=== PATIENT | male | born 1955 | race Caucasian/White ===

== ENCOUNTER 2016-10-13 10:09 | Inpatient (IN) | payer MEDICAID, OTHER ==
[~2016-10-13] VITALS: Ht 190.5 cm; Wt 77.2 kg
[2016-10-13] VITALS (7 sets, daily range): BP systolic 113–149; BP diastolic 71–98; PULSE 78–107; RESP 15–20; TEMP 96.3–97.8; O2SAT 95–98
[~2016-10-13 10:09] MED LIST: BENA25TA5 PO; PRED10 PO
[2016-10-13] MEDS ORDERED: ALBU0.63 NEB (10:35)
[2016-10-13] MEDS ORDERED: O2 INH (10:35)
[2016-10-13] MEDS ORDERED: ONDANSETRON HCL 4 MG/2 ML VIAL IVP ONE (10:45)
[2016-10-13] MEDS ORDERED: SODIUM CHLOR 0.9% 1000 ML INJ 1,000 ML IV SCH (10:45)
[2016-10-13] MEDS ORDERED: SODIUM CHLORIDE 0.9% FLUSH 5 ML FLUSH IVF PRN (10:45)
[2016-10-13] MEDS ORDERED: MORPHINE SULFATE 4 MG/ML INJ IV PUSH ONE (10:45)
[2016-10-13 10:56] LABS: AUTOMATED NEUTROPHIL # 5.2 TH/MM3 (1.8-7.7); BASOPHIL # 0.1 TH/MM3 (0-0.2); EOSINOPHIL # 0.7 TH/MM3 (0-0.4); EOSINOPHIL % 9.5 % (0.0-4.0); HEMATOCRIT 42.3 % (39.0-51.0); HEMO FLAGS DIFF FINAL; LYMPH % 13.4 % (9.0-44.0); MEAN CELL VOLUME 93.2 FL (80.0-100.0); MEAN CORPUSCULAR HEMOGLOBIN 31.7 PG (27.0-34.0); MONO % 8.9 % (0.0-8.0); NEUT % 67.2 % (16.0-70.0); PLATELET COUNT 276 TH/MM3 (150-450); RED BLOOD COUNT 4.53 MIL/MM3 (4.50-5.90); RED CELL DISTRIBUTION WIDTH 12.4 % (11.6-17.2); WHITE BLOOD COUNT 7.7 TH/MM3 (4.0-11.0)
[2016-10-13] MEDS ORDERED: HYDROmorphone HCL PF 1 MG/ML VIAL IV PUSH ONE (11:00)
[2016-10-13 11:07] LABS: CHLORIDE 93 MEQ/L (98-107); POTASSIUM 3.2 MEQ/L (3.5-5.1); SODIUM (NA) 135 MEQ/L (136-145)
[2016-10-13 11:11] LABS: ANION GAP 13 MEQ/L (5-15); BLOOD UREA NITROGEN 16 MG/DL (7-18)
[2016-10-13 11:14] LABS: ALT (GPT) 14 U/L (12-78); AST (GOT) 27 U/L (15-37); GLOMERULAR FILTRATION RATE 116 ML/MIN (>89)
[2016-10-13 11:15] LABS: TOTAL BILIRUBIN ADULT 0.6 MG/DL (0.2-1.0)
[2016-10-13 11:17] LABS: ALKALINE PHOSPHATASE 93 U/L (45-117)
[2016-10-13] MEDS ORDERED: RESP: ALBUTEROL 2.5 MG/3 ML NEB (SCH) NEB ONE (12:30)
--- NOTE | 2016-10-13 12:43 | PD ---
HPI Chief Complaint: Respiratory Symptoms Time Seen by Provider: 10:27 Travel History International Travel<30 days: No Contact w/Intl Traveler<30days: No Traveled to known affect area: No History of Present Illness HPI This is a 60-year-old male who was a history of pancreatitis and prior pseudocyst who presents to the emergency department with 3 days of left upper quadrant abdominal pain, constant, severe, radiating to the back associated with multiple episodes of vomiting. He denies any fevers or chills. He says this feels just like when he had pancreatitis in the past. He also has a history of COPD. He uses oxygen as needed at nighttime. He says he's been having increasing shortness of breath ever since onset of his pancreatitis symptoms. 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 beer) Tobacco Use: No (QUIT 1.5 MONTH AGO) Substance Use: No Allergies-Medications (Allergen,Severity, Reaction): Coded Allergies: No Known Allergies (Unverified , 10/13/16) Reported Meds & Prescriptions Reported Meds & Active Scripts Active Reported [O2] 2 Liter INH DIRECTED Albuterol Neb (Albuterol Sulfate) 0.63 Mg/3 Ml Neb 0.63 Mg NEB Q4HR NEB PRN Review of Systems Except as stated in HPI: all other systems reviewed are Neg Physical Exam Narrative GENERAL: Frail chronically ill-appearing male in no acute distress SKIN: Warm and dry. HEAD: Atraumatic. Normocephalic. EYES: Pupils equal and round. No injection or drainage. ENT: Moist mucous membranes NECK: Trachea midline. CARDIOVASCULAR: Regular rate and rhythm. No murmur appreciated. RESPIRATORY: Clear to auscultation. Breath sounds equal bilaterally. GASTROINTESTINAL: Abdomen soft, diffusely tender to palpation with guarding in the left upper quadrant MUSCULOSKELETAL: No obvious deformities. NEUROLOGICAL: Awake and alert. No obvious cranial nerve deficits. Moving all extremities. PSYCHIATRIC: Appropriate mood and affect; insight and judgment normal. Data Data Last Documented VS Vital Signs Date Time Temp Pulse Resp B/P Pulse Ox O2 Delivery O2 Flow Rate FiO2 10/13/16 12:45 86 16 126/80 97 Room Air 10/13/16 12:32 21 10/13/16 10:21 97.8 Orders Complete Blood Count With Diff (10/13/16 10:45) Comprehensive Metabolic Panel (10/13/16 10:45) Lipase (10/13/16 10:45) Lactic Acid (10/13/16 10:45) Urinalysis - C+S If Indicated (10/13/16 10:45) Iv Access Insert/Monitor (10/13/16 10:45) Ecg Monitoring (10/13/16 10:45) Oximetry (10/13/16 10:45) Morphine Inj (Morphine Inj) (10/13/16 10:45) Ondansetron Inj (Zofran Inj) (10/13/16 10:45) Sodium Chlor 0.9% 1000 Ml Inj (Ns 1000 M (10/13/16 10:45) Sodium Chloride 0.9% Flush (Ns Flush) (10/13/16 10:45) Hydromorphone Pf Inj (Dilaudid Pf Inj) (10/13/16 11:00) Albuterol Neb (Albuterol Neb) (10/13/16 12:30) Ct Abd/Pel W Iv Contrast(Rout) (10/13/16 ) Methylprednisolone So Succ Inj (Solumedr (10/13/16 12:45) Admit Order (Ed Use Only) (10/13/16 12:43) Labs Laboratory Tests Test 10/13/16 10:45 White Blood Count 7.7 TH/MM3 Red Blood Count 4.53 MIL/MM3 Hemoglobin 14.4 GM/DL Hematocrit 42.3 % Mean Corpuscular Volume 93.2 FL Mean Corpuscular Hemoglobin 31.7 PG Mean Corpuscular Hemoglobin 34.0 % Concent Red Cell Distribution Width 12.4 % Platelet Count 276 TH/MM3 Mean Platelet Volume 7.4 FL Neutrophils (%) (Auto) 67.2 % Lymphocytes (%) (Auto) 13.4 % Monocytes (%) (Auto) 8.9 % Eosinophils (%) (Auto) 9.5 % Basophils (%) (Auto) 1.0 % Neutrophils # (Auto) 5.2 TH/MM3 Lymphocytes # (Auto) 1.0 TH/MM3 Monocytes # (Auto) 0.7 TH/MM3 Eosinophils # (Auto) 0.7 TH/MM3 Basophils # (Auto) 0.1 TH/MM3 CBC Comment DIFF FINAL Differential Comment Sodium Level 135 MEQ/L Potassium Level 3.2 MEQ/L Chloride Level 93 MEQ/L Carbon Dioxide Level 29.0 MEQ/L Anion Gap 13 MEQ/L Blood Urea Nitrogen 16 MG/DL Creatinine 0.69 MG/DL Estimat Glomerular Filtration 116 ML/MIN Rate Random Glucose 106 MG/DL Lactic Acid Level 2.1 mmol/L Calcium Level 8.4 MG/DL Total Bilirubin 0.6 MG/DL Aspartate Amino Transf 27 U/L (AST/SGOT) Alanine Aminotransferase 14 U/L (ALT/SGPT) Alkaline Phosphatase 93 U/L Total Protein 8.0 GM/DL Albumin 2.8 GM/DL Lipase 8948 U/L [facility] Medical Decision Making Medical Screen Exam Complete: Yes Emergency Medical Condition: Yes Interpretation(s) Afebrile, tachycardic, hypertensive No leukocytosis Mild hypokalemia Lactic acid is 2.1 Lipase is 8948 Differential Diagnosis Acute pancreatitis, pseudocyst, necrotizing pancreatitis, gastritis, cholecystitis Narrative Course This is a 60-year-old male who has a history of pancreatitis who presents today to the emergency department with symptoms typical of his pancreatitis. Patient was placed on a monitored an IV was established. Labs are obtained which demonstrated normal white blood cell count but a lipase of 8948. He has a lactic acid of 2.1. I doubt this is necrotizing pancreatitis given his other reassuring labs however given his history of pseudocyst I think it's reasonable to perform a CT scan. Patient also has diffuse wheezing on exam. He was given a dose of methylprednisolone and albuterol in the emergency department. Patient will be admitted for pain control. Diagnosis Primary Impression: Acute pancreatitis Qualified Code: K85.90 - Acute pancreatitis without infection or necrosis, unspecified pancreatitis type Admitting Information Admitting Physician Requests: Admit Dixie Seaman MD Oct 13, 2016 12:43
[2016-10-13] MEDS ORDERED: methylPREDNISolone SOD SUCC 125 MG/2 ML VIAL IV PUSH ONE (12:45)
[2016-10-13] MEDS ORDERED: IOHEXOL 350 MG/ML 10 ML VIAL (for RAD DIAG) IV ONE (13:45)
--- NOTE | 2016-10-13 14:49 | RADHPO ---
EXAM DATE/TIME: 10/13/2016 13:38 [facility] COMPARISON: CT ABDOMEN W CONTRAST, May 01, 2014, 19:01. CT ABDOMEN & PELVIS W CONTRAST, April 21, 2014, 9:48. INDICATIONS : Left upper abdomen pain for three days. IV CONTRAST: 70 cc Omnipaque 350 (iohexol) IV ORAL CONTRAST: No oral contrast ingested. RADIATION DOSE: 5.78 CTDIvol (mGy) MEDICAL HISTORY : Pancreatitis. Congestive heart failure. Gastroesophageal reflux disease. SURGICAL HISTORY : PEG tube placement ENCOUNTER: Initial ACUITY: 3 days PAIN SCALE: 6/10 LOCATION: Left upper quadrant TECHNIQUE: Volumetric scanning of the abdomen and pelvis was performed. Using automated exposure control and ad justment of the mA and/or kV according to patient size, radiation dose was kept as low as reasonably achievable to obtain optimal diagnostic quality images. FINDINGS: LOWER LUNGS: The visualized lower lungs are clear. LIVER: Severe low-density of the liver particularly in the left lobe. Hepatic veins are within normal limits . There is narrowing of the central portal vein with periportal collateral vessels. No calcified gall stones are present. No ductal dilatation is visualized. SPLEEN: Normal size without lesion. PANCREAS: Main pancreatic duct measures between 2 and 3 mm. There are collateral vessels coursing through the h ead. There is a low density mass superior to the pancreatic head measuring 3.0 x 2.1 cm with a very l ow density center. This location previously was a more cystic appearing lesion of similar size. There is induration of the fat superior to this region and the gastrohepatic ligament region. KIDNEYS: Normal in size and shape. There is no mass, stone or hydronephrosis. ADRENAL GLANDS: Within normal limits. VASCULAR: There is no aortic aneurysm. There is moderate atherosclerotic disease. Splenic vein may be occluded. BOWEL/MESENTERY: There is a small hiatal hernia. Small bowel demonstrates no abnormality. No colon abnormality is seen . There is a small volume of free fluid in the pelvis. There is no free air. There is trace perihepat ic free fluid. ABDOMINAL WALL: Within normal limits. RETROPERITONEUM: There is no lymphadenopathy. BLADDER: No wall thickening or mass. REPRODUCTIVE: Within normal limits. INGUINAL: There is no lymphadenopathy or hernia. MUSCULOSKELETAL: No acute osseous abnormality is seen. CONCLUSION: 1. There is a low-density mass abutting indirectly superior to the pancreatic head adjacent to the me senteric vessels. It measures 3.0 x 2.1 cm and is located in a similar location to a cystic lesion se en on prior studies that was felt to represent a pseudocyst. Therefore, it may represent a similar pr ocess. However, an abnormal lymph node or mass cannot definitely be excluded. 2. There is also mild induration in the fat adjacent to this structure which could represent inflamma tion. 3. Small volume of free fluid is present within the abdomen and pelvis. 4. Severe hepatic steatosis with chronic occlusion of the central portal vein with periportal collate ralization. Jorgito Baumann MD on October 13, 2016 at 14:40 Board Certified Radiologist. This report was verified electronically.
[2016-10-13] MEDS ORDERED: NS + KCL 20 MEQ INJ 1,000 ML IV SCH (16:00)
[2016-10-13] MEDS: KETOROLAC TROMETHAMINE 30 MG/ML (IVP) VIAL IVP PRN ×2 (16:40→23:23)
--- NOTE | 2016-10-13 18:09 | HHI.HP ---
[facility] Primary Care Physician No Primary Care Physician Admission Diagnosis acute pancreatitis Diagnoses: Travel History International Travel<30 Days: No Contact w/Intl Traveler <30 Da: No Traveled to Known Affected Are: No History of Present Illness This is a very pleasant 60 year-old male with past medical history of pancreatitis of undetermined etiology in 2013 which was quite severe and recurrent with pseudocyst formation associated with 70 pound weight loss. At that time he had a PEG tube for nutrition. The patient states he has never gained his weight back. He does occasionally get epigastric pain consistent with chronic pancreatitis. He had such pain beginning 3 days ago. He has not had any vomiting. This morning he ate at [employer] and had has pounds and eggs. Again he has not had any vomiting. He came to the ER because he was still having the pain. He is hungry and wants to eat. Abdominal CT scan did show a mass versus pseudocyst in the pancreatic head as well as mild induration in the fat adjacent to this structure which could represent inflammation and a small amount of free fluid in the abdomen as well as severe hepatic stated ptosis with chronic occlusion of the central portal vein with. Portal collateralization. The patient admits to drinking alcohol 1-2 beers weekly. The patient also has a rash but she states used to be treated with prednisone. He states it is itchy and he scratches his skin until it bleeds. Review of Systems Constitutional: DENIES: Fever, Chills Respiratory: DENIES: Cough, Shortness of breath Cardiovascular: DENIES: Chest pain, Palpitations Gastrointestinal: COMPLAINS OF: Nausea, DENIES: Abdominal pain, Bloody stools , Constipation, Vomiting Genitourinary: DENIES: Urgency, Dysuria Musculoskeletal: DENIES: Back pain, Neck pain Integumentary: COMPLAINS OF: Pruritus, Rash Neurologic: COMPLAINS OF: Paresthesias (neuropathy in feet), DENIES: Abnormal gait, Headache Psychiatric: DENIES: Anxiety, Confusion Past Family Social History Past Medical History Cardiomyopathy-EF of 30-35% by echo. Pancreatitis with previous pseudocyst, likely chronic pancreatitis Right Pleural effusions COPD on O2 at night History of colitis neuropathy Allergies: Coded Allergies: No Known Allergies (Unverified , 10/13/16) Family History reviewed, [place] Social History +tobacco Physical Exam Vital Signs Vital Signs Date Time Temp Pulse Resp B/P Pulse Ox O2 Delivery O2 Flow Rate FiO2 10/13/16 13:55 85 16 113/71 96 10/13/16 12:52 93 16 126/80 95 Room Air 10/13/16 12:45 86 16 126/80 97 Room Air 10/13/16 12:32 97 21 10/13/16 10:31 20 97 Room Air 10/13/16 10:21 97.8 107 20 149/98 96 Physical Exam GENERAL: Pleasant but cachectic male patient. Somewhat unkempt. SKIN: Warm and dry. Excoriated rash on right hand. HEAD: Normocephalic. EYES: No scleral icterus. No injection or drainage. NECK: Supple, trachea midline. No JVD or lymphadenopathy. CARDIOVASCULAR: Regular rate and rhythm without murmurs, gallops, or rubs. RESPIRATORY: Breath sounds equal bilaterally. No accessory muscle use. GASTROINTESTINAL: Abdomen tender in epigastrium without guarding. Scaphoid. EXTREMITIES: No cyanosis, or edema. NEUROLOGICAL: Awake, alert, and oriented x 3. Non-focal. Laboratory Laboratory Tests Test 10/13/16 10/13/16 10:45 17:20 White Blood Count 7.7 Red Blood Count 4.53 Hemoglobin 14.4 Hematocrit 42.3 Mean Corpuscular Volume 93.2 Mean Corpuscular Hemoglobin 31.7 Mean Corpuscular Hemoglobin 34.0 Concent Red Cell Distribution Width 12.4 Platelet Count 276 Mean Platelet Volume 7.4 Neutrophils (%) (Auto) 67.2 Lymphocytes (%) (Auto) 13.4 Monocytes (%) (Auto) 8.9 Eosinophils (%) (Auto) 9.5 Basophils (%) (Auto) 1.0 Neutrophils # (Auto) 5.2 Lymphocytes # (Auto) 1.0 Monocytes # (Auto) 0.7 Eosinophils # (Auto) 0.7 Basophils # (Auto) 0.1 CBC Comment DIFF FINAL Differential Comment Sodium Level 135 Potassium Level 3.2 Chloride Level 93 Carbon Dioxide Level 29.0 Anion Gap 13 Blood Urea Nitrogen 16 Creatinine 0.69 Estimat Glomerular Filtration 116 Rate Random Glucose 106 Lactic Acid Level 2.1 1.5 Calcium Level 8.4 Total Bilirubin 0.6 Aspartate Amino Transf 27 (AST/SGOT) Alanine Aminotransferase 14 (ALT/SGPT) Alkaline Phosphatase 93 Total Protein 8.0 Albumin 2.8 Lipase 8948 Result Diagram: 10/13/16 1045 10/13/16 1045 Imaging Last Impressions Abdomen/Pelvis CT 10/13/16 0000 Signed Impressions: Service Date/Time: Thursday, October 13, 2016 13:38 - CONCLUSION: 1. There is a low-density mass abutting indirectly superior to the pancreatic head adjacent to the mesenteric vessels. It measures 3.0 x 2.1 cm and is located in a similar location to a cystic lesion seen on prior studies that was felt to represent a pseudocyst. Therefore, it may represent a similar process. However, an abnormal lymph node or mass cannot definitely be excluded. 2. There is also mild induration in the fat adjacent to this structure which could represent inflammation. 3. Small volume of free fluid is present within the abdomen and pelvis. 4. 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 Jorgito Baumann MD Assessment and Plan Assessment and Plan -Acute on chronic pancreatitis. He has no symptoms of vomiting. He does have a mass versus pseudocyst however this was worked up extensively in 2013 and is likely just the same pseudocyst. The patient is hungry and would like to eat. He was actually eating [employer] for breakfast this morning. We'll let him eat and see how he does. Repeat lipase in the morning. Pain control. Will DC IV fluids as he has a history of cardiomyopathy. Consider MRI of abd. Consider GI consult. -Rash - start prednisone -Cardiomyopathy - fluid compensated, DC IVF. [facility] Ramos MD Oct 13, 2016 18:09
[2016-10-13] MEDS: SODIUM CHLORIDE 0.9% FLUSH 5 ML FLUSH IV SCH (20:33)
[2016-10-13] MEDS: predniSONE 10 MG TAB PO SCH (20:33)
[2016-10-13] MEDS: PANTOPRAZOLE SOD 40 MG DELAYED RELEASE TAB PO SCH (20:33)
[2016-10-13] MEDS: SODIUM CHLORIDE 0.9% FLUSH 5 ML FLUSH IV PRN (23:23)
[2016-10-14] VITALS: BP 120/87; PULSE 97; RESP 20; TEMP 97.4; O2SAT 98
[2016-10-14] MEDS: KETOROLAC TROMETHAMINE 30 MG/ML (IVP) VIAL IVP PRN (05:37)
[2016-10-14] MEDS: RESP: ALBUTEROL 2.5 MG/IPRATROPIUM 0.5 MG NEB (PRN) NEB ×2 (05:45→15:48)
[2016-10-14 08:00] VITALS: BP 113/75; PULSE 89; RESP 18; TEMP 97.5; O2SAT 96
[2016-10-14] MEDS: SODIUM CHLORIDE 0.9% FLUSH 5 ML FLUSH IV SCH ×2 (10:04→20:22)
[2016-10-14] MEDS: predniSONE 10 MG TAB PO SCH ×2 (10:04→20:22)
[2016-10-14] MEDS: PANTOPRAZOLE SOD 40 MG DELAYED RELEASE TAB PO SCH ×2 (10:04→20:22)
[2016-10-14] MEDS ORDERED: oxyCODONE/ACETAMINOPHEN 5 MG/325 MG TAB PO PRN (11:45)
[2016-10-14 12:00] VITALS: BP 117/64; PULSE 90; RESP 18; TEMP 96.9; O2SAT 97
[2016-10-14] MEDS ORDERED: oxyCODONE/ACETAMINOPHEN 10 MG/325 MG TAB PO ONE (12:15)
--- NOTE | 2016-10-14 14:28 | HHI.PR ---
Subjective Remarks Patient seen and examined today with Dr. Parra. Patient states still have been significant abdominal pain whenever he eats. Toradol not really helping with the pain. Patient is tolerating food to include milk and oatmeal. Objective Vitals Vital Signs Date Time Temp Pulse Resp B/P Pulse Ox O2 Delivery O2 Flow Rate FiO2 10/14/16 12:00 96.9 90 18 117/64 97 10/14/16 08:00 97.5 89 18 113/75 96 10/14/16 04:00 10/14/16 00:00 97.4 97 20 120/87 98 10/13/16 20:00 96.3 79 18 120/81 95 10/13/16 18:53 96.6 78 15 128/86 98 I/O 10/13/16 10/13/16 10/13/16 10/14/16 10/14/16 10/14/16 07:00 15:00 23:00 07:00 15:00 23:00 Intake Total 1000 ml 489 ml 240 ml Balance 1000 ml 489 ml 240 ml Intake Oral 240 ml IV Total 1000 ml 489 ml # Voids 4 Result Diagram: 10/13/16 1045 10/13/16 1045 Objective Remarks GENERAL: Well-developed, cachectic, in no acute distress. alert and orientated HEENT: Head is normocephalic without any lesions or masses noted. Facial features are symmetric. Eyes: Extraocular muscles are intact. Conjunctivae were clear. NECK: Supple without any masses. Trachea midline no deviation. No JVD, CARDIAC: Regular rhythm, regular rate. S1/S2 are heard. No murmurs gallops or rubs. LUNGS: Clear to auscultation bilaterally. No wheeze, rhonchi or rales. No use of accessory muscles on inspiration or expiration. ABDOMEN: Soft, nontender. Nondistended. Bowel sounds heard in all 4 quadrants. No organomegaly or masses. Negative rebound, negative guarding EXTREMITIES: No edema, pulses are equal bilaterally. No cyanosis or clubbing NEUROLOGY: Mood and affect appear appropriate. Cranial nerves II through XII grossly intact. Moving all extremities, speech is clear Urinary Catheter: No Vascular Central Line Catheter: No A/P Assessment and Plan Acute on chronic pancreatitis. He has no symptoms of vomiting. he patient was hungry and actually eating [employer] for breakfast the morning of his symptoms. CT scan does indicate low-density mass likely representing a pseudocyst abutting superior to the pancreatic head adjacent to mesenteric vessels. Is also induration of fat adjacent which could represent inflammation. He was worked up extensively in 2013 and is likely just the same pseudocyst. Continue trend lipase level Continue pain control Consult GI for further recommendations DVT prevention Sequential compression devices Written by Ramin Jansen PA-C, acting as scribe for Dr. Parra on 10/14/16 at 1300. The documentation accurately reflects the work and decisions performed face-to- face by Dr. Parra on 10/14/16 at 1300. Ramin Jansen Oct 14, 2016 14:28
[2016-10-14 16:00] VITALS: BP 108/68; PULSE 86; RESP 18; TEMP 97.3; O2SAT 96
[2016-10-14] MEDS: oxyCODONE/ACETAMINOPHEN 10 MG/325 MG TAB PO PRN ×2 (16:51→21:04)
[2016-10-14 20:00] VITALS: BP 114/72; PULSE 73; RESP 18; TEMP 96.6; O2SAT 98
[2016-10-15] VITALS: BP 139/85; PULSE 71; RESP 16; TEMP 95.8; O2SAT 96
[2016-10-15] MEDS: oxyCODONE/ACETAMINOPHEN 10 MG/325 MG TAB PO PRN ×3 (01:01→09:13)
[2016-10-15 01:16] LABS: BLOOD, URINE NEG (NEG); GLUCOSE,URINE 100 mg/dL (NEG); KETONE, URINE TRACE mg/dL (NEG); NITRITE,URINE NEG (NEG)
[2016-10-15 01:32] LABS: URINE COLOR AMBER (YELLW/STRAW)
[2016-10-15 01:33] LABS: METHOD OF COLLECTION CLEAN CATCH; MUCUS URINE FEW /lpf (OCC); SQUAMOUS EPITHELIAL CELL URINE 0-5 /hpf (0-5)
[2016-10-15 01:34] LABS: BACTERIA, URINE RARE /hpf
[2016-10-15 01:35] LABS: WBC, URINE 0-2 /hpf (0-5)
[2016-10-15 01:36] LABS: COMMENT (UR) CULT NOT INDICATED; CULTURE IF INDICATED CULT NOT INDICATED
[2016-10-15] MEDS: RESP: ALBUTEROL 2.5 MG/IPRATROPIUM 0.5 MG NEB (PRN) NEB (05:22)
[2016-10-15 08:00] VITALS: BP 114/78; PULSE 98; RESP 20; TEMP 96.8; O2SAT 95
[2016-10-15] MEDS: PANTOPRAZOLE SOD 40 MG DELAYED RELEASE TAB PO SCH ×2 (09:13→22:16)
[2016-10-15] MEDS: predniSONE 10 MG TAB PO SCH ×2 (09:13→22:16)
[2016-10-15] MEDS: SODIUM CHLORIDE 0.9% FLUSH 5 ML FLUSH IV SCH ×2 (09:15→21:00)
[2016-10-15 10:55] LABS: HEMATOCRIT 35.5 % (39.0-51.0); RED BLOOD COUNT 3.71 MIL/MM3 (4.50-5.90)
[2016-10-15 10:56] LABS: AUTOMATED NEUTROPHIL # 10.6 TH/MM3 (1.8-7.7); BASOPHIL % 0.3 % (0.0-2.0); EOSINOPHIL % 0.2 % (0.0-4.0); HEMO FLAGS DIFF FINAL; LYMPH % 4.5 % (9.0-44.0); LYMPHOCYTE # 0.5 TH/MM3 (1.0-4.8); MEAN CELL VOLUME 95.7 FL (80.0-100.0); MEAN CORPUSCULAR HEMOGLOBIN 32.7 PG (27.0-34.0); MEAN CORPUSCULAR HGB CONC 34.2 % (32.0-36.0); MONO % 7.7 % (0.0-8.0); NEUT % 87.3 % (16.0-70.0); PLATELET COUNT 225 TH/MM3 (150-450); RED CELL DISTRIBUTION WIDTH 12.8 % (11.6-17.2)
[2016-10-15 11:02] LABS: CHLORIDE 99 MEQ/L (98-107); SODIUM (NA) 139 MEQ/L (136-145)
[2016-10-15 11:06] LABS: ANION GAP 11 MEQ/L (5-15); BICARBONATE 29.5 MEQ/L (21.0-32.0); BLOOD UREA NITROGEN 13 MG/DL (7-18); MAGNESIUM 1.3 MG/DL (1.5-2.5)
[2016-10-15 11:09] LABS: ALT (GPT) 13 U/L (12-78); AST (GOT) 19 U/L (15-37); GLOMERULAR FILTRATION RATE 139 ML/MIN (>89)
[2016-10-15 11:10] LABS: TOTAL BILIRUBIN ADULT 0.6 MG/DL (0.2-1.0)
[2016-10-15 11:12] LABS: ALKALINE PHOSPHATASE 77 U/L (45-117)
[2016-10-15 12:00] VITALS: BP 121/74; PULSE 79; RESP 20; TEMP 97; O2SAT 96
[2016-10-15] MEDS: ONDANSETRON HCL 4 MG/2 ML VIAL IV PRN (12:13)
[2016-10-15 13:51] LABS: CREATINE KINASE 84 U/L (39-308)
[2016-10-15] MEDS: HYDROmorphone HCL PF 1 MG/ML VIAL IV PUSH PRN ×3 (14:35→23:38)
[2016-10-15] MEDS: SODIUM CHLORIDE 0.9% FLUSH 5 ML FLUSH IV PRN (14:36)
--- NOTE | 2016-10-15 14:41 | HHI.PR ---
Subjective Remarks Patient seen and examined today with Dr. Parra. Patient with worsening pain now radiating up into his left shoulder. Patient did eat a little this morning. Objective Vitals Vital Signs Date Time Temp Pulse Resp B/P Pulse Ox O2 Delivery O2 Flow Rate FiO2 10/15/16 12:00 97.0 79 20 121/74 96 10/15/16 08:00 96.8 98 20 114/78 95 10/15/16 00:00 95.8 71 16 139/85 96 10/14/16 20:00 96.6 73 18 114/72 98 10/14/16 16:00 97.3 86 18 108/68 96 I/O 10/14/16 10/14/16 10/14/16 10/15/16 10/15/16 10/15/16 07:00 15:00 23:00 07:00 15:00 23:00 Intake Total 240 ml 675 ml 640 ml 64 ml 420 ml Output Total 850 ml 200 ml 370 ml 250 ml Balance 240 ml -175 ml 440 ml -306 ml 170 ml Intake Oral 240 ml 675 ml 640 ml 64 ml 420 ml Output Urine Total 850 ml 200 ml 370 ml 250 ml # Voids 4 1 # Bowel Movements 0 0 Result Diagram: 10/15/16 0600 10/15/16 0600 Objective Remarks GENERAL: Well-developed, cachectic, in no acute distress. alert and orientated HEENT: Head is normocephalic without any lesions or masses noted. Facial features are symmetric. Eyes: Extraocular muscles are intact. Conjunctivae were clear. NECK: Supple without any masses. Trachea midline no deviation. No JVD, CARDIAC: Regular rhythm, regular rate. S1/S2 are heard. No murmurs gallops or rubs. LUNGS: Clear to auscultation bilaterally. No wheeze, rhonchi or rales. No use of accessory muscles on inspiration or expiration. ABDOMEN: Soft, nontender. Nondistended. Bowel sounds heard in all 4 quadrants. No organomegaly or masses. Negative rebound, negative guarding EXTREMITIES: No edema, pulses are equal bilaterally. No cyanosis or clubbing NEUROLOGY: Mood and affect appear appropriate. Cranial nerves II through XII grossly intact. Moving all extremities, speech is clear Urinary Catheter: No Vascular Central Line Catheter: No A/P Assessment and Plan Acute on chronic pancreatitis. Patient with worsening pain now into the chest and left shoulder with 4 times worsening lipase level today He had no symptoms of vomiting on presentation. he patient was hungry and actually eating [employer] for breakfast the morning of his symptoms. CT scan does indicate low-density mass likely representing a pseudocyst abutting superior to the pancreatic head adjacent to mesenteric vessels. Is also induration of fat adjacent which could represent inflammation. He was worked up extensively in 2013 and is likely just the same pseudocyst. Continue trend lipase level Continue pain control Consult GI for further recommendations, Dr. Parra spoke with Dr. Weiss who recommended MRCP Statin cardiac enzymes were negative, EKG was without any ST elevations DVT prevention Sequential compression devices Written by Ramin Jansen PA-C, acting as scribe for Dr. Parra on 10/15/16 at 1330. The documentation accurately reflects the work and decisions performed face-to- face by Dr. Parra on 10/15/16 at 1330. Ramin Jansen Oct 15, 2016 14:40
[2016-10-15] MEDS ORDERED: GADODIAMIDE PF 287 MG/ML 5 ML VIAL (for RAD MRI) IV ONE (15:55)
--- NOTE | 2016-10-15 16:20 | RADHPO ---
EXAM DATE/TIME: 10/15/2016 15:10 [facility] COMPARISON: CT ABDOMEN & PELVIS W CONTRAST, October 13, 2016, 13:38. INDICATIONS : Pancreatitis. CONTRAST: 12 cc Omniscan (gadodiamide) IV MEDICAL HISTORY : None. SURGICAL HISTORY : Feeding tube ENCOUNTER: Initial ACUITY: 3 day PAIN SCORE: 8/10 LOCATION: Bilateral upper quadrant TECHNIQUE: Multiplanar, multisequence magnetic resonance imaging of the abdomen was performed. High-resolution 3D dataset was utilized to reconstruct maximum-intensity projection (MIP) images. FINDINGS: There is hepatomegaly with homogeneous steatosis. Ascitic fluid is noted around the inferior aspect o f the liver and the gallbladder is seen as a luminal structure without wall thickening or stones, def ects. Intrahepatic bile ducts are normal with the common duct measuring 7 mm and distally a blunted a nd suggesting filling defect or stone. CONCLUSION: Abnormal common duct 7 mm in width however distally this is blunted suggesting a luminal defect or st one. Further evaluation with ERCP is recommended. Yobani Bashir MD on October 15, 2016 at 16:14 Board Certified Radiologist. This report was verified electronically.
[2016-10-15 16:30] VITALS: BP 119/78; PULSE 92; RESP 20; TEMP 97.1; O2SAT 95
[2016-10-15] MEDS: D5-1/2 NS + KCL 20 MEQ INJ 1,000 ML IV SCH (19:38)
[2016-10-15 20:00] VITALS: BP 107/80; PULSE 79; RESP 20; TEMP 96; O2SAT 94
--- NOTE | 2016-10-15 21:54 | EKG ---
Date Performed: 10/13/2016 Time Performed: 10:14:52 PTAGE: 60 years EKG: Sinus tachycardia with PAC(s). Possible left atrial abnormality Left anterior fascicular bl ock Borderline ECG Compared to the PREVIOUS TRACING from 04/15/14, no significant change DOCTOR: Reji Rae Interpretating Date/Time 10/15/2016 21:52:51
[2016-10-16] VITALS (7 sets, daily range): BP systolic 107–139; BP diastolic 74–84; PULSE 89–116; RESP 16–22; TEMP 97.3–97.8; O2SAT 92–98
[2016-10-16] MEDS: HYDROmorphone HCL PF 1 MG/ML VIAL IV PUSH PRN ×5 (06:19→23:56)
[2016-10-16 06:46] LABS: AUTOMATED NEUTROPHIL # 12.2 TH/MM3 (1.8-7.7); BASOPHIL % 0.2 % (0.0-2.0); EOSINOPHIL % 0.1 % (0.0-4.0); HEMATOCRIT 39.9 % (39.0-51.0); LYMPH % 3.9 % (9.0-44.0); LYMPHOCYTE # 0.5 TH/MM3 (1.0-4.8); MEAN CELL VOLUME 96.4 FL (80.0-100.0); MEAN CORPUSCULAR HEMOGLOBIN 31.7 PG (27.0-34.0); MEAN CORPUSCULAR HGB CONC 32.9 % (32.0-36.0); MONO % 5.5 % (0.0-8.0); NEUT % 90.3 % (16.0-70.0); PLATELET COUNT 269 TH/MM3 (150-450); RED BLOOD COUNT 4.15 MIL/MM3 (4.50-5.90); RED CELL DISTRIBUTION WIDTH 13.4 % (11.6-17.2); WHITE BLOOD COUNT 13.4 TH/MM3 (4.0-11.0)
[2016-10-16 06:47] LABS: HEMO FLAGS AUTO DIFF
[2016-10-16 06:49] LABS: CHLORIDE 96 MEQ/L (98-107); POTASSIUM 4.2 MEQ/L (3.5-5.1); SODIUM (NA) 136 MEQ/L (136-145)
[2016-10-16 06:56] LABS: ANION GAP 10 MEQ/L (5-15); BICARBONATE 30.1 MEQ/L (21.0-32.0); BLOOD UREA NITROGEN 13 MG/DL (7-18)
[2016-10-16 06:58] LABS: ALT (GPT) 12 U/L (12-78); AST (GOT) 19 U/L (15-37)
[2016-10-16 06:59] LABS: GLOMERULAR FILTRATION RATE 116 ML/MIN (>89)
[2016-10-16 07:00] LABS: TOTAL BILIRUBIN ADULT 0.7 MG/DL (0.2-1.0)
[2016-10-16 07:01] LABS: ALKALINE PHOSPHATASE 63 U/L (45-117)
[2016-10-16 07:22] LABS: SCAN/DIFF AUTO DIFF CONFIRMED
[2016-10-16] MEDS: RESP: ALBUTEROL 2.5 MG/IPRATROPIUM 0.5 MG NEB (PRN) NEB ×2 (07:38→21:13)
--- NOTE | 2016-10-16 08:35 | MB ---
cc: BHARAT BOO M.D.,PAULY Anthony MD DATE OF CONSULTATION 10/15/[address] Parra REASON FOR CONSULTATION Chronic recurrent pancreatitis, weight loss, abdominal pain, MRCP revealing the possibility of a filling defect in the distal common bile duct. HISTORY Mr. Nathan is a 60-year-old gentleman who had a very extensive hospital stay two years ago for pancreatitis. Workup at that time did not reveal a definitive etiology of pancreatitis as far as I could tell. He does drink alcohol, but it is very minimal. He says he did reasonably well in the interim two years, but then presents again with severe abdominal pain and biochemical evidence of pancreatitis. REVIEW OF SYSTEMS Abdominal pain, nausea, but no other symptoms. PAST MEDICAL HISTORY 1. Cardiomyopathy 2. Pancreatitis with pseudocyst formation in the past 3. COPD 4. History of colitis 5. Neuropathy FAMILY HISTORY Noncontributory SOCIAL HISTORY The patient is a smoker. Drinks one to two beers a week. PHYSICAL EXAM Physical examination reveals a cachectic looking man in no apparent distress. VITALS: Stable. HEAD AND NECK: Anicteric sclerae. CHEST: Bilateral air entry with rales. ABDOMEN: Soft, tenderness in the epigastric area with some guarding and rigidity. EELER: Exam is nonfocal. LABORATORY DATA Labs reveal a lipase of 17,280. White cell count of 12. Liver function tests are normal. An MRCP reveals a dilated common bile duct at 7 mm with a possible stone in the distal CBD. IMPRESSION Biliary pancreatitis RECOMMENDATIONS The patient to be transferred to [facility] for possible ERCP tomorrow. He did have an ERCP April 22, 2014 which was normal at that time. N.p.o. with IV fluid, aggressive rehydration is recommended. Further recommendations to follow. This has been discussed with primary care team. Thank you for this referral. MD WARREN Bhakta/KALE /7:54 PM /8:29 AM
[2016-10-16] MEDS: SODIUM CHLORIDE 0.9% FLUSH 5 ML FLUSH IV SCH ×2 (09:00→21:00)
[2016-10-16] MEDS ORDERED: MAGNESIUM SULFATE 1 GM PREMIX 100 ML IV ONE (09:45)
[2016-10-16] MEDS: predniSONE 10 MG TAB PO SCH ×2 (09:59→21:11)
[2016-10-16] MEDS: PANTOPRAZOLE SOD 40 MG DELAYED RELEASE TAB PO SCH ×2 (09:59→21:11)
[2016-10-16] MEDS: D5-1/2 NS + KCL 20 MEQ INJ 1,000 ML IV SCH ×2 (10:10→15:23)
--- NOTE | 2016-10-16 16:02 | HHI.PR ---
Subjective Remarks Vision seen this afternoon around 3:30. He says that epigastric pain is slightly improved. He is requesting a diet. He denies any nausea or vomiting today. Objective Vital Signs Date Time Temp Pulse Resp B/P Pulse Ox O2 Delivery O2 Flow Rate FiO2 10/16/16 14:37 97.3 98 18 134/83 98 10/16/16 08:00 97.7 89 18 139/78 93 10/16/16 07:39 94 21 10/16/16 00:00 97.8 98 18 107/82 94 10/15/16 20:00 96.0 79 20 107/80 94 10/15/16 16:30 97.1 92 20 119/78 95 I/O 10/15/16 10/15/16 10/15/16 10/16/16 10/16/16 10/16/16 07:00 15:00 23:00 07:00 15:00 23:00 Intake Total 64 ml 995 ml 1024 ml Output Total 370 ml 250 ml Balance -306 ml 745 ml 1024 ml Intake Oral 64 ml 420 ml 640 ml IV Total 575 ml 384 ml Output Urine Total 370 ml 250 ml # Voids 1 3 # Bowel Movements 0 Result Diagram: 10/16/16 0550 10/16/16 0550 Imaging Last Impressions Cholangiopancreatography MRI 10/15/16 0000 Signed Impressions: Service Date/Time: Saturday, October 15, 2016 15:10 - CONCLUSION: Abnormal common duct 7 mm in width however distally this is blunted suggesting a luminal defect or stone. Further evaluation with ERCP is recommended. Yobani Bashir MD Abdomen/Pelvis CT 10/13/16 0000 Signed Impressions: Service Date/Time: Thursday, October 13, 2016 13:38 - CONCLUSION: 1. There is a low-density mass abutting indirectly superior to the pancreatic head adjacent to the mesenteric vessels. It measures 3.0 x 2.1 cm and is located in a similar location to a cystic lesion seen on prior studies that was felt to represent a pseudocyst. Therefore, it may represent a similar process. However, an abnormal lymph node or mass cannot definitely be excluded. 2. There is also mild induration in the fat adjacent to this structure which could represent inflammation. 3. Small volume of free fluid is present within the abdomen and pelvis. 4. 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 Jorgito Baumann MD Objective Remarks GENERAL: Patient sitting up in bed. Appears couple. He is alert and oriented 3 SKIN: Warm and dry. HEAD: Normocephalic. EYES: No scleral icterus. No injection or drainage. NECK: Supple, trachea midline. No JVD or lymphadenopathy. CARDIOVASCULAR: Regular rate and rhythm without murmurs, gallops, or rubs. RESPIRATORY: Breath sounds equal bilaterally. No accessory muscle use. GASTROINTESTINAL: Abdomen soft, non-tender, nondistended. No rebound or guarding. Positive bowel sounds. MUSCULOSKELETAL: No cyanosis, or edema. BACK: Nontender without obvious deformity. No CVA tenderness. A/P Assessment and Plan //Acute on chronic pancreatitis. -With worsening pain on admission. Lipase to 17,000 on 10/15. Trending down. Pain Improved slightly on 10/16 CT scan does indicate low-density mass likely representing a pseudocyst abutting superior to the pancreatic head adjacent to mesenteric vessels. Is also induration of fat adjacent which could represent inflammation. He was worked up extensively in 2013. -Negative EKGs and troponins. -Gastroenterology. -Planned ERCP for 10/17/16 -Continue IV fluids. Clears until midnight. //Bilateral hand excoriations -Patient reports this is chronic and improving, initially secondary to bleach exposure. No signs of acute infection. NO Blistering to indicate porphyria. -Continue to monitor. DVT prophy Sequential compression devices Discharge Planning planned ERCP. When tolerating diet, Patient may be able to go home within the next 1-3 days. Omar Barrett MD Oct 16, 2016 16:02
--- NOTE | 2016-10-16 16:59 | EKG ---
Date Performed: 10/15/2016 Time Performed: 17:07:22 PTAGE: 60 years EKG: Sinus arrhythmia with PVC(s). Left anterior fascicular block Compared to prior tracing no s ignificant change Borderline ECG PREVIOUS TRACING : 10/13/2016 10.14 DOCTOR: Toshia Guillen Interpretating Date/Time 10/16/2016 16:55:46
--- NOTE | 2016-10-16 20:16 | HHI.GIFU ---
GI Follow-up Note Consult Follow-up Subjective: Patient laying in bed comfortably, feeling better.Transferred from [place] for ercp .Asking for food.Feeling better, still some pain and nausea Objective: PHYSICAL EXAMINATION: Vitals signs stable No fever Vital Signs Date Time Temp Pulse Resp B/P Pulse Ox O2 Delivery O2 Flow Rate FiO2 10/16/16 16:00 97.3 116 22 118/84 94 10/16/16 14:37 97.3 98 18 134/83 98 HEENT: Pupils round and reactive to light; normocephalic; atraumatic; no jaundice. Throat is clear. NECK: Neck is supple, no JVD, no lymphadenopathy. CHEST: Chest is clear to auscultation and percussion. CARDIAC: Regular rate and rhythm with no murmur gallop or rubs. ABDOMEN: Soft,distended, epigastric tenderness; no hepatosplenomegaly; bowel sounds are present in all four quadrants. EXTREMITIES: No clubbing, cyanosis, or edema. SKIN: Normal; no rash; no jaundice. POLICY SPECIALIST: No focal deficits; alert and oriented times three. Available Data (labs, X- Rays, Procedues) : Laboratory Tests Test 10/15/16 10/15/16 10/15/16 10/16/16 01:00 06:00 12:35 05:50 Urine Collection Type CLEAN CATCH Urine Color MARIANO Urine Turbidity CLEAR Urine pH 6.0 Urine Specific [place] 1.027 Urine Protein TRACE mg/dL Urine Glucose (UA) 100 mg/dL Urine Ketones TRACE mg/dL Urine Occult Blood NEG Urine Nitrite NEG Urine Bilirubin NEG Urine Leukocyte Esterase NEG Urine WBC 0-2 /hpf Urine Squamous Epithelial 0-5 /hpf Cells Urine Amorphous Sediment SMALL Urine Bacteria RARE /hpf Urine Mucus FEW /lpf Microscopic Urinalysis Comment CULT NOT INDICATED White Blood Count 12.0 TH/MM3 13.4 TH/MM3 Red Blood Count 3.71 MIL/MM3 4.15 MIL/MM3 Hemoglobin 12.1 GM/DL 13.1 GM/DL Hematocrit 35.5 % 39.9 % Mean Corpuscular Volume 95.7 FL 96.4 FL Mean Corpuscular Hemoglobin 32.7 PG 31.7 PG Mean Corpuscular Hemoglobin 34.2 % 32.9 % Concent Red Cell Distribution Width 12.8 % 13.4 % Platelet Count 225 TH/MM3 269 TH/MM3 Mean Platelet Volume 7.8 FL 8.1 FL Neutrophils (%) (Auto) 87.3 % 90.3 % Lymphocytes (%) (Auto) 4.5 % 3.9 % Monocytes (%) (Auto) 7.7 % 5.5 % Eosinophils (%) (Auto) 0.2 % 0.1 % Basophils (%) (Auto) 0.3 % 0.2 % Neutrophils # (Auto) 10.6 TH/MM3 12.2 TH/MM3 Lymphocytes # (Auto) 0.5 TH/MM3 0.5 TH/MM3 Monocytes # (Auto) 0.9 TH/MM3 0.7 TH/MM3 Eosinophils # (Auto) 0.0 TH/MM3 0.0 TH/MM3 Basophils # (Auto) 0.0 TH/MM3 0.0 TH/MM3 CBC Comment DIFF FINAL AUTO DIFF Differential Comment AUTO DIFF CONFIRMED Sodium Level 139 MEQ/L 136 MEQ/L Potassium Level 4.0 MEQ/L 4.2 MEQ/L Chloride Level 99 MEQ/L 96 MEQ/L Carbon Dioxide Level 29.5 MEQ/L 30.1 MEQ/L Anion Gap 11 MEQ/L 10 MEQ/L Blood Urea Nitrogen 13 MG/DL 13 MG/DL Creatinine 0.59 MG/DL 0.69 MG/DL Estimat Glomerular Filtration 139 ML/MIN 116 ML/MIN Rate Random Glucose 99 MG/DL 92 MG/DL Calcium Level 8.5 MG/DL 8.6 MG/DL Magnesium Level 1.3 MG/DL Total Bilirubin 0.6 MG/DL 0.7 MG/DL Aspartate Amino Transf 19 U/L 19 U/L (AST/SGOT) Alanine Aminotransferase 13 U/L 12 U/L (ALT/SGPT) Alkaline Phosphatase 77 U/L 63 U/L Total Protein 6.9 GM/DL 6.8 GM/DL Albumin 2.7 GM/DL 2.5 GM/DL Lipase 02639 U/L 4987 U/L Total Creatine Kinase 84 U/L Troponin I LESS THAN 0.02 NG/ML ASSESSMENT/PLAN: pancreatitis questionable cbd stone chronic pancreatitis with history of pseudocyst weight loss secondary chronic pancreatitis Recommendations ercp in am clear liquid diet ivf monitor cbc, cmp, lipase avoid etoh It was a pleasure seeing José Miguel Nathan. Thank you for this consult. Entered by: Maryellen Edwards MD Oct 16, 2016 20:16
[2016-10-17] VITALS: BP 128/80; PULSE 100; RESP 16; TEMP 95.6; O2SAT 97
[2016-10-17] MEDS: HYDROmorphone HCL PF 1 MG/ML VIAL IV PUSH PRN ×5 (03:56→21:44)
[2016-10-17] MEDS: D5-1/2 NS + KCL 20 MEQ INJ 1,000 ML IV SCH (03:56)
[2016-10-17 04:01] VITALS: BP 112/66; PULSE 93; RESP 16; TEMP 96.9; O2SAT 94
[2016-10-17 07:23] LABS: AUTOMATED NEUTROPHIL # 10.7 TH/MM3 (1.8-7.7); BASOPHIL % 0.1 % (0.0-2.0); EOSINOPHIL # 0.1 TH/MM3 (0-0.4); EOSINOPHIL % 1.1 % (0.0-4.0); HEMATOCRIT 34.4 % (39.0-51.0); HEMO FLAGS DIFF FINAL; LYMPH % 3.3 % (9.0-44.0); LYMPHOCYTE # 0.4 TH/MM3 (1.0-4.8); MEAN CELL VOLUME 95.7 FL (80.0-100.0); MEAN CORPUSCULAR HEMOGLOBIN 31.7 PG (27.0-34.0); MEAN CORPUSCULAR HGB CONC 33.1 % (32.0-36.0); MONO % 8.5 % (0.0-8.0); PLATELET COUNT 223 TH/MM3 (150-450); RED BLOOD COUNT 3.59 MIL/MM3 (4.50-5.90); RED CELL DISTRIBUTION WIDTH 13.7 % (11.6-17.2); WHITE BLOOD COUNT 12.3 TH/MM3 (4.0-11.0)
[2016-10-17 07:48] LABS: ALT (GPT) 10 U/L (12-78); ANION GAP 5 MEQ/L (5-15); AST (GOT) 10 U/L (15-37); BICARBONATE 33.2 MEQ/L (21.0-32.0); BLOOD UREA NITROGEN 11 MG/DL (7-18); CHLORIDE 97 MEQ/L (98-107); MAGNESIUM 1.5 MG/DL (1.5-2.5); POTASSIUM 3.8 MEQ/L (3.5-5.1); SODIUM (NA) 135 MEQ/L (136-145)
[2016-10-17 07:52] LABS: ALKALINE PHOSPHATASE 54 U/L (45-117); TOTAL BILIRUBIN ADULT 0.5 MG/DL (0.2-1.0)
[2016-10-17 08:00] VITALS: BP 120/73; PULSE 89; RESP 18; TEMP 98.2; O2SAT 97
[2016-10-17] MEDS: PANTOPRAZOLE SOD 40 MG DELAYED RELEASE TAB PO SCH ×3 (08:38→21:47)
[2016-10-17] MEDS: predniSONE 10 MG TAB PO SCH ×3 (08:38→21:46)
[2016-10-17] MEDS: SODIUM CHLORIDE 0.9% FLUSH 5 ML FLUSH IV SCH ×2 (08:38→20:05)
[2016-10-17] MEDS: D5-NS + KCL 20 MEQ INJ 1,000 ML IV SCH ×2 (09:30→21:44)
[2016-10-17 12:00] VITALS: BP 109/61; PULSE 91; RESP 16; TEMP 98.3; O2SAT 93
[2016-10-17 16:00] VITALS: BP 117/71; PULSE 94; RESP 18; TEMP 97; O2SAT 94
[2016-10-17] MEDS: RESP: ALBUTEROL 2.5 MG/IPRATROPIUM 0.5 MG NEB (PRN) NEB (16:02)
--- NOTE | 2016-10-17 16:34 | HHI.PR ---
Subjective Remarks Patient seen this afternoon around 2:30 PM. He reports that epigastric pain is slightly better than yesterday. He is nothing by mouth for planned ERCP. He denies any chest pain or shortness of breath. Denies any nausea or vomiting today. Objective Vital Signs Date Time Temp Pulse Resp B/P Pulse Ox O2 Delivery O2 Flow Rate FiO2 10/17/16 12:00 98.3 91 16 109/61 93 10/17/16 08:00 98.2 89 18 120/73 97 10/17/16 04:01 96.9 93 16 112/66 94 10/17/16 00:00 95.6 100 16 128/80 97 10/16/16 21:13 93 21 10/16/16 20:00 97.5 100 16 116/74 92 I/O 10/16/16 10/16/16 10/16/16 10/17/16 10/17/16 10/17/16 07:00 15:00 23:00 07:00 15:00 23:00 Intake Total 1024 ml 660 ml 1080 ml Balance 1024 ml 660 ml 1080 ml Intake Oral 640 ml 660 ml IV Total 384 ml 1080 ml # Voids 3 1 1 # Bowel Movements 0 0 0 Result Diagram: 10/17/1662110/17/16621 Objective Remarks GENERAL: Patient sitting up in bed. Appears comfortable. He is alert and oriented 3 SKIN: Warm and dry. Hand excoriations. Multiple superficial excoriations over predominantly) CTs, as well as left MCP is to some extent. Minimal surrounding erythema. No signs of infection. HEAD: Normocephalic. EYES: No scleral icterus. No injection or drainage. NECK: Supple, trachea midline. No JVD or lymphadenopathy. CARDIOVASCULAR: Regular rate and rhythm without murmurs, gallops, or rubs. RESPIRATORY: Breath sounds equal bilaterally. No accessory muscle use. GASTROINTESTINAL: Abdomen soft, non-tender, nondistended. No rebound or guarding. Positive bowel sounds. No change. MUSCULOSKELETAL: No cyanosis, or edema. BACK: Nontender without obvious deformity. No CVA tenderness. A/P Assessment and Plan //Acute on chronic pancreatitis. -With worsening pain on admission. Lipase to 17,000 on 10/15. Trending down. Pain Improved slightly on 10/16 CT scan does indicate low-density mass likely representing a pseudocyst abutting superior to the pancreatic head adjacent to mesenteric vessels. Is also induration of fat adjacent which could represent inflammation. He was worked up extensively in 2014. -Negative EKGs and troponins. -Gastroenterology. -Planned ERCP today. Appreciate GI assistance. Nothing by mouth for procedure. //Bilateral hand excoriations -Patient reports this is chronic and improving, initially secondary to bleach exposure. No signs of acute infection. NO Blistering to indicate porphyria. -10/17. Appears to be improving slightly. -Continue to monitor. //Hyponatremia. Mild. 10/17 Secondary to one half normal saline. Switch to D5 saline. DVT prophy Sequential compression devices Discharge Planning planned ERCP today. When tolerating diet, Patient may be able to go home within the next 1-3 days. Omar Barrett MD Oct 17, 2016 16:34
[2016-10-17] MEDS ORDERED: PROPOFOL 200 MG/20 ML AMP IV ONE (18:19)
[2016-10-17] MEDS ORDERED: IOHEXOL 350 MG/ML 100 ML BTL (for RAD DIAG) IV ONE (18:21)
[2016-10-17] MEDS ORDERED: GLUCAGON 1 MG/ML VIAL IV ONE ×2 (18:28→19:04)
[2016-10-17] MEDS ORDERED: SINCALIDE 5 MCG/5 ML VIAL IV ONE (18:57)
--- NOTE | 2016-10-17 19:44 | HHI.GIFU ---
Subjective Remarks patient with some abdominal pain. Objective Vitals I&O Vital Signs Date Time Temp Pulse Resp B/P Pulse Ox O2 Delivery O2 Flow Rate FiO2 10/17/16 16:00 97.0 94 18 117/71 94 10/17/16 12:00 98.3 91 16 109/61 93 10/17/16 08:00 98.2 89 18 120/73 97 10/17/16 04:01 96.9 93 16 112/66 94 10/17/16 00:00 95.6 100 16 128/80 97 10/16/16 21:13 93 21 10/16/16 20:00 97.5 100 16 116/74 92 I/O 10/16/16 10/16/16 10/16/16 10/17/16 10/17/16 10/17/16 07:00 15:00 23:00 07:00 15:00 23:00 Intake Total 1024 ml 660 ml 1080 ml 0 ml Output Total 450 ml Balance 1024 ml 660 ml 1080 ml -450 ml Intake Oral 640 ml 660 ml 0 ml IV Total 384 ml 1080 ml Output Urine Total 450 ml # Voids 3 1 1 # Bowel Movements 0 0 0 Laboratory Laboratory Tests Test 10/17/16 06:22 White Blood Count 12.3 Red Blood Count 3.59 Hemoglobin 11.4 Hematocrit 34.4 Mean Corpuscular Volume 95.7 Mean Corpuscular Hemoglobin 31.7 Mean Corpuscular Hemoglobin 33.1 Concent Red Cell Distribution Width 13.7 Platelet Count 223 Mean Platelet Volume 7.9 Neutrophils (%) (Auto) 87.0 Lymphocytes (%) (Auto) 3.3 Monocytes (%) (Auto) 8.5 Eosinophils (%) (Auto) 1.1 Basophils (%) (Auto) 0.1 Neutrophils # (Auto) 10.7 Lymphocytes # (Auto) 0.4 Monocytes # (Auto) 1.0 Eosinophils # (Auto) 0.1 Basophils # (Auto) 0.0 CBC Comment DIFF FINAL Differential Comment Sodium Level 135 Potassium Level 3.8 Chloride Level 97 Carbon Dioxide Level 33.2 Anion Gap 5 Blood Urea Nitrogen 11 Creatinine 0.60 Random Glucose 105 Calcium Level 8.1 Magnesium Level 1.5 Total Bilirubin 0.5 Aspartate Amino Transf 10 (AST/SGOT) Alanine Aminotransferase 10 (ALT/SGPT) Alkaline Phosphatase 54 Total Protein 5.6 Albumin 2.1 Lipase 2871 Physical Exam HEENT: Pupils round and reactive to light; normocephalic; atraumatic; no jaundice. Throat is clear. NECK: Neck is supple, no JVD, no lymphadenopathy. CHEST: Chest is clear to auscultation and percussion. CARDIAC: Regular rate and rhythm with no murmur gallop or rubs. ABDOMEN: Soft, nondistended, mile epigastric tender; no hepatosplenomegaly; bowel sounds are present in all four quadrants. EXTREMITIES: No clubbing, cyanosis, or edema. SKIN: Normal; no rash; no jaundice. GANG INVESTIGATOR: No focal deficits; alert and oriented times three. Assessment and Plan Plan abdominal pain, pancreatitis, ? pseudocyst vs mass in the head of the pancreas. ? filling defect in the CBD and possible stricture on MRCP, ERCP done today, enlarged pancreatic duct with branching c/w chronic pancreatitis, no communication to pancreatic duct, the wire would not pass the distal part of the common bile duct and nor bile with Kinevac, small sphincterotomy was done. we will F/U LFTs if gets elevated patient will need PTC if not EUS shortly to R/ O mass and stone. Adriano Griffin MD Oct 17, 2016 19:44
--- NOTE | 2016-10-17 20:01 | EC ---
Study Study Date:10/17/2016 STUDY CONCLUSIONS SUMMARY - Procedure narrative: Image quality was poor. The study was technically limited due to poor acoustic window availability. - Left ventricle: The cavity size was normal. Unable to determine the ejection fraction or wall motion abnormalities. Limited views, the ejection fraction appears mild to moderately reduced. If LV function is below 40, please consider prescribing an ACEI or ARB or document rationale for non-use. PROCEDURE DATA STUDY STATUS: Elective. Procedure: Transthoracic echocardiography. Image quality was poor. The study was technically limited due to poor acoustic window availability. Scanning was performed from the parasternal, apical, and subcostal acoustic windows. Study completion: The patient tolerated the procedure well. Transthoracic echocardiography. M-mode, complete 2D, complete spectral Doppler, and color Doppler. Patient status: Inpatient. CARDIAC ANATOMY LEFT VENTRICLE: Not well visualized. The cavity size was normal. Unable to determine the ejection fraction or wall motion abnormalities. Limited views, the ejection fraction appears mild to moderately reduced. Images were inadequate for LV wall motion assessment. AORTIC VALVE: Poorly visualized. Doppler: No significant regurgitation. Mean gradient: 3mm Hg (S). MITRAL VALVE: The valve appears to be grossly normal. Doppler: There was no evidence for stenosis. Trace regurgitation. Mean gradient: 1mm Hg (D). PULMONIC VALVE: Not well visualized. TRICUSPID VALVE: Not well visualized. BASIC MEASUREMENTS ADULT NORMAL Left ventricle LV internal dimension, ED, chordal level, 43.3 mm 43-52 PLAX LV internal dimension, ES, chordal level, 32.7 mm 23-38 PLAX Fractional shortening, chordal level, PLAX *24 % >29 LV posterior wall thickness, ED 11.3 mm IVS/LVPW ratio, ED 0.68 <1.3 Ventricular septum Septal thickness, ED 7.71 mm Left atrium Anterior-posterior dimension 31 mm Right ventricle RV internal dimension, ED, PLAX 35.5 mm 19-38 DOPPLER MEASUREMENTS ADULT NORMAL Aortic valve Peak velocity, S 117 cm/s Mean velocity, S 77.3 cm/s VTI, S 17.9 cm Mean gradient, S 3 mm Hg Mitral valve Peak E-wave velocity 47.3 cm/s Peak A-wave velocity 57.6 cm/s Mean velocity, D 36 cm/s Mean gradient, D 1 mm Hg Peak E/A ratio 0.8 LEGEND: Mean values are shown as u=mean value. Asterisk (*) shrestha values outside specified normal range. Prepared and signed by Reji Rae [id number]
[2016-10-17 21:23] VITALS: BP 114/69; PULSE 71; RESP 16; TEMP 95.1; O2SAT 100
[2016-10-18] VITALS (17 sets, daily range): BP systolic 92–124; BP diastolic 63–81; PULSE 81–160; RESP 12–22; TEMP 96.2–101; O2SAT 84–99
[2016-10-18] MEDS: RESP: ALBUTEROL 2.5 MG/IPRATROPIUM 0.5 MG NEB (PRN) NEB (02:25)
[2016-10-18] MEDS: HYDROmorphone HCL PF 1 MG/ML VIAL IV PUSH PRN ×5 (02:31→22:50)
[2016-10-18] MEDS: KETOROLAC TROMETHAMINE 30 MG/ML (IVP) VIAL IVP PRN ×3 (05:51→09:56)
[2016-10-18] MEDS: ONDANSETRON HCL 4 MG/2 ML VIAL IV PRN ×2 (05:55→09:56)
[2016-10-18] MEDS: RESP: IPRATROPIUM 0.5 MG/2.5 ML NEB NEB PRN ×3 (06:47→20:25)
--- NOTE | 2016-10-18 06:49 | RADRPT ---
EXAM DATE/TIME: 10/18/2016 06:17 [facility] COMPARISON: CHEST SINGLE AP, March 23, 2014, 12:22. INDICATIONS : Shortness of breath. MEDICAL HISTORY : Pancreatitis. Congestive heart failure. Gastroesophageal reflux disease. SURGICAL HISTORY : Peg ENCOUNTER: Subsequent ACUITY: 4 - 6 days PAIN SCORE: 0/10 LOCATION: Bilateral chest FINDINGS: A single view of the chest demonstrates some mild interstitial infiltrates in the mid and lower lung dumont, right greater than left. The previously noted pleural effusions have resolved. No other new i nfiltrates are seen. The upper lung dumont are clear. The heart size is within normal limits. The bon y structures are stable.. CONCLUSION: Compared to the prior study the previously noted pulmonary edema has improved. There continues be jami e mild interstitial infiltrates in the mid and lower lungs right greater than left. Otherwise the víctor gs are well-aerated. Wei Cesar MD on October 18, 2016 at 6:46 Board Certified Radiologist. This report was verified electronically.
--- NOTE | 2016-10-18 06:51 | RADRPT ---
EXAM DATE/TIME: 10/18/2016 06:21 [facility] COMPARISON: CT ABDOMEN & PELVIS W CONTRAST, October 13, 2016, 13:38. ABDOMEN KUB ONLY, April 19, 2014, 17:04. INDICATIONS : Pain. MEDICAL HISTORY : Pancreatitis. SURGICAL HISTORY : None. ENCOUNTER: Subsequent ACUITY: 3 days PAIN SCORE: 8/10 LOCATION: Bilateral Abdomen FINDINGS: Supine view of the abdomen was performed. The abdominal bowel gas pattern is normal. No definite ca lcifications are seen overlying the kidneys.. The osseous structures are unremarkable. CONCLUSION: Benign abdomen. Wei Cesar MD on October 18, 2016 at 6:48 Board Certified Radiologist. This report was verified electronically.
[2016-10-18 06:58] LABS: AUTOMATED NEUTROPHIL # 11.2 TH/MM3 (1.8-7.7); BASOPHIL % 0.2 % (0.0-2.0); EOSINOPHIL # 0.1 TH/MM3 (0-0.4); EOSINOPHIL % 0.5 % (0.0-4.0); HEMATOCRIT 43.7 % (39.0-51.0); HEMO FLAGS DIFF FINAL; LYMPH % 3.2 % (9.0-44.0); LYMPHOCYTE # 0.4 TH/MM3 (1.0-4.8); MEAN CELL VOLUME 95.8 FL (80.0-100.0); MEAN CORPUSCULAR HEMOGLOBIN 31.5 PG (27.0-34.0); MEAN CORPUSCULAR HGB CONC 32.9 % (32.0-36.0); MONO % 6.7 % (0.0-8.0); NEUT % 89.4 % (16.0-70.0); PLATELET COUNT 346 TH/MM3 (150-450); RED BLOOD COUNT 4.56 MIL/MM3 (4.50-5.90); WHITE BLOOD COUNT 12.6 TH/MM3 (4.0-11.0)
[2016-10-18 07:01] LABS: BLOOD UREA NITROGEN 8 MG/DL (7-18)
[2016-10-18 07:02] LABS: ALT (GPT) 10 U/L (12-78); ANION GAP 11 MEQ/L (5-15); AST (GOT) 13 U/L (15-37); BICARBONATE 27.4 MEQ/L (21.0-32.0); CHLORIDE 98 MEQ/L (98-107); POTASSIUM 3.7 MEQ/L (3.5-5.1); SODIUM (NA) 136 MEQ/L (136-145)
[2016-10-18 07:04] LABS: ALKALINE PHOSPHATASE 65 U/L (45-117); INDIRECT BILIRUBIN 0.4 MG/DL (0.0-0.8); TOTAL BILIRUBIN ADULT 0.7 MG/DL (0.2-1.0)
[2016-10-18] MEDS: SODIUM CHLORIDE 0.9% FLUSH 5 ML FLUSH IV SCH ×2 (07:39→19:35)
[2016-10-18] MEDS: PANTOPRAZOLE SOD 40 MG DELAYED RELEASE TAB PO SCH (07:39)
[2016-10-18] MEDS: predniSONE 10 MG TAB PO SCH (07:39)
[2016-10-18] MEDS: D5-NS + KCL 20 MEQ INJ 1,000 ML IV SCH ×3 (07:40→19:36)
[2016-10-18] MEDS ORDERED: SODIUM CHLOR 0.9% 1000 ML INJ 1,000 ML IV ONE ×2 (08:15→08:45)
--- NOTE | 2016-10-18 08:59 | HHI.GIFU ---
Subjective Remarks Resting in bed. Pt with moderate-severe abdominal pain/guarding. States this became much worse last night around 3am. Fever overnight. (Lola Valiente) Objective Vitals I&O Vital Signs Date Time Temp Pulse Resp B/P Pulse Ox O2 Delivery O2 Flow Rate FiO2 10/18/16 08:00 97.8 144 16 92/66 97 10/18/16 06:47 97 Nasal Cannula 2.00 10/18/16 05:58 101.0 160 20 89 10/18/16 05:55 99.7 154 22 88 10/18/16 05:35 84 10/18/16 04:30 96.5 96 16 123/74 96 10/18/16 03:01 16 10/18/16 02:28 90 Nasal Cannula 3.00 10/18/16 00:21 96.2 93 16 120/81 98 10/17/16 21:23 95.1 71 16 114/69 100 10/17/16 19:46 78 18 114/71 99 10/17/16 19:33 98.3 82 20 125/82 99 10/17/16 16:00 97.0 94 18 117/71 94 10/17/16 12:00 98.3 91 16 109/61 93 I/O 10/17/16 10/17/16 10/17/16 10/18/16 10/18/16 10/18/16 07:00 15:00 23:00 07:00 15:00 23:00 Intake Total 1080 ml 0 ml 1048 ml 555 ml Output Total 450 ml 300 ml Balance 1080 ml -450 ml 1048 ml 255 ml Intake Oral 0 ml 0 ml 0 ml IV Total 1080 ml 1048 ml 555 ml Output Urine Total 450 ml 300 ml # Voids 1 0 # Bowel Movements 0 0 0 Laboratory Laboratory Tests Test 10/17/16 10/18/16 23:45 05:35 Tumor Marker Alpha Fetoprotein 2.4 Carcinoembryonic Antigen 2.1 CA 19-9 Antigen 19.7 White Blood Count 12.6 Red Blood Count 4.56 Hemoglobin 14.4 Hematocrit 43.7 Mean Corpuscular Volume 95.8 Mean Corpuscular Hemoglobin 31.5 Mean Corpuscular Hemoglobin 32.9 Concent Red Cell Distribution Width 14.0 Platelet Count 346 Mean Platelet Volume 8.2 Neutrophils (%) (Auto) 89.4 Lymphocytes (%) (Auto) 3.2 Monocytes (%) (Auto) 6.7 Eosinophils (%) (Auto) 0.5 Basophils (%) (Auto) 0.2 Neutrophils # (Auto) 11.2 Lymphocytes # (Auto) 0.4 Monocytes # (Auto) 0.8 Eosinophils # (Auto) 0.1 Basophils # (Auto) 0.0 CBC Comment DIFF FINAL Differential Comment Sodium Level 136 Potassium Level 3.7 Chloride Level 98 Carbon Dioxide Level 27.4 Anion Gap 11 Blood Urea Nitrogen 8 Creatinine 0.76 Random Glucose 118 Calcium Level 8.2 Total Bilirubin 0.7 Direct Bilirubin 0.3 Indirect Bilirubin 0.4 Aspartate Amino Transf 13 (AST/SGOT) Alanine Aminotransferase 10 (ALT/SGPT) Alkaline Phosphatase 65 Total Protein 6.5 Albumin 2.2 Lipase 3277 Date/Time Procedure Status Source Growth 10/18/16 06:40 Aerobic Blood Culture Received Blood Peripheral Pending 10/18/16 06:40 Anaerobic Blood Culture Received Blood Peripheral Pending Imaging Last Impressions Chest X-Ray 10/18/16 0000 Signed Impressions: Service Date/Time: September 06:17 - CONCLUSION: Compared to the prior study the previously noted pulmonary edema has improved. There continues be some mild interstitial infiltrates in the mid and lower lungs right greater than left. Otherwise the lungs are well-aerated. Wei Cesar MD Abdomen X-Ray 10/18/16 0000 Signed Impressions: Service Date/Time: September 06:21 - CONCLUSION: Benign abdomen. Wei Cesar MD Cholangiopancreatography MRI 10/15/16 0000 Signed Impressions: Service Date/Time: Saturday, October 15, 2016 15:10 - CONCLUSION: Abnormal common duct 7 mm in width however distally this is blunted suggesting a luminal defect or stone. Further evaluation with ERCP is recommended. Yobani Bashir MD Abdomen/Pelvis CT 10/13/16 0000 Signed Impressions: Service Date/Time: Thursday, October 13, 2016 13:38 - CONCLUSION: 1. There is a low-density mass abutting indirectly superior to the pancreatic head adjacent to the mesenteric vessels. It measures 3.0 x 2.1 cm and is located in a similar location to a cystic lesion seen on prior studies that was felt to represent a pseudocyst. Therefore, it may represent a similar process. However, an abnormal lymph node or mass cannot definitely be excluded. 2. There is also mild induration in the fat adjacent to this structure which could represent inflammation. 3. Small volume of free fluid is present within the abdomen and pelvis. 4. 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 Jorgito Baumann MD Physical Exam HEENT: Normocephalic; atraumatic; no jaundice. CHEST: Resp. shallow/tachypneic. Diminished CARDIAC: Regular rate, tachycardic ABDOMEN: semifirm, moderate to severe tenderness with guarding, bowel sounds are present in all four quadrants. EXTREMITIES: No clubbing, cyanosis, or edema. SKIN: Normal; no rash; no jaundice. EDGE GRINDER MACHINE: No focal deficits; lethargic and oriented times three. (Lola Valiente) Assessment and Plan Plan ASSESSMENT: - Acute pancreatitis with abnormal imaging of the pancreatic head- Pseudocyst vs. Mass Abdomen/Pelvis CT (10/13/16)-----> 1. There is a low-density mass abutting indirectly superior to the pancreatic head adjacent to the mesenteric vessels. It measures 3.0 x 2.1 cm and is located in a similar location to a cystic lesion seen on prior studies that was felt to represent a pseudocyst. Therefore, it may represent a similar process. However, an abnormal lymph node or mass cannot definitely be excluded. 2. There is also mild induration in the fat adjacent to this structure which could represent inflammation. 3. Small volume of free fluid is present within the abdomen and pelvis. 4. 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 MRCP (10/15/16) ----> Abnormal common duct 7 mm in width however distally this is blunted suggesting a luminal defect or stone. Further evaluation with ERCP is recommended. S/P Unsuccessful ERCP (10/17/16)-----> enlarged pancreatic duct with branching c/w chronic pancreatitis, no communication to pancreatic duct, the wire would not pass the distal part of the common bile duct and nor bile with Kinevac, small sphincterotomy was done. Will need PTHC by IR. Pt had worsening pain overnight with fever of 101 and tachycardia up to 160 and tachypnea/sob. CXR, KUB as above. WBC 12.6. Lipase 3277. T. Bili 0.7, AST 13, ALT 10, Alk Phosph 65. Pt has 500cc fluid bolus going, will need fluids at 150cc/hr once this is in. Will need stat CT Scan abdomen and pelvis with iv contrast- If unable to tolerate po contrast, send without. Will need PTHC by IR once stabilized. Tx to unit for closer monitoring. EUS as outpatient. Zosyn. PPI. NPO. - Pancreatic mass vs. Pseudocyst. Will need EUS as outpt. AFP 2.4, CEA 2.1, Ca 19-9 19.7. - Fever, Leukocytosis. Fever of 101 overnight. BCx pending. Zosyn - Resp. Insufficiency. Chest X-Ray (10/18/16)----> Compared to the prior study the previously noted pulmonary edema has improved. There continues be some mild interstitial infiltrates in the mid and lower lungs right greater than left. Otherwise the lungs are well-aerated. PLAN: - Transfer to [facility] [place] - NPO - Stat CT scan abdomen and pelvis with IV/PO contrast- if unable to tolerate contrast, send without - Agree with fluid bolus - Increase IVF to 150cc/hr once bolus complete - Cont. Zosyn - Cont. PPI - CBC, CMP, Lipase in am - IR consulted for PTHC when stable - Supportive care - Further recommendations to follow based on results of above - Pt seen and examined by Dr. Mendez and myself and this note is written on her behalf (Lola Valiente) Physician Comments seen, examined agree with above ct noted -worsening pancreatitis we will consult IR for ptc he feels better this pm, pain better, vitals improved (Maryellen Mendez MD) Lola Valiente Oct 18, 2016 08:59 Maryellen Mendez MD Oct 18, 2016 18:09
[2016-10-18] MEDS ORDERED: PIPERACIL-TAZO 3.375 GM PREMIX 50 ML IV SCH (09:00)
[2016-10-18] MEDS ORDERED: DIATRIZOATE MEGLUM/DIATRIZOATE SOD 9 ML CUP PO ONE (09:30)
--- NOTE | 2016-10-18 10:23 | HHI.PR ---
Subjective Remarks pt with fever overnight 101. HR 140s pt says abd pain worse. chills overnight. he contineus awake and alert. Objective Vital Signs Date Time Temp Pulse Resp B/P Pulse Ox O2 Delivery O2 Flow Rate FiO2 10/18/16 08:00 97.8 144 16 92/66 97 10/18/16 06:47 97 Nasal Cannula 2.00 10/18/16 05:58 101.0 160 20 89 10/18/16 05:55 99.7 154 22 88 10/18/16 05:35 84 10/18/16 04:30 96.5 96 16 123/74 96 10/18/16 03:01 16 10/18/16 02:28 90 Nasal Cannula 3.00 10/18/16 00:21 96.2 93 16 120/81 98 10/17/16 21:23 95.1 71 16 114/69 100 10/17/16 19:46 78 18 114/71 99 10/17/16 19:33 98.3 82 20 125/82 99 10/17/16 16:00 97.0 94 18 117/71 94 10/17/16 12:00 98.3 91 16 109/61 93 I/O 10/17/16 10/17/16 10/17/16 10/18/16 10/18/16 10/18/16 07:00 15:00 23:00 07:00 15:00 23:00 Intake Total 1080 ml 0 ml 1048 ml 555 ml Output Total 450 ml 300 ml Balance 1080 ml -450 ml 1048 ml 255 ml Intake Oral 0 ml 0 ml 0 ml IV Total 1080 ml 1048 ml 555 ml Output Urine Total 450 ml 300 ml # Voids 1 0 # Bowel Movements 0 0 0 Result Diagram: 10/18/16 0535 10/18/16 0535 Imaging Last Impressions Chest X-Ray 10/18/16 0000 Signed Impressions: Service Date/Time: September 06:17 - CONCLUSION: Compared to the prior study the previously noted pulmonary edema has improved. There continues be some mild interstitial infiltrates in the mid and lower lungs right greater than left. Otherwise the lungs are well-aerated. Wei Cesar MD Abdomen X-Ray 10/18/16 0000 Signed Impressions: Service Date/Time: September 06:21 - CONCLUSION: Benign abdomen. Wei Cesar MD Cholangiopancreatography MRI 10/15/16 0000 Signed Impressions: Service Date/Time: Saturday, October 15, 2016 15:10 - CONCLUSION: Abnormal common duct 7 mm in width however distally this is blunted suggesting a luminal defect or stone. Further evaluation with ERCP is recommended. Yobani Bashir MD Abdomen/Pelvis CT 10/13/16 0000 Signed Impressions: Service Date/Time: Thursday, October 13, 2016 13:38 - CONCLUSION: 1. There is a low-density mass abutting indirectly superior to the pancreatic head adjacent to the mesenteric vessels. It measures 3.0 x 2.1 cm and is located in a similar location to a cystic lesion seen on prior studies that was felt to represent a pseudocyst. Therefore, it may represent a similar process. However, an abnormal lymph node or mass cannot definitely be excluded. 2. There is also mild induration in the fat adjacent to this structure which could represent inflammation. 3. Small volume of free fluid is present within the abdomen and pelvis. 4. 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 Jorgito Baumann MD Objective Remarks GENERAL: Patient sitting up in bed in ICU. Appears comfortable. He continues alert and oriented 3 SKIN: Warm and dry. Hand excoriations. Multiple superficial excoriations over predominantly) CTs, as well as left MCP is to some extent. Minimal surrounding erythema. No signs of infection. HEAD: Normocephalic. EYES: No scleral icterus. No injection or drainage. NECK: Supple, trachea midline. No JVD or lymphadenopathy. CARDIOVASCULAR: Regular rate and rhythm without murmurs, gallops, or rubs. RESPIRATORY: Breath sounds equal bilaterally. No accessory muscle use. GASTROINTESTINAL: Abdomen TTP over epigastrum.. no rebound or guarding. MUSCULOSKELETAL: No cyanosis, or edema. BACK: Nontender without obvious deformity. No CVA tenderness. A/P Assessment and Plan //Suspected sepsis 10/18. fever 101, HR 140s, worsenign abd pain. incr o2 req 2L. -possible aspiration PNA - CXR improved from admit but does show RLL inf. -start zosyn. lactate ordered, fluid bolus, ICU transfer, consult manager stylist. //Acute on chronic pancreatitis. -With worsening pain on admission. Lipase to 17,000 on 10/15. Trending down. Pain Improved slightly on 10/16 CT scan does indicate low-density mass likely representing a pseudocyst abutting superior to the pancreatic head adjacent to mesenteric vessels. Is also induration of fat adjacent which could represent inflammation. He was worked up extensively in 2013. -Negative EKGs and troponins. -Gastroenterology. - ERCP 10/17 Appreciate GI assistance. -gi FF, appreciate assist. cont IVF, pain control. -new abd ttp. Ct abd //Bilateral hand excoriations -Patient reports this is chronic and improving, initially secondary to bleach exposure. No signs of acute infection. NO Blistering to indicate porphyria. -10/17. Appears to be improving slightly. -stable Continue to monitor. //Hyponatremia. Mild. 10/17 Secondary to one half normal saline. cont D5 Normal saline. DVT prophy Sequential compression devices Discharge Planning tx to ICU for suspected severe sepsis. Omar Barrett MD Oct 18, 2016 10:23
--- NOTE | 2016-10-18 10:27 | PD.CONS ---
HPI Service Critical Care Medicine Consult Requested By Dr. Barrett Reason for Consult Severe sepsis Acute abdomen Worsening pancreatitis Status post ERCP Primary Care Physician No Primary Care Physician History of Present Illness Patient is a 60 year-old male with past medical history significant for COPD on oxygen, pancreatitis with recurrent pseudocyst formation requiring prolonged hospitalization in 2013, weight loss who was admitted to the [facility] under hospitalist service on 10/13/16 with abdominal pain lasting 3 days. He was diagnosed with acute on chronic pancreatitis. Patient' s initial lipase was 4433 [place] [address]. Abdomen/Pelvis CT 10/13/16 showed a low-density mass abutting the pancreatic head, 3.0 x 2.1 cm in size which could be a pseudocyst however a mass cannot be excluded. There was also mild induration in the fat adjacent representing inflammation. 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 Patient underwent MRCP on which showed abnormal common duct 7 mm in width, but distally blunted suggesting a luminal defect or stone. From [place] patient was transferred to [facility] and underwent unsuccessful ERCP on by Dr. Carpenter. It showed enlarged pancreatic duct with branching consistent with chronic pancreatitis, no communication to pancreatic duct. Per GI notes the wire would not pass the distal part of the common bile duct and nor bile with Kinevac, and small sphincterotomy was done. Plan per GI was for PTHC by IR. Overnight patient developed worsening abdominal pain, fever of 101 and tachypnea tachycardia. His oxygen requirement increased to 2 L from room air and also he was tachycardic up to 160s. CXR, KUB essentially unchanged,. WBC 12.6. Lipase 3277-slightly increased from yesterday. The patient was given 500cc fluid bolus and was placed on maintenance fluid at 150 ML per hour. A stat CT Scan abdomen and pelvis with iv and oral contrast had been ordered and I have asked for a CT of the chest as well. Hospitalist that started the patient on IV Zosyn. Critical-care medicine was consulted for severe sepsis and worsening pancreatitis status post ERCP yesterday. I evaluated the patient in the ICU his systolic blood pressure is in 100s, heart rate is 140s he appears critically ill. Abdomen is very tender with guarding. I have ordered a total of 3 L of fluid boluses and maintenance at 150 ML per hour. Zosyn dose will be increased to 4.5 g every 6 hours and single dose of vancomycin had been ordered. Follow-up on cultures, and CT imaging Review of Systems ROS Limitations: Other (as per HPI) Past Family Social History Allergies: Coded Allergies: No Known Allergies (Unverified , 10/13/16) Past Medical History Cardiomyopathy-EF of 30-35% by echo. Pancreatitis with previous pseudocyst, likely chronic pancreatitis Prolonged hospitalization for pancreatitis in 2013 COPD on O2 at night History of colitis Neuropathy Past Surgical History ERCP PEG tube placement Reported Medications O2 2 Liter INH DIRECTED Albuterol Neb (Albuterol Sulfate) 0.63 Mg/3 Ml Neb 0.63 Mg NEB Q4HR NEB PRN Active Ordered Medications Reviewed Family History Non-contributory to this admission Social History Smokes about 1-2 packs of cigarettes a day Drinks 2 beers daily Physical Exam Vital Signs Vital Signs Date Time Temp Pulse Resp B/P Pulse Ox O2 Delivery O2 Flow Rate FiO2 10/18/16 08:00 97.8 144 16 92/66 97 10/18/16 06:47 97 Nasal Cannula 2.00 10/18/16 05:58 101.0 160 20 89 10/18/16 05:55 99.7 154 22 88 10/18/16 05:35 84 10/18/16 04:30 96.5 96 16 123/74 96 10/18/16 03:01 16 10/18/16 02:28 90 Nasal Cannula 3.00 10/18/16 00:21 96.2 93 16 120/81 98 10/17/16 21:23 95.1 71 16 114/69 100 10/17/16 19:46 78 18 114/71 99 10/17/16 19:33 98.3 82 20 125/82 99 10/17/16 16:00 97.0 94 18 117/71 94 10/17/16 12:00 98.3 91 16 109/61 93 Physical Exam Physical Exam Narrative GENERAL: Cachectic, critically ill-appearing male in moderate distress. SKIN: Warm and dry. HEAD: Atraumatic. Normocephalic. EYES: Pupils equal and round. No injection or drainage. ENT: Mucous membranes are dry NECK: Trachea midline. No JVD CARDIOVASCULAR: Tachycardic rhythm heart rate is 140 no murmurs RESPIRATORY: Clear to auscultation. Breath sounds equal bilaterally. GASTROINTESTINAL: Abdomen tense, diffusely tender to palpation with guarding MUSCULOSKELETAL: No obvious deformities. NEUROLOGICAL: Awake and alert. No obvious cranial nerve deficits. Moving all extremities. Laboratory Laboratory Tests Test 10/17/16 10/18/16 23:45 05:35 Tumor Marker Alpha Fetoprotein 2.4 Carcinoembryonic Antigen 2.1 CA 19-9 Antigen 19.7 White Blood Count 12.6 Red Blood Count 4.56 Hemoglobin 14.4 Hematocrit 43.7 Mean Corpuscular Volume 95.8 Mean Corpuscular Hemoglobin 31.5 Mean Corpuscular Hemoglobin 32.9 Concent Red Cell Distribution Width 14.0 Platelet Count 346 Mean Platelet Volume 8.2 Neutrophils (%) (Auto) 89.4 Lymphocytes (%) (Auto) 3.2 Monocytes (%) (Auto) 6.7 Eosinophils (%) (Auto) 0.5 Basophils (%) (Auto) 0.2 Neutrophils # (Auto) 11.2 Lymphocytes # (Auto) 0.4 Monocytes # (Auto) 0.8 Eosinophils # (Auto) 0.1 Basophils # (Auto) 0.0 CBC Comment DIFF FINAL Differential Comment Sodium Level 136 Potassium Level 3.7 Chloride Level 98 Carbon Dioxide Level 27.4 Anion Gap 11 Blood Urea Nitrogen 8 Creatinine 0.76 Random Glucose 118 Calcium Level 8.2 Total Bilirubin 0.7 Direct Bilirubin 0.3 Indirect Bilirubin 0.4 Aspartate Amino Transf 13 (AST/SGOT) Alanine Aminotransferase 10 (ALT/SGPT) Alkaline Phosphatase 65 Total Protein 6.5 Albumin 2.2 Lipase 3277 Date/Time Procedure Status Source Growth 10/18/16 06:40 Aerobic Blood Culture Received Blood Peripheral Pending 10/18/16 06:40 Anaerobic Blood Culture Received Blood Peripheral Pending Result Diagram: 10/18/16 0535 10/18/16 0535 Imaging Reviewed Septic Shock Reassessment Heart: Other (tachyardic) Lungs: Clear Skin: Warm Peripheral Pulses: Bounding Right Radial Bounding Left Radial Capillary Refill: >2 seconds Assessment and Plan Assessment and Plan PROBLEM LIST: Severe sepsis Acute on chronic pancreatitis Status post ERCP on 10/17/16 Respiratory insufficiency Acute abdominal pain Cardiomyopathy COPD on home oxygen History of chronic pancreatitis History of prolonged hospitalization in 2013 for pancreatitis Alcohol abuse PLAN by system: NEURO: Pain control Daily alcohol use/abuse -As needed Dilaudid for pain. -Supplement thiamine, completely stop alcohol use RESP: COPD on home oxygen Respiratory insufficiency -Nasal cannula oxygen. DuoNeb every 6 hours and when necessary -Currently on prednisone change to stress dose steroids hydrocortisone 100 mg IV every 8 hours -CT of the chest to better evaluate for infiltrate/aspiration CV: Hypotension Tachycardia/SIRS -Normal saline IV fluids 3L bolus and 150 ml pr hour -Watch for fluid overload given history of cardiomyopathy -Previous echo in 2013 showed a EF 30- 35%, echo done this admission had poor window -Repeat echo once clinically more stable GI: Acute on chronic pancreatitis Pancreatic pseudocyst versus mass Status post ERCP 10/17/16 with worsening abdominal pain -Pain control with Dilaudid, aggressive fluid resuscitation -Broad spectrum antibiotics with Zosyn and also give single dose of vancomycin -CT abdomen pelvis stat-rule out complications of acute pancreatitis versus ERCP complications -Keep nothing by mouth except meds -Protonix 40 mg IV every 12 : -Monitor renal function closely. Continue IV hydration as above ID: Severe sepsis Acute pancreatitis, rule out necrosis Probable pneumonia -Continue IV Zosyn and single dose of vancomycin -Follow up on blood cultures, send sputum culture -Follow up on CT abdomen pelvis and CT chest HEME: -Monitor CBC, CMP ENDO: -IV hydrocortisone 100 mg every 8 hours as stress dose steroids -Electrolyte replacement per protocol PROPH: -Bilateral lower extremity SCDs. Lovenox 40 mg subcutaneous daily. IV Protonix 40 mg every 12 LINES: -Utilize peripheral IVs, central line if needed CC time 80 min Code Status Full Discussed Condition With GI, bedside Patience Montez MD Oct 18, 2016 10:27
[2016-10-18] MEDS ORDERED: POTASSIUM CHLOR 20 MEQ PREMIX 100 ML IV PRN ×2 (11:00)
[2016-10-18] MEDS ORDERED: POTASSIUM PHOSPHATE MONOBASIC 500 MG TAB PO/TUBE PRN (11:00)
[2016-10-18] MEDS ORDERED: MAGNESIUM OXIDE 400 MG TAB PO PRN (11:00)
[2016-10-18] MEDS ORDERED: POTASSIUM PHOSPHATE INJ 30 MMOL in SODIUM CHLOR 0.9% 250 ML INJ 250 ML IV PRN (11:00)
[2016-10-18] MEDS ORDERED: SODIUM PHOSPHATE INJ 30 MMOL in SODIUM CHLOR 0.9% 250 ML INJ 240 ML IV PRN (11:00)
[2016-10-18] MEDS ORDERED: MAGNESIUM SULFATE INJ 4 GM in SODIUM CHLORIDE 0.9% INJ 92 ML IV PRN (11:00)
[2016-10-18] MEDS ORDERED: POTASSIUM PHOSPHATE MONOBASIC 500 MG TAB PO PRN (11:00)
[2016-10-18] MEDS ORDERED: POTASSIUM CL 40 MEQ/30 ML LIQ UDC PO/TUBE PRN ×2 (11:00)
[2016-10-18] MEDS ORDERED: POTASSIUM CHLOR 40 MEQ PREMIX 100 ML IV PRN ×2 (11:00)
[2016-10-18] MEDS ORDERED: MAGNESIUM SULFATE INJ 2 GM in SODIUM CHLORIDE 0.9% INJ 96 ML IV PRN (11:00)
[2016-10-18] MEDS: THIAMINE INJ 100 MG in SODIUM CHLORIDE 0.9% INJ 100 ML IV SCH (11:48)
[2016-10-18] MEDS ORDERED: VANCOMYCIN INJ 1,150 MG in SODIUM CHLOR 0.9% 250 ML INJ 250 ML IV ONE (12:00)
[2016-10-18] MEDS ORDERED: IOHEXOL 350 MG/ML 10 ML VIAL (for RAD DIAG) IV ONE (12:38)
[2016-10-18 12:53] LABS: BLOOD GAS BASE EXCESS -1.8 mmol/L (-2-2); BLOOD GAS CARBOXYHEMOGLOBIN 1.4 % (0-4); BLOOD GAS HCO3 22 mmol/L (22-26); BLOOD GAS O2 HGB SATURATION 95 % (90-100); BLOOD GAS OXYGEN CONTENT 15.8 Vol % (12.0-20.0); BLOOD GAS PCO2 36 mmHg (38-42); BLOOD GAS PO2 93 mmHg (61-120); BLOOD GAS TOTAL HGB 11.8 G/DL (12.0-16.0); TEMP CORR TO 98.6
[2016-10-18 12:54] LABS: CRITICAL VALUE NO; DRAW SITE LT RADIAL; LITER FLOW 4 L/M; NUMBER OF ARTERIAL PUNCTURES 1; OXYGEN DEVICE NASAL CANNULA; STAT NO; ULNAR PULSE PRESENT
[2016-10-18] MEDS: HYDROCORTISONE SOD SUCCINATE 100 MG VIAL IV PUSH SCH ×2 (13:06→21:32)
--- NOTE | 2016-10-18 13:06 | RADRPT ---
EXAM DATE/TIME: 10/18/2016 12:14 [place] COMPARISON: CT ABDOMEN & PELVIS W CONTRAST, October 13, 2016, 13:38. INDICATIONS : Increasing epigastric pain with history of pancreatitis. IV CONTRAST: 90 cc Omnipaque 350 (iohexol) IV ; Cumulative dose for multiple exams. ORAL CONTRAST: Partial prescribed oral contrast ingested. RADIATION DOSE: 5.12 CTDIvol (mGy) ; Combined studies - Thorax/Abdomen/Pelvis MEDICAL HISTORY : Congestive heart failure. Chronic obstructive pulmonary disease. Pancreatitis. SURGICAL HISTORY : PEG tube ENCOUNTER: Initial ACUITY: 1 day PAIN SCALE: 7/10 LOCATION: Bilateral upper quadrant TECHNIQUE: Volumetric scanning of the abdomen and pelvis was performed. Using automated exposure control and ad justment of the mA and/or kV according to patient size, radiation dose was kept as low as reasonably achievable to obtain optimal diagnostic quality images. FINDINGS: LOWER LUNGS: There are new bilateral small pleural effusions with associated compressive atelectasis and likely mi ld consolidation. There are emphysematous changes of the lung bases. LIVER: There is diffuse low-density of the liver indicating steatosis with more focal low-density in the lef t lobe. There is chronic occlusion versus high-grade stenosis of the portal vein adjacent to the panc reatic head. Periportal collateral vessels are present. There are no calcified gallstones. No bile du ct dilatation is visualized. There is a subcapsular hepatic fluid collection along the left anterior liver measuring 4.6 x 1.7 cm. This is a new finding. SPLEEN: Normal size without lesion. PANCREAS: There is low attenuation possibly representing edema at the pancreaticoduodenal groove. Pain duct bhumi sures up to 3 mm and contains a small amount of air. No mass within the pancreas is appreciated. Ther e is a low-density lesion abutting the pancreatic head superiorly measuring 3.0 x 2.1 cm. KIDNEYS: Normal in size and shape. There is no mass, stone or hydronephrosis. ADRENAL GLANDS: Within normal limits. VASCULAR: There is no aortic aneurysm. There is moderate to severe atherosclerotic disease. BOWEL/MESENTERY: The stomach, small bowel, and colon demonstrate no acute abnormality. A small hiatal hernia is prese nt. There is no free intraperitoneal air. There is a moderate volume of free fluid in the abdomen and pelvis and there is mesenteric edema. Proximal small bowel is mildly distended. ABDOMINAL WALL: Within normal limits. RETROPERITONEUM: There is no lymphadenopathy. BLADDER: No wall thickening or mass. REPRODUCTIVE: Within normal limits. INGUINAL: There is no lymphadenopathy or hernia. MUSCULOSKELETAL: There are degenerative changes of the lumbar spine. CONCLUSION: 1. There is increased free fluid in the abdomen and pelvis since the prior study that is from an unce rtain etiology. Some of the fluid is located in the subcapsular region of the left lobe of the liver. 2. There is low density at the pancreaticoduodenal groove which could represent edema and this can be seen with acute pancreatitis. Suggest correlation with appropriate laboratory values. 3. New small bilateral pleural effusions with associated compressive atelectasis and possible consoli dation at the left lung bases. 4. The partially cystic lesion abutting the head of the pancreas is stable and of uncertain etiology. There is adjacent narrowing or occlusion of the portal vein. Jorgito Baumann MD on October 18, 2016 at 12:53 Board Certified Radiologist. This report was verified electronically.
--- NOTE | 2016-10-18 13:10 | RADRPT ---
EXAM DATE/TIME: 10/18/2016 12:17 [place] COMPARISON: CT THORAX W CONTRAST, April 15, 2014, 23:33. INDICATIONS : Increasing epigastric pain with history of pancreatitis. IV CONTRAST: 90 cc Omnipaque 350 (iohexol) IV ; Cumulative dose for multiple exams. RADIATION DOSE: 5.12 CTDIvol (mGy) ; Combined studies - Thorax/Abdomen/Pelvis MEDICAL HISTORY : Pancreatitis. Chronic obstructive pulmonary disease. Congestive heart failure. SURGICAL HISTORY : PEG tube ENCOUNTER: Initial ACUITY: 1 day PAIN SCALE: 7/10 LOCATION: Bilateral upper quadrant TECHNIQUE: Volumetric scanning of the chest was performed. Using automated exposure control and adjustment of t he mA and/or kV according to patient size, radiation dose was kept as low as reasonably achievable to obtain optimal diagnostic quality images. FINDINGS: LUNGS: There is mild centrilobular emphysema. In the lower lobes there is mild consolidation and compressive atelectasis. No pneumothorax is present. PLEURA: There are small bilateral simple appearing pleural effusions. MEDIASTINUM: The heart and great vessels demonstrate no acute abnormality. There is no mediastinal or hilar lymph adenopathy. AXILLAE: Within normal limits. No lymphadenopathy. SKELETAL: There are degenerative changes of the lumbar spine. MISCELLANEOUS: Small hiatal hernia is present. Please refer to abdomen and pelvis CT report for description of the s ubdiaphragmatic findings. CONCLUSION: 1. Mild emphysema with new small bilateral pleural effusions with associated compressive atelectasis and consolidation at the lung bases. 2. Please refer to abdomen and pelvis CT report for description of the subdiaphragmatic findings. Jorgito Baumann MD on October 18, 2016 at 13:05 Board Certified Radiologist. This report was verified electronically.
[2016-10-18] MEDS: PIPERACIL-TAZO 4.5 GM PREMIX 100 ML IV SCH ×2 (16:44→21:32)
[2016-10-18] MEDS: ENOXAPARIN SODIUM 40 MG/0.4 ML SYRINGE SQ SCH (16:44)
[2016-10-18] MEDS: PANTOPRAZOLE SODIUM 40 MG VIAL IV PUSH SCH (19:35)
[2016-10-18] MEDS ORDERED: CHLORHEXIDINE GLUCONATE 2 % 1 PACK (2 CLOTHS)(extra cloths) TOP PRN (21:45)
[2016-10-19] VITALS (12 sets, daily range): BP systolic 103–130; BP diastolic 65–80; PULSE 65–91; RESP 14–20; TEMP 97.4–98.6; O2SAT 94–100
[2016-10-19] MEDS: HYDROmorphone HCL PF 1 MG/ML VIAL IV PUSH PRN ×6 (01:53→21:37)
[2016-10-19] MEDS: CHLORHEXIDINE GLUCONATE 2 % 1 PACK (2 CLOTHS)(taper/protocol) TOP SCH (04:00)
[2016-10-19] MEDS: PIPERACIL-TAZO 4.5 GM PREMIX 100 ML IV SCH ×4 (04:38→21:43)
[2016-10-19] MEDS: HYDROCORTISONE SOD SUCCINATE 100 MG VIAL IV PUSH SCH ×3 (04:39→21:39)
[2016-10-19] MEDS: D5-NS + KCL 20 MEQ INJ 1,000 ML IV SCH (04:39)
[2016-10-19] MEDS: RESP: IPRATROPIUM 0.5 MG/2.5 ML NEB NEB PRN ×2 (05:20→12:06)
[2016-10-19 07:07] LABS: AUTOMATED NEUTROPHIL # 6.7 TH/MM3 (1.8-7.7); BASOPHIL % 0.1 % (0.0-2.0); HEMATOCRIT 33.5 % (39.0-51.0); HEMO FLAGS DIFF FINAL; LYMPH % 1.6 % (9.0-44.0); LYMPHOCYTE # 0.1 TH/MM3 (1.0-4.8); MEAN CELL VOLUME 94.7 FL (80.0-100.0); MEAN CORPUSCULAR HEMOGLOBIN 32.1 PG (27.0-34.0); MEAN CORPUSCULAR HGB CONC 33.9 % (32.0-36.0); MONO % 13.1 % (0.0-8.0); NEUT % 85.2 % (16.0-70.0); PLATELET COUNT 240 TH/MM3 (150-450); RED BLOOD COUNT 3.54 MIL/MM3 (4.50-5.90); RED CELL DISTRIBUTION WIDTH 13.9 % (11.6-17.2); WHITE BLOOD COUNT 7.9 TH/MM3 (4.0-11.0)
[2016-10-19 07:36] LABS: BICARBONATE 26.5 MEQ/L (21.0-32.0); CALCIUM-PROTEIN CORRECTED 8.5 MG/DL (8.5-10.1); POTASSIUM 3.9 MEQ/L (3.5-5.1); TOTAL BILIRUBIN ADULT 0.6 MG/DL (0.2-1.0)
[2016-10-19] MEDS: THIAMINE INJ 100 MG in SODIUM CHLORIDE 0.9% INJ 100 ML IV SCH (07:58)
--- NOTE | 2016-10-19 07:58 | PD.CONS ---
cc: Dilma Kimball MD [facility] Service General Surgery Consult Requested By Dr. Mendez Reason for Consult Worsening pancreatitis Primary Care Physician No Primary Care Physician History of Present Illness This is a 58-year-old male past medical history of COPD on 2 L oxygen and pancreatitis. The patient presented to [facility] with abdominal pain and was found to have acute on chronic pancreatitis [place]ase [place] 8900 [place] [address].. The patient had a CAT scan of the abdomen and pelvis on October 13 which showed a low-density mass indirectly superior to the pancreatic head and likely represents a chronic pseudocyst. The patient had an MRCP done which showed an abnormal common bile duct that measures 7 mm and possible stone. The patient was transferred to [facility] for an ERCP. The patient had an ERCP done by [facility] but that the wire was unable to pass to the distal part of the common bile duct and a small sphincterotomy was done. Per the chart, the plan is for PTHD to be done by IR. The patient developed tachycardia up to the 160s sustained and his oxygen requirement increased so the patient was transferred to the intensive medical unit. The patient was given multiple boluses and his heart rate is now normal. Gen. surgery consult was requested due to a repeat CAT scan that showed worsening pancreatitis with abdominal pain. Review of Systems Constitutional: COMPLAINS OF: Weight loss Endocrine: DENIES: Polydipsia, Polyuria, Polyphagia Eyes: DENIES: Eye inflammation, Eye pain Ears, nose, mouth, throat: DENIES: Hearing loss, Vertigo Respiratory: DENIES: Apneas, Cough, Snoring Cardiovascular: DENIES: Chest pain, Palpitations Gastrointestinal: COMPLAINS OF: Abdominal pain (RUQ and LUQ ) Genitourinary: DENIES: Urinary frequency, Urinary incontinence Musculoskeletal: DENIES: Muscle aches, Stiffness Integumentary: DENIES: Abnormal pigmentation Hematologic/lymphatic: DENIES: Bruising Immunologic/allergic: DENIES: Eczema Neurologic: DENIES: Abnormal gait, Headache Psychiatric: DENIES: Confusion, Mood changes, Depression Past Family Social History Past Medical History Pancreatitis COPD History of colitis Neuropathy Cardiomyopathy Past Surgical History PEG tube placement approximately 2 years ago Reported Medications See chart Allergies: Coded Allergies: *MDRO Multi-Drug Resistant Organism (Verified Adverse Reaction, Unknown, ) MRSA PCR Screen POSITIVE - 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/2013 Active Ordered Medications Current Medications Medications (Trade) Dose Ordered Sig/Elliot Route Start Time Stop Time Status Last Admin (NS Flush) 2 ml UNSCH PRN IV 10/13/16 15:45 10/15/16 14:36 (NS Flush) 2 ml BID IV 10/13/16 21:00 10/18/16 19:35 (Zofran Inj) 4 mg Q6H PRN IV 10/13/16 15:45 10/18/16 09:56 (Dilaudid Pf Inj) 0.5 mg Q4H PRN IV PUSH 10/15/16 13:45 10/19/16 04:45 Hydromorphone HCl 1 mg 1 mg Q4H PRN IV PUSH 10/15/16 13:45 10/19/16 01:53 Potassium Chloride/Dextrose/ Sod Cl 1,000 ml @ 150 mls/hr Q6H40M IV 10/17/16 09:30 10/19/16 04:39 (Zosyn 4.5 Gm Premix) 100 ml @ 200 mls/hr Q6H IV 10/18/16 16:00 10/19/16 04:38 Pantoprazole Sodium 40 mg 40 mg Q12HR IV PUSH 10/18/16 21:00 10/18/16 19:35 Thiamine HCl 100 mg/Sodium Chloride 101 ml @ 101 mls/hr DAILY IV 10/18/16 12:00 10/18/16 11:48 Potassium Chloride 100 ml @ 50 mls/hr Q2H PRN IV 10/18/16 11:00 (KCl 20 Meq Premix Inj) 100 ml @ 50 mls/hr Q2H PRN IV 10/18/16 11:00 Potassium Chloride 40 meq 40 meq UNSCH PRN PO/TUBE 10/18/16 11:00 Potassium Chloride 100 ml @ 25 mls/hr UNSCH PRN IV 10/18/16 11:00 Potassium Chloride 100 ml @ 50 mls/hr Q2H PRN IV 10/18/16 11:00 (Magnesium Sulfate Inj/NS Inj) 100 ml @ 50 mls/hr UNSCH PRN IV 10/18/16 11:00 Magnesium Oxide 800 mg 800 mg UNSCH PRN PO 10/18/16 11:00 (Magnesium Sulfate Inj/NS Inj) 100 ml @ 50 mls/hr UNSCH PRN IV 10/18/16 11:00 Potassium Phosphate 2000 mg 2,000 mg Q4H PRN PO 10/18/16 11:00 (Sodium Phosphate Inj/NS 250 ml Inj) 250 ml @ 42 mls/hr UNSCH PRN IV 10/18/16 11:00 (KCl 40 Meq/30 ml Liq) 40 meq UNSCH PRN PO/TUBE 10/18/16 11:00 Potassium Phosphate 2000 mg 2,000 mg UNSCH PRN PO/TUBE 10/18/16 11:00 (Potassium Phosphate Inj/NS 250 ml Inj) 260 ml @ 42 mls/hr UNSCH PRN IV 10/18/16 11:00 (SoluCORTEF INJ) 100 mg Q8HR IV PUSH 10/18/16 14:00 10/19/16 04:39 (Lovenox Inj) 40 mg Q24H SQ 10/18/16 16:00 10/18/16 16:44 Miscellaneous Information Patient in critical care unit? Ass... Q361D XX 10/18/16 21:45 10/18/16 21:45 (Chlorhexidine 2% Cloth) 3 pack DAILY@04 TOP 10/19/16 04:00 10/23/16 04:01 10/19/16 04:00 (Chlorhexidine 2% Cloth) 3 pack UNSCH PRN TOP 10/18/16 21:45 10/23/16 21:40 Family History Noncontributory to this admission Social History + Smoking Denies ETOH use but chart and RN confirm use Denies illicit drug use Physical Exam Vital Signs Vital Signs Date Time Temp Pulse Resp B/P Pulse Ox O2 Delivery O2 Flow Rate FiO2 10/19/16 06:00 86 10/19/16 04:00 98.6 82 14 107/65 94 10/19/16 04:00 82 10/19/16 02:00 88 10/19/16 00:00 98.2 83 14 107/66 94 10/19/16 00:00 83 10/18/16 22:00 84 10/18/16 20:24 96 Nasal Cannula 3.00 10/18/16 20:00 81 10/18/16 20:00 97.7 93 14 102/63 94 10/18/16 16:00 98.3 112 18 118/75 94 10/18/16 12:00 98.3 102 12 124/80 99 10/18/16 10:27 93 Nasal Cannula 4.00 10/18/16 10:00 98.6 127 20 112/78 95 10/18/16 08:00 97.8 144 16 92/66 97 Physical Exam GENERAL: Cachetic male lying in bed in no acute distress SKIN: Warm and dry. HEAD: Atraumatic. Normocephalic. EYES: Pupils equal and round. No scleral icterus. No injection or drainage. ENT: No nasal bleeding or discharge. Mucous membranes pink and moist. NECK: Trachea midline. CARDIOVASCULAR: Regular rate and rhythm. RESPIRATORY: No accessory muscle use. Clear to auscultation. Breath sounds equal bilaterally. GASTROINTESTINAL: Abdomen soft, tender to palpation to RUQ and LUQ; old healed G tube site in LUQ. MUSCULOSKELETAL: Extremities without clubbing, cyanosis, or edema. No obvious deformities. NEUROLOGICAL: Awake and alert. No obvious cranial nerve deficits. Motor grossly within normal limits. Five out of 5 muscle strength in the arms and legs. Normal speech. PSYCHIATRIC: Appropriate mood and affect; insight and judgment normal. Laboratory Laboratory Tests Test 10/18/16 10/18/16 10/18/16 10/18/16 12:43 13:45 17:13 19:00 Blood Gas Puncture Site LT RADIAL Blood Gas Patient Temperature 98.6 Blood Gas HCO3 22 Blood Gas Base Excess -1.8 Blood Gas Oxygen Saturation 95 Arterial Blood pH 7.40 Arterial Blood Partial 36 Pressure CO2 Arterial Blood Partial 93 Pressure O2 Arterial Blood Oxygen Content 15.8 Arterial Blood 1.4 Carboxyhemoglobin Arterial Blood Methemoglobin 1.0 Blood Gas Hemoglobin 11.8 Oxygen Delivery Device NASAL CANNULA Blood Gas Liter Flow 4 Phosphorus Level 3.3 Lactic Acid Level 2.0 Nasal Screen MRSA (PCR) POSITIVE Test 10/19/16 06:14 White Blood Count 7.9 Red Blood Count 3.54 Hemoglobin 11.4 Hematocrit 33.5 Mean Corpuscular Volume 94.7 Mean Corpuscular Hemoglobin 32.1 Mean Corpuscular Hemoglobin 33.9 Concent Red Cell Distribution Width 13.9 Platelet Count 240 Mean Platelet Volume 7.5 Neutrophils (%) (Auto) 85.2 Lymphocytes (%) (Auto) 1.6 Monocytes (%) (Auto) 13.1 Eosinophils (%) (Auto) 0.0 Basophils (%) (Auto) 0.1 Neutrophils # (Auto) 6.7 Lymphocytes # (Auto) 0.1 Monocytes # (Auto) 1.0 Eosinophils # (Auto) 0.0 Basophils # (Auto) 0.0 CBC Comment DIFF FINAL Differential Comment Sodium Level 141 Potassium Level 3.9 Chloride Level 107 Carbon Dioxide Level 26.5 Anion Gap 8 Blood Urea Nitrogen 9 Creatinine 0.57 Estimat Glomerular Filtration 145 Rate Random Glucose 122 Calcium Level 7.4 Protein Corrected Calcium 8.5 Total Bilirubin 0.6 Aspartate Amino Transf 8 (AST/SGOT) Alanine Aminotransferase 8 (ALT/SGPT) Alkaline Phosphatase 47 Total Protein 5.2 Albumin 1.6 Lipase 2390 Date/Time Procedure Status Source Growth 10/18/16 06:40 Aerobic Blood Culture Received Blood Peripheral Pending 10/18/16 06:40 Anaerobic Blood Culture Received Blood Peripheral Pending Result Diagram: 10/19/1614 10/19/1614 Imaging Last 48 hours Impressions Chest X-Ray 10/18/16 0000 Signed Impressions: Service Date/Time: September 06:17 - CONCLUSION: Compared to the prior study the previously noted pulmonary edema has improved. There continues be some mild interstitial infiltrates in the mid and lower lungs right greater than left. Otherwise the lungs are well-aerated. Wei Cesar MD Chest CT 10/18/16 0000 Signed Impressions: Service Date/Time: September 12:17 - CONCLUSION: 1. Mild emphysema with new small bilateral pleural effusions with associated compressive atelectasis and consolidation at the lung bases. 2. Please refer to abdomen and pelvis CT report for description of the subdiaphragmatic findings. Jorgito Baumann MD Abdomen/Pelvis CT 10/18/16 0000 Signed Impressions: Service Date/Time: September 12:14 - CONCLUSION: 1. There is increased free fluid in the abdomen and pelvis since the prior study that is from an uncertain etiology. Some of the fluid is located in the subcapsular region of the left lobe of the liver. 2. There is low density at the pancreaticoduodenal groove which could represent edema and this can be seen with acute pancreatitis. Suggest correlation with appropriate laboratory values. 3. New small bilateral pleural effusions with associated compressive atelectasis and possible consolidation at the left lung bases. 4. The partially cystic lesion abutting the head of the pancreas is stable and of uncertain etiology. There is adjacent narrowing or occlusion of the portal vein. Jorgito Baumann MD Abdomen X-Ray 10/18/16 0000 Signed Impressions: Service Date/Time: September 06:21 - CONCLUSION: Benign abdomen. Wei Cesar MD Assessment and Plan Assessment and Plan This is a 60-year-old male with acute on chronic pancreatitis due to alcohol use. -Continue IVF -WBC improved today -Lipase improved today; continue to monitor -NPO -Dilaudid PRN for pain control -Recommend abstinence for ETOH use -Discussed with Dr. Kimball I ATTEST AND CERTIFY THAT I PERSONALLY EXAMINED THIS PATIENT AND REVIEWED THE EMR WITH MS HUTCHINS WHO DOCUMENTED OUR VISIT. BASICALLY PATIENT HAS ACUTE ON CHRONIC PANCREATITIS. THERE IS NO SURGICAL PROCEDURE INDICATED AT THIS TIME. SURGICAL PANCREATIC DEBRIDEMENT IS ONLY INDICATED FOR SEVERE SEPSIS SECONDARY TO PANCREATIC NECROSIS AND/OR ABSCESS. IF THIS IS NECESSARY I WOULD RECOMMEND TRANSFER TO [facility] WHO HAS A SERVICE DEDICATED TO THESE PATIENTS. FOR NOW I WOULD RECOMMEND SUPPORTIVE CARE. HE SEEMS TO BE IMPROVING BY VITAL SIGNS, LABS , AND SYMPTOMS. WILL SIGN OFF, PLEASE CALL IF THERE ARE ANY QUESTIONS OR CONCERNS. DILMA KIMBALL MD FACS Discussed Condition With Mr. Nathan Rina Banda Oct 19, 2016 07:58 Dilma Kimball MD Oct 19, 2016 11:57
[2016-10-19] MEDS: SODIUM CHLORIDE 0.9% FLUSH 5 ML FLUSH IV SCH ×2 (07:59→21:38)
[2016-10-19] MEDS: PANTOPRAZOLE SODIUM 40 MG VIAL IV PUSH SCH ×2 (07:59→21:33)
--- NOTE | 2016-10-19 09:08 | PD.RAD ---
Radiology Note 60 y/o male with oxygen dependant COPD, CHF with EF 30-35%, chronic and acute pancreatitis and sepsis currently in the ICU Patient underwent Ct abd and pelvis that demonstrated ascites and cirrhosis. NO dilated ducts evident in the liver. Patient had a failed attempt at ERCP. We are asked to preform a PTHD. Assessment: patient labs and imaging studied reviewed. He is not a candidate for PTHD at this time due to the multiple medical problems and lack of biliary obstruction. Case discussed with Dr. Valiente and Dr. Bull. Manpreet Felix MD Oct 19, 2016 09:08
--- NOTE | 2016-10-19 10:48 | HHI.PR ---
Subjective Remarks pt seen this am round 10am. says he is feeling al little better. says abd pain little better. no n/v. d/w urse. no acute issues. appropriate for transfer to the floor. Objective Vital Signs Date Time Temp Pulse Resp B/P Pulse Ox O2 Delivery O2 Flow Rate FiO2 10/19/16 09:02 95 Nasal Cannula 3.00 10/19/16 08:00 98.1 88 14 125/69 95 10/19/16 08:00 85 10/19/16 06:00 86 10/19/16 04:00 98.6 82 14 107/65 94 10/19/16 04:00 82 10/19/16 02:00 88 10/19/16 00:00 98.2 83 14 107/66 94 10/19/16 00:00 83 10/18/16 22:00 84 10/18/16 20:24 96 Nasal Cannula 3.00 10/18/16 20:00 81 10/18/16 20:00 97.7 93 14 102/63 94 10/18/16 16:00 98.3 112 18 118/75 94 10/18/16 12:00 98.3 102 12 124/80 99 I/O 10/18/16 10/18/16 10/18/16 10/19/16 10/19/16 10/19/16 07:00 15:00 23:00 07:00 15:00 23:00 Intake Total 555 ml 3767 ml 1112 ml 1161 ml Output Total 300 ml 300 ml 200 ml 225 ml Balance 255 ml 3467 ml 912 ml 936 ml Intake Oral 0 ml 0 ml 0 ml IV Total 555 ml 3767 ml 1112 ml 1161 ml Output Urine Total 300 ml 300 ml 200 ml 225 ml # Bowel Movements 0 0 0 Result Diagram: 10/19/16 0614 10/19/16 0614 Imaging Last Impressions Chest X-Ray 10/18/16 0000 Signed Impressions: Service Date/Time: September 06:17 - CONCLUSION: Compared to the prior study the previously noted pulmonary edema has improved. There continues be some mild interstitial infiltrates in the mid and lower lungs right greater than left. Otherwise the lungs are well-aerated. Wei Cesar MD Chest CT 10/18/16 0000 Signed Impressions: Service Date/Time: September 12:17 - CONCLUSION: 1. Mild emphysema with new small bilateral pleural effusions with associated compressive atelectasis and consolidation at the lung bases. 2. Please refer to abdomen and pelvis CT report for description of the subdiaphragmatic findings. Jorgito Baumann MD Abdomen/Pelvis CT 10/18/16 0000 Signed Impressions: Service Date/Time: September 12:14 - CONCLUSION: 1. There is increased free fluid in the abdomen and pelvis since the prior study that is from an uncertain etiology. Some of the fluid is located in the subcapsular region of the left lobe of the liver. 2. There is low density at the pancreaticoduodenal groove which could represent edema and this can be seen with acute pancreatitis. Suggest correlation with appropriate laboratory values. 3. New small bilateral pleural effusions with associated compressive atelectasis and possible consolidation at the left lung bases. 4. The partially cystic lesion abutting the head of the pancreas is stable and of uncertain etiology. There is adjacent narrowing or occlusion of the portal vein. Jorgito Baumann MD Abdomen X-Ray 10/18/16 0000 Signed Impressions: Service Date/Time: September 06:21 - CONCLUSION: Benign abdomen. Wei Cesar MD Cholangiopancreatography MRI 10/15/16 0000 Signed Impressions: Service Date/Time: Saturday, October 15, 2016 15:10 - CONCLUSION: Abnormal common duct 7 mm in width however distally this is blunted suggesting a luminal defect or stone. Further evaluation with ERCP is recommended. Yobani Bashir MD Objective Remarks GENERAL: Patient lying in bed in ICU. Appears comfortable. He continues alert and oriented 3 SKIN: Warm and dry. Hand excoriations. Multiple superficial excoriations over MCPs, as well as over left MCP is to some extent. Minimal surrounding erythema. No signs of infection. these are improving. HEAD: Normocephalic. EYES: No scleral icterus. No injection or drainage. NECK: Supple, trachea midline. No JVD or lymphadenopathy. CARDIOVASCULAR: Regular rate and rhythm without murmurs, gallops, or rubs. RESPIRATORY: Breath sounds equal bilaterally. No accessory muscle use. GASTROINTESTINAL: Abdomen TTP over epigastrum., although improved from yesterday. pt does have distended abd. mod. ascites. MUSCULOSKELETAL: No cyanosis, or edema. BACK: Nontender without obvious deformity. No CVA tenderness. A/P Assessment and Plan //Suspected sepsis 10/18. fever 101, HR 140s, worsenign abd pain. incr o2 req 2L. -possible aspiration PNA - CXR improved from admit but does show RLL inf. -tart zosyn. lactate ordered, fluid bolus, ICU transfer, consult supervisor chemical. 10/19 much improved. vitals now stable. transf to floor. GI ff. no evidence of biliary obstruction per IR. cont zosyn. //Acute on chronic pancreatitis. -With worsening pain on admission. Lipase to 17,000 on 10/15. Trending down. Pain Improved slightly on 10/16 CT scan does indicate low-density mass likely representing a pseudocyst abutting superior to the pancreatic head adjacent to mesenteric vessels. Is also induration of fat adjacent which could represent inflammation. He was worked up extensively in 2013. -Negative EKGs and troponins. -Gastroenterology. - ERCP 10/17 Appreciate GI assistance. -gi FF, appreciate assist. cont IVF, pain control. -10/19abd ttp improving. cont abx. //Bilateral hand excoriations -Patient reports this is chronic and improving, initially secondary to bleach exposure. No signs of acute infection. NO Blistering to indicate porphyria. -10/17. Appears to be improving slightly. -stable Continue to monitor. //Hyponatremia. Mild. 10/19. resolved.. cont D5 Normal saline. //BL pleural effusions, compresive atelectasis. -likley related to ascites. -cont abx. //Ascites. possible SBP -para ordered. cont zosyn. f/u peritoneal fluid DVT prophy Sequential compression devices. lovenox. Discharge Planning tx to ICU for suspected severe sepsis. Omar Barrett MD Oct 19, 2016 10:48
--- NOTE | 2016-10-19 11:08 | HHI.CCPN ---
Subjective Remarks/Hospital Course Patient is a 60 year-old male with past medical history significant for COPD on oxygen, pancreatitis with recurrent pseudocyst formation requiring prolonged hospitalization in 2013, weight loss who was admitted to the [facility] under hospitalist service on 10/13/16 with abdominal pain lasting 3 days. He was diagnosed with acute on chronic pancreatitis. Patient' s initial lipase was 4433 [place] [address] Abdomen/Pelvis CT 10/13/16 showed a low-density mass abutting the pancreatic head, 3.0 x 2.1 cm in size which could be a pseudocyst however a mass cannot be excluded. There was also mild induration in the fat adjacent representing inflammation. 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 Patient underwent MRCP on which showed abnormal common duct 7 mm in width, but distally blunted suggesting a luminal defect or stone. From [place] patient was transferred to [facility] and underwent unsuccessful ERCP on by Dr. Carpenter. It showed enlarged pancreatic duct with branching consistent with chronic pancreatitis, no communication to pancreatic duct. Per GI notes the wire would not pass the distal part of the common bile duct and nor bile with Kinevac, and small sphincterotomy was done. Plan per GI was for PTHC by IR. Overnight patient developed worsening abdominal pain, fever of 101 and tachypnea tachycardia. His oxygen requirement increased to 2 L from room air and also he was tachycardic up to 160s. CXR, KUB essentially unchanged,. WBC 12.6. Lipase 3277-slightly increased from yesterday. The patient was given 500cc fluid bolus and was placed on maintenance fluid at 150 ML per hour. A stat CT Scan abdomen and pelvis with iv and oral contrast had been ordered and I have asked for a CT of the chest as well. Hospitalist that started the patient on IV Zosyn. Critical-care medicine was consulted for severe sepsis and worsening pancreatitis status post ERCP yesterday. I evaluated the patient in the ICU his systolic blood pressure is in 100s, heart rate is 140s he appears critically ill. Abdomen is very tender with guarding. I have ordered a total of 3 L of fluid boluses and maintenance at 150 ML per hour. Zosyn dose will be increased to 4.5 g every 6 hours and single dose of vancomycin had been ordered. Follow-up on cultures, and CT imaging 10/19 No acute events overnight. Patient is awake and and alert. Afebrile. Objective Vital Signs Date Time Temp Pulse Resp B/P Pulse Ox O2 Delivery O2 Flow Rate FiO2 10/19/16 09:02 95 Nasal Cannula 3.00 10/19/16 08:00 98.1 88 14 125/69 10/16/16 21:13 21 Intake and Output 10/18/16 10/18/16 10/19/16 08:00 16:00 00:00 Intake Total 555 ml 3767 ml 1112 ml Output Total 300 ml 300 ml 200 ml Balance 255 ml 3467 ml 912 ml Result Diagram: 10/19/16 0614 10/19/16 0614 Other Results Laboratory Tests Test 10/18/16 10/18/16 10/18/16 10/18/16 12:43 13:45 17:13 19:00 Blood Gas Puncture Site LT RADIAL Blood Gas Patient Temperature 98.6 Blood Gas HCO3 22 mmol/L Blood Gas Base Excess -1.8 mmol/L Blood Gas Oxygen Saturation 95 % Arterial Blood pH 7.40 Arterial Blood Partial 36 mmHg Pressure CO2 Arterial Blood Partial 93 mmHg Pressure O2 Arterial Blood Oxygen Content 15.8 Vol % Arterial Blood 1.4 % Carboxyhemoglobin Arterial Blood Methemoglobin 1.0 % Blood Gas Hemoglobin 11.8 G/DL Oxygen Delivery Device NASAL CANNULA Blood Gas Liter Flow 4 L/M Phosphorus Level 3.3 MG/DL Lactic Acid Level 2.0 mmol/L Nasal Screen MRSA (PCR) POSITIVE Test 10/19/16 06:14 White Blood Count 7.9 TH/MM3 Red Blood Count 3.54 MIL/MM3 Hemoglobin 11.4 GM/DL Hematocrit 33.5 % Mean Corpuscular Volume 94.7 FL Mean Corpuscular Hemoglobin 32.1 PG Mean Corpuscular Hemoglobin 33.9 % Concent Red Cell Distribution Width 13.9 % Platelet Count 240 TH/MM3 Mean Platelet Volume 7.5 FL Neutrophils (%) (Auto) 85.2 % Lymphocytes (%) (Auto) 1.6 % Monocytes (%) (Auto) 13.1 % Eosinophils (%) (Auto) 0.0 % Basophils (%) (Auto) 0.1 % Neutrophils # (Auto) 6.7 TH/MM3 Lymphocytes # (Auto) 0.1 TH/MM3 Monocytes # (Auto) 1.0 TH/MM3 Eosinophils # (Auto) 0.0 TH/MM3 Basophils # (Auto) 0.0 TH/MM3 CBC Comment DIFF FINAL Differential Comment Sodium Level 141 MEQ/L Potassium Level 3.9 MEQ/L Chloride Level 107 MEQ/L Carbon Dioxide Level 26.5 MEQ/L Anion Gap 8 MEQ/L Blood Urea Nitrogen 9 MG/DL Creatinine 0.57 MG/DL Estimat Glomerular Filtration 145 ML/MIN Rate Random Glucose 122 MG/DL Calcium Level 7.4 MG/DL Protein Corrected Calcium 8.5 MG/DL Total Bilirubin 0.6 MG/DL Aspartate Amino Transf 8 U/L (AST/SGOT) Alanine Aminotransferase 8 U/L (ALT/SGPT) Alkaline Phosphatase 47 U/L Total Protein 5.2 GM/DL Albumin 1.6 GM/DL Lipase 2390 U/L Imaging Last Impressions Chest X-Ray 10/18/16 0000 Signed Impressions: Service Date/Time: September 06:17 - CONCLUSION: Compared to the prior study the previously noted pulmonary edema has improved. There continues be some mild interstitial infiltrates in the mid and lower lungs right greater than left. Otherwise the lungs are well-aerated. Wei Cesar MD Chest CT 10/18/16 0000 Signed Impressions: Service Date/Time: September 12:17 - CONCLUSION: 1. Mild emphysema with new small bilateral pleural effusions with associated compressive atelectasis and consolidation at the lung bases. 2. Please refer to abdomen and pelvis CT report for description of the subdiaphragmatic findings. Jorgito Baumann MD Abdomen/Pelvis CT 10/18/16 0000 Signed Impressions: Service Date/Time: September 12:14 - CONCLUSION: 1. There is increased free fluid in the abdomen and pelvis since the prior study that is from an uncertain etiology. Some of the fluid is located in the subcapsular region of the left lobe of the liver. 2. There is low density at the pancreaticoduodenal groove which could represent edema and this can be seen with acute pancreatitis. Suggest correlation with appropriate laboratory values. 3. New small bilateral pleural effusions with associated compressive atelectasis and possible consolidation at the left lung bases. 4. The partially cystic lesion abutting the head of the pancreas is stable and of uncertain etiology. There is adjacent narrowing or occlusion of the portal vein. Jorgito Baumann MD Abdomen X-Ray 10/18/16 0000 Signed Impressions: Service Date/Time: September 06:21 - CONCLUSION: Benign abdomen. Wei Cesar MD Cholangiopancreatography MRI 10/15/16 0000 Signed Impressions: Service Date/Time: Saturday, October 15, 2016 15:10 - CONCLUSION: Abnormal common duct 7 mm in width however distally this is blunted suggesting a luminal defect or stone. Further evaluation with ERCP is recommended. Yobani Bashir MD Objective Remarks GENERAL: Patient is lying in bed in NAD SKIN: Warm and dry. HEAD: Normocephalic. EYES: No scleral icterus. No injection or drainage. NECK: Supple, trachea midline. No JVD or lymphadenopathy. CARDIOVASCULAR: Regular rate and rhythm without murmurs, gallops, or rubs. RESPIRATORY: Breath sounds equal bilaterally. No accessory muscle use. GASTROINTESTINAL: Abdomen soft, non-tender, nondistended. MUSCULOSKELETAL: No cyanosis, or edema. BACK: Nontender without obvious deformity. No CVA tenderness. neuro: awake and alert A/P Assessment and Plan PROBLEM LIST: s/p sepsis Acute on chronic pancreatitis Status post ERCP on 10/17/16 Respiratory insufficiency Acute abdominal pain Cardiomyopathy COPD on home oxygen History of chronic pancreatitis History of prolonged hospitalization in 2013 for pancreatitis Alcohol abuse PLAN by system: NEURO: Pain control Daily alcohol use/abuse -As needed Dilaudid for pain. -Supplement thiamine, RESP: COPD on home oxygen Respiratory insufficiency -Continue with oxygen keep sat >92% DuoNeb every 6 hours and when necessary -On hydrocortisone 100 mg IV every 8 hours CV: -Monitor HR and BP keep MAP>65mmHg -Previous echo in 2013 showed a EF 30- 35%, echo done this admission had poor window GI: Acute on chronic pancreatitis Pancreatic pseudocyst versus mass Status post ERCP 10/17/16 with worsening abdominal pain -Pain control with Dilaudid, -Broad spectrum antibiotics with Zosyn and also give single dose of vancomycin -CT abdomen pelvis c/w pancreatics -Monitor Lipase level...trending down -Start clear liquid if ok with GI -Protonix 40 mg IV every 12 : -Monitor renal function closely. Continue IV hydration as above ID: Severe sepsis Acute pancreatitis, rule out necrosis Probable pneumonia -Continue IV Zosyn and monitor for signs of infections( Fever, WBC) -Follow up on blood cultures from 10/18: NGTD HEME: -Monitor CBC, CMP ENDO: -IV hydrocortisone 100 mg every 8 hours as stress dose steroids -Electrolyte replacement per protocol PROPH: -Bilateral lower extremity SCDs. Lovenox 40 mg subcutaneous daily. IV Protonix 40 mg every 12 LINES: -Utilize peripheral IVs, Will sign off and transfer acre to [facility] Level 3 Leroy Lara MD Oct 19, 2016 11:08
[2016-10-19] MEDS ORDERED: GLUCAGON 1 MG/ML VIAL OTHER PRN (11:15)
[2016-10-19] MEDS ORDERED: DEXTROSE 50% IN WATER 50 ML VIAL(D50) IV PUSH PRN (11:15)
[2016-10-19] MEDS: INSULIN NovoLIN REGULAR SUPPLEMENTAL SCALE SQ SCH ×2 (12:00→17:41)
[2016-10-19 12:28] LABS: INTERNATIONAL NORMALIZED RATIO 1.1 RATIO; PROTHROMBIN TIME - PATIENT 11.7 SEC (9.8-11.6)
--- NOTE | 2016-10-19 14:36 | HHI.GIFU ---
Subjective Remarks Resting in bed, no distress. States pain better, although still requiring pain meds. Spoke to Dr. Porter Felix- would like to hold on PTHC until ascites improved /patient improves unless there is obvious obstruction- demonstrated by dilated bile ducts and/or elevated LFTs. (Lola Valiente) Objective Vitals I&O Vital Signs Date Time Temp Pulse Resp B/P Pulse Ox O2 Delivery O2 Flow Rate FiO2 10/19/16 12:00 75 10/19/16 12:00 97.9 75 16 103/69 99 10/19/16 10:00 78 10/19/16 09:02 95 Nasal Cannula 3.00 10/19/16 08:00 98.1 88 14 125/69 95 10/19/16 08:00 85 10/19/16 06:00 86 10/19/16 04:00 98.6 82 14 107/65 94 10/19/16 04:00 82 10/19/16 02:00 88 10/19/16 00:00 98.2 83 14 107/66 94 10/19/16 00:00 83 10/18/16 22:00 84 10/18/16 20:24 96 Nasal Cannula 3.00 10/18/16 20:00 81 10/18/16 20:00 97.7 93 14 102/63 94 10/18/16 16:00 98.3 112 18 118/75 94 I/O 10/18/16 10/18/16 10/18/16 10/19/16 10/19/16 10/19/16 07:00 15:00 23:00 07:00 15:00 23:00 Intake Total 555 ml 3767 ml 1112 ml 1161 ml Output Total 300 ml 300 ml 200 ml 225 ml Balance 255 ml 3467 ml 912 ml 936 ml Intake Oral 0 ml 0 ml 0 ml IV Total 555 ml 3767 ml 1112 ml 1161 ml Output Urine Total 300 ml 300 ml 200 ml 225 ml # Bowel Movements 0 0 0 Laboratory Laboratory Tests Test 10/18/16 10/18/16 10/19/16 10/19/16 17:13 19:00 06:14 12:05 Lactic Acid Level 2.0 Nasal Screen MRSA (PCR) POSITIVE White Blood Count 7.9 Red Blood Count 3.54 Hemoglobin 11.4 Hematocrit 33.5 Mean Corpuscular Volume 94.7 Mean Corpuscular Hemoglobin 32.1 Mean Corpuscular Hemoglobin 33.9 Concent Red Cell Distribution Width 13.9 Platelet Count 240 Mean Platelet Volume 7.5 Neutrophils (%) (Auto) 85.2 Lymphocytes (%) (Auto) 1.6 Monocytes (%) (Auto) 13.1 Eosinophils (%) (Auto) 0.0 Basophils (%) (Auto) 0.1 Neutrophils # (Auto) 6.7 Lymphocytes # (Auto) 0.1 Monocytes # (Auto) 1.0 Eosinophils # (Auto) 0.0 Basophils # (Auto) 0.0 CBC Comment DIFF FINAL Differential Comment Sodium Level 141 Potassium Level 3.9 Chloride Level 107 Carbon Dioxide Level 26.5 Anion Gap 8 Blood Urea Nitrogen 9 Creatinine 0.57 Estimat Glomerular Filtration 145 Rate Random Glucose 122 Calcium Level 7.4 Protein Corrected Calcium 8.5 Total Bilirubin 0.6 Aspartate Amino Transf 8 (AST/SGOT) Alanine Aminotransferase 8 (ALT/SGPT) Alkaline Phosphatase 47 Total Protein 5.2 Albumin 1.6 Lipase 2390 Prothrombin Time 11.7 Prothromb Time International 1.1 Ratio Date/Time Procedure Status Source Growth 10/18/16 06:40 Aerobic Blood Culture - Preliminary Resulted Blood Peripheral NO GROWTH IN 1 DAY 10/18/16 06:40 Anaerobic Blood Culture - Preliminary Resulted Blood Peripheral NO GROWTH IN 1 DAY Imaging Last Impressions Chest X-Ray 10/18/16 0000 Signed Impressions: Service Date/Time: September 06:17 - CONCLUSION: Compared to the prior study the previously noted pulmonary edema has improved. There continues be some mild interstitial infiltrates in the mid and lower lungs right greater than left. Otherwise the lungs are well-aerated. Wei Cesar MD Chest CT 10/18/16 0000 Signed Impressions: Service Date/Time: September 12:17 - CONCLUSION: 1. Mild emphysema with new small bilateral pleural effusions with associated compressive atelectasis and consolidation at the lung bases. 2. Please refer to abdomen and pelvis CT report for description of the subdiaphragmatic findings. Jorgito Baumann MD Abdomen/Pelvis CT 10/18/16 0000 Signed Impressions: Service Date/Time: September 12:14 - CONCLUSION: 1. There is increased free fluid in the abdomen and pelvis since the prior study that is from an uncertain etiology. Some of the fluid is located in the subcapsular region of the left lobe of the liver. 2. There is low density at the pancreaticoduodenal groove which could represent edema and this can be seen with acute pancreatitis. Suggest correlation with appropriate laboratory values. 3. New small bilateral pleural effusions with associated compressive atelectasis and possible consolidation at the left lung bases. 4. The partially cystic lesion abutting the head of the pancreas is stable and of uncertain etiology. There is adjacent narrowing or occlusion of the portal vein. Jorgito Baumann MD Abdomen X-Ray 10/18/16 0000 Signed Impressions: Service Date/Time: September 06:21 - CONCLUSION: Benign abdomen. eWi Cesar MD Cholangiopancreatography MRI 10/15/16 0000 Signed Impressions: Service Date/Time: Saturday, October 15, 2016 15:10 - CONCLUSION: Abnormal common duct 7 mm in width however distally this is blunted suggesting a luminal defect or stone. Further evaluation with ERCP is recommended. Yobani Bashir MD Physical Exam HEENT: Normocephalic; atraumatic; no jaundice. CHEST: Resp. shallow/even. Diminished CARDIAC: RRR ABDOMEN: soft, mild to moderate tenderness, bowel sounds are present in all four quadrants. EXTREMITIES: No clubbing, cyanosis, or edema. SKIN: Normal; no rash; no jaundice. BIOMETRICS EXPERIMENTALIST: No focal deficits; lethargic and oriented times three. (Lola Valiente [facility]) Assessment and Plan Plan ASSESSMENT: - Acute pancreatitis with abnormal imaging of the pancreatic head- Pseudocyst vs. Mass Abdomen/Pelvis CT (10/13/16)-----> 1. There is a low-density mass abutting indirectly superior to the pancreatic head adjacent to the mesenteric vessels. It measures 3.0 x 2.1 cm and is located in a similar location to a cystic lesion seen on prior studies that was felt to represent a pseudocyst. Therefore, it may represent a similar process. However, an abnormal lymph node or mass cannot definitely be excluded. 2. There is also mild induration in the fat adjacent to this structure which could represent inflammation. 3. Small volume of free fluid is present within the abdomen and pelvis. 4. 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 MRCP (10/15/16) ----> Abnormal common duct 7 mm in width however distally this is blunted suggesting a luminal defect or stone. Further evaluation with ERCP is recommended. S/P Unsuccessful ERCP (10/17/16)-----> enlarged pancreatic duct with branching c/w chronic pancreatitis, no communication to pancreatic duct, the wire would not pass the distal part of the common bile duct and nor bile with Kinevac, small sphincterotomy was done. Pt had worsening pain overnight with fever of 101 and tachycardia up to 160 and tachypnea/sob morning of 10/18 and was transferred to the unit. Abdomen/Pelvis CT (10/18/16) ----> 1. There is increased free fluid in the abdomen and pelvis since the prior study that is from an uncertain etiology. Some of the fluid is located in the subcapsular region of the left lobe of the liver. 2. There is low density at the pancreaticoduodenal groove which could represent edema and this can be seen with acute pancreatitis. Suggest correlation with appropriate laboratory values. 3. New small bilateral pleural effusions with associated compressive atelectasis and possible consolidation at the left lung bases. 4. The partially cystic lesion abutting the head of the pancreas is stable and of uncertain etiology. There is adjacent narrowing or occlusion of the portal vein. Clinically, much improved today. Lipase 2390. T. Bili 0.6, AST 8, ALT 8, Alk Phosph 47. Spoke to Dr. Felix, would like to hold on PTHC until more stable and ascites improved unless there is obvious signs of biliary obstruction such as biliary dilatation or elevated LFTs. EUS as outpatient. Zosyn. PPI. - Pancreatic mass vs. Pseudocyst. Will need EUS as outpt. AFP 2.4, CEA 2.1, Ca 19-9 19.7. - Fever, Leukocytosis. Fever of 101 overnight yesterday, now afebrile. BCx no growth one day. Zosyn - Resp. Insufficiency. Chest X-Ray (10/18/16)----> Compared to the prior study the previously noted pulmonary edema has improved. There continues be some mild interstitial infiltrates in the mid and lower lungs right greater than left. Otherwise the lungs are well-aerated. CT as above. Much improved. PLAN: - Ice chips - IVF - Cont. Zosyn - Cont. PPI - CBC, CMP, Lipase in am - PTHC once stable and ascites improved, sooner obvious signs of biliary obstruction and/or elevated LFTs - EUS as outpatient - Further recommendations to follow based on results of above - Pt seen and examined by Dr. Mendez and myself and this note is written on her behalf (Lola Valiente) Physician Comments seen, examined agree with above s/p paracentesis-awaiting results clear liquid diet (Maryellen Mendez MD) Lola Valiente Oct 19, 2016 14:36 Maryellen Mendez MD Oct 19, 2016 18:43
[2016-10-19] MEDS: ENOXAPARIN SODIUM 40 MG/0.4 ML SYRINGE SQ SCH (17:41)
--- NOTE | 2016-10-19 17:44 | RADRPT ---
EXAM DATE/TIME: 10/19/2016 15:20 [place] COMPARISON: No previous studies available for comparison. INDICATIONS : Ascites. MEDICAL HISTORY : Congestive heart failure. Gastroesophageal reflux disease. Deep venous thrombosis. COPD. Bone cancer. Anemia. SURGICAL HISTORY : Left shoulder surgery. PEG tube placement. ENCOUNTER: Initial ACUITY: 1 day PAIN SCORE: 0/10 LOCATION: Right lower quadrant FLUID: Total volume of 1,500 cc of cloudy, yellow fluid was removed. Fluid was sent to lab for ordered studies. Post procedure scanning reveals no hematoma or other complication. TECHNIQUE: 1. Ultrasound guidance for abdominal paracentesis. 2. Paracentesis. The risks, benefits, and alternatives to ultrasound guided paracentesis were explained to the patient in detail including the risk of bleeding and infection. Written and verbal informed consent was obt ained. With the patient on the ultrasound table, ultrasound imaging was used to select the most appropriate approach for paracentesis. Overlying skin was prepped and draped in the usual sterile fashion and wi th a local anesthetic, a dermatotomy was made with an 11 blade scalpel. A 6 [place] [id number] ca theter was introduced into the peritoneal cavity and fluid was collected. The patient tolerated the procedure well and left the ultrasound suite in stable condition. CONCLUSION: Uncomplicated ultrasound guided paracentesis. Kevin Felix MD FACR on October 19, 2016 at 17:42 Board Certified Radiologist. This report was verified electronically.
[2016-10-19 19:56] LABS: PERITONEAL HISTIOCYTES 7 %; PERITONEAL LYMPHS 0 %; PERITONEAL MONOS 16 %; PERITONEAL POLYS(SEGS) 77 %; PERITONEAL WBC 22252 /MM3 (0-10)
[2016-10-20] VITALS (8 sets, daily range): BP systolic 130–145; BP diastolic 53–84; PULSE 80–105; RESP 18–20; TEMP 97.3–97.6; O2SAT 97–99
[2016-10-20] MEDS: HYDROmorphone HCL PF 1 MG/ML VIAL IV PUSH PRN ×5 (01:50→20:37)
[2016-10-20] MEDS: CHLORHEXIDINE GLUCONATE 2 % 1 PACK (2 CLOTHS)(taper/protocol) TOP SCH (03:51)
[2016-10-20] MEDS: PIPERACIL-TAZO 4.5 GM PREMIX 100 ML IV SCH ×4 (03:55→20:41)
[2016-10-20] MEDS: INSULIN NovoLIN REGULAR SUPPLEMENTAL SCALE SQ SCH ×4 (05:45→17:38)
[2016-10-20] MEDS: HYDROCORTISONE SOD SUCCINATE 100 MG VIAL IV PUSH SCH ×3 (06:16→20:42)
[2016-10-20] MEDS: RESP: IPRATROPIUM 0.5 MG/2.5 ML NEB NEB PRN (07:13)
[2016-10-20 08:43] LABS: AUTOMATED NEUTROPHIL # 10.2 TH/MM3 (1.8-7.7); BASOPHIL % 0.2 % (0.0-2.0); HEMATOCRIT 33.6 % (39.0-51.0); HEMO FLAGS DIFF FINAL; LYMPH % 1.5 % (9.0-44.0); LYMPHOCYTE # 0.2 TH/MM3 (1.0-4.8); MEAN CELL VOLUME 93.7 FL (80.0-100.0); MEAN CORPUSCULAR HEMOGLOBIN 31.2 PG (27.0-34.0); MEAN CORPUSCULAR HGB CONC 33.3 % (32.0-36.0); MONO % 10.2 % (0.0-8.0); NEUT % 88.1 % (16.0-70.0); PLATELET COUNT 301 TH/MM3 (150-450); RED BLOOD COUNT 3.58 MIL/MM3 (4.50-5.90); WHITE BLOOD COUNT 11.6 TH/MM3 (4.0-11.0)
[2016-10-20 08:50] LABS: BICARBONATE 28.6 MEQ/L (21.0-32.0); MAGNESIUM 1.5 MG/DL (1.5-2.5); POTASSIUM 3.2 MEQ/L (3.5-5.1)
[2016-10-20] MEDS: PANTOPRAZOLE SODIUM 40 MG VIAL IV PUSH SCH ×2 (08:52→20:42)
[2016-10-20] MEDS: SODIUM CHLORIDE 0.9% FLUSH 5 ML FLUSH IV SCH ×2 (08:52→20:40)
[2016-10-20] MEDS: THIAMINE INJ 100 MG in SODIUM CHLORIDE 0.9% INJ 100 ML IV SCH (08:52)
[2016-10-20] MEDS: MAGNESIUM SULFATE 1 GM PREMIX 100 ML IV SCH ×2 (11:00→11:06)
[2016-10-20] MEDS: POTASSIUM CHLOR 10 MEQ PREMIX 100 ML IV SCH ×3 (11:23→14:21)
[2016-10-20 12:36] LABS: BLOOD, URINE NEG (NEG); COMMENT (UR) CULT NOT INDICATED; CULTURE IF INDICATED CULT NOT INDICATED; GLUCOSE,URINE NEG (NEG); KETONE, URINE 10 mg/dL (NEG); NITRITE,URINE NEG (NEG); SQUAMOUS EPITHELIAL CELL URINE <1 /hpf (0-5); TRANSITIONAL EPI CELLS, URINE <1 /hpf; URINE COLOR YELLOW (YELLW/STRAW)
--- NOTE | 2016-10-20 14:23 | HHI.GIFU ---
GI Follow-up Note Consult Follow-up Subjective: Patient laying in bed, abdominal pain better . Denies nuase, vomiting, also complaining of pain in left shoulder-new.Paracentesis results noted-sbp on antibiotics Objective: PHYSICAL EXAMINATION: Vitals signs stable No fever Vital Signs Date Time Temp Pulse Resp B/P Pulse Ox O2 Delivery O2 Flow Rate FiO2 10/20/16 13:34 97.4 105 19 140/84 97 10/20/16 08:35 97.4 86 18 136/53 99 10/20/16 07:13 98 Nasal Cannula 4.00 HEENT: Pupils round and reactive to light; normocephalic; atraumatic; no jaundice. Throat is clear. NECK: Neck is supple, no JVD, no lymphadenopathy. CHEST: Chest is clear to auscultation and percussion. CARDIAC: Regular rate and rhythm with no murmur gallop or rubs. ABDOMEN: Soft, nondistended, epigastric tenderness ; no hepatosplenomegaly; bowel sounds are present in all four quadrants. EXTREMITIES: No clubbing, cyanosis, or edema. SKIN: Normal; no rash; no jaundice. VENDING ENTERPRISES SUPERVISOR: No focal deficits; alert and oriented times three. Available Data (labs, X- Rays, Procedues) : Laboratory Tests Test 10/18/16 10/18/16 10/19/16 10/19/16 17:13 19:00 06:14 12:05 Lactic Acid Level 2.0 mmol/L Nasal Screen MRSA (PCR) POSITIVE White Blood Count 7.9 TH/MM3 Red Blood Count 3.54 MIL/MM3 Hemoglobin 11.4 GM/DL Hematocrit 33.5 % Mean Corpuscular Volume 94.7 FL Mean Corpuscular Hemoglobin 32.1 PG Mean Corpuscular Hemoglobin 33.9 % Concent Red Cell Distribution Width 13.9 % Platelet Count 240 TH/MM3 Mean Platelet Volume 7.5 FL Neutrophils (%) (Auto) 85.2 % Lymphocytes (%) (Auto) 1.6 % Monocytes (%) (Auto) 13.1 % Eosinophils (%) (Auto) 0.0 % Basophils (%) (Auto) 0.1 % Neutrophils # (Auto) 6.7 TH/MM3 Lymphocytes # (Auto) 0.1 TH/MM3 Monocytes # (Auto) 1.0 TH/MM3 Eosinophils # (Auto) 0.0 TH/MM3 Basophils # (Auto) 0.0 TH/MM3 CBC Comment DIFF FINAL Differential Comment Sodium Level 141 MEQ/L Potassium Level 3.9 MEQ/L Chloride Level 107 MEQ/L Carbon Dioxide Level 26.5 MEQ/L Anion Gap 8 MEQ/L Blood Urea Nitrogen 9 MG/DL Creatinine 0.57 MG/DL Estimat Glomerular Filtration 145 ML/MIN Rate Random Glucose 122 MG/DL Calcium Level 7.4 MG/DL Protein Corrected Calcium 8.5 MG/DL Total Bilirubin 0.6 MG/DL Aspartate Amino Transf 8 U/L (AST/SGOT) Alanine Aminotransferase 8 U/L (ALT/SGPT) Alkaline Phosphatase 47 U/L Total Protein 5.2 GM/DL Albumin 1.6 GM/DL Lipase 2390 U/L Prothrombin Time 11.7 SEC Prothromb Time International 1.1 RATIO Ratio Test 10/19/16 10/20/16 10/20/16 16:00 07:51 12:00 Peritoneal Fluid WBC 04160 /MM3 Peritoneal Fluid RBC 4695 /MM3 Peritoneal Fluid Neutrophils 77 % Peritoneal Fluid Lymphocytes 0 % Peritoneal Fluid Monocytes 16 % Peritoneal Fluid Histiocytes 7 % Peritoneal Fluid Albumin 1.1 G/DL White Blood Count 11.6 TH/MM3 Red Blood Count 3.58 MIL/MM3 Hemoglobin 11.2 GM/DL Hematocrit 33.6 % Mean Corpuscular Volume 93.7 FL Mean Corpuscular Hemoglobin 31.2 PG Mean Corpuscular Hemoglobin 33.3 % Concent Red Cell Distribution Width 14.0 % Platelet Count 301 TH/MM3 Mean Platelet Volume 8.1 FL Neutrophils (%) (Auto) 88.1 % Lymphocytes (%) (Auto) 1.5 % Monocytes (%) (Auto) 10.2 % Eosinophils (%) (Auto) 0.0 % Basophils (%) (Auto) 0.2 % Neutrophils # (Auto) 10.2 TH/MM3 Lymphocytes # (Auto) 0.2 TH/MM3 Monocytes # (Auto) 1.2 TH/MM3 Eosinophils # (Auto) 0.0 TH/MM3 Basophils # (Auto) 0.0 TH/MM3 CBC Comment DIFF FINAL Differential Comment Hematology Comments Sodium Level 140 MEQ/L Potassium Level 3.2 MEQ/L Chloride Level 104 MEQ/L Carbon Dioxide Level 28.6 MEQ/L Anion Gap 7 MEQ/L Blood Urea Nitrogen 11 MG/DL Creatinine 0.48 MG/DL Estimat Glomerular Filtration 177 ML/MIN Rate Random Glucose 87 MG/DL Calcium Level 7.5 MG/DL Phosphorus Level 3.0 MG/DL Magnesium Level 1.5 MG/DL Urine Color YELLOW Urine Turbidity CLEAR Urine pH 6.0 Urine Specific [place] 1.050 Urine Protein TRACE mg/dL Urine Glucose (UA) NEG mg/dL Urine Ketones 10 mg/dL Urine Occult Blood NEG Urine Nitrite NEG Urine Bilirubin NEG Urine Urobilinogen LESS THAN 2.0 MG/DL Urine Leukocyte Esterase NEG Urine WBC 2 /hpf Urine Squamous Epithelial <1 /hpf Cells Urine Transitional Epithelial <1 /hpf Cells Microscopic Urinalysis Comment CULT NOT INDICATED ASSESSMENT/PLAN: pancreatitis secondary etoh, questionable cbd stone s/p failed ercp-not a candidate for ptc as per IR unless obvious signs of obstruction ascites fluid-current results indicate infection-SAAG less than 1.1-exudate, protein level not available, possible localized peritonitis -on antibiotics Recommendations continue iv antibiotics clear liquid diet hida scan to evaluate for biliary obstruction nutritional consult , consider tpn monitor cbc, cmp, lipase replace electrolytes eus op It was a pleasure seeing José Miguel Nathan. Thank you for this consult. Entered by: Maryellen Edwards MD Oct 20, 2016 14:23
[2016-10-20] MEDS: ENOXAPARIN SODIUM 40 MG/0.4 ML SYRINGE SQ SCH (17:38)
[2016-10-21] VITALS (9 sets, daily range): BP systolic 110–148; BP diastolic 66–79; PULSE 61–79; RESP 18–20; TEMP 97.8–98.9; O2SAT 95–98
[2016-10-21] MEDS: HYDROmorphone HCL PF 1 MG/ML VIAL IV PUSH PRN ×5 (00:06→22:25)
--- NOTE | 2016-10-21 00:06 | HHI.PR ---
Subjective Remarks date of service 10/20/16..late entry.abdominal pain is controlled. Denies any nausea or vomiting. Denies any chest pain or shortness of breath. replace potassium and magnesium.Discussed with Dr. Mendez Appreciate assistance. Objective Vital Signs Date Time Temp Pulse Resp B/P Pulse Ox O2 Delivery O2 Flow Rate FiO2 10/20/16 20:57 20 10/20/16 20:00 97.6 102 20 145/75 97 10/20/16 13:34 97.4 105 19 140/84 97 10/20/16 08:35 97.4 86 18 136/53 99 10/20/16 08:05 95 10/20/16 07:13 98 Nasal Cannula 4.00 10/20/16 04:00 97.4 80 20 130/63 99 I/O 10/20/16 10/20/16 10/20/16 10/21/16 10/21/16 10/21/16 07:00 15:00 23:00 07:00 15:00 23:00 Intake Total 180 ml 1426 ml 120 ml Output Total 125 ml 50 ml Balance 55 ml 1426 ml 70 ml Intake Oral 180 ml 840 ml 120 ml IV Total 586 ml Output Urine Total 125 ml 50 ml # Bowel Movements 0 0 Result Diagram: 10/20/16 0751 10/20/16 0751 Objective Remarks GENERAL: Patient lying in bed. Appears comfortable. He continues alert and oriented 3 SKIN: Warm and dry. Hand excoriations. Multiple superficial excoriations over MCPs, as well as over left MCP are improving. no surrounding erythema. No signs of infection. HEAD: Normocephalic. EYES: No scleral icterus. No injection or drainage. NECK: Supple, trachea midline. No JVD or lymphadenopathy. CARDIOVASCULAR: Regular rate and rhythm without murmurs, gallops, or rubs. RESPIRATORY: Breath sounds equal bilaterally. No accessory muscle use. GASTROINTESTINAL: Abdomen TTP over epigastrum., although improved from yesterday. pt does have distended abd, improved from yesterday. minimal ascites. MUSCULOSKELETAL: No cyanosis, or edema. BACK: Nontender without obvious deformity. No CVA tenderness. A/P Assessment and Plan //Suspected sepsis 10/18. fever 101, HR 140s, worsenign abd pain. incr o2 req 2L. -possible aspiration PNA - CXR improved from admit but does show RLL inf. -tart zosyn. lactate ordered, fluid bolus, ICU transfer, consult estimator lumber. 10/19 much improved. vitals now stable. transf to floor. GI ff. no evidence of biliary obstruction per IR. -10/20. Vitals continue stable. Continue antibiotics. //Acute on chronic pancreatitis. //SBP. Acute. -With worsening pain on admission. Lipase to 17,000 on 10/15. Trending down. Pain Improved slightly on 10/16 CT scan does indicate low-density mass likely representing a pseudocyst abutting superior to the pancreatic head adjacent to mesenteric vessels. Is also induration of fat adjacent which could represent inflammation. He was worked up extensively in 2013. -Negative EKGs and troponins. -Gastroenterology. - ERCP 10/17 Appreciate GI assistance. -gi FF, appreciate assist. cont IVF, pain control. -10/19abd ttp improving. cont abx. -10/20. Possible pancreatic duct leak. SBP on peritoneal fluid. Appreciate gastroenterology assistance. Continue antibiotics. Continue to monitor closely. //Bilateral hand excoriations -Patient reports this is chronic and improving, initially secondary to bleach exposure. No signs of acute infection. NO Blistering to indicate porphyria. -10/17. Appears to be improving slightly. -stable Continue to monitor. //Hyponatremia. Mild. = Continues resolved.. cont D5 Normal saline. //BL pleural effusions, compresive atelectasis. -likley related to ascites. -cont abx. //Hypokalemia. Acute 10/20. Potassium 3.2. Replaced. Continue to monitor //Hypomagnesemia. Acute. Mild. -10/20. Replace. Monitor as necessary. //Ascites. possible SBP -para ordered. cont zosyn. f/u peritoneal fluid DVT prophy Sequential compression devices. lovenox. Discharge Planning continue to monitor closely for sepsis, SBP, pancreatitis Omar Barrett MD Oct 21, 2016 00:05
[2016-10-21] MEDS: RESP: IPRATROPIUM 0.5 MG/2.5 ML NEB NEB PRN ×2 (02:21→09:08)
[2016-10-21] MEDS: PIPERACIL-TAZO 4.5 GM PREMIX 100 ML IV SCH ×4 (03:10→22:21)
[2016-10-21] MEDS: CHLORHEXIDINE GLUCONATE 2 % 1 PACK (2 CLOTHS)(taper/protocol) TOP SCH (03:11)
[2016-10-21] MEDS: INSULIN NovoLIN REGULAR SUPPLEMENTAL SCALE SQ SCH ×5 (06:00→22:25)
[2016-10-21] MEDS: HYDROCORTISONE SOD SUCCINATE 100 MG VIAL IV PUSH SCH ×3 (06:12→22:24)
[2016-10-21 07:01] LABS: BICARBONATE 29.7 MEQ/L (21.0-32.0); POTASSIUM 3.3 MEQ/L (3.5-5.1)
[2016-10-21 07:03] LABS: AUTOMATED NEUTROPHIL # 11.4 TH/MM3 (1.8-7.7); BASOPHIL % 0.1 % (0.0-2.0); HEMATOCRIT 31.3 % (39.0-51.0); HEMO FLAGS DIFF FINAL; LYMPHOCYTE # 0.3 TH/MM3 (1.0-4.8); MEAN CELL VOLUME 94.4 FL (80.0-100.0); MEAN CORPUSCULAR HGB CONC 33.9 % (32.0-36.0); MONO % 8.3 % (0.0-8.0); NEUT % 89.6 % (16.0-70.0); PLATELET COUNT 313 TH/MM3 (150-450); RED BLOOD COUNT 3.32 MIL/MM3 (4.50-5.90); RED CELL DISTRIBUTION WIDTH 13.8 % (11.6-17.2); WHITE BLOOD COUNT 12.8 TH/MM3 (4.0-11.0)
[2016-10-21] MEDS: THIAMINE INJ 100 MG in SODIUM CHLORIDE 0.9% INJ 100 ML IV SCH (08:36)
[2016-10-21] MEDS: SODIUM CHLORIDE 0.9% FLUSH 5 ML FLUSH IV SCH ×2 (08:37→22:21)
[2016-10-21] MEDS: PANTOPRAZOLE SODIUM 40 MG VIAL IV PUSH SCH ×2 (08:38→22:21)
--- NOTE | 2016-10-21 12:06 | RADRPT ---
EXAM DATE/TIME: 10/21/2016 09:47 [facility] COMPARISON: None. INDICATIONS : Left upper quadrant abdominal pain radiating to back, vommiting and shortness of breath. DOSE: 4.1 mCi Tc99m Mebrofenin IV MEDICATION: 1.3 mcg Cholecystokinin IV; No symptomatic response. Cholecystokinin was administered by slow infusion over 8 minutes beginning at 60 minutes. MEDICAL HISTORY : Pancreatitis. Chronic obstructive pulmonary disease. Deep venous thrombosis. Congestive heart failure , asthma and bone cancer. SURGICAL HISTORY : PEG tube placement and left shoulder surgery. ENCOUNTER: Initial ACUITY: 1 week PAIN SCALE: 4/10 LOCATION: Left upper quadrant TECHNIQUE: Following the intravenous administration of radiotracer, dynamic sequential image were performed with continuous acquisition. Time-activity curves were generated. FINDINGS: HEPATIIC KINETICS: There is prompt uptake of radiotracer in the liver. No focal defects are seen. There is normal rate of washout from the hepatic parenchyma. BILIARY CLEARANCE: Activity is first seen in the extrahepatic biliary system at 5 minutes. There is normal excretion in to the small bowel. GALLBLADDER: Activity is first seen in the gallbladder at 10 minutes. POST CHOLECYSTOKININ: After Cholecystokinin administration, there is prompt emptying of the gallbladder with a 80 % ejectio n fraction. Common bile duct kinetics are normal and there is no evidence of biliary obstruction. BILIARY ENTERIC REFLUX: None observed. CLINICAL: The patient was asymptomatic after Cholecystokinin administration. CONCLUSION: Normal HIDA scan. Rodrigo Boyd Jr., MD Board Certified Radiologist. This report was verified electronically.
[2016-10-21] MEDS ORDERED: POTASSIUM CHLORIDE 10 MEQ CONTROLLED RELEASE TAB PO ONE (12:45)
[2016-10-21] MEDS: MAGNESIUM SULFATE 1 GM PREMIX 100 ML IV SCH ×2 (12:51→14:55)
[2016-10-21] MEDS: ENOXAPARIN SODIUM 40 MG/0.4 ML SYRINGE SQ SCH (14:56)
--- NOTE | 2016-10-21 23:30 | HHI.PR ---
Subjective Remarks date of service 10/21/16. Patient seen this morning around 11 AM. Patient says that the abdominal pain is controlled. Denies any nausea or vomiting. Discussed again with gastroenterology. Possible ERCP tomorrow. Objective Vital Signs Date Time Temp Pulse Resp B/P Pulse Ox O2 Delivery O2 Flow Rate FiO2 10/21/16 20:00 98.0 75 20 136/79 97 10/21/16 16:00 98.0 70 18 135/78 98 10/21/16 12:50 61 10/21/16 12:00 98.4 79 18 148/79 97 10/21/16 09:08 97 Nasal Cannula 4.00 10/21/16 09:00 98.9 68 18 129/73 96 10/21/16 06:49 20 10/21/16 04:00 97.8 73 18 110/66 98 10/21/16 02:00 95 10/21/16 00:00 97.8 68 20 129/67 96 I/O 10/20/16 10/20/16 10/20/16 10/21/16 10/21/16 10/21/16 07:00 15:00 23:00 07:00 15:00 23:00 Intake Total 180 ml 1426 ml 120 ml 0 ml 480 ml Output Total 125 ml 50 ml 0 ml Balance 55 ml 1426 ml 70 ml 0 ml 480 ml Intake Oral 180 ml 840 ml 120 ml 0 ml IV Total 586 ml 480 ml Output Urine Total 125 ml 50 ml 0 ml # Voids 6 # Bowel Movements 0 0 0 1 Result Diagram: 10/21/1651910/21/16 0520 Objective Remarks GENERAL: Patient lying in bed. Appears comfortable. He continues alert and oriented 3 SKIN: Warm and dry. Hand excoriations. Multiple superficial excoriations over MCPs, as well as over left MCP are much improved. no surrounding erythema. No signs of infection. HEAD: Normocephalic. EYES: No scleral icterus. No injection or drainage. NECK: Supple, trachea midline. No JVD or lymphadenopathy. CARDIOVASCULAR: Regular rate and rhythm without murmurs, gallops, or rubs. RESPIRATORY: Breath sounds equal bilaterally. No accessory muscle use. GASTROINTESTINAL: Abdomen TTP over epigastrum., although improved from yesterday. pt does have distended abd, improved from yesterday. minimal ascites. MUSCULOSKELETAL: No cyanosis, or edema. BACK: Nontender without obvious deformity. No CVA tenderness. A/P Assessment and Plan //Suspected sepsis 10/18. fever 101, HR 140s, worsenign abd pain. incr o2 req 2L. -possible aspiration PNA - CXR improved from admit but does show RLL inf. -tart zosyn. lactate ordered, fluid bolus, ICU transfer, consult ct scan technician. 10/19 much improved. vitals now stable. transf to floor. GI ff. no evidence of biliary obstruction per IR. -10/20. Vitals continue stable. Continue antibiotics. -10/21. Vitals continue relatively stable. Appreciate gastroenterology assistance. //Acute on chronic pancreatitis. //SBP. Acute. -With worsening pain on admission. Lipase to 17,000 on 10/15. Trending down. Pain Improved slightly on 10/16 CT scan does indicate low-density mass likely representing a pseudocyst abutting superior to the pancreatic head adjacent to mesenteric vessels. Is also induration of fat adjacent which could represent inflammation. He was worked up extensively in 2013. -Negative EKGs and troponins. -Gastroenterology. - ERCP 10/17 Appreciate GI assistance. -gi FF, appreciate assist. cont IVF, pain control. -10/19abd ttp improving. cont abx. -10/20. Possible pancreatic duct leak. SBP on peritoneal fluid. Appreciate gastroenterology assistance. Continue antibiotics. Continue to monitor closely. -10/21. Discussed again with gastroenterology. Possible ERCP evaluation on Saturday. Continue Zosyn //Bilateral hand excoriations -Patient reports this is chronic and improving, initially secondary to bleach exposure. No signs of acute infection. NO Blistering to indicate porphyria. -10/17. Appears to be improving slightly. -stable Continue to monitor. //Hyponatremia. Mild. = Continues resolved.. cont D5 Normal saline. //BL pleural effusions, compresive atelectasis. -likley related to ascites. -cont abx. //Hypokalemia. Acute 10/20. Potassium 3.2. Replaced. Continue to monitor -10/21. Potassium replaced again. Continue to monitor //Hypomagnesemia. Acute. Mild. -10/20. Replace. Monitor as necessary. -10/21. Potassium proactively replaced again. Continue to monitor. DVT prophy Sequential compression devices. lovenox. Discharge Planning sepsis, SBP, pancreatitis. Omar Barrett MD Oct 21, 2016 23:30
[2016-10-22] VITALS (7 sets, daily range): BP systolic 131–156; BP diastolic 67–84; PULSE 62–96; RESP 12–20; TEMP 97.3–98.2; O2SAT 90–97
[2016-10-22] MEDS: RESP: IPRATROPIUM 0.5 MG/2.5 ML NEB NEB PRN ×4 (00:01→20:15)
[2016-10-22] MEDS: HYDROmorphone HCL PF 1 MG/ML VIAL IV PUSH PRN ×5 (02:50→22:29)
[2016-10-22] MEDS: SODIUM CHLORIDE 0.9% FLUSH 5 ML FLUSH IV PRN (02:51)
[2016-10-22] MEDS: PIPERACIL-TAZO 4.5 GM PREMIX 100 ML IV SCH ×4 (02:58→20:42)
[2016-10-22] MEDS: CHLORHEXIDINE GLUCONATE 2 % 1 PACK (2 CLOTHS)(taper/protocol) TOP SCH (03:01)
[2016-10-22] MEDS: INSULIN NovoLIN REGULAR SUPPLEMENTAL SCALE SQ SCH ×4 (05:40→23:49)
[2016-10-22] MEDS: HYDROCORTISONE SOD SUCCINATE 100 MG VIAL IV PUSH SCH ×3 (05:42→20:38)
[2016-10-22 06:42] LABS: BASOPHIL % 0.1 % (0.0-2.0); HEMATOCRIT 32.1 % (39.0-51.0); HEMO FLAGS DIFF FINAL; LYMPH % 2.5 % (9.0-44.0); LYMPHOCYTE # 0.3 TH/MM3 (1.0-4.8); MEAN CELL VOLUME 93.1 FL (80.0-100.0); MEAN CORPUSCULAR HGB CONC 34.3 % (32.0-36.0); MONO % 8.6 % (0.0-8.0); NEUT % 88.8 % (16.0-70.0); PLATELET COUNT 357 TH/MM3 (150-450); RED BLOOD COUNT 3.44 MIL/MM3 (4.50-5.90); RED CELL DISTRIBUTION WIDTH 13.9 % (11.6-17.2); WHITE BLOOD COUNT 12.4 TH/MM3 (4.0-11.0)
[2016-10-22 07:00] LABS: BICARBONATE 34.3 MEQ/L (21.0-32.0); MAGNESIUM 2.1 MG/DL (1.5-2.5); POTASSIUM 3.7 MEQ/L (3.5-5.1)
[2016-10-22] MEDS: ONDANSETRON HCL 4 MG/2 ML VIAL IV PRN ×2 (09:18→20:38)
[2016-10-22] MEDS: SODIUM CHLORIDE 0.9% FLUSH 5 ML FLUSH IV SCH ×2 (09:18→20:42)
[2016-10-22] MEDS: THIAMINE INJ 100 MG in SODIUM CHLORIDE 0.9% INJ 100 ML IV SCH (09:18)
[2016-10-22] MEDS: PANTOPRAZOLE SODIUM 40 MG VIAL IV PUSH SCH ×2 (09:18→20:40)
[2016-10-22] MEDS ORDERED: IOHEXOL 350 MG/ML 100 ML BTL (for RAD DIAG) OTHER ONE (16:00)
[2016-10-22] MEDS ORDERED: INDOMETHACIN 50 MG SUPP PR ONE ×2 (16:45→16:55)
--- NOTE | 2016-10-22 17:32 | RADRPT ---
EXAM DATE/TIME: 10/22/2016 16:12 [facility] COMPARISON: MRCP W & W/O CONTRAST, October 15, 2016, 15:10. BILIARY QUANTITATIVE (HIDA), October 21, 2016, 9:47. CT ABDOMEN & PELVIS W CONTRAST, October 18, 2016, 12:14. INDICATIONS : Obstruction. FLUORO TIME: 11.5 minutes IMAGE COUNT: CONTRAST: Instilled by Ordering Physician MEDICAL HISTORY : Pancreatitis. SURGICAL HISTORY : PEG tube placement. ENCOUNTER: Initial ACUITY: 1 day PAIN SCORE: Non-responsive. LOCATION: Bilateral abdomen. FINDINGS: An ERCP was performed by the ordering physician. The images demonstrate what appears to represent pancreatic duct filling which may be normal. A wire is placed into the common duct and intrahepatic bile ducts with an apparent balloon pull-through. No definite defects are noted with in the duct which is probably borderline in width . Gallbladder is vi sualized. CONCLUSION: ERCP as above. Yobani Bashir MD on October 22, 2016 at 17:27 Board Certified Radiologist. This report was verified electronically.
[2016-10-22] MEDS: ENOXAPARIN SODIUM 40 MG/0.4 ML SYRINGE SQ SCH (17:35)
[2016-10-22] MEDS ORDERED: PROPOFOL 200 MG/20 ML AMP IV ONE (18:00)
--- NOTE | 2016-10-22 19:04 | HHI.PR ---
Subjective Remarks patient seen this morning around 9 AM. Patient with continued abdominal pain. Denies any nausea or vomiting. Denies any chest pain. Objective Vital Signs Date Time Temp Pulse Resp B/P Pulse Ox O2 Delivery O2 Flow Rate FiO2 10/22/16 12:00 97.7 96 12 131/80 94 10/22/16 08:31 90 21 10/22/16 08:00 98.2 75 12 139/67 96 10/22/16 04:00 97.6 62 20 137/71 96 10/22/16 00:00 97.6 70 20 146/76 97 10/21/16 20:00 67 10/21/16 20:00 98.0 75 20 136/79 97 I/O 10/21/16 10/21/16 10/21/16 10/22/16 10/22/16 10/22/16 07:00 15:00 23:00 07:00 15:00 23:00 Intake Total 0 ml 480 ml 0 ml Output Total 0 ml 200 ml 300 ml Balance 0 ml 480 ml -200 ml -300 ml Intake Oral 0 ml 0 ml IV Total 480 ml Output Urine Total 0 ml 200 ml 300 ml # Voids 6 # Bowel Movements 0 1 Result Diagram: 10/22/1652110/22/16521 Objective Remarks GENERAL: Patient lying in bed. Appears uncomfortable He continues alert and oriented 3 SKIN: Warm and dry. Hand excoriations. Multiple superficial excoriations over MCPs, as well as over left MCP arealmost resolved. no surrounding erythema. No signs of infection. HEAD: Normocephalic. EYES: No scleral icterus. No injection or drainage. NECK: Supple, trachea midline. No JVD or lymphadenopathy. CARDIOVASCULAR: Regular rate and rhythm without murmurs, gallops, or rubs. RESPIRATORY: Breath sounds equal bilaterally. No accessory muscle use. GASTROINTESTINAL: Abdomen TTP over epigastrum., although improved from yesterday. patient with abdominal tenderness to palpation. No rebound or guarding. MUSCULOSKELETAL: No cyanosis, or edema. BACK: Nontender without obvious deformity. No CVA tenderness. A/P Assessment and Plan //Suspected sepsis 10/18. fever 101, HR 140s, worsenign abd pain. incr o2 req 2L. -possible aspiration PNA - CXR improved from admit but does show RLL inf. -1/26start zosyn. lactate ordered, fluid bolus, ICU transfer, consult sustainable agriculture faculty. 10/19 much improved. vitals now stable. transf to floor. GI ff. no evidence of biliary obstruction per IR. -10/20. Vitals continue stable. Continue antibiotics. -10/21. Vitals continue relatively stable. Appreciate gastroenterology assistance. -10/22. Vitals stable. Continuing antibiotics for SBP //Acute on chronic pancreatitis. //SBP. Acute. -With worsening pain on admission. Lipase to 17,000 on 10/15. Trending down. Pain Improved slightly on 10/16 CT scan does indicate low-density mass likely representing a pseudocyst abutting superior to the pancreatic head adjacent to mesenteric vessels. Is also induration of fat adjacent which could represent inflammation. He was worked up extensively in 2013. -Negative EKGs and troponins. -Gastroenterology. - ERCP 10/17 Appreciate GI assistance. -gi FF, appreciate assist. cont IVF, pain control. -10/19abd ttp improving. cont abx. -10/20. Possible pancreatic duct leak. SBP on peritoneal fluid. Appreciate gastroenterology assistance. Continue antibiotics. Continue to monitor closely. -10/21. Discussed again with gastroenterology. Possible ERCP evaluation on Saturday. Continue Zosyn -10/22. Planned ERCP //Bilateral hand excoriations -Patient reports this is chronic and improving, initially secondary to bleach exposure. No signs of acute infection. NO Blistering to indicate porphyria. -10/17. Appears to be improving slightly. -stable Continue to monitor. //Hyponatremia. Mild. = Continues resolved.. cont D5 Normal saline. //BL pleural effusions, compresive atelectasis. -likley related to ascites. -cont abx. //Hypokalemia. Acute 10/20. Potassium 3.2. Replaced. Continue to monitor -10/21. Potassium replaced again. Continue to monitor =Resolved. //Hypomagnesemia. Acute. Mild. -10/20. Replace. Monitor as necessary. -10/21. Potassium proactively replaced again. Continue to monitor. = Resolved Discharge Planning sepsis, SBP, pancreatitis. Omar Barrett MD Oct 22, 2016 19:04 Omar Barrett MD Oct 22, 2016 19:04
--- NOTE | 2016-10-22 19:32 | PD.PROCEDR ---
GI Procedure REFERRING PHYSICIAN Dr. Barrett PROCEDURE PERFORMED ERCP with sphincterotomy and pancreatic stent placement and balloon extraction INDICATION FOR PROCEDURE Pseudocyst possible pancreatic leak PROCEDURE: The procedure, risks and benefits were discussed with Mr. Nathan and informed consent was obtained. Anesthesia sedated him with Diprivan. He was placed in the left lateral decubitus position. ERCP: Patient was placed in a prone position. The Pentax videoscope was introduced through the oropharynx and advanced to the second portion of the duodenum where the ampula was identified. FINDINGS: The ampulla appeared to be unremarkable with the exception of an attempted sphincterotomy we were able to obtain cannulation of the pancreatic duct and it was noted that there was disruption in the distal third of the pancreatic duct and possible leakage and side branches indicating probable pancreatic leak and so a 5 [place] 7 cm stent was placed We were not able to cannulate the common bile duct and so a needle-knife sphincterotomy was performed thereafter we were able to easily cannulate the common bile duct there was initially a filling defect and so the sphincterotomy was completed and a balloon extraction with a 12mm balloon no stones were seen coming out and the bile duct appeared to be free of filling defects in the gallbladder filled nicely no abnormalities noted there ESTIMATED BLOOD LOSS: None SPECIMENS REMOVED: None COMPLICATIONS: None IMPRESSION: Pancreatic duct disruption with pancreatic leak and pseudocyst formation PLAN: Indomethacin 100 mg rectally given We'll continue with supportive care with close monitoring hydration and pain control Further recommendations shall depend on hospital course Neftali Morales MD Oct 22, 2016 19:32
[2016-10-23] VITALS (7 sets, daily range): BP systolic 126–154; BP diastolic 70–99; PULSE 88–135; RESP 12–24; TEMP 97.5–98.3; O2SAT 92–95
[2016-10-23] MEDS: HYDROmorphone HCL PF 1 MG/ML VIAL IV PUSH PRN ×6 (02:28→22:36)
[2016-10-23] MEDS: PIPERACIL-TAZO 4.5 GM PREMIX 100 ML IV SCH ×4 (02:59→21:49)
[2016-10-23] MEDS: ONDANSETRON HCL 4 MG/2 ML VIAL IV PRN (03:09)
[2016-10-23] MEDS: CHLORHEXIDINE GLUCONATE 2 % 1 PACK (2 CLOTHS)(taper/protocol) TOP SCH (04:00)
[2016-10-23] MEDS: INSULIN NovoLIN REGULAR SUPPLEMENTAL SCALE SQ SCH ×2 (05:50→11:47)
[2016-10-23] MEDS: HYDROCORTISONE SOD SUCCINATE 100 MG VIAL IV PUSH SCH ×3 (05:50→21:49)
[2016-10-23 07:12] LABS: ALT (GPT) 35 U/L (12-78); ANION GAP 7 MEQ/L (5-15); AST (GOT) 67 U/L (15-37); BICARBONATE 33.2 MEQ/L (21.0-32.0); BLOOD UREA NITROGEN 15 MG/DL (7-18); CHLORIDE 101 MEQ/L (98-107); GLOMERULAR FILTRATION RATE 168 ML/MIN (>89); POTASSIUM 3.1 MEQ/L (3.5-5.1); SODIUM (NA) 141 MEQ/L (136-145)
[2016-10-23 07:13] LABS: ALKALINE PHOSPHATASE 325 U/L (45-117); TOTAL BILIRUBIN ADULT 1.6 MG/DL (0.2-1.0)
[2016-10-23 07:36] LABS: HEMATOCRIT 37.6 % (39.0-51.0); MEAN CELL VOLUME 94.4 FL (80.0-100.0); MEAN CORPUSCULAR HEMOGLOBIN 31.1 PG (27.0-34.0); PLATELET COUNT 407 TH/MM3 (150-450); RED BLOOD COUNT 3.98 MIL/MM3 (4.50-5.90); RED CELL DISTRIBUTION WIDTH 14.5 % (11.6-17.2); REVIEW FLAG FINAL; WHITE BLOOD COUNT 19.7 TH/MM3 (4.0-11.0)
[2016-10-23] MEDS: SODIUM CHLORIDE 0.9% FLUSH 5 ML FLUSH IV SCH ×2 (10:06→21:00)
[2016-10-23] MEDS: THIAMINE INJ 100 MG in SODIUM CHLORIDE 0.9% INJ 100 ML IV SCH (10:06)
[2016-10-23] MEDS: PANTOPRAZOLE SODIUM 40 MG VIAL IV PUSH SCH ×2 (10:13→21:00)
[2016-10-23] MEDS: POTASSIUM CHLOR 10 MEQ PREMIX 100 ML IV SCH ×3 (11:48→14:00)
[2016-10-23] MEDS ORDERED: 1/2 NS + KCL 20 MEQ INJ 1,000 ML IV SCH (13:00)
[2016-10-23] MEDS ORDERED: SODIUM CHLOR 0.9% 1000 ML INJ 1,000 ML IV ONE (13:00)
[2016-10-23] MEDS: D5-1/2 NS + KCL 20 MEQ INJ 1,000 ML IV SCH ×2 (13:15→23:15)
[2016-10-23] MEDS: ENOXAPARIN SODIUM 40 MG/0.4 ML SYRINGE SQ SCH (14:31)
--- NOTE | 2016-10-23 15:26 | HHI.GIFU ---
Subjective Remarks Resting in bed. Continues to have pain- no worse, no better. Feels as though he is having "too many tests" and states he is not going to have any more for a while. Nausea without vomiting. (Lola Valiente) Objective Vitals I&O Vital Signs Date Time Temp Pulse Resp B/P Pulse Ox O2 Delivery O2 Flow Rate FiO2 10/23/16 12:00 98.3 135 20 131/99 94 10/23/16 08:00 97.5 104 24 136/91 93 10/23/16 04:00 98.0 88 20 154/72 95 10/23/16 00:00 97.7 101 20 131/70 94 10/22/16 20:11 69 10/22/16 20:00 97.3 85 20 156/84 94 I/O 10/22/16 10/22/16 10/22/16 10/23/16 10/23/16 10/23/16 07:00 15:00 23:00 07:00 15:00 23:00 Intake Total 0 ml 212 ml 336 ml 600 ml Output Total 300 ml 200 ml Balance -300 ml 212 ml 136 ml 600 ml Intake Oral 0 ml 120 ml IV Total 212 ml 216 ml 600 ml Output Urine Total 300 ml 200 ml # Voids 0 # Bowel Movements 0 0 Laboratory Laboratory Tests Test 10/23/16 06:04 White Blood Count 19.7 Red Blood Count 3.98 Hemoglobin 12.4 Hematocrit 37.6 Mean Corpuscular Volume 94.4 Mean Corpuscular Hemoglobin 31.1 Mean Corpuscular Hemoglobin 33.0 Concent Red Cell Distribution Width 14.5 Platelet Count 407 Mean Platelet Volume 7.8 Sodium Level 141 Potassium Level 3.1 Chloride Level 101 Carbon Dioxide Level 33.2 Anion Gap 7 Blood Urea Nitrogen 15 Creatinine 0.50 Estimat Glomerular Filtration 168 Rate Random Glucose 80 Calcium Level 7.8 Total Bilirubin 1.6 Aspartate Amino Transf 67 (AST/SGOT) Alanine Aminotransferase 35 (ALT/SGPT) Alkaline Phosphatase 325 Total Protein 5.2 Albumin 1.5 Date/Time Procedure Status Source Growth 10/19/16 16:00 Gram Stain - Final Complete Fluid Peritoneal Fluid 10/19/16 16:00 Body Fluid Culture - Final Complete Fluid Peritoneal Fluid NO GROWTH IN 72 HRS.--AEROBICALLY OR ... Imaging Last Impressions GI Procedure 10/22/16 0000 Signed Impressions: Service Date/Time: Saturday, October 22, 2016 16:12 - CONCLUSION: ERCP as above. Yobani Bashir MD Hepatobiliary Scan Nuclear Medicine 10/21/16 0000 Signed Impressions: Service Date/Time: Friday, October 21, 2016 09:47 - CONCLUSION: Normal HIDA scan. Rodrigo Boyd Jr., MD Cyst Biopsy Asp-Paracentesis US 10/19/16 0000 Signed Impressions: Service Date/Time: Wednesday, October 19, 2016 15:20 - CONCLUSION: Uncomplicated ultrasound guided paracentesis. Kevin Felix MD FACR Chest X-Ray 10/18/16 0000 Signed Impressions: Service Date/Time: September 06:17 - CONCLUSION: Compared to the prior study the previously noted pulmonary edema has improved. There continues be some mild interstitial infiltrates in the mid and lower lungs right greater than left. Otherwise the lungs are well-aerated. Wei Cesar MD Chest CT 10/18/16 0000 Signed Impressions: Service Date/Time: September 12:17 - CONCLUSION: 1. Mild emphysema with new small bilateral pleural effusions with associated compressive atelectasis and consolidation at the lung bases. 2. Please refer to abdomen and pelvis CT report for description of the subdiaphragmatic findings. Jorgito Baumann MD Abdomen/Pelvis CT 10/18/16 0000 Signed Impressions: Service Date/Time: September 12:14 - CONCLUSION: 1. There is increased free fluid in the abdomen and pelvis since the prior study that is from an uncertain etiology. Some of the fluid is located in the subcapsular region of the left lobe of the liver. 2. There is low density at the pancreaticoduodenal groove which could represent edema and this can be seen with acute pancreatitis. Suggest correlation with appropriate laboratory values. 3. New small bilateral pleural effusions with associated compressive atelectasis and possible consolidation at the left lung bases. 4. The partially cystic lesion abutting the head of the pancreas is stable and of uncertain etiology. There is adjacent narrowing or occlusion of the portal vein. Jorgito Baumann MD Abdomen X-Ray 10/18/16 0000 Signed Impressions: Service Date/Time: September 06:21 - CONCLUSION: Benign abdomen. Wei J. Siragusa, MD Cholangiopancreatography MRI 10/15/16 0000 Signed Impressions: Service Date/Time: Saturday, October 15, 2016 15:10 - CONCLUSION: Abnormal common duct 7 mm in width however distally this is blunted suggesting a luminal defect or stone. Further evaluation with ERCP is recommended. Yobani Bashir MD Physical Exam HEENT: Normocephalic; atraumatic; no jaundice. CHEST: Resp. shallow/even. Diminished CARDIAC: RRR ABDOMEN: soft, mild to moderate tenderness, bowel sounds are present in all four quadrants. EXTREMITIES: No clubbing, cyanosis, or edema. SKIN: Normal; no rash; no jaundice. PRODUCT DESIGNER: No focal deficits; lethargic and oriented times three. (Lola Valiente) Assessment and Plan Plan ASSESSMENT: - Acute pancreatitis with abnormal imaging of the pancreatic head- Pseudocyst vs. Mass Abdomen/Pelvis CT (10/13/16)-----> 1. There is a low-density mass abutting indirectly superior to the pancreatic head adjacent to the mesenteric vessels. It measures 3.0 x 2.1 cm and is located in a similar location to a cystic lesion seen on prior studies that was felt to represent a pseudocyst. Therefore, it may represent a similar process. However, an abnormal lymph node or mass cannot definitely be excluded. 2. There is also mild induration in the fat adjacent to this structure which could represent inflammation. 3. Small volume of free fluid is present within the abdomen and pelvis. 4. 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 MRCP (10/15/16) ----> Abnormal common duct 7 mm in width however distally this is blunted suggesting a luminal defect or stone. Further evaluation with ERCP is recommended. S/P Unsuccessful ERCP (10/17/16)-----> enlarged pancreatic duct with branching c/w chronic pancreatitis, no communication to pancreatic duct, the wire would not pass the distal part of the common bile duct and nor bile with Kinevac, small sphincterotomy was done. Pt had worsening pain overnight with fever of 101 and tachycardia up to 160 and tachypnea/sob morning of 10/18 and was transferred to the unit. Abdomen/Pelvis CT (10/18/16) ----> 1. There is increased free fluid in the abdomen and pelvis since the prior study that is from an uncertain etiology. Some of the fluid is located in the subcapsular region of the left lobe of the liver. 2. There is low density at the pancreaticoduodenal groove which could represent edema and this can be seen with acute pancreatitis. Suggest correlation with appropriate laboratory values. 3. New small bilateral pleural effusions with associated compressive atelectasis and possible consolidation at the left lung bases. 4. The partially cystic lesion abutting the head of the pancreas is stable and of uncertain etiology. There is adjacent narrowing or occlusion of the portal vein. Per conversation last week, Dr. Felix, would like to hold on PTHC until more stable and ascites improved unless there is obvious signs of biliary obstruction such as biliary dilatation or elevated LFTs. S/P ERCP with pancreatic stent placement () for possible pseudocyst, possible pancreatic leak----> s/p sphincterotomy, s/p stent placement. S/P indomethacin 100 mg rectally given. Clear liquids , but not taking much. Still with significant nausea, no vomiting. abdominal pain unchanged. Zosyn. PPI. - Pancreatic mass vs. Pseudocyst. Will need EUS as outpt. AFP 2.4, CEA 2.1, Ca 19-9 19.7. - Fever, Leukocytosis. WBC 19.7, afebrile overnight. Zosyn - Resp. Insufficiency. RESOLVED PLAN: - Clear liquids - IVF - Cont. Zosyn - Cont. PPI - CBC, CMP, Lipase in am - Further recommendations to follow based on results of above - Pt seen and examined by Dr. Morales and myself and this note is written on his behalf (Lola Valiente) Physician Comments Patient seen and examined Agree with above Continue with current supportive care Monitor labs We will add albumin IV to replenish level (Neftali Morales MD) Lola Valiente Oct 23, 2016 15:26 Neftali Morales MD Oct 23, 2016 22:55
--- NOTE | 2016-10-23 18:15 | MR ---
cc: ARLYN PRESLEY M.D. DATE: 10/17/2016 DATE OF : 1955 REFERRING PHYSICIAN: Dr. Barrett PROCEDURE ERCP with sphincterotomy. INDICATION 59-year-old male who has history of pancreatitis, pancreatic cyst in the past came with pancreatitis had an MRCP which showed possible filling defect versus stricture and the distal common bile duct and a mass in the head of the pancreas was a pseudocyst. PROCEDURE After informing the patient of procedure and complication consent was signed. The patient was placed in the abdomen in prone position. The scope was placed in the mouth advanced under video guidance to the second portion of the duodenum and the ampulla was identified. Cannulation was performed. The pancreatic duct was opacified which showed mildly dilated pancreatic duct with some branching consistent with chronic pancreatitis, no connection to a pseudocyst. Next, the common bile duct. I was not able to thread the wire through the distal common bile duct is kept kinking back, questionable mass, or external obstruction or stricture or stone small sphincterotomy was done but still could not get the wire all the way to the common bile duct the procedure was terminated at this time after giving Kinevac which did not reveal any bile coming from the common bile duct. FINDINGS EGD limited exam normal. Pancreatic duct mildly dilated with transient possible chronic pancreatitis no communication to pseudocyst. The common bile duct not opacified and possible distal stricture or stone. RECOMMENDATIONS 1. Repeat liver function tests tomorrow and lipase 2. If the LFTs started going up to could be related to edema and the ampulla versus a construction and if it continued to be elevated in few days then a PTCA would be needed. 3. If not the patient will need endoscopic ultrasound in the next 1-2 weeks to rule out stones or common bile duct stricture or mass. 4. We will check lipase and liver function tests tomorrow. 5. We will keep the patient n.p.o.. 6. We will check tumor markers for fetoprotein CEA and CA 19-9. 7. Further plan by Dr. Mendez. MD SUKHJINDER Castillo/jeff /7:50 PM /6:10 PM
[2016-10-23] MEDS: RESP: IPRATROPIUM 0.5 MG/2.5 ML NEB NEB PRN (21:08)
--- NOTE | 2016-10-23 23:32 | HHI.PR ---
Subjective Remarks patient seen this morning around 11 AM. Patient states that involve pain continues. Denies any chest pain. Denies any shortness of breath. discussed with nursing. Blood pressures with systolic in the 90s this morning. Fluid bolus ordered. Objective Vital Signs Date Time Temp Pulse Resp B/P Pulse Ox O2 Delivery O2 Flow Rate FiO2 10/23/16 20:00 98.0 92 18 151/82 95 10/23/16 19:02 18 10/23/16 18:18 94 Nasal Cannula 2.00 10/23/16 16:00 97.9 95 12 126/80 92 10/23/16 12:00 98.3 135 20 131/99 94 10/23/16 08:00 97.5 104 24 136/91 93 10/23/16 04:00 98.0 88 20 154/72 95 10/23/16 00:00 97.7 101 20 131/70 94 I/O 10/22/16 10/22/16 10/22/16 10/23/16 10/23/16 10/23/16 07:00 15:00 23:00 07:00 15:00 23:00 Intake Total 0 ml 212 ml 336 ml 600 ml 1200 ml Output Total 300 ml 200 ml 175 ml Balance -300 ml 212 ml 136 ml 600 ml 1025 ml Intake Oral 0 ml 120 ml 1200 ml IV Total 212 ml 216 ml 600 ml Output Urine Total 300 ml 200 ml 175 ml # Voids 0 # Bowel Movements 0 0 0 Result Diagram: 10/23/16 0604 10/23/16 0604 Objective Remarks GENERAL: Patient sitting up in bed. Appears uncomfortable He continues alert and oriented 3. Exam unchanged from yesterday. SKIN: Warm and dry. Hand excoriations. Multiple superficial excoriations over MCPs, as well as over left MCP are almost resolved. no surrounding erythema. No signs of infection. HEAD: Normocephalic. EYES: No scleral icterus. No injection or drainage. NECK: Supple, trachea midline. No JVD or lymphadenopathy. CARDIOVASCULAR: Regular rate and rhythm without murmurs, gallops, or rubs. RESPIRATORY: Breath sounds equal bilaterally. No accessory muscle use. GASTROINTESTINAL: Abdomen TTP over epigastrum., stable from yesterday. No rebound or guarding. MUSCULOSKELETAL: No cyanosis, or edema. BACK: Nontender without obvious deformity. No CVA tenderness. A/P Assessment and Plan 10/23/16 Potassium replaced. Hypotension. Fluid bolus ordered. Added D5 half-normal saline. Appreciate gastroenterology assistance. -continue antibiotics. //Suspected sepsis 10/18. fever 101, HR 140s, worsenign abd pain. incr o2 req 2L. -possible aspiration PNA - CXR improved from admit but does show RLL inf. -tart zosyn. lactate ordered, fluid bolus, ICU transfer, consult cathodic protection technician. 10/19 much improved. vitals now stable. transf to floor. GI ff. no evidence of biliary obstruction per IR. -10/20. Vitals continue stable. Continue antibiotics. -10/21. Vitals continue relatively stable. Appreciate gastroenterology assistance. -10/22. Vitals stable. Continuing antibiotics for SBP //Acute on chronic pancreatitis. //SBP. Acute. -With worsening pain on admission. Lipase to 17,000 on 10/15. Trending down. Pain Improved slightly on 10/16 CT scan does indicate low-density mass likely representing a pseudocyst abutting superior to the pancreatic head adjacent to mesenteric vessels. Is also induration of fat adjacent which could represent inflammation. He was worked up extensively in 2013. -Negative EKGs and troponins. -Gastroenterology. - ERCP 10/17 Appreciate GI assistance. -gi FF, appreciate assist. cont IVF, pain control. -10/19abd ttp improving. cont abx. -10/20. Possible pancreatic duct leak. SBP on peritoneal fluid. Appreciate gastroenterology assistance. Continue antibiotics. Continue to monitor closely. -10/21. Discussed again with gastroenterology. Possible ERCP evaluation on Saturday. Continue Zosyn -10/22. Planned ERCP -10/23. No leak found this ERCP. Patient continues with STP, lipase in peritoneal fluid secondary to pancreatitis. Zosyn is appropriate for SBP. Gastroenterology following. //Bilateral hand excoriations -Patient reports this is chronic and improving, initially secondary to bleach exposure. No signs of acute infection. NO Blistering to indicate porphyria. -10/17. Appears to be improving slightly. -mostly resolved. Continue to monitor. //Hyponatremia. Mild. = Continues resolved.. cont D5 09/24 Normal saline. //BL pleural effusions, compresive atelectasis. -likley related to ascites. -cont abx. //Hypokalemia. Acute. Continue to monitor. 10/20. Potassium 3.2. Replaced. Continue to monitor -10/21. Potassium replaced again. Continue to monitor 10/23. Replaced again. Co //Hypomagnesemia. Acu.te. Mild. -10/20. Replace. Monitor as necessary. -10/21. Potassium proactively replaced again. Continue to monitor. = Resolved //prophylaxis. anticoagulationAs per gastroenterology. Discharge Planning sepsis, SBP, pancreatitis. mOar Barrett MD Oct 23, 2016 23:32
[2016-10-24] VITALS (8 sets, daily range): BP systolic 143–161; BP diastolic 74–91; PULSE 87–106; RESP 15–20; TEMP 97.3–98.6; O2SAT 91–96
[2016-10-24] MEDS: ALBUMIN HUMAN 25% 25 GM/100 ML BAGP IV SCH ×4 (00:54→22:40)
[2016-10-24] MEDS: PIPERACIL-TAZO 4.5 GM PREMIX 100 ML IV SCH ×4 (03:54→22:39)
[2016-10-24] MEDS: HYDROmorphone HCL PF 1 MG/ML VIAL IV PUSH PRN ×5 (03:54→22:41)
[2016-10-24] MEDS: RESP: IPRATROPIUM 0.5 MG/2.5 ML NEB NEB PRN ×2 (04:18→21:08)
[2016-10-24] MEDS: HYDROCORTISONE SOD SUCCINATE 100 MG VIAL IV PUSH SCH ×3 (06:04→22:39)
[2016-10-24] MEDS: SODIUM CHLORIDE 0.9% FLUSH 5 ML FLUSH IV SCH ×2 (07:45→21:00)
[2016-10-24] MEDS: THIAMINE INJ 100 MG in SODIUM CHLORIDE 0.9% INJ 100 ML IV SCH (07:47)
[2016-10-24] MEDS: PANTOPRAZOLE SODIUM 40 MG VIAL IV PUSH SCH ×2 (07:47→22:39)
[2016-10-24] MEDS: D5-1/2 NS + KCL 20 MEQ INJ 1,000 ML IV SCH ×3 (07:56→19:15)
[2016-10-24 08:09] LABS: AUTOMATED NEUTROPHIL # 18.2 TH/MM3 (1.8-7.7); EOSINOPHIL % 0.1 % (0.0-4.0); HEMATOCRIT 32.9 % (39.0-51.0); HEMO FLAGS DIFF FINAL; LYMPH % 2.4 % (9.0-44.0); LYMPHOCYTE # 0.5 TH/MM3 (1.0-4.8); MEAN CELL VOLUME 93.5 FL (80.0-100.0); MEAN CORPUSCULAR HEMOGLOBIN 30.6 PG (27.0-34.0); MEAN CORPUSCULAR HGB CONC 32.8 % (32.0-36.0); MONO % 6.4 % (0.0-8.0); NEUT % 91.1 % (16.0-70.0); PLATELET COUNT 417 TH/MM3 (150-450); RED BLOOD COUNT 3.51 MIL/MM3 (4.50-5.90); RED CELL DISTRIBUTION WIDTH 14.3 % (11.6-17.2)
[2016-10-24] MEDS: ONDANSETRON HCL 4 MG/2 ML VIAL IV PRN (08:29)
[2016-10-24] MEDS: SODIUM CHLORIDE 0.9% FLUSH 5 ML FLUSH IV PRN (08:30)
[2016-10-24 08:53] LABS: BICARBONATE 32.1 MEQ/L (21.0-32.0); POTASSIUM 3.1 MEQ/L (3.5-5.1)
[2016-10-24 09:09] LABS: CALCIUM-PROTEIN CORRECTED 8.6 MG/DL (8.5-10.1)
[2016-10-24] MEDS: ENOXAPARIN SODIUM 40 MG/0.4 ML SYRINGE SQ SCH ×2 (14:06→14:15)
--- NOTE | 2016-10-24 14:17 | HHI.PR ---
Subjective Remarks Patient resting in bed, he reported his abdominal pain is in the 9 out of 10 very tender to touch, he did have nausea and vomited bile fluid Denied fever or chills no diarrhea Objective Vitals Vital Signs Date Time Temp Pulse Resp B/P Pulse Ox O2 Delivery O2 Flow Rate FiO2 10/24/16 12:44 93 21 10/24/16 11:45 98.3 95 18 143/78 91 10/24/16 10:22 93 Nasal Cannula 1.00 10/24/16 07:52 98.2 87 16 145/74 93 10/24/16 04:18 93 Nasal Cannula 2.00 10/24/16 04:00 97.9 106 17 161/91 96 10/24/16 00:01 97.3 91 15 144/79 96 10/23/16 20:00 98.0 92 18 151/82 95 10/23/16 19:02 18 10/23/16 18:18 94 Nasal Cannula 2.00 10/23/16 16:00 97.9 95 12 126/80 92 I/O 10/23/16 10/23/16 10/23/16 10/24/16 10/24/16 10/24/16 07:00 15:00 23:00 07:00 15:00 23:00 Intake Total 336 ml 600 ml 2273 ml 100 ml 1410 ml Output Total 200 ml 475 ml 200 ml Balance 136 ml 600 ml 1798 ml -100 ml 1410 ml Intake Oral 120 ml 1400 ml 100 ml IV Total 216 ml 600 ml 873 ml 1410 ml Output Urine Total 200 ml 475 ml 200 ml # Bowel Movements 0 0 1 Result Diagram: 10/24/16 0710/24/16 07 Objective Remarks - - GENERAL: This is a cachectic 60 years old male looks critically ill SKIN: No rashes, warm and dry HEAD: Atraumatic. Normocephalic. EYES: Pupils equal round and reactive. Extraocular motions intact. No scleral icterus. ENT: Nose without bleeding, or drainage, Airway patent. NECK: Trachea midline. Supple CARDIOVASCULAR: Regular rate and rhythm without murmurs, gallops, or rubs. RESPIRATORY: Fair air entry bilaterally. No wheezes, rales, or rhonchi. GASTROINTESTINAL: Abdomen soft, severe general I tender to palpation, nondistended. Positive bowel sounds, no guarding MUSCULOSKELETAL: Extremities without clubbing, cyanosis, or edema. Pedal pulses appreciated NEUROLOGICAL: Awake and alert. Moves all extremity. Normal speech.no focal neurological deficit A/P Assessment and Plan Suspect sepsis 10/18. fever 101, HR 140s, worsenign abd pain. incr o2 req 2L. -possible aspiration PNA - CXR improved from admit but does show RLL inf. -On zosyn. Status post ICU //Acute on chronic pancreatitis. //Rule out SBP. Acute. MRCP (10/15/16)----> Abnormal common duct 7 mm in width however distally this is blunted suggesting a luminal defect or stone. Further evaluation with ERCP is recommended. S/P Unsuccessful ERCP (10/17/16)-----> enlarged pancreatic duct with branching c/w chronic pancreatitis, no communication to pancreatic duct, the wire would not pass the distal part of the common bile duct and nor bile with Kinevac, small sphincterotomy was done. Pt had worsening pain overnight with fever of 101 and tachycardia up to 160 and tachypnea/sob morning of 10/18 and was transferred to the unit. Abdomen/Pelvis CT (10/18/16) ----> 1. There is increased free fluid in the abdomen and pelvis since the prior study that is from an uncertain etiology. Some of the fluid is located in the subcapsular region of the left lobe of the liver. 2. There is low density at the pancreaticoduodenal groove which could represent edema and this can be seen with acute pancreatitis. Suggest correlation with appropriate laboratory values. 3. New small bilateral pleural effusions with associated compressive atelectasis and possible consolidation at the left lung bases. 4. The partially cystic lesion abutting the head of the pancreas is stable and of uncertain etiology. There is adjacent narrowing or occlusion of the portal vein. Per conversation last week, Dr. Felix, would like to hold on PTHC until more stable and ascites improved unless there is obvious signs of biliary obstruction such as biliary dilatation or elevated LFTs. S/P ERCP with pancreatic stent placement () for possible pseudocyst, possible pancreatic leak----> s/p sphincterotomy, s/p stent placement. S/P indomethacin 100 mg rectally given. Clear liquids , but not taking much. Still with significant nausea, no vomiting. abdominal pain unchanged. Zosyn. PPI. - Pancreatic mass vs. Pseudocyst. Will need EUS as outpt. AFP 2.4, CEA 2.1, Ca 19-9 19.7 Bilateral hand excoriations>> resolved -Patient reports this is chronic and improving, initially secondary to bleach exposure. No signs of acute infection. NO Blistering to indicate porphyria. Hyponatremia. Mild. Resolved BL pleural effusions, compresive atelectasis. -likley related to ascites. -cont abx. Hypokalemia and hypomagnesemia. Continue monitoring BMP, replace as needed //prophylaxis. anticoagulationAs per gastroenterology. Ruben Pace MD Oct 24, 2016 14:17
[2016-10-24] MEDS ORDERED: cefTRIAXone INJ 2,000 MG in SODIUM CHLORIDE 0.9% INJ 100 ML IV SCH (15:00)
[2016-10-24] MEDS ORDERED: PROMETHAZINE HCL 25 MG TAB PO PRN (22:30)
--- NOTE | 2016-10-24 22:32 | HHI.GIFU ---
Subjective Remarks Still complains of abdominal pain but was able to eat something earlier today some nausea but no vomiting. Objective Vitals I&O Vital Signs Date Time Temp Pulse Resp B/P Pulse Ox O2 Delivery O2 Flow Rate FiO2 10/24/16 20:00 98.6 20 152/76 94 10/24/16 18:15 18 10/24/16 17:15 98.1 95 18 154/82 93 10/24/16 12:44 93 21 10/24/16 12:00 93 Room Air 2.00 10/24/16 11:45 98.3 95 18 143/78 91 10/24/16 10:22 93 Nasal Cannula 1.00 10/24/16 07:52 98.2 87 16 145/74 93 10/24/16 04:18 93 Nasal Cannula 2.00 10/24/16 04:00 97.9 106 17 161/91 96 10/24/16 00:01 97.3 91 15 144/79 96 I/O 10/23/16 10/23/16 10/23/16 10/24/16 10/24/16 10/24/16 07:00 15:00 23:00 07:00 15:00 23:00 Intake Total 336 ml 600 ml 2273 ml 100 ml 2130 ml Output Total 200 ml 475 ml 200 ml 150 ml Balance 136 ml 600 ml 1798 ml -100 ml 1980 ml Intake Oral 120 ml 1400 ml 100 ml 720 ml IV Total 216 ml 600 ml 873 ml 1410 ml Output Urine Total 200 ml 475 ml 200 ml 150 ml # Voids 2 # Bowel Movements 0 0 1 1 Laboratory Laboratory Tests Test 10/24/16 07:01 White Blood Count 20.0 Red Blood Count 3.51 Hemoglobin 10.8 Hematocrit 32.9 Mean Corpuscular Volume 93.5 Mean Corpuscular Hemoglobin 30.6 Mean Corpuscular Hemoglobin 32.8 Concent Red Cell Distribution Width 14.3 Platelet Count 417 Mean Platelet Volume 7.6 Neutrophils (%) (Auto) 91.1 Lymphocytes (%) (Auto) 2.4 Monocytes (%) (Auto) 6.4 Eosinophils (%) (Auto) 0.1 Basophils (%) (Auto) 0.0 Neutrophils # (Auto) 18.2 Lymphocytes # (Auto) 0.5 Monocytes # (Auto) 1.3 Eosinophils # (Auto) 0.0 Basophils # (Auto) 0.0 CBC Comment DIFF FINAL Differential Comment Sodium Level 140 Potassium Level 3.1 Chloride Level 101 Carbon Dioxide Level 32.1 Anion Gap 7 Blood Urea Nitrogen 14 Creatinine 0.53 Estimat Glomerular Filtration 158 Rate Random Glucose 103 Calcium Level 7.4 Protein Corrected Calcium 8.6 Total Protein 5.0 Lipase 1848 Date/Time Procedure Status Source Growth 10/24/16 19:20 Aerobic Blood Culture Received Blood Peripheral Pending 10/24/16 19:20 Anaerobic Blood Culture Received Blood Peripheral Pending Imaging Last Impressions GI Procedure 10/22/16 0000 Signed Impressions: Service Date/Time: Saturday, October 22, 2016 16:12 - CONCLUSION: ERCP as above. Yobani Bashir MD Hepatobiliary Scan Nuclear Medicine 10/21/16 0000 Signed Impressions: Service Date/Time: Friday, October 21, 2016 09:47 - CONCLUSION: Normal HIDA scan. Rodrigo Boyd Jr., MD Cyst Biopsy Asp-Paracentesis US 10/19/16 0000 Signed Impressions: Service Date/Time: Wednesday, October 19, 2016 15:20 - CONCLUSION: Uncomplicated ultrasound guided paracentesis. Kevin Felix MD FACR Chest X-Ray 10/18/16 0000 Signed Impressions: Service Date/Time: September 06:17 - CONCLUSION: Compared to the prior study the previously noted pulmonary edema has improved. There continues be some mild interstitial infiltrates in the mid and lower lungs right greater than left. Otherwise the lungs are well-aerated. Wei Cesar MD Chest CT 10/18/16 0000 Signed Impressions: Service Date/Time: September 12:17 - CONCLUSION: 1. Mild emphysema with new small bilateral pleural effusions with associated compressive atelectasis and consolidation at the lung bases. 2. Please refer to abdomen and pelvis CT report for description of the subdiaphragmatic findings. Jorgito Baumann MD Abdomen/Pelvis CT 10/18/16 0000 Signed Impressions: Service Date/Time: September 12:14 - CONCLUSION: 1. There is increased free fluid in the abdomen and pelvis since the prior study that is from an uncertain etiology. Some of the fluid is located in the subcapsular region of the left lobe of the liver. 2. There is low density at the pancreaticoduodenal groove which could represent edema and this can be seen with acute pancreatitis. Suggest correlation with appropriate laboratory values. 3. New small bilateral pleural effusions with associated compressive atelectasis and possible consolidation at the left lung bases. 4. The partially cystic lesion abutting the head of the pancreas is stable and of uncertain etiology. There is adjacent narrowing or occlusion of the portal vein. Jorgito Baumann MD Abdomen X-Ray 10/18/16 0000 Signed Impressions: Service Date/Time: September 06:21 - CONCLUSION: Benign abdomen. Wei Cesar MD Cholangiopancreatography MRI 10/15/16 0000 Signed Impressions: Service Date/Time: Saturday, October 15, 2016 15:10 - CONCLUSION: Abnormal common duct 7 mm in width however distally this is blunted suggesting a luminal defect or stone. Further evaluation with ERCP is recommended. Yobani Bashir MD Physical Exam HEENT: Normocephalic; atraumatic; no jaundice. CHEST: Resp. shallow/even. Diminished CARDIAC: RRR ABDOMEN: soft, mild to moderate tenderness, bowel sounds are present in all four quadrants. EXTREMITIES: No clubbing, cyanosis, or edema. SKIN: Normal; no rash; no jaundice. ADMISSIONS COORDINATOR: No focal deficits; alert oriented times three. Assessment and Plan Plan ASSESSMENT: - Acute pancreatitis with abnormal imaging of the pancreatic head- Pseudocyst vs. Mass Abdomen/Pelvis CT (10/13/16)-----> 1. There is a low-density mass abutting indirectly superior to the pancreatic head adjacent to the mesenteric vessels. It measures 3.0 x 2.1 cm and is located in a similar location to a cystic lesion seen on prior studies that was felt to represent a pseudocyst. Therefore, it may represent a similar process. However, an abnormal lymph node or mass cannot definitely be excluded. 2. There is also mild induration in the fat adjacent to this structure which could represent inflammation. 3. Small volume of free fluid is present within the abdomen and pelvis. 4. 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 MRCP (10/15/16) ----> Abnormal common duct 7 mm in width however distally this is blunted suggesting a luminal defect or stone. Further evaluation with ERCP is recommended. S/P Unsuccessful ERCP (10/17/16)-----> enlarged pancreatic duct with branching c/w chronic pancreatitis, no communication to pancreatic duct, the wire would not pass the distal part of the common bile duct and nor bile with Kinevac, small sphincterotomy was done. Pt had worsening pain overnight with fever of 101 and tachycardia up to 160 and tachypnea/sob morning of 10/18 and was transferred to the unit. Abdomen/Pelvis CT (10/18/16) ----> 1. There is increased free fluid in the abdomen and pelvis since the prior study that is from an uncertain etiology. Some of the fluid is located in the subcapsular region of the left lobe of the liver. 2. There is low density at the pancreaticoduodenal groove which could represent edema and this can be seen with acute pancreatitis. Suggest correlation with appropriate laboratory values. 3. New small bilateral pleural effusions with associated compressive atelectasis and possible consolidation at the left lung bases. 4. The partially cystic lesion abutting the head of the pancreas is stable and of uncertain etiology. There is adjacent narrowing or occlusion of the portal vein. Per conversation last week, Dr. Felix, would like to hold on PTHC until more stable and ascites improved unless there is obvious signs of biliary obstruction such as biliary dilatation or elevated LFTs. S/P ERCP with pancreatic stent placement () for possible pseudocyst, possible pancreatic leak----> s/p sphincterotomy, s/p stent placement. S/P indomethacin 100 mg rectally given. Clear liquids , but not taking much. Still with significant nausea, no vomiting. abdominal pain unchanged. Zosyn. PPI. - Pancreatic mass vs. Pseudocyst. Will need EUS as outpt. AFP 2.4, CEA 2.1, Ca 19-9 19.7. - Fever, Leukocytosis. WBC 19.7, afebrile overnight. Zosyn - Resp. Insufficiency. RESOLVED PLAN: - Clear liquids - IVF - Cont. Zosyn - Cont. PPI - CBC, CMP, Lipase in am - Further recommendations to follow based on results of above Neftali Morales MD Oct 24, 2016 22:32
[2016-10-25] VITALS (8 sets, daily range): BP systolic 136–157; BP diastolic 78–95; PULSE 85–107; RESP 16–20; TEMP 98.1–98.9; O2SAT 85–94
[2016-10-25] MEDS: HYDROmorphone HCL PF 1 MG/ML VIAL IV PUSH PRN ×5 (02:38→20:36)
[2016-10-25] MEDS: HYDROCORTISONE SOD SUCCINATE 100 MG VIAL IV PUSH SCH ×3 (05:04→20:33)
[2016-10-25] MEDS: PIPERACIL-TAZO 4.5 GM PREMIX 100 ML IV SCH ×4 (05:04→20:35)
[2016-10-25] MEDS: D5-1/2 NS + KCL 20 MEQ INJ 1,000 ML IV SCH ×2 (05:08→16:16)
[2016-10-25] MEDS: ALBUMIN HUMAN 25% 25 GM/100 ML BAGP IV SCH ×3 (06:00→23:03)
[2016-10-25 07:02] LABS: AUTOMATED NEUTROPHIL # 17.2 TH/MM3 (1.8-7.7); EOSINOPHIL % 0.1 % (0.0-4.0); HEMATOCRIT 33.3 % (39.0-51.0); HEMO FLAGS DIFF FINAL; LYMPH % 2.2 % (9.0-44.0); LYMPHOCYTE # 0.4 TH/MM3 (1.0-4.8); MEAN CELL VOLUME 93.9 FL (80.0-100.0); MONO % 5.6 % (0.0-8.0); NEUT % 92.1 % (16.0-70.0); PLATELET COUNT 372 TH/MM3 (150-450); RED BLOOD COUNT 3.55 MIL/MM3 (4.50-5.90); RED CELL DISTRIBUTION WIDTH 14.3 % (11.6-17.2); WHITE BLOOD COUNT 18.6 TH/MM3 (4.0-11.0)
[2016-10-25 07:32] LABS: INDIRECT BILIRUBIN 0.5 MG/DL (0.0-0.8); TOTAL BILIRUBIN ADULT 0.8 MG/DL (0.2-1.0)
[2016-10-25 07:39] LABS: POTASSIUM 2.8 MEQ/L (3.5-5.1)
[2016-10-25] MEDS ORDERED: POTASSIUM CHLORIDE 20 MEQ CONTROLLED RELEASE TAB PO ONE (08:45)
[2016-10-25] MEDS ORDERED: POTASSIUM CHLOR 20 MEQ PREMIX 100 ML IV ONE (08:45)
[2016-10-25] MEDS: SODIUM CHLORIDE 0.9% FLUSH 5 ML FLUSH IV SCH ×2 (09:00→20:35)
[2016-10-25] MEDS: THIAMINE INJ 100 MG in SODIUM CHLORIDE 0.9% INJ 100 ML IV SCH (09:20)
[2016-10-25] MEDS: PANTOPRAZOLE SODIUM 40 MG VIAL IV PUSH SCH ×2 (09:20→20:36)
--- NOTE | 2016-10-25 10:52 | HHI.GIFU ---
Subjective Remarks Pt with worsening abdominal pain and distention. States he has nausea, without vomiting. Reports he moved his bowels today. (Lola Valiente) Objective Vitals I&O Vital Signs Date Time Temp Pulse Resp B/P Pulse Ox O2 Delivery O2 Flow Rate FiO2 10/25/16 08:00 98.9 85 18 136/78 92 10/25/16 04:00 98.7 94 20 137/80 85 10/25/16 00:01 98.2 99 16 152/83 94 10/24/16 21:08 Nasal Cannula 2.00 10/24/16 20:00 Nasal Cannula 2.00 10/24/16 20:00 98.6 20 152/76 94 10/24/16 18:15 18 10/24/16 17:15 98.1 95 18 154/82 93 10/24/16 12:44 93 21 10/24/16 12:00 93 Room Air 2.00 10/24/16 11:45 98.3 95 18 143/78 91 I/O 10/24/16 10/24/16 10/24/16 10/25/16 10/25/16 10/25/16 07:00 15:00 23:00 07:00 15:00 23:00 Intake Total 100 ml 2130 ml 525 ml 780 ml Output Total 200 ml 150 ml 100 ml Balance -100 ml 1980 ml 525 ml 680 ml Intake Oral 100 ml 720 ml 780 ml IV Total 1410 ml 525 ml Output Urine Total 200 ml 150 ml 100 ml # Voids 2 6 # Bowel Movements 1 1 7 Laboratory Laboratory Tests Test 10/25/16 06:20 White Blood Count 18.6 Red Blood Count 3.55 Hemoglobin 11.0 Hematocrit 33.3 Mean Corpuscular Volume 93.9 Mean Corpuscular Hemoglobin 31.0 Mean Corpuscular Hemoglobin 33.0 Concent Red Cell Distribution Width 14.3 Platelet Count 372 Mean Platelet Volume 7.7 Neutrophils (%) (Auto) 92.1 Lymphocytes (%) (Auto) 2.2 Monocytes (%) (Auto) 5.6 Eosinophils (%) (Auto) 0.1 Basophils (%) (Auto) 0.0 Neutrophils # (Auto) 17.2 Lymphocytes # (Auto) 0.4 Monocytes # (Auto) 1.0 Eosinophils # (Auto) 0.0 Basophils # (Auto) 0.0 CBC Comment DIFF FINAL Differential Comment Sodium Level 141 Potassium Level 2.8 Chloride Level 100 Carbon Dioxide Level 34.0 Anion Gap 7 Blood Urea Nitrogen 9 Creatinine 0.46 Estimat Glomerular Filtration 186 Rate Random Glucose 84 Calcium Level 7.5 Total Bilirubin 0.8 Direct Bilirubin 0.3 Indirect Bilirubin 0.5 Aspartate Amino Transf 11 (AST/SGOT) Alanine Aminotransferase 11 (ALT/SGPT) Alkaline Phosphatase 109 Total Protein 5.0 Albumin 2.5 Lipase 2329 Date/Time Procedure Status Source Growth 10/24/16 19:20 Aerobic Blood Culture Received Blood Peripheral Pending 10/24/16 19:20 Anaerobic Blood Culture Received Blood Peripheral Pending Imaging Last Impressions GI Procedure 10/22/16 0000 Signed Impressions: Service Date/Time: Saturday, October 22, 2016 16:12 - CONCLUSION: ERCP as above. Yobani Bashir MD Hepatobiliary Scan Nuclear Medicine 10/21/16 0000 Signed Impressions: Service Date/Time: Friday, October 21, 2016 09:47 - CONCLUSION: Normal HIDA scan. Rodrigo Boyd Jr., MD Cyst Biopsy Asp-Paracentesis US 10/19/16 0000 Signed Impressions: Service Date/Time: Wednesday, October 19, 2016 15:20 - CONCLUSION: Uncomplicated ultrasound guided paracentesis. Kevin Felix MD FACR Chest X-Ray 10/18/16 0000 Signed Impressions: Service Date/Time: September 06:17 - CONCLUSION: Compared to the prior study the previously noted pulmonary edema has improved. There continues be some mild interstitial infiltrates in the mid and lower lungs right greater than left. Otherwise the lungs are well-aerated. Wei Cesar MD Chest CT 10/18/16 0000 Signed Impressions: Service Date/Time: September 12:17 - CONCLUSION: 1. Mild emphysema with new small bilateral pleural effusions with associated compressive atelectasis and consolidation at the lung bases. 2. Please refer to abdomen and pelvis CT report for description of the subdiaphragmatic findings. Jorgito Baumann MD Abdomen/Pelvis CT 10/18/16 0000 Signed Impressions: Service Date/Time: September 12:14 - CONCLUSION: 1. There is increased free fluid in the abdomen and pelvis since the prior study that is from an uncertain etiology. Some of the fluid is located in the subcapsular region of the left lobe of the liver. 2. There is low density at the pancreaticoduodenal groove which could represent edema and this can be seen with acute pancreatitis. Suggest correlation with appropriate laboratory values. 3. New small bilateral pleural effusions with associated compressive atelectasis and possible consolidation at the left lung bases. 4. The partially cystic lesion abutting the head of the pancreas is stable and of uncertain etiology. There is adjacent narrowing or occlusion of the portal vein. Jorgito Baumann MD Abdomen X-Ray 10/18/16 0000 Signed Impressions: Service Date/Time: September 06:21 - CONCLUSION: Benign abdomen. Wei Cesar MD Cholangiopancreatography MRI 10/15/16 0000 Signed Impressions: Service Date/Time: Saturday, October 15, 2016 15:10 - CONCLUSION: Abnormal common duct 7 mm in width however distally this is blunted suggesting a luminal defect or stone. Further evaluation with ERCP is recommended. Yobani Bashir MD Physical Exam HEENT: Normocephalic; atraumatic; no jaundice. CHEST: Resp. shallow/even. Diminished CARDIAC: RRR ABDOMEN: Distended, significant diffuse tenderness with guarding, bowel sounds are present in all four quadrants. EXTREMITIES: No clubbing, cyanosis, or edema. SKIN: Multiple excoriations INSTRUCTOR PAINTING: No focal deficits; alert oriented times three. (Lola Valiente INTERFACE DESIGNER) Assessment and Plan Plan ASSESSMENT: - Acute pancreatitis with abnormal imaging of the pancreatic head- Pseudocyst vs. Mass Abdomen/Pelvis CT (10/13/16)-----> 1. There is a low-density mass abutting indirectly superior to the pancreatic head adjacent to the mesenteric vessels. It measures 3.0 x 2.1 cm and is located in a similar location to a cystic lesion seen on prior studies that was felt to represent a pseudocyst. Therefore, it may represent a similar process. However, an abnormal lymph node or mass cannot definitely be excluded. 2. There is also mild induration in the fat adjacent to this structure which could represent inflammation. 3. Small volume of free fluid is present within the abdomen and pelvis. 4. 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 MRCP (10/15/16) ----> Abnormal common duct 7 mm in width however distally this is blunted suggesting a luminal defect or stone. Further evaluation with ERCP is recommended. S/P Unsuccessful ERCP (10/17/16)-----> enlarged pancreatic duct with branching c/w chronic pancreatitis, no communication to pancreatic duct, the wire would not pass the distal part of the common bile duct and nor bile with Kinevac, small sphincterotomy was done. Pt had worsening pain overnight with fever of 101 and tachycardia up to 160 and tachypnea/sob morning of 10/18 and was transferred to the unit. Abdomen/Pelvis CT (10/18/16) ----> 1. There is increased free fluid in the abdomen and pelvis since the prior study that is from an uncertain etiology. Some of the fluid is located in the subcapsular region of the left lobe of the liver. 2. There is low density at the pancreaticoduodenal groove which could represent edema and this can be seen with acute pancreatitis. Suggest correlation with appropriate laboratory values. 3. New small bilateral pleural effusions with associated compressive atelectasis and possible consolidation at the left lung bases. 4. The partially cystic lesion abutting the head of the pancreas is stable and of uncertain etiology. There is adjacent narrowing or occlusion of the portal vein. Per conversation last week, Dr. Felix, would like to hold on PTHC until more stable and ascites improved unless there is obvious signs of biliary obstruction such as biliary dilatation or elevated LFTs. S/P ERCP with pancreatic stent placement () for possible pseudocyst, possible pancreatic leak----> s/p sphincterotomy, s/p stent placement. S/P indomethacin 100 mg rectally given. Pt with abdominal distention and worsening pain today- significant diffuse tenderness with guarding. Lipase trending up 2329. LFT stable and in fact improving. Will make npo and get repeat CT scan. - Pancreatic mass vs. Pseudocyst. Will need EUS as outpt. AFP 2.4, CEA 2.1, Ca 19-9 19.7. - Fever, Leukocytosis. WBC 18.6, afebrile overnight. Zosyn, Ceftriaxone - Resp. Insufficiency. RESOLVED PLAN: - NPO - CT Scan abdomen and pelvis with iv/po contrast - Cont. IVF - Cont. PPI - Cont. Abx - CBC, CMP, Lipase in am - Further recommendations to follow based on results of above - Pt seen and examined by Dr. Morales and myself and this note is written on his behalf (Lola Valiente) Physician Comments Patient seen and examined Agree with above Continue with current supportive care Monitor labs Await CT of the abdomen (Neftali Morales MD) Lola Valiente Oct 25, 2016 10:52 Neftali Morales MD Oct 25, 2016 21:09
[2016-10-25] MEDS ORDERED: DIATRIZOATE MEGLUM/DIATRIZOATE SOD 9 ML CUP PO ONE (10:55)
--- NOTE | 2016-10-25 12:44 | HHI.PR ---
Subjective Remarks "I can't breathe " Patient laying in bed, feeling short of breath, nauseous and vomited once, he also reported diarrhea He feels frustrated, "I'm not going to do any procedure at least today " Objective Vitals Vital Signs Date Time Temp Pulse Resp B/P Pulse Ox O2 Delivery O2 Flow Rate FiO2 10/25/16 11:50 98.8 98 18 145/90 94 10/25/16 11:44 93 Nasal Cannula 2.00 10/25/16 08:00 98.9 85 18 136/78 92 10/25/16 04:00 98.7 94 20 137/80 85 10/25/16 00:01 98.2 99 16 152/83 94 10/24/16 21:08 Nasal Cannula 2.00 10/24/16 20:00 Nasal Cannula 2.00 10/24/16 20:00 98.6 20 152/76 94 10/24/16 18:15 18 10/24/16 17:15 98.1 95 18 154/82 93 10/24/16 12:44 93 21 I/O 10/24/16 10/24/16 10/24/16 10/25/16 10/25/16 10/25/16 07:00 15:00 23:00 07:00 15:00 23:00 Intake Total 100 ml 2130 ml 525 ml 780 ml Output Total 200 ml 150 ml 100 ml Balance -100 ml 1980 ml 525 ml 680 ml Intake Oral 100 ml 720 ml 780 ml IV Total 1410 ml 525 ml Output Urine Total 200 ml 150 ml 100 ml # Voids 2 6 # Bowel Movements 1 1 7 Result Diagram: 10/25/1620 10/25/16 0620 Objective Remarks - - GENERAL: This is a cachectic 60 years old male looks critically ill SKIN: No rashes, warm and dry HEAD: Atraumatic. Normocephalic. EYES: Pupils equal round and reactive. Extraocular motions intact. No scleral icterus. ENT: Nose without bleeding, or drainage, Airway patent. NECK: Trachea midline. Supple CARDIOVASCULAR: Regular rate and rhythm without murmurs, gallops, or rubs. RESPIRATORY: Fair air entry bilaterally. No wheezes, rales, or rhonchi. GASTROINTESTINAL: Abdomen soft, severe general I tender to palpation, nondistended. Positive bowel sounds, no guarding MUSCULOSKELETAL: Extremities without clubbing, cyanosis, or edema. Pedal pulses appreciated NEUROLOGICAL: Awake and alert. Moves all extremity. Normal speech.no focal neurological deficit A/P Assessment and Plan Suspect sepsis 10/18. fever 101, HR 140s, worsenign abd pain. incr o2 req 2L. -possible aspiration PNA - CXR improved from admit but does show RLL inf. -On zosyn. Status post ICU Acute on chronic pancreatitis. Rule out SBP. Acute. MRCP (10/15/16)----> Abnormal common duct 7 mm in width however distally this is blunted suggesting a luminal defect or stone. Further evaluation with ERCP is recommended. S/P Unsuccessful ERCP (10/17/16)-----> enlarged pancreatic duct with branching c/w chronic pancreatitis, no communication to pancreatic duct, the wire would not pass the distal part of the common bile duct and nor bile with Kinevac, small sphincterotomy was done. Pt had worsening pain overnight with fever of 101 and tachycardia up to 160 and tachypnea/sob morning of 10/18 and was transferred to the unit. Abdomen/Pelvis CT (10/18/16) ----> 1. There is increased free fluid in the abdomen and pelvis since the prior study that is from an uncertain etiology. Some of the fluid is located in the subcapsular region of the left lobe of the liver. 2. There is low density at the pancreaticoduodenal groove which could represent edema and this can be seen with acute pancreatitis. Suggest correlation with appropriate laboratory values. 3. New small bilateral pleural effusions with associated compressive atelectasis and possible consolidation at the left lung bases. 4. The partially cystic lesion abutting the head of the pancreas is stable and of uncertain etiology. There is adjacent narrowing or occlusion of the portal vein. Per conversation last week, Dr. Felix, would like to hold on PTHC until more stable and ascites improved unless there is obvious signs of biliary obstruction such as biliary dilatation or elevated LFTs. S/P ERCP with pancreatic stent placement () for possible pseudocyst, possible pancreatic leak----> s/p sphincterotomy, s/p stent placement. S/P indomethacin 100 mg rectally given. Clear liquids , but not taking much. Still with significant nausea, no vomiting. abdominal pain unchanged. Zosyn. PPI. - Pancreatic mass vs. Pseudocyst. Will need EUS as outpt. AFP 2.4, CEA 2.1, Ca 19-9 19.7 -2-2-17: Patient looks very uncomfortable, abdominal pain nausea vomiting reported diarrhea, GI altered CT abdomen with contrast, planning on colonoscopy in a.m., patient refusing the preparation, patient nothing by mouth Bilateral hand excoriations>> resolved -Patient reports this is chronic and improving, initially secondary to bleach exposure. No signs of acute infection. NO Blistering to indicate porphyria. Hyponatremia. Mild. Resolved BL pleural effusions, compresive atelectasis. -likley related to ascites. -cont abx. Hypokalemia and hypomagnesemia. Continue monitoring BMP, replace as needed //prophylaxis. anticoagulationAs per gastroenterology. Ruben Pace MD Oct 25, 2016 12:44
[2016-10-25] MEDS: ENOXAPARIN SODIUM 40 MG/0.4 ML SYRINGE SQ SCH (16:16)
[2016-10-25] MEDS: RESP: IPRATROPIUM 0.5 MG/2.5 ML NEB NEB PRN (21:01)
[2016-10-25] MEDS: ONDANSETRON HCL 4 MG/2 ML VIAL IV PRN (23:17)
[2016-10-26] VITALS (7 sets, daily range): BP systolic 143–158; BP diastolic 73–91; PULSE 77–91; RESP 16–20; TEMP 97.5–98.7; O2SAT 93–97
[2016-10-26] MEDS: HYDROmorphone HCL PF 1 MG/ML VIAL IV PUSH PRN ×3 (00:21→09:46)
[2016-10-26] MEDS ORDERED: IOHEXOL 350 MG/ML 10 ML VIAL (for RAD DIAG) IV ONE (01:02)
[2016-10-26] MEDS: D5-1/2 NS + KCL 20 MEQ INJ 1,000 ML IV SCH ×3 (01:15→21:46)
--- NOTE | 2016-10-26 01:20 | RADRPT ---
EXAM DATE/TIME: 10/26/2016 00:50 [facility] COMPARISON: CT ABDOMEN & PELVIS W CONTRAST, October 18, 2016, 12:14. INDICATIONS : Abdominal distention and pain. IV CONTRAST: 100 cc Omnipaque 350 (iohexol) IV ORAL CONTRAST: Prescribed oral contrast ingested. RADIATION DOSE: 6.28 CTDIvol (mGy) MEDICAL HISTORY : Pancreatitis. Gastroesophageal reflux disease. SURGICAL HISTORY : None. ENCOUNTER: Initial ACUITY: 1 day PAIN SCALE: 8/10 LOCATION: diffuse abdomen TECHNIQUE: Volumetric scanning of the abdomen and pelvis was performed. Using automated exposure control and ad justment of the mA and/or kV according to patient size, radiation dose was kept as low as reasonably achievable to obtain optimal diagnostic quality images. FINDINGS: LOWER LUNGS: There are moderate-sized pleural effusions bilaterally, increased from the prior study, with associat ed compressive atelectasis. LIVER: Heterogeneous density without a focal lesion identified. The perihepatic fluid like material is scall oping the liver margin. There is stable periportal collateral vessels present related to chronic part ial or complete occlusion of the portal vein adjacent to the pancreatic head. High density material w ithin the gallbladder is related to vicarious excretion of contrast material or from recent gastroent erology procedure. SPLEEN: Normal size without lesion. PANCREAS: Main pancreatic duct measures up to 5 mm. There is a stent within the pancreatic duct within the head extending to the duodenum. No solid mass is identified within the pancreas. The partially cystic les ion adjacent to the pancreatic head is stable measuring approximately 2.1 cm. KIDNEYS: Normal in size and shape. There is no mass, stone or hydronephrosis. ADRENAL GLANDS: Within normal limits. VASCULAR: There is no aortic aneurysm. There is severe atherosclerotic disease. BOWEL/MESENTERY: The stomach, small bowel, and colon demonstrate no acute abnormality. There is no free intraperitone al air. There is free fluid like material within the abdomen and pelvis with associated mild peritone al thickening. There is fluid material within the mesentery and omental thickening in the left upper quadrant. ABDOMINAL WALL: Within normal limits. RETROPERITONEUM: There is no lymphadenopathy. BLADDER: No wall thickening or mass. REPRODUCTIVE: Within normal limits. INGUINAL: There is no lymphadenopathy or hernia. MUSCULOSKELETAL: No acute osseous abnormalities identified. CONCLUSION: 1. Increased fluidlike material within the abdomen and pelvis. There is scalloping of the liver temi n along with thickening of the peritoneal lining. These findings suggest against the simple ascites a nd raise concern for infection or malignancy complicating the fluid or pseudomyxoma peritonei. 2. A stent is present within the main pancreatic duct. The partially cystic lesion adjacent to the pa ncreatic head is stable and of uncertain etiology. 3. 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 4. Moderate sized bilateral pleural effusions, increased from the prior exam. Jorgito Baumann MD on October 26, 2016 at 1:09 Board Certified Radiologist. This report was verified electronically.
[2016-10-26] MEDS: PIPERACIL-TAZO 4.5 GM PREMIX 100 ML IV SCH ×4 (04:00→21:45)
[2016-10-26] MEDS: HYDROCORTISONE SOD SUCCINATE 100 MG VIAL IV PUSH SCH ×3 (04:57→21:46)
[2016-10-26] MEDS: ALBUMIN HUMAN 25% 25 GM/100 ML BAGP IV SCH ×3 (05:46→23:00)
[2016-10-26 07:09] LABS: AUTOMATED NEUTROPHIL # 16.1 TH/MM3 (1.8-7.7); BASOPHIL % 0.3 % (0.0-2.0); HEMO FLAGS DIFF FINAL; LYMPH % 1.8 % (9.0-44.0); LYMPHOCYTE # 0.3 TH/MM3 (1.0-4.8); MEAN CELL VOLUME 93.5 FL (80.0-100.0); MEAN CORPUSCULAR HEMOGLOBIN 31.2 PG (27.0-34.0); MEAN CORPUSCULAR HGB CONC 33.3 % (32.0-36.0); MONO % 5.7 % (0.0-8.0); NEUT % 92.2 % (16.0-70.0); PLATELET COUNT 338 TH/MM3 (150-450); RED BLOOD COUNT 3.21 MIL/MM3 (4.50-5.90); RED CELL DISTRIBUTION WIDTH 14.2 % (11.6-17.2); WHITE BLOOD COUNT 17.4 TH/MM3 (4.0-11.0)
[2016-10-26 07:22] LABS: ALKALINE PHOSPHATASE 71 U/L (45-117); ALT (GPT) 9 U/L (12-78); ANION GAP 7 MEQ/L (5-15); AST (GOT) 7 U/L (15-37); BICARBONATE 34.4 MEQ/L (21.0-32.0); BLOOD UREA NITROGEN 8 MG/DL (7-18); CHLORIDE 100 MEQ/L (98-107); GLOMERULAR FILTRATION RATE 212 ML/MIN (>89); SODIUM (NA) 141 MEQ/L (136-145); TOTAL BILIRUBIN ADULT 0.8 MG/DL (0.2-1.0)
[2016-10-26] MEDS: RESP: IPRATROPIUM 0.5 MG/2.5 ML NEB NEB PRN ×2 (07:51→17:15)
[2016-10-26 08:01] LABS: POTASSIUM 2.8 MEQ/L (3.5-5.1)
[2016-10-26] MEDS ORDERED: POTASSIUM CHLORIDE 20 MEQ CONTROLLED RELEASE TAB PO ONE (09:00)
[2016-10-26] MEDS ORDERED: POTASSIUM CHLOR 20 MEQ PREMIX 100 ML IV ONE (09:00)
[2016-10-26] MEDS: SODIUM CHLORIDE 0.9% FLUSH 5 ML FLUSH IV SCH ×2 (09:00→21:00)
[2016-10-26] MEDS: THIAMINE INJ 100 MG in SODIUM CHLORIDE 0.9% INJ 100 ML IV SCH (09:43)
[2016-10-26] MEDS: PANTOPRAZOLE SODIUM 40 MG VIAL IV PUSH SCH ×2 (09:44→21:46)
--- NOTE | 2016-10-26 13:28 | HHI.GIFU ---
Subjective Remarks Resting in bed. States his abdomen is not quite as painful or hard today. Mild nausea without vomiting. (Lola Valiente) Objective Vitals I&O Vital Signs Date Time Temp Pulse Resp B/P Pulse Ox O2 Delivery O2 Flow Rate FiO2 10/26/16 08:00 98.0 88 18 158/91 93 10/26/16 07:51 94 Nasal Cannula 2.00 10/26/16 04:00 98.0 90 20 157/73 96 10/26/16 00:00 97.8 91 20 158/81 93 10/25/16 21:02 93 Nasal Cannula 2.00 10/25/16 20:08 Nasal Cannula 2.00 10/25/16 20:00 98.2 95 20 157/95 93 10/25/16 16:00 98.1 107 20 153/95 93 I/O 10/25/16 10/25/16 10/25/16 10/26/16 10/26/16 10/26/16 07:00 15:00 23:00 07:00 15:00 23:00 Intake Total 780 ml 360 ml 930 ml 701 ml 220 ml Output Total 100 ml 700 ml 400 ml Balance 680 ml -340 ml 930 ml 701 ml -180 ml Intake Oral 780 ml 360 ml 240 ml 220 ml IV Total 690 ml 701 ml Output Urine Total 100 ml 700 ml 400 ml # Voids 6 1 # Bowel Movements 7 1 1 0 Laboratory Laboratory Tests Test 10/25/16 10/26/16 19:57 05:49 Potassium Level 3.1 2.8 White Blood Count 17.4 Red Blood Count 3.21 Hemoglobin 10.0 Hematocrit 30.0 Mean Corpuscular Volume 93.5 Mean Corpuscular Hemoglobin 31.2 Mean Corpuscular Hemoglobin 33.3 Concent Red Cell Distribution Width 14.2 Platelet Count 338 Mean Platelet Volume 7.7 Neutrophils (%) (Auto) 92.2 Lymphocytes (%) (Auto) 1.8 Monocytes (%) (Auto) 5.7 Eosinophils (%) (Auto) 0.0 Basophils (%) (Auto) 0.3 Neutrophils # (Auto) 16.1 Lymphocytes # (Auto) 0.3 Monocytes # (Auto) 1.0 Eosinophils # (Auto) 0.0 Basophils # (Auto) 0.0 CBC Comment DIFF FINAL Differential Comment Sodium Level 141 Chloride Level 100 Carbon Dioxide Level 34.4 Anion Gap 7 Blood Urea Nitrogen 8 Creatinine 0.41 Estimat Glomerular Filtration 212 Rate Random Glucose 113 Calcium Level 7.8 Total Bilirubin 0.8 Aspartate Amino Transf 7 (AST/SGOT) Alanine Aminotransferase 9 (ALT/SGPT) Alkaline Phosphatase 71 Total Protein 5.0 Albumin 2.6 Lipase 2725 Date/Time Procedure Status Source Growth 10/24/16 19:20 Aerobic Blood Culture - Preliminary Resulted Blood Peripheral NO GROWTH IN 2 DAYS 10/24/16 19:20 Anaerobic Blood Culture - Preliminary Resulted Blood Peripheral NO GROWTH IN 2 DAYS Imaging Last Impressions Abdomen/Pelvis CT 10/25/16 0000 Signed Impressions: Service Date/Time: Wednesday, October 26, 2016 00:50 - CONCLUSION: 1. Increased fluidlike material within the abdomen and pelvis. There is scalloping of the liver margin along with thickening of the peritoneal lining. These findings suggest against the simple ascites and raise concern for infection or malignancy complicating the fluid or pseudomyxoma peritonei. 2. A stent is present within the main pancreatic duct. The partially cystic lesion adjacent to the pancreatic head is stable and of uncertain etiology. 3. 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 4. Moderate sized bilateral pleural effusions, increased from the prior exam. Jorgito Baumann MD GI Procedure 10/22/16 0000 Signed Impressions: Service Date/Time: Saturday, October 22, 2016 16:12 - CONCLUSION: ERCP as above. Yobani Bashir MD Hepatobiliary Scan Nuclear Medicine 10/21/16 0000 Signed Impressions: Service Date/Time: Friday, October 21, 2016 09:47 - CONCLUSION: Normal HIDA scan. Rodrigo Boyd Jr., MD Cyst Biopsy Asp-Paracentesis US 10/19/16 0000 Signed Impressions: Service Date/Time: Wednesday, October 19, 2016 15:20 - CONCLUSION: Uncomplicated ultrasound guided paracentesis. Kevin Felix MD FACR Chest X-Ray 10/18/16 0000 Signed Impressions: Service Date/Time: September 06:17 - CONCLUSION: Compared to the prior study the previously noted pulmonary edema has improved. There continues be some mild interstitial infiltrates in the mid and lower lungs right greater than left. Otherwise the lungs are well-aerated. Wei Cesar MD Chest CT 10/18/16 0000 Signed Impressions: Service Date/Time: September 12:17 - CONCLUSION: 1. Mild emphysema with new small bilateral pleural effusions with associated compressive atelectasis and consolidation at the lung bases. 2. Please refer to abdomen and pelvis CT report for description of the subdiaphragmatic findings. Jorgito Baumann MD Abdomen X-Ray 10/18/16 0000 Signed Impressions: Service Date/Time: September 06:21 - CONCLUSION: Benign abdomen. Wei Cesar MD Cholangiopancreatography MRI 10/15/16 0000 Signed Impressions: Service Date/Time: Saturday, October 15, 2016 15:10 - CONCLUSION: Abnormal common duct 7 mm in width however distally this is blunted suggesting a luminal defect or stone. Further evaluation with ERCP is recommended. Yobani Bashir MD Physical Exam HEENT: Normocephalic; atraumatic; no jaundice. CHEST: Resp. shallow/even. Diminished CARDIAC: RRR ABDOMEN: Distended but softer than yesterday, diffuse tenderness, but improved from yesterday, bowel sounds are present in all four quadrants. EXTREMITIES: No clubbing, cyanosis, or edema. SKIN: Multiple excoriations RELEASE SPECIALIST: No focal deficits; alert oriented times three. (Lola Valiente [facility]) Assessment and Plan Plan ASSESSMENT: - Acute pancreatitis with abnormal imaging of the pancreatic head- Pseudocyst vs. Mass Abdomen/Pelvis CT (10/13/16)-----> 1. There is a low-density mass abutting indirectly superior to the pancreatic head adjacent to the mesenteric vessels. It measures 3.0 x 2.1 cm and is located in a similar location to a cystic lesion seen on prior studies that was felt to represent a pseudocyst. Therefore, it may represent a similar process. However, an abnormal lymph node or mass cannot definitely be excluded. 2. There is also mild induration in the fat adjacent to this structure which could represent inflammation. 3. Small volume of free fluid is present within the abdomen and pelvis. 4. 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 MRCP (10/15/16) ----> Abnormal common duct 7 mm in width however distally this is blunted suggesting a luminal defect or stone. Further evaluation with ERCP is recommended. S/P Unsuccessful ERCP (10/17/16)-----> enlarged pancreatic duct with branching c/w chronic pancreatitis, no communication to pancreatic duct, the wire would not pass the distal part of the common bile duct and nor bile with Kinevac, small sphincterotomy was done. Pt had worsening pain overnight with fever of 101 and tachycardia up to 160 and tachypnea/sob morning of 10/18 and was transferred to the unit. Abdomen/Pelvis CT (10/18/16) ----> 1. There is increased free fluid in the abdomen and pelvis since the prior study that is from an uncertain etiology. Some of the fluid is located in the subcapsular region of the left lobe of the liver. 2. There is low density at the pancreaticoduodenal groove which could represent edema and this can be seen with acute pancreatitis. Suggest correlation with appropriate laboratory values. 3. New small bilateral pleural effusions with associated compressive atelectasis and possible consolidation at the left lung bases. 4. The partially cystic lesion abutting the head of the pancreas is stable and of uncertain etiology. There is adjacent narrowing or occlusion of the portal vein. Per conversation last week, Dr. Felix, would like to hold on PTHC until more stable and ascites improved unless there is obvious signs of biliary obstruction such as biliary dilatation or elevated LFTs. S/P ERCP with pancreatic stent placement () for possible pseudocyst, possible pancreatic leak----> s/p sphincterotomy, s/p stent placement. S/P indomethacin 100 mg rectally given. Lipase trending up 2725. LFT stable and in fact improving. Rpt. Abdomen/Pelvis CT (10/25/16)-----> 1. Increased fluidlike material within the abdomen and pelvis. There is scalloping of the liver margin along with thickening of the peritoneal lining. These findings suggest against the simple ascites and raise concern for infection or malignancy complicating the fluid or pseudomyxoma peritonei. 2. A stent is present within the main pancreatic duct. The partially cystic lesion adjacent to the pancreatic head is stable and of uncertain etiology. 3. 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 4. Moderate sized bilateral pleural effusions, increased from the prior exam. Lipase 2725. Still quite tender, but slightly improved from yesterday. Abdomen softer today. NPO. D/W patient possible need for repeat ERCP/Stent. He is reluctant, but states if he does not improve over the weekend that he would be agreeable next week. - Pancreatic mass vs. Pseudocyst. Will need EUS as outpt. AFP 2.4, CEA 2.1, Ca 19-9 19.7. - Fever, Leukocytosis. WBC 17.4 afebrile overnight. Zosyn, Ceftriaxone - Resp. Insufficiency. RESOLVED PLAN: - Clear diet - Cont. IVF - Cont. PPI - Cont. Abx - CBC, CMP, Lipase in am - Further recommendations to follow based on results of above - Possible repeat ERCP with stent placement next week - Pt seen and examined by Dr. Morales and myself and this note is written on his behalf (Lola Valiente) Physician Comments Patient seen and examined Agree with above Continue with current supportive care Monitor labs Depending on his clinical condition we may need to upgrade the pancreatic stent if there is continued worsening of abdominal fluid (Neftali Morales MD) Lola Valiente Oct 26, 2016 13:28 Neftali Morales MD Oct 26, 2016 17:24
--- NOTE | 2016-10-26 15:55 | HHI.PR ---
Subjective Remarks Feeling nauseous and short of breath especially lay flat, on oxygen I discussed with GI, mostly another ERCP he was stenting next week Afebrile Objective Vitals Vital Signs Date Time Temp Pulse Resp B/P Pulse Ox O2 Delivery O2 Flow Rate FiO2 10/26/16 12:00 98.5 88 18 143/83 97 10/26/16 08:00 98.0 88 18 158/91 93 10/26/16 07:51 94 Nasal Cannula 2.00 10/26/16 04:00 98.0 90 20 157/73 96 10/26/16 00:00 97.8 91 20 158/81 93 10/25/16 21:02 93 Nasal Cannula 2.00 10/25/16 20:08 Nasal Cannula 2.00 10/25/16 20:00 98.2 95 20 157/95 93 10/25/16 16:00 98.1 107 20 153/95 93 I/O 10/25/16 10/25/16 10/25/16 10/26/16 10/26/16 10/26/16 07:00 15:00 23:00 07:00 15:00 23:00 Intake Total 780 ml 360 ml 930 ml 701 ml 220 ml Output Total 100 ml 700 ml 400 ml Balance 680 ml -340 ml 930 ml 701 ml -180 ml Intake Oral 780 ml 360 ml 240 ml 220 ml IV Total 690 ml 701 ml Output Urine Total 100 ml 700 ml 400 ml # Voids 6 1 # Bowel Movements 7 1 1 0 Result Diagram: 10/26/16 0549 10/26/16 0549 Objective Remarks - - GENERAL: This is a cachectic 60 years old male looks critically ill SKIN: No rashes, warm and dry HEAD: Atraumatic. Normocephalic. EYES: Pupils equal round and reactive. Extraocular motions intact. No scleral icterus. ENT: Nose without bleeding, or drainage, Airway patent. NECK: Trachea midline. Supple CARDIOVASCULAR: Regular rate and rhythm without murmurs, gallops, or rubs. RESPIRATORY: Fair air entry bilaterally. No wheezes, rales, or rhonchi. GASTROINTESTINAL: Abdomen soft, severe general I tender to palpation, nondistended. Positive bowel sounds, no guarding MUSCULOSKELETAL: Extremities without clubbing, cyanosis, or edema. Pedal pulses appreciated NEUROLOGICAL: Awake and alert. Moves all extremity. Normal speech.no focal neurological deficit A/P Assessment and Plan A/P: Suspect sepsis 10/18. fever 101, HR 140s, worsenign abd pain. incr o2 req 2L. -possible aspiration PNA - CXR improved from admit but does show RLL inf. -On zosyn. Status post ICU Acute on chronic pancreatitis. Rule out SBP. Acute. MRCP (10/15/16)----> Abnormal common duct 7 mm in width however distally this is blunted suggesting a luminal defect or stone. Further evaluation with ERCP is recommended. S/P Unsuccessful ERCP (10/17/16)-----> enlarged pancreatic duct with branching c/w chronic pancreatitis, no communication to pancreatic duct, the wire would not pass the distal part of the common bile duct and nor bile with Kinevac, small sphincterotomy was done. Pt had worsening pain overnight with fever of 101 and tachycardia up to 160 and tachypnea/sob morning of 10/18 and was transferred to the unit. Abdomen/Pelvis CT (10/18/16) ----> 1. There is increased free fluid in the abdomen and pelvis since the prior study that is from an uncertain etiology. Some of the fluid is located in the subcapsular region of the left lobe of the liver. 2. There is low density at the pancreaticoduodenal groove which could represent edema and this can be seen with acute pancreatitis. Suggest correlation with appropriate laboratory values. 3. New small bilateral pleural effusions with associated compressive atelectasis and possible consolidation at the left lung bases. 4. The partially cystic lesion abutting the head of the pancreas is stable and of uncertain etiology. There is adjacent narrowing or occlusion of the portal vein. Per conversation last week, Dr. Felix, would like to hold on PTHC until more stable and ascites improved unless there is obvious signs of biliary obstruction such as biliary dilatation or elevated LFTs. S/P ERCP with pancreatic stent placement () for possible pseudocyst, possible pancreatic leak----> s/p sphincterotomy, s/p stent placement. S/P indomethacin 100 mg rectally given. Clear liquids , but not taking much. Still with significant nausea, no vomiting. abdominal pain unchanged. Zosyn. PPI. - Pancreatic mass vs. Pseudocyst. Will need EUS as outpt. AFP 2.4, CEA 2.1, Ca 19-9 19.7 -2--: Patient looks very uncomfortable, abdominal pain nausea vomiting reported diarrhea, GI altered CT abdomen with contrast, planning on colonoscopy in a.m., patient refusing the preparation, 10/26/16: Still feeling nauseous, short of breath, will repeat chest x-ray if unremarkable and possibly Bilateral hand excoriations>> resolved -Patient reports this is chronic and improving, initially secondary to bleach exposure. No signs of acute infection. NO Blistering to indicate porphyria. Hyponatremia. Mild. Resolved COPD on home O2 BL pleural effusions, compresive atelectasis. -likley related to ascites. -cont abx. Hypokalemia and hypomagnesemia. Continue monitoring BMP, replace as needed DVT prophylaxis with Lovenox Ruben Pace MD Oct 26, 2016 15:55
[2016-10-26] MEDS: ENOXAPARIN SODIUM 40 MG/0.4 ML SYRINGE SQ SCH (16:41)
--- NOTE | 2016-10-26 18:24 | RADRPT ---
EXAM DATE/TIME: 10/26/2016 17:20 [facility] COMPARISON: CHEST SINGLE AP, October 18, 2016, 6:17. INDICATIONS : Shortness of breath. MEDICAL HISTORY : Pancreatitis. Congestive heart failure. Gastroesophageal reflux disease. SURGICAL HISTORY : None. ENCOUNTER: Subsequent ACUITY: 1 week PAIN SCORE: 0/10 LOCATION: chest FINDINGS: The cardiac silhouette is enlarged in transverse diameter. There is prominence of the central pulmona ry vasculature with indistinct vascular margins compatible with vascular congestion but no evidence o f overt failure. There is subsegmental atelectasis in the both bases. Moderate size bilateral pleura l effusions are identified. CONCLUSION: 1. Cardiomegaly with bibasilar atelectasis and moderate effusions. This is new when compared with the prior exam. José Miguel Ritter MD on October 26, 2016 at 18:22 Board Certified Radiologist. This report was verified electronically.
[2016-10-27] VITALS (9 sets, daily range): BP systolic 136–161; BP diastolic 74–90; PULSE 60–89; RESP 16–22; TEMP 97.9–98.4; O2SAT 94–99
[2016-10-27] MEDS: RESP: IPRATROPIUM 0.5 MG/2.5 ML NEB NEB PRN ×5 (01:12→19:50)
[2016-10-27] MEDS: HYDROmorphone HCL PF 1 MG/ML VIAL IV PUSH PRN ×5 (02:03→23:10)
[2016-10-27] MEDS: HYDROCORTISONE SOD SUCCINATE 100 MG VIAL IV PUSH SCH ×3 (05:40→21:15)
[2016-10-27] MEDS: PIPERACIL-TAZO 4.5 GM PREMIX 100 ML IV SCH ×4 (05:40→21:15)
[2016-10-27 07:23] LABS: AUTOMATED NEUTROPHIL # 17.7 TH/MM3 (1.8-7.7); HEMATOCRIT 27.4 % (39.0-51.0); HEMO FLAGS DIFF FINAL; LYMPH % 1.9 % (9.0-44.0); LYMPHOCYTE # 0.4 TH/MM3 (1.0-4.8); MEAN CELL VOLUME 93.4 FL (80.0-100.0); MEAN CORPUSCULAR HEMOGLOBIN 31.6 PG (27.0-34.0); MEAN CORPUSCULAR HGB CONC 33.8 % (32.0-36.0); MONO % 4.7 % (0.0-8.0); NEUT % 93.4 % (16.0-70.0); PLATELET COUNT 327 TH/MM3 (150-450); RED BLOOD COUNT 2.94 MIL/MM3 (4.50-5.90); RED CELL DISTRIBUTION WIDTH 14.4 % (11.6-17.2); WHITE BLOOD COUNT 18.9 TH/MM3 (4.0-11.0)
[2016-10-27] MEDS: SODIUM CHLORIDE 0.9% FLUSH 5 ML FLUSH IV SCH ×2 (07:59→21:00)
[2016-10-27] MEDS: THIAMINE INJ 100 MG in SODIUM CHLORIDE 0.9% INJ 100 ML IV SCH (07:59)
[2016-10-27] MEDS: PANTOPRAZOLE SODIUM 40 MG VIAL IV PUSH SCH ×2 (07:59→21:14)
[2016-10-27] MEDS: D5-1/2 NS + KCL 20 MEQ INJ 1,000 ML IV SCH ×2 (08:02→15:23)
--- NOTE | 2016-10-27 12:28 | HHI.PR ---
Subjective Remarks Patient resting in bed "trying to take a nap " Stated he had a bowel movement which looked like "a cake ", when I asked him what does he mean by "cake "he stated that the stool is stick to each other means (firm) Denied fever, his WBC today is 18 K is on Zosyn Some nausea no vomiting, abdominal tenderness is much less today I previously discussed with GI, patient may need another ERCP the with adjusting stenting next week Objective Vitals Vital Signs Date Time Temp Pulse Resp B/P Pulse Ox O2 Delivery O2 Flow Rate FiO2 10/27/16 12:07 98.0 60 20 138/74 95 10/27/16 08:58 Nasal Cannula 4.00 21 10/27/16 08:46 96 Nasal Cannula 4.00 10/27/16 08:10 98.4 87 22 148/89 94 10/27/16 04:00 98.4 70 16 136/81 97 10/27/16 01:13 95 Nasal Cannula 4.00 10/27/16 00:00 98.0 78 16 150/74 95 10/26/16 21:51 Nasal Cannula 2.00 10/26/16 20:00 98.7 77 16 148/77 95 10/26/16 16:00 97.5 85 18 158/87 97 I/O 10/26/16 10/26/16 10/26/16 10/27/16 10/27/16 10/27/16 07:00 15:00 23:00 07:00 15:00 23:00 Intake Total 701 ml 700 ml 859 ml 240 ml Output Total 1100 ml 250 ml Balance 701 ml -400 ml 609 ml 240 ml Intake Oral 700 ml 120 ml 240 ml IV Total 701 ml 739 ml Output Urine Total 1100 ml 250 ml # Voids 2 # Bowel Movements 1 1 Result Diagram: 10/27/16 0644 10/26/16 0549 Objective Remarks - - GENERAL: This is a cachectic 60 years old male looks critically ill SKIN: No rashes, warm and dry HEAD: Atraumatic. Normocephalic. EYES: Pupils equal round and reactive. Extraocular motions intact. No scleral icterus. ENT: Nose without bleeding, or drainage, Airway patent. NECK: Trachea midline. Supple CARDIOVASCULAR: Regular rate and rhythm without murmurs, gallops, or rubs. RESPIRATORY: Fair air entry bilaterally. No wheezes, rales, or rhonchi. GASTROINTESTINAL: Abdomen soft, much less abdominal tenderness, nondistended. Positive bowel sounds, no guarding MUSCULOSKELETAL: Extremities without clubbing, cyanosis, or edema. Pedal pulses appreciated NEUROLOGICAL: Awake and alert. Moves all extremity. Normal speech.no focal neurological deficit A/P Assessment and Plan -10-25-16: Patient looks very uncomfortable, abdominal pain nausea vomiting reported diarrhea, GI altered CT abdomen with contrast, planning on colonoscopy in a.m., patient refusing the preparation, 10/26/16: Still feeling nauseous, short of breath, will repeat chest x-ray if unremarkable and possibly 10/27/16: Less nausea and less abdominal tenderness, small firm bowel movement, chest x-ray yesterday showed >>Cardiomegaly with bibasilar atelectasis and moderate effusion which is new from previous study, will encourage incentive spirometer, may consider thoracentesis if worsening symptoms. Potassium today 3, magnesium 1.8, phosphorus 1.7>> K phosphate 30 mmol iv 1, KCl 40 mEq 2, magnesium sulfate 2 g iv 1 A/P: Suspect sepsis 10/18. fever 101, HR 140s, worsenign abd pain. incr o2 req 2L. -possible aspiration PNA - CXR improved from admit but does show RLL inf. -On zosyn. Status post ICU Acute on chronic pancreatitis. Rule out SBP. Acute. MRCP (10/15/16)----> Abnormal common duct 7 mm in width however distally this is blunted suggesting a luminal defect or stone. Further evaluation with ERCP is recommended. S/P Unsuccessful ERCP (10/17/16)-----> enlarged pancreatic duct with branching c/w chronic pancreatitis, no communication to pancreatic duct, the wire would not pass the distal part of the common bile duct and nor bile with Kinevac, small sphincterotomy was done. Pt had worsening pain overnight with fever of 101 and tachycardia up to 160 and tachypnea/sob morning of 10/18 and was transferred to the unit. Abdomen/Pelvis CT (10/18/16) ----> 1. There is increased free fluid in the abdomen and pelvis since the prior study that is from an uncertain etiology. Some of the fluid is located in the subcapsular region of the left lobe of the liver. 2. There is low density at the pancreaticoduodenal groove which could represent edema and this can be seen with acute pancreatitis. Suggest correlation with appropriate laboratory values. 3. New small bilateral pleural effusions with associated compressive atelectasis and possible consolidation at the left lung bases. 4. The partially cystic lesion abutting the head of the pancreas is stable and of uncertain etiology. There is adjacent narrowing or occlusion of the portal vein. Per conversation last week, Dr. Felix, would like to hold on PTHC until more stable and ascites improved unless there is obvious signs of biliary obstruction such as biliary dilatation or elevated LFTs. S/P ERCP with pancreatic stent placement () for possible pseudocyst, possible pancreatic leak----> s/p sphincterotomy, s/p stent placement. S/P indomethacin 100 mg rectally given. Clear liquids , but not taking much. Still with significant nausea, no vomiting. abdominal pain unchanged. Zosyn. PPI. - Pancreatic mass vs. Pseudocyst. Will need EUS as outpt. AFP 2.4, CEA 2.1, Ca 19-9 19.7 Bilateral hand excoriations>> resolved -Patient reports this is chronic and improving, initially secondary to bleach exposure. No signs of acute infection. NO Blistering to indicate porphyria. Hyponatremia. Mild. Resolved COPD on home O2 BL pleural effusions, compresive atelectasis. -likley related to ascites. -cont abx. Hypokalemia and hypomagnesemia. Continue monitoring BMP, replace as needed DVT prophylaxis with Lovenox Ruben Pace MD Oct 27, 2016 12:28
--- NOTE | 2016-10-27 12:35 | HHI.GIFU ---
Subjective Remarks Patient is resting in bed with complaints of nausea, loose frequent stools, but no vomiting (Alex,[employer]a [employer]) Objective Vitals I&O Vital Signs Date Time Temp Pulse Resp B/P Pulse Ox O2 Delivery O2 Flow Rate FiO2 10/27/16 12:07 98.0 60 20 138/74 95 10/27/16 08:58 Nasal Cannula 4.00 21 10/27/16 08:46 96 Nasal Cannula 4.00 10/27/16 08:10 98.4 87 22 148/89 94 10/27/16 04:00 98.4 70 16 136/81 97 10/27/16 01:13 95 Nasal Cannula 4.00 10/27/16 00:00 98.0 78 16 150/74 95 10/26/16 21:51 Nasal Cannula 2.00 10/26/16 20:00 98.7 77 16 148/77 95 10/26/16 16:00 97.5 85 18 158/87 97 I/O 10/26/16 10/26/16 10/26/16 10/27/16 10/27/16 10/27/16 07:00 15:00 23:00 07:00 15:00 23:00 Intake Total 701 ml 700 ml 859 ml 240 ml Output Total 1100 ml 250 ml Balance 701 ml -400 ml 609 ml 240 ml Intake Oral 700 ml 120 ml 240 ml IV Total 701 ml 739 ml Output Urine Total 1100 ml 250 ml # Voids 2 # Bowel Movements 1 1 Laboratory Laboratory Tests Test 10/27/16 06:44 White Blood Count 18.9 Red Blood Count 2.94 Hemoglobin 9.3 Hematocrit 27.4 Mean Corpuscular Volume 93.4 Mean Corpuscular Hemoglobin 31.6 Mean Corpuscular Hemoglobin 33.8 Concent Red Cell Distribution Width 14.4 Platelet Count 327 Mean Platelet Volume 7.7 Neutrophils (%) (Auto) 93.4 Lymphocytes (%) (Auto) 1.9 Monocytes (%) (Auto) 4.7 Eosinophils (%) (Auto) 0.0 Basophils (%) (Auto) 0.0 Neutrophils # (Auto) 17.7 Lymphocytes # (Auto) 0.4 Monocytes # (Auto) 0.9 Eosinophils # (Auto) 0.0 Basophils # (Auto) 0.0 CBC Comment DIFF FINAL Differential Comment Lipase 1931 Date/Time Procedure Status Source Growth 2/1/17 19:20 Aerobic Blood Culture - Preliminary Resulted Blood Peripheral NO GROWTH IN 3 DAYS 10/24/16 19:20 Anaerobic Blood Culture - Preliminary Resulted Blood Peripheral NO GROWTH IN 3 DAYS Imaging Last Impressions Chest X-Ray 10/26/16 0000 Signed Impressions: Service Date/Time: Wednesday, October 26, 2016 17:20 - CONCLUSION: 1. Cardiomegaly with bibasilar atelectasis and moderate effusions. This is new when compared with the prior exam. José Miguel Ritter MD Abdomen/Pelvis CT 10/25/16 0000 Signed Impressions: Service Date/Time: Wednesday, October 26, 2016 00:50 - CONCLUSION: 1. Increased fluidlike material within the abdomen and pelvis. There is scalloping of the liver margin along with thickening of the peritoneal lining. These findings suggest against the simple ascites and raise concern for infection or malignancy complicating the fluid or pseudomyxoma peritonei. 2. A stent is present within the main pancreatic duct. The partially cystic lesion adjacent to the pancreatic head is stable and of uncertain etiology. 3. 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 4. Moderate sized bilateral pleural effusions, increased from the prior exam. Jorgito Baumann MD GI Procedure 10/22/16 0000 Signed Impressions: Service Date/Time: Saturday, October 22, 2016 16:12 - CONCLUSION: ERCP as above. Yobani Bashir MD Hepatobiliary Scan Nuclear Medicine 10/21/16 0000 Signed Impressions: Service Date/Time: Friday, October 21, 2016 09:47 - CONCLUSION: Normal HIDA scan. Rodrigo Boyd Jr., MD Cyst Biopsy Asp-Paracentesis US 10/19/16 0000 Signed Impressions: Service Date/Time: Wednesday, October 19, 2016 15:20 - CONCLUSION: Uncomplicated ultrasound guided paracentesis. Kevin Felix MD FACR Chest CT 10/18/16 0000 Signed Impressions: Service Date/Time: September 12:17 - CONCLUSION: 1. Mild emphysema with new small bilateral pleural effusions with associated compressive atelectasis and consolidation at the lung bases. 2. Please refer to abdomen and pelvis CT report for description of the subdiaphragmatic findings. Jorgito Baumann MD Abdomen X-Ray 10/18/16 0000 Signed Impressions: Service Date/Time: September 06:21 - CONCLUSION: Benign abdomen. Wei Cesar MD Cholangiopancreatography MRI 10/15/16 0000 Signed Impressions: Service Date/Time: Saturday, October 15, 2016 15:10 - CONCLUSION: Abnormal common duct 7 mm in width however distally this is blunted suggesting a luminal defect or stone. Further evaluation with ERCP is recommended. Yobani Bashir MD Physical Exam HEENT: Normocephalic; atraumatic; no jaundice. CHEST: Resp. shallow/even. Diminished CARDIAC: RRR ABDOMEN: Distended, diffuse tenderness, but improved , bowel sounds are present in all four quadrants. EXTREMITIES: No clubbing, cyanosis, or edema. SKIN: Multiple excoriations SHIPPING AND RECEIVING WEIGHER: No focal deficits; alert oriented times three. (Noa Johnson) Assessment and Plan Plan ASSESSMENT: - Acute pancreatitis with abnormal imaging of the pancreatic head- Pseudocyst vs. Mass Abdomen/Pelvis CT (10/13/16)-----> 1. There is a low-density mass abutting indirectly superior to the pancreatic head adjacent to the mesenteric vessels. It measures 3.0 x 2.1 cm and is located in a similar location to a cystic lesion seen on prior studies that was felt to represent a pseudocyst. Therefore, it may represent a similar process. However, an abnormal lymph node or mass cannot definitely be excluded. 2. There is also mild induration in the fat adjacent to this structure which could represent inflammation. 3. Small volume of free fluid is present within the abdomen and pelvis. 4. 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 MRCP (10/15/16) ----> Abnormal common duct 7 mm in width however distally this is blunted suggesting a luminal defect or stone. Further evaluation with ERCP is recommended. S/P Unsuccessful ERCP (10/17/16)-----> enlarged pancreatic duct with branching c/w chronic pancreatitis, no communication to pancreatic duct, the wire would not pass the distal part of the common bile duct and nor bile with Kinevac, small sphincterotomy was done. Pt had worsening pain overnight with fever of 101 and tachycardia up to 160 and tachypnea/sob morning of 10/18 and was transferred to the unit. Abdomen/Pelvis CT (10/18/16) ----> 1. There is increased free fluid in the abdomen and pelvis since the prior study that is from an uncertain etiology. Some of the fluid is located in the subcapsular region of the left lobe of the liver. 2. There is low density at the pancreaticoduodenal groove which could represent edema and this can be seen with acute pancreatitis. Suggest correlation with appropriate laboratory values. 3. New small bilateral pleural effusions with associated compressive atelectasis and possible consolidation at the left lung bases. 4. The partially cystic lesion abutting the head of the pancreas is stable and of uncertain etiology. There is adjacent narrowing or occlusion of the portal vein. Per conversation last week, Dr. Felix, would like to hold on [facility] until more stable and ascites improved unless there is obvious signs of biliary obstruction such as biliary dilatation or elevated LFTs. S/P ERCP with pancreatic stent placement () for possible pseudocyst, possible pancreatic leak----> s/p sphincterotomy, s/p stent placement. S/P indomethacin 100 mg rectally given. Lipase trending up 2725. LFT stable and in fact improving. Rpt. Abdomen/Pelvis CT (10/25/16)-----> 1. Increased fluidlike material within the abdomen and pelvis. There is scalloping of the liver margin along with thickening of the peritoneal lining. These findings suggest against the simple ascites and raise concern for infection or malignancy complicating the fluid or pseudomyxoma peritonei. 2. A stent is present within the main pancreatic duct. The partially cystic lesion adjacent to the pancreatic head is stable and of uncertain etiology. 3. 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 4. Moderate sized bilateral pleural effusions, increased from the prior exam. Lipase 2725. Still quite tender, but slightly improved from yesterday. Abdomen softer today. NPO. D/W patient possible need for repeat ERCP/Stent. He is reluctant, but states if he does not improve over the weekend that he would be agreeable next week. - Pancreatic mass vs. Pseudocyst. Will need EUS as outpt. AFP 2.4, CEA 2.1, Ca 19-9 19.7. - Fever, Leukocytosis. WBC 17.4 afebrile overnight. Zosyn, Ceftriaxone - Resp. Insufficiency. RESOLVED 10/27/16- patient is resting in bed, with nausea, loose stools, no vomiting. Pain has improved, lipase improved today, 193 still elevated WBC, on Zosyn, ceftriaxone for this PLAN: - advance to full liquid - Cont. IVF - Cont. PPI - Cont. Abx - CBC, CMP, Lipase in am - Further recommendations to follow based on results of above - Possible repeat ERCP with stent placement based on clinical course - EUS as an OP - Pt seen and examined by Dr. Morales and myself and this note is written on his behalf (Noa Johnson) Physician Comments Patient seen and examined Agree with above Continue with current supportive care Monitor labs (Neftali Morales MD) Noa Johnson Oct 27, 2016 12:35 Neftali Morales MD Oct 27, 2016 16:55
[2016-10-27] MEDS: ONDANSETRON HCL 4 MG/2 ML VIAL IV PRN (13:38)
[2016-10-27 13:58] LABS: AUTOMATED NEUTROPHIL # 15.7 TH/MM3 (1.8-7.7); BASOPHIL % 0.1 % (0.0-2.0); EOSINOPHIL % 0.1 % (0.0-4.0); HEMATOCRIT 30.6 % (39.0-51.0); HEMO FLAGS DIFF FINAL; LYMPH % 2.6 % (9.0-44.0); LYMPHOCYTE # 0.4 TH/MM3 (1.0-4.8); MEAN CORPUSCULAR HEMOGLOBIN 30.9 PG (27.0-34.0); MEAN CORPUSCULAR HGB CONC 32.9 % (32.0-36.0); MONO % 5.1 % (0.0-8.0); NEUT % 92.1 % (16.0-70.0); PLATELET COUNT 350 TH/MM3 (150-450); RED BLOOD COUNT 3.25 MIL/MM3 (4.50-5.90); RED CELL DISTRIBUTION WIDTH 14.4 % (11.6-17.2); WHITE BLOOD COUNT 17.1 TH/MM3 (4.0-11.0)
[2016-10-27 14:17] LABS: BICARBONATE 34.6 MEQ/L (21.0-32.0); MAGNESIUM 1.8 MG/DL (1.5-2.5)
[2016-10-27] MEDS: ENOXAPARIN SODIUM 40 MG/0.4 ML SYRINGE SQ SCH (15:22)
[2016-10-27] MEDS ORDERED: POTASSIUM PHOSPHATE INJ 30 MMOL in SODIUM CHLOR 0.9% 250 ML INJ 250 ML IV ONE (15:30)
[2016-10-27] MEDS: MAGNESIUM SULFATE 1 GM PREMIX 100 ML IV SCH ×2 (15:58→16:44)
[2016-10-27] MEDS: POTASSIUM CHLORIDE 10 MEQ CONTROLLED RELEASE TAB PO SCH ×2 (15:58→18:50)
[2016-10-28] VITALS (9 sets, daily range): BP systolic 137–169; BP diastolic 80–94; PULSE 71–85; RESP 16–24; TEMP 98–98.1; O2SAT 94–98
[2016-10-28] MEDS: RESP: IPRATROPIUM 0.5 MG/2.5 ML NEB NEB PRN ×4 (02:31→19:40)
[2016-10-28] MEDS: D5-1/2 NS + KCL 20 MEQ INJ 1,000 ML IV SCH ×3 (03:15→22:14)
[2016-10-28] MEDS: PIPERACIL-TAZO 4.5 GM PREMIX 100 ML IV SCH ×4 (04:49→21:22)
[2016-10-28] MEDS: HYDROCORTISONE SOD SUCCINATE 100 MG VIAL IV PUSH SCH ×3 (04:49→21:22)
[2016-10-28] MEDS: HYDROmorphone HCL PF 1 MG/ML VIAL IV PUSH PRN ×4 (04:50→21:23)
[2016-10-28] MEDS: PANTOPRAZOLE SODIUM 40 MG VIAL IV PUSH SCH ×2 (07:43→21:23)
[2016-10-28] MEDS: THIAMINE INJ 100 MG in SODIUM CHLORIDE 0.9% INJ 100 ML IV SCH (07:44)
[2016-10-28] MEDS: SODIUM CHLORIDE 0.9% FLUSH 5 ML FLUSH IV SCH ×2 (07:44→21:00)
[2016-10-28 09:34] LABS: AUTOMATED NEUTROPHIL # 16.8 TH/MM3 (1.8-7.7); BASOPHIL % 0.2 % (0.0-2.0); HEMATOCRIT 32.8 % (39.0-51.0); HEMO FLAGS DIFF FINAL; LYMPH % 1.9 % (9.0-44.0); LYMPHOCYTE # 0.3 TH/MM3 (1.0-4.8); MEAN CELL VOLUME 94.5 FL (80.0-100.0); MEAN CORPUSCULAR HEMOGLOBIN 30.6 PG (27.0-34.0); MEAN CORPUSCULAR HGB CONC 32.4 % (32.0-36.0); MONO % 4.3 % (0.0-8.0); NEUT % 93.6 % (16.0-70.0); PLATELET COUNT 386 TH/MM3 (150-450); RED BLOOD COUNT 3.47 MIL/MM3 (4.50-5.90); RED CELL DISTRIBUTION WIDTH 14.7 % (11.6-17.2)
[2016-10-28 10:05] LABS: BICARBONATE 35.2 MEQ/L (21.0-32.0); POTASSIUM 3.7 MEQ/L (3.5-5.1)
--- NOTE | 2016-10-28 15:10 | HHI.PR ---
Subjective Remarks Patient clinically looks better than the last 2 days More communicative, he stated he had a bowel movement at 2:00, less abdominal pain even on physical exam Advancing diet per GI Objective Vitals Vital Signs Date Time Temp Pulse Resp B/P Pulse Ox O2 Delivery O2 Flow Rate FiO2 10/28/16 12:16 98.1 81 24 162/92 94 10/28/16 08:51 Nasal Cannula 4.00 21 10/28/16 08:21 98.1 71 23 153/94 95 10/28/16 08:00 96 Nasal Cannula 4.00 10/28/16 04:00 98.0 85 16 137/85 98 10/28/16 02:31 95 Nasal Cannula 4.00 10/28/16 00:00 98.1 82 16 141/80 96 10/27/16 20:30 Nasal Cannula 2.00 21 10/27/16 20:00 98.1 83 18 161/90 97 10/27/16 19:50 96 Nasal Cannula 4.00 10/27/16 16:07 97.9 89 21 155/88 99 I/O 10/27/16 10/27/16 10/27/16 10/28/16 10/28/16 10/28/16 07:00 15:00 23:00 07:00 15:00 23:00 Intake Total 240 ml 1440 ml 960 ml 360 ml Output Total 150 ml Balance 240 ml 1440 ml 810 ml 360 ml Intake Oral 240 ml 1440 ml 960 ml 360 ml Output Urine Total 150 ml # Voids 2 2 1 1 # Bowel Movements 1 2 1 Result Diagram: 10/28/16 0858 10/28/16 0858 Imaging Last Impressions Chest X-Ray 10/26/16 0000 Signed Impressions: Service Date/Time: Wednesday, October 26, 2016 17:20 - CONCLUSION: 1. Cardiomegaly with bibasilar atelectasis and moderate effusions. This is new when compared with the prior exam. José Miguel Ritter MD Abdomen/Pelvis CT 10/25/16 0000 Signed Impressions: Service Date/Time: Wednesday, October 26, 2016 00:50 - CONCLUSION: 1. Increased fluidlike material within the abdomen and pelvis. There is scalloping of the liver margin along with thickening of the peritoneal lining. These findings suggest against the simple ascites and raise concern for infection or malignancy complicating the fluid or pseudomyxoma peritonei. 2. A stent is present within the main pancreatic duct. The partially cystic lesion adjacent to the pancreatic head is stable and of uncertain etiology. 3. 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 4. Moderate sized bilateral pleural effusions, increased from the prior exam. Jorgito Baumann MD GI Procedure 10/22/16 0000 Signed Impressions: Service Date/Time: Saturday, October 22, 2016 16:12 - CONCLUSION: ERCP as above. Yobani Bashir MD Hepatobiliary Scan Nuclear Medicine 10/21/16 0000 Signed Impressions: Service Date/Time: Friday, October 21, 2016 09:47 - CONCLUSION: Normal HIDA scan. Rodrigo oByd Jr., MD Cyst Biopsy Asp-Paracentesis US 10/19/16 0000 Signed Impressions: Service Date/Time: Wednesday, October 19, 2016 15:20 - CONCLUSION: Uncomplicated ultrasound guided paracentesis. Kevin Felix MD FACR Chest CT 10/18/16 0000 Signed Impressions: Service Date/Time: September 12:17 - CONCLUSION: 1. Mild emphysema with new small bilateral pleural effusions with associated compressive atelectasis and consolidation at the lung bases. 2. Please refer to abdomen and pelvis CT report for description of the subdiaphragmatic findings. Jorgito Baumann MD Abdomen X-Ray 10/18/16 0000 Signed Impressions: Service Date/Time: September 06:21 - CONCLUSION: Benign abdomen. Wei Cesar MD Cholangiopancreatography MRI 10/15/16 0000 Signed Impressions: Service Date/Time: Saturday, October 15, 2016 15:10 - CONCLUSION: Abnormal common duct 7 mm in width however distally this is blunted suggesting a luminal defect or stone. Further evaluation with ERCP is recommended. Yobani Bashir MD Objective Remarks - - GENERAL: This is a cachectic 60 years old male looks critically ill SKIN: No rashes, warm and dry HEAD: Atraumatic. Normocephalic. EYES: Pupils equal round and reactive. Extraocular motions intact. No scleral icterus. ENT: Nose without bleeding, or drainage, Airway patent. NECK: Trachea midline. Supple CARDIOVASCULAR: Regular rate and rhythm without murmurs, gallops, or rubs. RESPIRATORY: Fair air entry bilaterally. No wheezes, rales, or rhonchi. GASTROINTESTINAL: Abdomen soft, much less abdominal tenderness, nondistended. Positive bowel sounds, no guarding MUSCULOSKELETAL: Extremities without clubbing, cyanosis, or edema. Pedal pulses appreciated NEUROLOGICAL: Awake and alert. Moves all extremity. Normal speech.no focal neurological deficit A/P Assessment and Plan -10-25-16: Patient looks very uncomfortable, abdominal pain nausea vomiting reported diarrhea, GI altered CT abdomen with contrast, planning on colonoscopy in a.m., patient refusing the preparation, 10/26/16: Still feeling nauseous, short of breath, will repeat chest x-ray if unremarkable and possibly 10/27/16: Less nausea and less abdominal tenderness, small firm bowel movement, chest x-ray yesterday showed >>Cardiomegaly with bibasilar atelectasis and moderate effusion which is new from previous study, will encourage incentive spirometer, may consider thoracentesis if worsening symptoms. Potassium today 3, magnesium 1.8, phosphorus 1.7>> K phosphate 30 mmol iv 1, KCl 40 mEq 2, magnesium sulfate 2 g iv 1 10/28/16: Looks better than the last 2 days, less abdominal pain, this nausea and vomiting, one bowel movement today, continue current care, continue iv antibiotic and iv fluid, follow GI recommendation A/P: Suspect sepsis 10/18. fever 101, HR 140s, worsenign abd pain. incr o2 req 2L. -possible aspiration PNA - CXR improved from admit but does show RLL inf. -On zosyn. Status post ICU Acute on chronic pancreatitis. Rule out SBP. Acute. MRCP (10/15/16)----> Abnormal common duct 7 mm in width however distally this is blunted suggesting a luminal defect or stone. Further evaluation with ERCP is recommended. S/P Unsuccessful ERCP (10/17/16)-----> enlarged pancreatic duct with branching c/w chronic pancreatitis, no communication to pancreatic duct, the wire would not pass the distal part of the common bile duct and nor bile with Kinevac, small sphincterotomy was done. Pt had worsening pain overnight with fever of 101 and tachycardia up to 160 and tachypnea/sob morning of 10/18 and was transferred to the unit. Abdomen/Pelvis CT (10/18/16) ----> 1. There is increased free fluid in the abdomen and pelvis since the prior study that is from an uncertain etiology. Some of the fluid is located in the subcapsular region of the left lobe of the liver. 2. There is low density at the pancreaticoduodenal groove which could represent edema and this can be seen with acute pancreatitis. Suggest correlation with appropriate laboratory values. 3. New small bilateral pleural effusions with associated compressive atelectasis and possible consolidation at the left lung bases. 4. The partially cystic lesion abutting the head of the pancreas is stable and of uncertain etiology. There is adjacent narrowing or occlusion of the portal vein. Per conversation last week, Dr. Felix, would like to hold on PTHC until more stable and ascites improved unless there is obvious signs of biliary obstruction such as biliary dilatation or elevated LFTs. S/P ERCP with pancreatic stent placement () for possible pseudocyst, possible pancreatic leak----> s/p sphincterotomy, s/p stent placement. S/P indomethacin 100 mg rectally given. Clear liquids , but not taking much. Still with significant nausea, no vomiting. abdominal pain unchanged. Zosyn. PPI. - Pancreatic mass vs. Pseudocyst. Will need EUS as outpt. AFP 2.4, CEA 2.1, Ca 19-9 19.7 Bilateral hand excoriations>> resolved -Patient reports this is chronic and improving, initially secondary to bleach exposure. No signs of acute infection. NO Blistering to indicate porphyria. Hyponatremia. Mild. Resolved COPD on home O2 BL pleural effusions, compresive atelectasis. -likley related to ascites. -cont abx. Hypokalemia and hypomagnesemia. Continue monitoring BMP, replace as needed DVT prophylaxis with Lovenox Ruben Pace MD Oct 28, 2016 15:10
[2016-10-28] MEDS: ENOXAPARIN SODIUM 40 MG/0.4 ML SYRINGE SQ SCH (15:41)
--- NOTE | 2016-10-28 17:08 | HHI.GIFU ---
Subjective Remarks Laying in bed claims to be getting better somewhat his biggest complaint at this point is that of shortness of breath and he is requesting his breathing treatment Objective Vitals I&O Vital Signs Date Time Temp Pulse Resp B/P Pulse Ox O2 Delivery O2 Flow Rate FiO2 10/28/16 16:04 98.0 76 22 160/92 95 10/28/16 12:16 98.1 81 24 162/92 94 10/28/16 08:51 Nasal Cannula 4.00 21 10/28/16 08:21 98.1 71 23 153/94 95 10/28/16 08:00 96 Nasal Cannula 4.00 10/28/16 04:00 98.0 85 16 137/85 98 10/28/16 02:31 95 Nasal Cannula 4.00 10/28/16 00:00 98.1 82 16 141/80 96 10/27/16 20:30 Nasal Cannula 2.00 21 10/27/16 20:00 98.1 83 18 161/90 97 10/27/16 19:50 96 Nasal Cannula 4.00 I/O 10/27/16 10/27/16 10/27/16 10/28/16 10/28/16 10/28/16 07:00 15:00 23:00 07:00 15:00 23:00 Intake Total 240 ml 1440 ml 960 ml 360 ml 720 ml Output Total 150 ml 200 ml Balance 240 ml 1440 ml 810 ml 360 ml 520 ml Intake Oral 240 ml 1440 ml 960 ml 360 ml 720 ml Output Urine Total 150 ml 200 ml # Voids 2 2 1 1 # Bowel Movements 1 2 1 1 Laboratory Laboratory Tests Test 10/28/16 08:58 White Blood Count 18.0 Red Blood Count 3.47 Hemoglobin 10.6 Hematocrit 32.8 Mean Corpuscular Volume 94.5 Mean Corpuscular Hemoglobin 30.6 Mean Corpuscular Hemoglobin 32.4 Concent Red Cell Distribution Width 14.7 Platelet Count 386 Mean Platelet Volume 7.9 Neutrophils (%) (Auto) 93.6 Lymphocytes (%) (Auto) 1.9 Monocytes (%) (Auto) 4.3 Eosinophils (%) (Auto) 0.0 Basophils (%) (Auto) 0.2 Neutrophils # (Auto) 16.8 Lymphocytes # (Auto) 0.3 Monocytes # (Auto) 0.8 Eosinophils # (Auto) 0.0 Basophils # (Auto) 0.0 CBC Comment DIFF FINAL Differential Comment Sodium Level 142 Potassium Level 3.7 Chloride Level 102 Carbon Dioxide Level 35.2 Anion Gap 5 Blood Urea Nitrogen 10 Creatinine 0.49 Estimat Glomerular Filtration 172 Rate Random Glucose 127 Calcium Level 7.9 Lipase 1809 Date/Time Procedure Status Source Growth 10/24/16 19:20 Aerobic Blood Culture - Preliminary Resulted Blood Peripheral NO GROWTH IN 4 DAYS 10/24/16 19:20 Anaerobic Blood Culture - Preliminary Resulted Blood Peripheral NO GROWTH IN 4 DAYS Imaging Last Impressions Chest X-Ray 10/26/16 0000 Signed Impressions: Service Date/Time: Wednesday, October 26, 2016 17:20 - CONCLUSION: 1. Cardiomegaly with bibasilar atelectasis and moderate effusions. This is new when compared with the prior exam. José Miguel Ritter MD Abdomen/Pelvis CT 10/25/16 0000 Signed Impressions: Service Date/Time: Wednesday, October 26, 2016 00:50 - CONCLUSION: 1. Increased fluidlike material within the abdomen and pelvis. There is scalloping of the liver margin along with thickening of the peritoneal lining. These findings suggest against the simple ascites and raise concern for infection or malignancy complicating the fluid or pseudomyxoma peritonei. 2. A stent is present within the main pancreatic duct. The partially cystic lesion adjacent to the pancreatic head is stable and of uncertain etiology. 3. 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 4. Moderate sized bilateral pleural effusions, increased from the prior exam. Jorgito Baumann MD GI Procedure 10/22/16 0000 Signed Impressions: Service Date/Time: Saturday, October 22, 2016 16:12 - CONCLUSION: ERCP as above. Yobani Bashir MD Hepatobiliary Scan Nuclear Medicine 10/21/16 0000 Signed Impressions: Service Date/Time: Friday, October 21, 2016 09:47 - CONCLUSION: Normal HIDA scan. Rodrigo Boyd Jr., MD Cyst Biopsy Asp-Paracentesis US 10/19/16 0000 Signed Impressions: Service Date/Time: Wednesday, October 19, 2016 15:20 - CONCLUSION: Uncomplicated ultrasound guided paracentesis. Kevin Felix MD FACR Chest CT 10/18/16 0000 Signed Impressions: Service Date/Time: September 12:17 - CONCLUSION: 1. Mild emphysema with new small bilateral pleural effusions with associated compressive atelectasis and consolidation at the lung bases. 2. Please refer to abdomen and pelvis CT report for description of the subdiaphragmatic findings. Jorgito Baumann MD Abdomen X-Ray 10/18/16 0000 Signed Impressions: Service Date/Time: September 06:21 - CONCLUSION: Benign abdomen. Wei Cesar MD Cholangiopancreatography MRI 10/15/16 0000 Signed Impressions: Service Date/Time: Saturday, October 15, 2016 15:10 - CONCLUSION: Abnormal common duct 7 mm in width however distally this is blunted suggesting a luminal defect or stone. Further evaluation with ERCP is recommended. Yobani Bashir MD Physical Exam HEENT: Normocephalic; atraumatic; no jaundice. CHEST: Resp. shallow/even. Diminished CARDIAC: RRR ABDOMEN: Distended, diffuse tenderness, less tender than before, bowel sounds are present in all four quadrants. EXTREMITIES: No clubbing, cyanosis, or edema. SKIN: Multiple excoriations CARD READER: No focal deficits; alert oriented times three. Assessment and Plan Plan ASSESSMENT: - Acute pancreatitis with abnormal imaging of the pancreatic head- Pseudocyst vs. Mass Abdomen/Pelvis CT (10/13/16)-----> 1. There is a low-density mass abutting indirectly superior to the pancreatic head adjacent to the mesenteric vessels. It measures 3.0 x 2.1 cm and is located in a similar location to a cystic lesion seen on prior studies that was felt to represent a pseudocyst. Therefore, it may represent a similar process. However, an abnormal lymph node or mass cannot definitely be excluded. 2. There is also mild induration in the fat adjacent to this structure which could represent inflammation. 3. Small volume of free fluid is present within the abdomen and pelvis. 4. 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 MRCP (10/15/16) ----> Abnormal common duct 7 mm in width however distally this is blunted suggesting a luminal defect or stone. Further evaluation with ERCP is recommended. S/P Unsuccessful ERCP (10/17/16)-----> enlarged pancreatic duct with branching c/w chronic pancreatitis, no communication to pancreatic duct, the wire would not pass the distal part of the common bile duct and nor bile with Kinevac, small sphincterotomy was done. Pt had worsening pain overnight with fever of 101 and tachycardia up to 160 and tachypnea/sob morning of 10/18 and was transferred to the unit. Abdomen/Pelvis CT (10/18/16) ----> 1. There is increased free fluid in the abdomen and pelvis since the prior study that is from an uncertain etiology. Some of the fluid is located in the subcapsular region of the left lobe of the liver. 2. There is low density at the pancreaticoduodenal groove which could represent edema and this can be seen with acute pancreatitis. Suggest correlation with appropriate laboratory values. 3. New small bilateral pleural effusions with associated compressive atelectasis and possible consolidation at the left lung bases. 4. The partially cystic lesion abutting the head of the pancreas is stable and of uncertain etiology. There is adjacent narrowing or occlusion of the portal vein. Per conversation last week, Dr. Felix, would like to hold on [facility] until more stable and ascites improved unless there is obvious signs of biliary obstruction such as biliary dilatation or elevated LFTs. S/P ERCP with pancreatic stent placement () for possible pseudocyst, possible pancreatic leak----> s/p sphincterotomy, s/p stent placement. S/P indomethacin 100 mg rectally given. Lipase trending up 2725. LFT stable and in fact improving. Rpt. Abdomen/Pelvis CT (10/25/16)-----> 1. Increased fluidlike material within the abdomen and pelvis. There is scalloping of the liver margin along with thickening of the peritoneal lining. These findings suggest against the simple ascites and raise concern for infection or malignancy complicating the fluid or pseudomyxoma peritonei. 2. A stent is present within the main pancreatic duct. The partially cystic lesion adjacent to the pancreatic head is stable and of uncertain etiology. 3. 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 4. Moderate sized bilateral pleural effusions, increased from the prior exam. Lipase 2725. Still quite tender, but slightly improved from yesterday. Abdomen softer today. NPO. D/W patient possible need for repeat ERCP/Stent. He is reluctant, but states if he does not improve over the weekend that he would be agreeable next week. - Pancreatic mass vs. Pseudocyst. Will need EUS as outpt. AFP 2.4, CEA 2.1, Ca 19-9 19.7. - Fever, Leukocytosis. WBC 17.4 afebrile overnight. Zosyn, Ceftriaxone - Resp. Insufficiency. Emphysema PLAN: - advance to full liquid - Cont. IVF - Cont. PPI - Cont. Abx - CBC, CMP, Lipase in am - Further recommendations to follow based on results of above - Possible repeat ERCP with stent placement based on clinical course but patient at this point is refusing any interventions - EUS as an OP again patient is refusing interventions at this point even on an outpatient basis Neftali Morales MD Oct 28, 2016 17:08
[2016-10-29] VITALS (7 sets, daily range): BP systolic 123–165; BP diastolic 76–88; PULSE 72–111; RESP 18–22; TEMP 97.6–98.1; O2SAT 92–95
[2016-10-29] MEDS: HYDROmorphone HCL PF 1 MG/ML VIAL IV PUSH PRN ×5 (02:35→21:40)
[2016-10-29] MEDS: RESP: IPRATROPIUM 0.5 MG/2.5 ML NEB NEB PRN ×4 (03:37→21:26)
[2016-10-29] MEDS: PIPERACIL-TAZO 4.5 GM PREMIX 100 ML IV SCH ×4 (04:56→21:38)
[2016-10-29] MEDS: HYDROCORTISONE SOD SUCCINATE 100 MG VIAL IV PUSH SCH ×3 (04:57→21:38)
[2016-10-29 07:31] LABS: BICARBONATE 34.8 MEQ/L (21.0-32.0); MAGNESIUM 1.8 MG/DL (1.5-2.5); POTASSIUM 3.3 MEQ/L (3.5-5.1)
[2016-10-29 07:51] LABS: CALCIUM-PROTEIN CORRECTED 8.4 MG/DL (8.5-10.1)
[2016-10-29] MEDS: SODIUM CHLORIDE 0.9% FLUSH 5 ML FLUSH IV SCH ×2 (09:00→21:00)
[2016-10-29] MEDS: PANTOPRAZOLE SODIUM 40 MG VIAL IV PUSH SCH ×2 (11:48→21:39)
[2016-10-29] MEDS: THIAMINE INJ 100 MG in SODIUM CHLORIDE 0.9% INJ 100 ML IV SCH (11:49)
[2016-10-29] MEDS: D5-1/2 NS + KCL 20 MEQ INJ 1,000 ML IV SCH ×2 (11:59→21:40)
[2016-10-29] MEDS: POTASSIUM PHOSPHATE MONOBASIC 500 MG TAB PO SCH ×2 (11:59→21:39)
--- NOTE | 2016-10-29 14:24 | HHI.GIFU ---
Subjective Remarks Resting in bed. States abdominal pain has improved. States he does not wish to have any more procedures. (Lola Valiente) Objective Vitals I&O Vital Signs Date Time Temp Pulse Resp B/P Pulse Ox O2 Delivery O2 Flow Rate FiO2 10/29/16 12:00 98.0 85 22 125/80 94 10/29/16 11:37 94 Nasal Cannula 3.00 10/29/16 08:59 Nasal Cannula 3.00 10/29/16 08:00 97.9 73 22 164/79 92 10/29/16 04:31 97.9 72 18 165/80 92 10/29/16 00:06 98.1 81 18 137/76 92 10/28/16 20:10 98.0 78 20 169/89 95 10/28/16 20:00 Nasal Cannula 3.00 21 10/28/16 19:42 97 Nasal Cannula 3.00 10/28/16 16:04 98.0 76 22 160/92 95 I/O 10/28/16 10/28/16 10/28/16 10/29/16 10/29/16 10/29/16 07:00 15:00 23:00 07:00 15:00 23:00 Intake Total 360 ml 720 ml 1238 ml Output Total 200 ml 100 ml Balance 360 ml 520 ml 1238 ml -100 ml Intake Oral 360 ml 720 ml 480 ml IV Total 758 ml Output Urine Total 200 ml 100 ml # Voids 1 # Bowel Movements 1 Laboratory Laboratory Tests Test 10/29/16 06:16 Sodium Level 142 Potassium Level 3.3 Chloride Level 101 Carbon Dioxide Level 34.8 Anion Gap 6 Blood Urea Nitrogen 10 Creatinine 0.49 Estimat Glomerular Filtration 172 Rate Random Glucose 121 Calcium Level 7.2 Protein Corrected Calcium 8.4 Phosphorus Level 2.1 Magnesium Level 1.8 Total Protein 4.9 Date/Time Procedure Status Source Growth 10/24/16 19:20 Aerobic Blood Culture - Final Complete Blood Peripheral NO GROWTH IN 5 DAYS 10/24/16 19:20 Anaerobic Blood Culture - Final Complete Blood Peripheral NO GROWTH IN 5 DAYS Imaging Last Impressions Chest X-Ray 10/26/16 0000 Signed Impressions: Service Date/Time: Wednesday, October 26, 2016 17:20 - CONCLUSION: 1. Cardiomegaly with bibasilar atelectasis and moderate effusions. This is new when compared with the prior exam. José Miguel Ritter MD Abdomen/Pelvis CT 10/25/16 0000 Signed Impressions: Service Date/Time: Wednesday, October 26, 2016 00:50 - CONCLUSION: 1. Increased fluidlike material within the abdomen and pelvis. There is scalloping of the liver margin along with thickening of the peritoneal lining. These findings suggest against the simple ascites and raise concern for infection or malignancy complicating the fluid or pseudomyxoma peritonei. 2. A stent is present within the main pancreatic duct. The partially cystic lesion adjacent to the pancreatic head is stable and of uncertain etiology. 3. 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 4. Moderate sized bilateral pleural effusions, increased from the prior exam. Jorgito Baumann MD GI Procedure 10/22/16 0000 Signed Impressions: Service Date/Time: Saturday, October 22, 2016 16:12 - CONCLUSION: ERCP as above. Yobani Bashir MD Hepatobiliary Scan Nuclear Medicine 10/21/16 0000 Signed Impressions: Service Date/Time: Friday, October 21, 2016 09:47 - CONCLUSION: Normal HIDA scan. Rodrigo Boyd Jr., MD Cyst Biopsy Asp-Paracentesis US 10/19/16 0000 Signed Impressions: Service Date/Time: Wednesday, October 19, 2016 15:20 - CONCLUSION: Uncomplicated ultrasound guided paracentesis. Kevin Felix MD FACR Chest CT 10/18/16 0000 Signed Impressions: Service Date/Time: September 12:17 - CONCLUSION: 1. Mild emphysema with new small bilateral pleural effusions with associated compressive atelectasis and consolidation at the lung bases. 2. Please refer to abdomen and pelvis CT report for description of the subdiaphragmatic findings. Jorgito Baumann MD Abdomen X-Ray 10/18/16 0000 Signed Impressions: Service Date/Time: September 06:21 - CONCLUSION: Benign abdomen. Wei Cesar MD Cholangiopancreatography MRI 10/15/16 0000 Signed Impressions: Service Date/Time: Saturday, October 15, 2016 15:10 - CONCLUSION: Abnormal common duct 7 mm in width however distally this is blunted suggesting a luminal defect or stone. Further evaluation with ERCP is recommended. Yobani Bashir MD Physical Exam HEENT: Normocephalic; atraumatic; no jaundice. CHEST: Resp. shallow/even. Diminished CARDIAC: RRR ABDOMEN: Distended, nontender today, bowel sounds are present in all four quadrants. EXTREMITIES: No clubbing, cyanosis, or edema. SKIN: Multiple excoriations UPHOLSTERY AUTO TRIMMER: No focal deficits; alert oriented times three. (Lola Valiente [facility]) Assessment and Plan Plan ASSESSMENT: - Acute pancreatitis with abnormal imaging of the pancreatic head- Pseudocyst vs. Mass Abdomen/Pelvis CT (10/13/16)-----> 1. There is a low-density mass abutting indirectly superior to the pancreatic head adjacent to the mesenteric vessels. It measures 3.0 x 2.1 cm and is located in a similar location to a cystic lesion seen on prior studies that was felt to represent a pseudocyst. Therefore, it may represent a similar process. However, an abnormal lymph node or mass cannot definitely be excluded. 2. There is also mild induration in the fat adjacent to this structure which could represent inflammation. 3. Small volume of free fluid is present within the abdomen and pelvis. 4. 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 MRCP (10/15/16) ----> Abnormal common duct 7 mm in width however distally this is blunted suggesting a luminal defect or stone. Further evaluation with ERCP is recommended. S/P Unsuccessful ERCP (10/17/16)-----> enlarged pancreatic duct with branching c/w chronic pancreatitis, no communication to pancreatic duct, the wire would not pass the distal part of the common bile duct and nor bile with Kinevac, small sphincterotomy was done. Pt had worsening pain overnight with fever of 101 and tachycardia up to 160 and tachypnea/sob morning of 10/18 and was transferred to the unit. Abdomen/Pelvis CT (10/18/16) ----> 1. There is increased free fluid in the abdomen and pelvis since the prior study that is from an uncertain etiology. Some of the fluid is located in the subcapsular region of the left lobe of the liver. 2. There is low density at the pancreaticoduodenal groove which could represent edema and this can be seen with acute pancreatitis. Suggest correlation with appropriate laboratory values. 3. New small bilateral pleural effusions with associated compressive atelectasis and possible consolidation at the left lung bases. 4. The partially cystic lesion abutting the head of the pancreas is stable and of uncertain etiology. There is adjacent narrowing or occlusion of the portal vein. Per conversation last week, Dr. Felix, would like to hold on PTHC until more stable and ascites improved unless there is obvious signs of biliary obstruction such as biliary dilatation or elevated LFTs. S/P ERCP with pancreatic stent placement () for possible pseudocyst, possible pancreatic leak----> s/p sphincterotomy, s/p stent placement. S/P indomethacin 100 mg rectally given. Lipase trending up 2725. LFT stable and in fact improving. Rpt. Abdomen/Pelvis CT (10/25/16)-----> 1. Increased fluidlike material within the abdomen and pelvis. There is scalloping of the liver margin along with thickening of the peritoneal lining. These findings suggest against the simple ascites and raise concern for infection or malignancy complicating the fluid or pseudomyxoma peritonei. 2. A stent is present within the main pancreatic duct. The partially cystic lesion adjacent to the pancreatic head is stable and of uncertain etiology. 3. 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 4. Moderate sized bilateral pleural effusions, increased from the prior exam. Lipase tredning down 1809. His pain has improved significantly. Full liquids- wants this advanced. D/W patient possible need for repeat ERCP/Stent- he is refusing further treatment. - Pancreatic mass vs. Pseudocyst. Will need EUS as outpt. AFP 2.4, CEA 2.1, Ca 19-9 19.7. - Fever, Leukocytosis. WBC 18.0 afebrile overnight. Zosyn, Ceftriaxone - Resp. Insufficiency. Emphysema PLAN: - Low fat diet - Cont. IVF - Cont. PPI - Cont. Abx - CBC, CMP, Lipase in am - Further recommendations to follow based on results of above - Possible repeat ERCP with stent placement based on clinical course but patient at this point is refusing any interventions. At this time, he seems to be improving clinically - EUS as an OP again patient is refusing interventions at this point even on an outpatient basis - Pt seen and examined by Dr. Weiss and myself and this note is written on his behalf (Lola Valiente) Physician Comments Seen and examined with PAPO, has diarrhea now. check stools for c. diff and add creon 2 po tid with meals. Discussed with DR. Miranda. (Ryder Weiss MD) Lola Valiente Oct 29, 2016 14:24 Ryder Weiss MD Oct 30, 2016 18:35
--- NOTE | 2016-10-29 15:50 | HHI.PR ---
Subjective Remarks Patient still feeling better clinically, much less abdominal pain even with outpatient, no nausea or vomiting he had a bowel movement He is refusing still ERCP recommended I GI specialist Objective Vitals Vital Signs Date Time Temp Pulse Resp B/P Pulse Ox O2 Delivery O2 Flow Rate FiO2 10/29/16 12:00 98.0 85 22 125/80 94 10/29/16 11:37 94 Nasal Cannula 3.00 10/29/16 08:59 Nasal Cannula 3.00 10/29/16 08:00 97.9 73 22 164/79 92 10/29/16 04:31 97.9 72 18 165/80 92 10/29/16 00:06 98.1 81 18 137/76 92 10/28/16 20:10 98.0 78 20 169/89 95 10/28/16 20:00 Nasal Cannula 3.00 21 10/28/16 19:42 97 Nasal Cannula 3.00 10/28/16 16:04 98.0 76 22 160/92 95 I/O 10/28/16 10/28/16 10/28/16 10/29/16 10/29/16 10/29/16 07:00 15:00 23:00 07:00 15:00 23:00 Intake Total 360 ml 720 ml 1238 ml Output Total 200 ml 100 ml Balance 360 ml 520 ml 1238 ml -100 ml Intake Oral 360 ml 720 ml 480 ml IV Total 758 ml Output Urine Total 200 ml 100 ml # Voids 1 # Bowel Movements 1 Result Diagram: 10/28/16 0858 10/29/16 0616 Objective Remarks - - GENERAL: This is a cachectic 60 years old male looks critically ill SKIN: No rashes, warm and dry HEAD: Atraumatic. Normocephalic. EYES: Pupils equal round and reactive. Extraocular motions intact. No scleral icterus. ENT: Nose without bleeding, or drainage, Airway patent. NECK: Trachea midline. Supple CARDIOVASCULAR: Regular rate and rhythm without murmurs, gallops, or rubs. RESPIRATORY: Fair air entry bilaterally. No wheezes, rales, or rhonchi. GASTROINTESTINAL: Abdomen soft, much less abdominal tenderness, nondistended. Positive bowel sounds, no guarding MUSCULOSKELETAL: Extremities without clubbing, cyanosis, or edema. Pedal pulses appreciated NEUROLOGICAL: Awake and alert. Moves all extremity. Normal speech.no focal neurological deficit A/P Assessment and Plan -10-25-16: Patient looks very uncomfortable, abdominal pain nausea vomiting reported diarrhea, GI altered CT abdomen with contrast, planning on colonoscopy in a.m., patient refusing the preparation, 10/26/16: Still feeling nauseous, short of breath, will repeat chest x-ray if unremarkable and possibly 10/27/16: Less nausea and less abdominal tenderness, small firm bowel movement, chest x-ray yesterday showed >>Cardiomegaly with bibasilar atelectasis and moderate effusion which is new from previous study, will encourage incentive spirometer, may consider thoracentesis if worsening symptoms. Potassium today 3, magnesium 1.8, phosphorus 1.7>> K phosphate 30 mmol iv 1, KCl 40 mEq 2, magnesium sulfate 2 g iv 1 10/28/16: Looks better than the last 2 days, less abdominal pain, this nausea and vomiting, one bowel movement today, continue current care, continue iv antibiotic and iv fluid, follow GI recommendation 10/29: In general looking better clinically, refusing another ERCP or other procedure Hypokalemia and hypophosphatemia, will give K-Phos 100 A/P: Suspect sepsis 10/18. fever 101, HR 140s, worsenign abd pain. incr o2 req 2L. -possible aspiration PNA - CXR improved from admit but does show RLL inf. -On zosyn. Status post ICU Acute on chronic pancreatitis. Rule out SBP. Acute. MRCP (10/15/16)----> Abnormal common duct 7 mm in width however distally this is blunted suggesting a luminal defect or stone. Further evaluation with ERCP is recommended. S/P Unsuccessful ERCP (10/17/16)-----> enlarged pancreatic duct with branching c/w chronic pancreatitis, no communication to pancreatic duct, the wire would not pass the distal part of the common bile duct and nor bile with Kinevac, small sphincterotomy was done. Pt had worsening pain overnight with fever of 101 and tachycardia up to 160 and tachypnea/sob morning of 10/18 and was transferred to the unit. Abdomen/Pelvis CT (10/18/16) ----> 1. There is increased free fluid in the abdomen and pelvis since the prior study that is from an uncertain etiology. Some of the fluid is located in the subcapsular region of the left lobe of the liver. 2. There is low density at the pancreaticoduodenal groove which could represent edema and this can be seen with acute pancreatitis. Suggest correlation with appropriate laboratory values. 3. New small bilateral pleural effusions with associated compressive atelectasis and possible consolidation at the left lung bases. 4. The partially cystic lesion abutting the head of the pancreas is stable and of uncertain etiology. There is adjacent narrowing or occlusion of the portal vein. Per conversation last week, Dr. Felix, would like to hold on PTHC until more stable and ascites improved unless there is obvious signs of biliary obstruction such as biliary dilatation or elevated LFTs. S/P ERCP with pancreatic stent placement () for possible pseudocyst, possible pancreatic leak----> s/p sphincterotomy, s/p stent placement. S/P indomethacin 100 mg rectally given. Clear liquids , but not taking much. Still with significant nausea, no vomiting. abdominal pain unchanged. Zosyn. PPI. - Pancreatic mass vs. Pseudocyst. Will need EUS as outpt. AFP 2.4, CEA 2.1, Ca 19-9 19.7 Bilateral hand excoriations>> resolved -Patient reports this is chronic and improving, initially secondary to bleach exposure. No signs of acute infection. NO Blistering to indicate porphyria. Hyponatremia. Mild. Resolved COPD on home O2 BL pleural effusions, compresive atelectasis. -likley related to ascites. -cont abx. Hypokalemia and hypomagnesemia. Continue monitoring BMP, replace as needed DVT prophylaxis with Lovenox Ruben Pace MD Oct 29, 2016 15:50
[2016-10-29] MEDS: ENOXAPARIN SODIUM 40 MG/0.4 ML SYRINGE SQ SCH (18:02)
[2016-10-30] VITALS (9 sets, daily range): BP systolic 106–145; BP diastolic 52–100; PULSE 86–110; RESP 18–20; TEMP 97.3–98; O2SAT 94–98
[2016-10-30] MEDS: RESP: IPRATROPIUM 0.5 MG/2.5 ML NEB NEB PRN ×4 (00:21→17:15)
[2016-10-30] MEDS: HYDROmorphone HCL PF 1 MG/ML VIAL IV PUSH PRN ×5 (02:01→19:40)
[2016-10-30] MEDS: PIPERACIL-TAZO 4.5 GM PREMIX 100 ML IV SCH ×4 (05:23→20:45)
[2016-10-30] MEDS: HYDROCORTISONE SOD SUCCINATE 100 MG VIAL IV PUSH SCH ×3 (05:24→20:46)
[2016-10-30 06:29] LABS: AUTOMATED NEUTROPHIL # 14.9 TH/MM3 (1.8-7.7); HEMATOCRIT 28.1 % (39.0-51.0); HEMO FLAGS DIFF FINAL; LYMPH % 1.5 % (9.0-44.0); LYMPHOCYTE # 0.2 TH/MM3 (1.0-4.8); MEAN CELL VOLUME 93.5 FL (80.0-100.0); MEAN CORPUSCULAR HEMOGLOBIN 31.2 PG (27.0-34.0); MEAN CORPUSCULAR HGB CONC 33.3 % (32.0-36.0); MONO % 6.1 % (0.0-8.0); NEUT % 92.4 % (16.0-70.0); PLATELET COUNT 347 TH/MM3 (150-450); RED BLOOD COUNT 3.01 MIL/MM3 (4.50-5.90); RED CELL DISTRIBUTION WIDTH 14.6 % (11.6-17.2); WHITE BLOOD COUNT 16.1 TH/MM3 (4.0-11.0)
[2016-10-30 06:56] LABS: ALKALINE PHOSPHATASE 74 U/L (45-117); ALT (GPT) 12 U/L (12-78); ANION GAP 6 MEQ/L (5-15); AST (GOT) 18 U/L (15-37); BICARBONATE 34.2 MEQ/L (21.0-32.0); BLOOD UREA NITROGEN 7 MG/DL (7-18); CHLORIDE 98 MEQ/L (98-107); GLOMERULAR FILTRATION RATE 150 ML/MIN (>89); POTASSIUM 3.2 MEQ/L (3.5-5.1); SODIUM (NA) 138 MEQ/L (136-145); TOTAL BILIRUBIN ADULT 0.5 MG/DL (0.2-1.0)
[2016-10-30] MEDS: POTASSIUM PHOSPHATE MONOBASIC 500 MG TAB PO SCH ×2 (08:04→20:46)
[2016-10-30] MEDS: PANTOPRAZOLE SODIUM 40 MG VIAL IV PUSH SCH ×2 (08:04→20:46)
[2016-10-30] MEDS: SODIUM CHLORIDE 0.9% FLUSH 5 ML FLUSH IV SCH ×2 (08:05→20:46)
[2016-10-30] MEDS: D5-1/2 NS + KCL 20 MEQ INJ 1,000 ML IV SCH ×2 (08:06→15:06)
[2016-10-30] MEDS: THIAMINE INJ 100 MG in SODIUM CHLORIDE 0.9% INJ 100 ML IV SCH (08:10)
[2016-10-30] MEDS: ENOXAPARIN SODIUM 40 MG/0.4 ML SYRINGE SQ SCH (15:06)
--- NOTE | 2016-10-30 15:14 | HHI.GIFU ---
Subjective Remarks Resting in bed. No n/v. tolerating diet now. States pain is much improved. (Lola Valiente) Objective Vitals I&O Vital Signs Date Time Temp Pulse Resp B/P Pulse Ox O2 Delivery O2 Flow Rate FiO2 10/30/16 12:00 97.3 86 18 106/52 96 10/30/16 10:05 Nasal Cannula 3.00 21 10/30/16 09:46 97 Nasal Cannula 3.00 10/30/16 08:00 97.5 110 18 145/100 96 10/30/16 04:00 98.0 100 18 130/89 96 10/30/16 03:33 98 Nasal Cannula 3.00 10/30/16 00:00 97.3 99 18 123/81 96 10/29/16 20:15 Nasal Cannula 3.00 10/29/16 20:00 97.9 111 18 124/88 92 10/29/16 16:00 97.6 105 20 123/88 95 I/O 10/29/16 10/29/16 10/29/16 10/30/16 10/30/16 10/30/16 07:00 15:00 23:00 07:00 15:00 23:00 Intake Total 480 ml 1032 ml 1025 ml Output Total 100 ml 375 ml 100 ml 300 ml Balance -100 ml 105 ml 932 ml 725 ml Intake Oral 480 ml 240 ml 240 ml IV Total 792 ml 785 ml Output Urine Total 100 ml 375 ml 100 ml 300 ml # Voids 1 # Bowel Movements 1 1 0 Laboratory Laboratory Tests Test 10/30/16 05:23 White Blood Count 16.1 Red Blood Count 3.01 Hemoglobin 9.4 Hematocrit 28.1 Mean Corpuscular Volume 93.5 Mean Corpuscular Hemoglobin 31.2 Mean Corpuscular Hemoglobin 33.3 Concent Red Cell Distribution Width 14.6 Platelet Count 347 Mean Platelet Volume 7.9 Neutrophils (%) (Auto) 92.4 Lymphocytes (%) (Auto) 1.5 Monocytes (%) (Auto) 6.1 Eosinophils (%) (Auto) 0.0 Basophils (%) (Auto) 0.0 Neutrophils # (Auto) 14.9 Lymphocytes # (Auto) 0.2 Monocytes # (Auto) 1.0 Eosinophils # (Auto) 0.0 Basophils # (Auto) 0.0 CBC Comment DIFF FINAL Differential Comment Sodium Level 138 Potassium Level 3.2 Chloride Level 98 Carbon Dioxide Level 34.2 Anion Gap 6 Blood Urea Nitrogen 7 Creatinine 0.55 Estimat Glomerular Filtration 150 Rate Random Glucose 102 Calcium Level 7.5 Total Bilirubin 0.5 Aspartate Amino Transf 18 (AST/SGOT) Alanine Aminotransferase 12 (ALT/SGPT) Alkaline Phosphatase 74 Total Protein 5.0 Albumin 2.2 Lipase 616 Imaging Last Impressions Chest X-Ray 10/26/16 0000 Signed Impressions: Service Date/Time: Wednesday, October 26, 2016 17:20 - CONCLUSION: 1. Cardiomegaly with bibasilar atelectasis and moderate effusions. This is new when compared with the prior exam. José Miguel Ritter MD Abdomen/Pelvis CT 10/25/16 0000 Signed Impressions: Service Date/Time: Wednesday, October 26, 2016 00:50 - CONCLUSION: 1. Increased fluidlike material within the abdomen and pelvis. There is scalloping of the liver margin along with thickening of the peritoneal lining. These findings suggest against the simple ascites and raise concern for infection or malignancy complicating the fluid or pseudomyxoma peritonei. 2. A stent is present within the main pancreatic duct. The partially cystic lesion adjacent to the pancreatic head is stable and of uncertain etiology. 3. 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 4. Moderate sized bilateral pleural effusions, increased from the prior exam. Jorgito Baumann MD GI Procedure 10/22/16 0000 Signed Impressions: Service Date/Time: Saturday, October 22, 2016 16:12 - CONCLUSION: ERCP as above. Yobani Bashir MD Hepatobiliary Scan Nuclear Medicine 10/21/16 0000 Signed Impressions: Service Date/Time: Friday, October 21, 2016 09:47 - CONCLUSION: Normal HIDA scan. Rodrigo Boyd Jr., MD Cyst Biopsy Asp-Paracentesis US 10/19/16 0000 Signed Impressions: Service Date/Time: Wednesday, October 19, 2016 15:20 - CONCLUSION: Uncomplicated ultrasound guided paracentesis. Kevin Felix MD FACR Chest CT 10/18/16 0000 Signed Impressions: Service Date/Time: September 12:17 - CONCLUSION: 1. Mild emphysema with new small bilateral pleural effusions with associated compressive atelectasis and consolidation at the lung bases. 2. Please refer to abdomen and pelvis CT report for description of the subdiaphragmatic findings. Jorgito Baumann MD Abdomen X-Ray 10/18/16 0000 Signed Impressions: Service Date/Time: September 06:21 - CONCLUSION: Benign abdomen. Wei Cesar MD Cholangiopancreatography MRI 10/15/16 0000 Signed Impressions: Service Date/Time: Saturday, October 15, 2016 15:10 - CONCLUSION: Abnormal common duct 7 mm in width however distally this is blunted suggesting a luminal defect or stone. Further evaluation with ERCP is recommended. Yobani Bashir MD Physical Exam HEENT: Normocephalic; atraumatic; no jaundice. CHEST: Resp. shallow/even. Diminished CARDIAC: RRR ABDOMEN: Distended, nontender today, bowel sounds are present in all four quadrants. EXTREMITIES: No clubbing, cyanosis, or edema. SKIN: Multiple excoriations DISTRIBUTION CLERK: No focal deficits; alert oriented times three. (Lola Valiente [facility]) Assessment and Plan Plan ASSESSMENT: - Acute pancreatitis with abnormal imaging of the pancreatic head- Pseudocyst vs. Mass Abdomen/Pelvis CT (10/13/16)-----> 1. There is a low-density mass abutting indirectly superior to the pancreatic head adjacent to the mesenteric vessels. It measures 3.0 x 2.1 cm and is located in a similar location to a cystic lesion seen on prior studies that was felt to represent a pseudocyst. Therefore, it may represent a similar process. However, an abnormal lymph node or mass cannot definitely be excluded. 2. There is also mild induration in the fat adjacent to this structure which could represent inflammation. 3. Small volume of free fluid is present within the abdomen and pelvis. 4. 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 MRCP (10/15/16) ----> Abnormal common duct 7 mm in width however distally this is blunted suggesting a luminal defect or stone. Further evaluation with ERCP is recommended. S/P Unsuccessful ERCP (10/17/16)-----> enlarged pancreatic duct with branching c/w chronic pancreatitis, no communication to pancreatic duct, the wire would not pass the distal part of the common bile duct and nor bile with Kinevac, small sphincterotomy was done. Pt had worsening pain overnight with fever of 101 and tachycardia up to 160 and tachypnea/sob morning of 10/18 and was transferred to the unit. Abdomen/Pelvis CT (10/18/16) ----> 1. There is increased free fluid in the abdomen and pelvis since the prior study that is from an uncertain etiology. Some of the fluid is located in the subcapsular region of the left lobe of the liver. 2. There is low density at the pancreaticoduodenal groove which could represent edema and this can be seen with acute pancreatitis. Suggest correlation with appropriate laboratory values. 3. New small bilateral pleural effusions with associated compressive atelectasis and possible consolidation at the left lung bases. 4. The partially cystic lesion abutting the head of the pancreas is stable and of uncertain etiology. There is adjacent narrowing or occlusion of the portal vein. Per conversation last week, Dr. Felix, would like to hold on PTHC until more stable and ascites improved unless there is obvious signs of biliary obstruction such as biliary dilatation or elevated LFTs. S/P ERCP with pancreatic stent placement () for possible pseudocyst, possible pancreatic leak----> s/p sphincterotomy, s/p stent placement. S/P indomethacin 100 mg rectally given. Lipase trending up 2725. LFT stable and in fact improving. Rpt. Abdomen/Pelvis CT (10/25/16)-----> 1. Increased fluidlike material within the abdomen and pelvis. There is scalloping of the liver margin along with thickening of the peritoneal lining. These findings suggest against the simple ascites and raise concern for infection or malignancy complicating the fluid or pseudomyxoma peritonei. 2. A stent is present within the main pancreatic duct. The partially cystic lesion adjacent to the pancreatic head is stable and of uncertain etiology. 3. 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 4. Moderate sized bilateral pleural effusions, increased from the prior exam. Lipase improving 616. His pain has improved significantly and he is now tolerating low fat diet. Pt had refused rpt ERCP/Stent, although at this point, he is much improved and it appears that his pancreatitis is improving. - Pancreatic mass vs. Pseudocyst. Will need EUS as outpt. AFP 2.4, CEA 2.1, Ca 19-9 19.7. - Fever, Leukocytosis. WBC 16.1 afebrile overnight. Zosyn, Ceftriaxone - Resp. Insufficiency. Emphysema PLAN: - Low fat diet - Cont. IVF - Cont. PPI - Cont. Abx - Monitor labs - Further recommendations to follow based on results of above - EUS as an OP again patient is refusing interventions at this point even on an outpatient basis - Pt seen and examined by Dr. Weiss and myself and this note is written on his behalf (Lola Valiente) Physician Comments Seen and examined with Ms. Steffanie BARROS, ordered C. Diff and creon. Discussed with Dr. Miranda. (Ryder Weiss MD) Lola Valiente Oct 30, 2016 15:14 Ryder Weiss MD Oct 30, 2016 18:40
--- NOTE | 2016-10-30 18:03 | HHI.PR ---
Subjective Remarks Patient reported he feels okay, no nausea vomiting, no significant abdominal pain, watery bowel movement, afebrile Objective Vitals Vital Signs Date Time Temp Pulse Resp B/P Pulse Ox O2 Delivery O2 Flow Rate FiO2 10/30/16 12:00 97.3 86 18 106/52 96 10/30/16 10:05 Nasal Cannula 3.00 21 10/30/16 09:46 97 Nasal Cannula 3.00 10/30/16 08:00 97.5 110 18 145/100 96 10/30/16 04:00 98.0 100 18 130/89 96 10/30/16 03:33 98 Nasal Cannula 3.00 10/30/16 00:00 97.3 99 18 123/81 96 10/29/16 20:15 Nasal Cannula 3.00 10/29/16 20:00 97.9 111 18 124/88 92 I/O 10/29/16 10/29/16 10/29/16 10/30/16 10/30/16 10/30/16 07:00 15:00 23:00 07:00 15:00 23:00 Intake Total 480 ml 1032 ml 1025 ml Output Total 100 ml 375 ml 100 ml 300 ml Balance -100 ml 105 ml 932 ml 725 ml Intake Oral 480 ml 240 ml 240 ml IV Total 792 ml 785 ml Output Urine Total 100 ml 375 ml 100 ml 300 ml # Voids 1 # Bowel Movements 1 1 0 Result Diagram: 10/30/1652210/30/16522 Objective Remarks - - GENERAL: This is a cachectic 60 years old male looks critically ill SKIN: No rashes, warm and dry HEAD: Atraumatic. Normocephalic. EYES: Pupils equal round and reactive. Extraocular motions intact. No scleral icterus. ENT: Nose without bleeding, or drainage, Airway patent. NECK: Trachea midline. Supple CARDIOVASCULAR: Regular rate and rhythm without murmurs, gallops, or rubs. RESPIRATORY: Fair air entry bilaterally. No wheezes, rales, or rhonchi. GASTROINTESTINAL: Abdomen soft, much less abdominal tenderness, nondistended. Positive bowel sounds, no guarding MUSCULOSKELETAL: Extremities without clubbing, cyanosis, or edema. Pedal pulses appreciated NEUROLOGICAL: Awake and alert. Moves all extremity. Normal speech.no focal neurological deficit A/P Assessment and Plan -10-25-16: Patient looks very uncomfortable, abdominal pain nausea vomiting reported diarrhea, GI altered CT abdomen with contrast, planning on colonoscopy in a.m., patient refusing the preparation, 10/26/16: Still feeling nauseous, short of breath, will repeat chest x-ray if unremarkable and possibly 10/27/16: Less nausea and less abdominal tenderness, small firm bowel movement, chest x-ray yesterday showed >>Cardiomegaly with bibasilar atelectasis and moderate effusion which is new from previous study, will encourage incentive spirometer, may consider thoracentesis if worsening symptoms. Potassium today 3, magnesium 1.8, phosphorus 1.7>> K phosphate 30 mmol iv 1, KCl 40 mEq 2, magnesium sulfate 2 g iv 1 10/28/16: Looks better than the last 2 days, less abdominal pain, this nausea and vomiting, one bowel movement today, continue current care, continue iv antibiotic and iv fluid, follow GI recommendation 10/29: In general looking better clinically, refusing another ERCP or other procedure Hypokalemia and hypophosphatemia, will give K-Phos 100 10/30: Continue current care, no nausea vomiting abdominal pain, GI following, continue iv antibiotic, monitor for any sign of worsening infection or fever, WBC dropped to 16 K repeat CBC in a.m. D/W Dr. Quiroz in length , he agreed with starting patient on pancreatic enzyme replacement, will check his stool for C. difficile just to rule out any underlying infection causing the diarrhea A/P: Suspect sepsis 10/18. fever 101, HR 140s, worsenign abd pain. incr o2 req 2L. -possible aspiration PNA - CXR improved from admit but does show RLL inf. -On zosyn. Status post ICU Acute on chronic pancreatitis. Rule out SBP. Acute. MRCP (10/15/16)----> Abnormal common duct 7 mm in width however distally this is blunted suggesting a luminal defect or stone. Further evaluation with ERCP is recommended. S/P Unsuccessful ERCP (10/17/16)-----> enlarged pancreatic duct with branching c/w chronic pancreatitis, no communication to pancreatic duct, the wire would not pass the distal part of the common bile duct and nor bile with Kinevac, small sphincterotomy was done. Pt had worsening pain overnight with fever of 101 and tachycardia up to 160 and tachypnea/sob morning of 10/18 and was transferred to the unit. Abdomen/Pelvis CT (10/18/16) ----> 1. There is increased free fluid in the abdomen and pelvis since the prior study that is from an uncertain etiology. Some of the fluid is located in the subcapsular region of the left lobe of the liver. 2. There is low density at the pancreaticoduodenal groove which could represent edema and this can be seen with acute pancreatitis. Suggest correlation with appropriate laboratory values. 3. New small bilateral pleural effusions with associated compressive atelectasis and possible consolidation at the left lung bases. 4. The partially cystic lesion abutting the head of the pancreas is stable and of uncertain etiology. There is adjacent narrowing or occlusion of the portal vein. Per conversation last week, Dr. Felix, would like to hold on PTHC until more stable and ascites improved unless there is obvious signs of biliary obstruction such as biliary dilatation or elevated LFTs. S/P ERCP with pancreatic stent placement () for possible pseudocyst, possible pancreatic leak----> s/p sphincterotomy, s/p stent placement. S/P indomethacin 100 mg rectally given. Clear liquids , but not taking much. Still with significant nausea, no vomiting. abdominal pain unchanged. Zosyn. PPI. - Pancreatic mass vs. Pseudocyst. Will need EUS as outpt. AFP 2.4, CEA 2.1, Ca 19-9 19.7 Bilateral hand excoriations>> resolved -Patient reports this is chronic and improving, initially secondary to bleach exposure. No signs of acute infection. NO Blistering to indicate porphyria. Hyponatremia. Mild. Resolved COPD on home O2 BL pleural effusions, compresive atelectasis. -likley related to ascites. -cont abx. Hypokalemia and hypomagnesemia. Continue monitoring BMP, replace as needed DVT prophylaxis with Lovenox Ruben Pace MD Oct 30, 2016 18:03
[2016-10-30] MEDS: RESP: ALBUTEROL 2.5 MG/3 ML NEB (SCH) INH (20:01)
[2016-10-31] VITALS (8 sets, daily range): BP systolic 129–148; BP diastolic 70–94; PULSE 108–122; RESP 16–24; TEMP 97.3–98.4; O2SAT 93–97
[2016-10-31] MEDS: HYDROmorphone HCL PF 1 MG/ML VIAL IV PUSH PRN ×5 (01:00→18:27)
[2016-10-31] MEDS: RESP: IPRATROPIUM 0.5 MG/2.5 ML NEB NEB PRN ×3 (01:20→23:58)
[2016-10-31] MEDS: PIPERACIL-TAZO 4.5 GM PREMIX 100 ML IV SCH ×4 (05:09→20:39)
[2016-10-31] MEDS: HYDROCORTISONE SOD SUCCINATE 100 MG VIAL IV PUSH SCH (05:09)
[2016-10-31] MEDS: LIPASE/PROTEASE/AMYLASE (24,000/76,000/120,000) CAP PO SCH ×3 (08:03→18:27)
[2016-10-31] MEDS: SODIUM CHLORIDE 0.9% FLUSH 5 ML FLUSH IV SCH ×2 (08:04→20:41)
[2016-10-31] MEDS: D5-1/2 NS + KCL 20 MEQ INJ 1,000 ML IV SCH ×3 (08:04→20:39)
[2016-10-31] MEDS: PANTOPRAZOLE SODIUM 40 MG VIAL IV PUSH SCH ×2 (08:04→20:34)
[2016-10-31] MEDS: POTASSIUM PHOSPHATE MONOBASIC 500 MG TAB PO SCH ×2 (08:04→20:33)
[2016-10-31] MEDS: RESP: ALBUTEROL 2.5 MG/3 ML NEB (SCH) INH ×4 (08:05→19:40)
[2016-10-31] MEDS: THIAMINE INJ 100 MG in SODIUM CHLORIDE 0.9% INJ 100 ML IV SCH (08:16)
[2016-10-31 10:12] LABS: AUTOMATED NEUTROPHIL # 18.7 TH/MM3 (1.8-7.7); BASOPHIL # 0.1 TH/MM3 (0-0.2); BASOPHIL % 0.2 % (0.0-2.0); HEMATOCRIT 30.7 % (39.0-51.0); HEMO FLAGS DIFF FINAL; LYMPH % 1.3 % (9.0-44.0); LYMPHOCYTE # 0.3 TH/MM3 (1.0-4.8); MEAN CELL VOLUME 93.1 FL (80.0-100.0); MEAN CORPUSCULAR HEMOGLOBIN 31.1 PG (27.0-34.0); MEAN CORPUSCULAR HGB CONC 33.4 % (32.0-36.0); MONO % 5.7 % (0.0-8.0); NEUT % 92.8 % (16.0-70.0); PLATELET COUNT 378 TH/MM3 (150-450); RED CELL DISTRIBUTION WIDTH 14.7 % (11.6-17.2); WHITE BLOOD COUNT 20.2 TH/MM3 (4.0-11.0)
--- NOTE | 2016-10-31 13:24 | HHI.PR ---
Subjective Remarks Follow up on patient with acute pancreatic status post ERCP twice with stenting Patient laying in bed , doesn't seem to be in pain, I explained to him my discussion with the aspirin neurologist Dr. Richie shea yesterday, explained to him adding the pancreatic enzyme, and checking his stool for C. difficile And I started to discuss with him the plan for rehabilitation placement when he start to be extremely inappropriate using the(F) word and telling me that if "you kiss my ..." At this point I left the room Objective Vitals Vital Signs Date Time Temp Pulse Resp B/P Pulse Ox O2 Delivery O2 Flow Rate FiO2 10/31/16 12:23 97.9 109 22 137/92 94 10/31/16 10:27 Nasal Cannula 3.00 21 10/31/16 08:09 95 Nasal Cannula 3.00 10/31/16 08:04 97.8 112 24 129/94 94 10/31/16 04:00 98.4 108 16 136/87 96 10/31/16 02:27 Nasal Cannula 3.00 10/31/16 00:00 97.3 122 16 148/92 95 10/30/16 20:01 96 Nasal Cannula 3.00 10/30/16 20:00 97.6 105 18 123/81 94 10/30/16 16:00 98.0 107 20 133/90 98 I/O 10/30/16 10/30/16 10/30/16 10/31/16 10/31/16 10/31/16 06:59 14:59 22:59 06:59 14:59 22:59 Intake Total 1025 ml 360 ml 752 ml 1161 ml Output Total 300 ml 700 ml Balance 725 ml -340 ml 752 ml 1161 ml Intake Oral 240 ml 360 ml 480 ml IV Total 785 ml 752 ml 681 ml Output Urine Total 300 ml 700 ml # Voids 2 # Bowel Movements 0 1 2 Result Diagram: 10/31/16 0930 10/30/16 0523 Objective Remarks - - GENERAL: Patient awake and alert he is laying in bed I did not examine him fully today because he was very inappropriate A/P Assessment and Plan A/P: Suspect sepsis 10/18. fever 101, HR 140s, abd pain. incr o2 req 2L. -possible aspiration PNA - CXR improved from admit but does show RLL inf. -On zosyn. Status post ICU Abdominal pain improved over the last 3 days Patient continued to have diarrhea, we'll check stool for C. difficile Acute on chronic pancreatitis. Rule out SBP. Acute. MRCP (10/15/16)----> Abnormal common duct 7 mm in width however distally this is blunted suggesting a luminal defect or stone. Further evaluation with ERCP is recommended. S/P Unsuccessful ERCP (10/17/16)-----> enlarged pancreatic duct with branching c/w chronic pancreatitis, no communication to pancreatic duct, the wire would not pass the distal part of the common bile duct and nor bile with Kinevac, small sphincterotomy was done. Pt had worsening pain overnight with fever of 101 and tachycardia up to 160 and tachypnea/sob morning of 10/18 and was transferred to the unit. Abdomen/Pelvis CT (10/18/16) ----> 1. There is increased free fluid in the abdomen and pelvis since the prior study that is from an uncertain etiology. Some of the fluid is located in the subcapsular region of the left lobe of the liver. 2. There is low density at the pancreaticoduodenal groove which could represent edema and this can be seen with acute pancreatitis. Suggest correlation with appropriate laboratory values. 3. New small bilateral pleural effusions with associated compressive atelectasis and possible consolidation at the left lung bases. 4. The partially cystic lesion abutting the head of the pancreas is stable and of uncertain etiology. There is adjacent narrowing or occlusion of the portal vein. Per conversation last week, Dr. Felix, would like to hold on PTHC until more stable and ascites improved unless there is obvious signs of biliary obstruction such as biliary dilatation or elevated LFTs. S/P ERCP with pancreatic stent placement () for possible pseudocyst, possible pancreatic leak----> s/p sphincterotomy, s/p stent placement. S/P indomethacin 100 mg rectally given. Clear liquids , but not taking much. Still with significant nausea, no vomiting. abdominal pain unchanged. Zosyn. PPI. - Pancreatic mass vs. Pseudocyst. Will need EUS as outpt. AFP 2.4, CEA 2.1, Ca 19-9 19.7 -GI added Creon yesterday, plan for discharge once GI sign of Bilateral hand excoriations>> resolved -Patient reports this is chronic and improving, initially secondary to bleach exposure. No signs of acute infection. NO Blistering to indicate porphyria. Hyponatremia. Mild. Resolved COPD on home O2 BL pleural effusions, compresive atelectasis. -likley related to ascites. -cont abx. Hypokalemia and hypomagnesemia. Continue monitoring BMP, replace as needed DVT prophylaxis with Lovenox Ruben Pace MD Oct 31, 2016 13:24
--- NOTE | 2016-10-31 14:45 | HHI.GIFU ---
Subjective Remarks Resting in bed. States he is doing better. He reports that his diarrhea is slowing down and having a thicker consistency and that his pain is much improved. States that he is sick of being in the hospital and plans on checking himself out tonight. D/W patient his overall condition and explained while he is improving, he is not quite ready for discharge and that we need to check his stool for Cdiff and wean some of his meds and maybe get more physical therapy. He states he understands that he will not stay another night here in the hospital. (Lola Valiente) Objective Vitals I&O Vital Signs Date Time Temp Pulse Resp B/P Pulse Ox O2 Delivery O2 Flow Rate FiO2 10/31/16 12:23 97.9 109 22 137/92 94 10/31/16 10:27 Nasal Cannula 3.00 21 10/31/16 08:09 95 Nasal Cannula 3.00 10/31/16 08:04 97.8 112 24 129/94 94 10/31/16 04:00 98.4 108 16 136/87 96 10/31/16 02:27 Nasal Cannula 3.00 10/31/16 00:00 97.3 122 16 148/92 95 10/30/16 20:01 96 Nasal Cannula 3.00 10/30/16 20:00 97.6 105 18 123/81 94 10/30/16 16:00 98.0 107 20 133/90 98 I/O 10/30/16 10/30/16 10/30/16 10/31/16 10/31/16 10/31/16 07:00 15:00 23:00 07:00 15:00 23:00 Intake Total 1025 ml 360 ml 752 ml 1161 ml Output Total 300 ml 700 ml Balance 725 ml -340 ml 752 ml 1161 ml Intake Oral 240 ml 360 ml 480 ml IV Total 785 ml 752 ml 681 ml Output Urine Total 300 ml 700 ml # Voids 2 # Bowel Movements 0 1 2 Laboratory Laboratory Tests Test 10/31/16 09:30 White Blood Count 20.2 Red Blood Count 3.30 Hemoglobin 10.2 Hematocrit 30.7 Mean Corpuscular Volume 93.1 Mean Corpuscular Hemoglobin 31.1 Mean Corpuscular Hemoglobin 33.4 Concent Red Cell Distribution Width 14.7 Platelet Count 378 Mean Platelet Volume 8.1 Neutrophils (%) (Auto) 92.8 Lymphocytes (%) (Auto) 1.3 Monocytes (%) (Auto) 5.7 Eosinophils (%) (Auto) 0.0 Basophils (%) (Auto) 0.2 Neutrophils # (Auto) 18.7 Lymphocytes # (Auto) 0.3 Monocytes # (Auto) 1.1 Eosinophils # (Auto) 0.0 Basophils # (Auto) 0.1 CBC Comment DIFF FINAL Differential Comment Imaging Last Impressions Chest X-Ray 10/26/16 0000 Signed Impressions: Service Date/Time: Wednesday, October 26, 2016 17:20 - CONCLUSION: 1. Cardiomegaly with bibasilar atelectasis and moderate effusions. This is new when compared with the prior exam. José Miguel Ritter MD Abdomen/Pelvis CT 10/25/16 0000 Signed Impressions: Service Date/Time: Wednesday, October 26, 2016 00:50 - CONCLUSION: 1. Increased fluidlike material within the abdomen and pelvis. There is scalloping of the liver margin along with thickening of the peritoneal lining. These findings suggest against the simple ascites and raise concern for infection or malignancy complicating the fluid or pseudomyxoma peritonei. 2. A stent is present within the main pancreatic duct. The partially cystic lesion adjacent to the pancreatic head is stable and of uncertain etiology. 3. 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 4. Moderate sized bilateral pleural effusions, increased from the prior exam. Jorgito Baumann MD GI Procedure 10/22/16 0000 Signed Impressions: Service Date/Time: Saturday, October 22, 2016 16:12 - CONCLUSION: ERCP as above. Yobani Bashir MD Hepatobiliary Scan Nuclear Medicine 10/21/16 0000 Signed Impressions: Service Date/Time: Friday, October 21, 2016 09:47 - CONCLUSION: Normal HIDA scan. Rodrigo Boyd Jr., MD Cyst Biopsy Asp-Paracentesis US 10/19/16 0000 Signed Impressions: Service Date/Time: Wednesday, October 19, 2016 15:20 - CONCLUSION: Uncomplicated ultrasound guided paracentesis. Kevin Felix MD FACR Chest CT 10/18/16 0000 Signed Impressions: Service Date/Time: September 12:17 - CONCLUSION: 1. Mild emphysema with new small bilateral pleural effusions with associated compressive atelectasis and consolidation at the lung bases. 2. Please refer to abdomen and pelvis CT report for description of the subdiaphragmatic findings. Jorgito Baumann MD Abdomen X-Ray 10/18/16 0000 Signed Impressions: Service Date/Time: September 06:21 - CONCLUSION: Benign abdomen. Wei Cesar MD Cholangiopancreatography MRI 10/15/16 0000 Signed Impressions: Service Date/Time: Saturday, October 15, 2016 15:10 - CONCLUSION: Abnormal common duct 7 mm in width however distally this is blunted suggesting a luminal defect or stone. Further evaluation with ERCP is recommended. Yobani Bashir MD Physical Exam HEENT: Normocephalic; atraumatic; no jaundice. CHEST: Resp. shallow/even. Diminished CARDIAC: RRR ABDOMEN: Distended, nontender today, bowel sounds are present in all four quadrants. EXTREMITIES: No clubbing, cyanosis, or edema. SKIN: Multiple excoriations [employer]: No focal deficits; alert oriented times three. Generalized weakness ( Lola Valiente) Assessment and Plan Plan ASSESSMENT: - Acute pancreatitis with abnormal imaging of the pancreatic head- Pseudocyst vs. Mass Abdomen/Pelvis CT (10/13/16)-----> 1. There is a low-density mass abutting indirectly superior to the pancreatic head adjacent to the mesenteric vessels. It measures 3.0 x 2.1 cm and is located in a similar location to a cystic lesion seen on prior studies that was felt to represent a pseudocyst. Therefore, it may represent a similar process. However, an abnormal lymph node or mass cannot definitely be excluded. 2. There is also mild induration in the fat adjacent to this structure which could represent inflammation. 3. Small volume of free fluid is present within the abdomen and pelvis. 4. 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 MRCP (10/15/16) ----> Abnormal common duct 7 mm in width however distally this is blunted suggesting a luminal defect or stone. Further evaluation with ERCP is recommended. S/P Unsuccessful ERCP (10/17/16)-----> enlarged pancreatic duct with branching c/w chronic pancreatitis, no communication to pancreatic duct, the wire would not pass the distal part of the common bile duct and nor bile with Kinevac, small sphincterotomy was done. Pt had worsening pain overnight with fever of 101 and tachycardia up to 160 and tachypnea/sob morning of 10/18 and was transferred to the unit. Abdomen/Pelvis CT (10/18/16) ----> 1. There is increased free fluid in the abdomen and pelvis since the prior study that is from an uncertain etiology. Some of the fluid is located in the subcapsular region of the left lobe of the liver. 2. There is low density at the pancreaticoduodenal groove which could represent edema and this can be seen with acute pancreatitis. Suggest correlation with appropriate laboratory values. 3. New small bilateral pleural effusions with associated compressive atelectasis and possible consolidation at the left lung bases. 4. The partially cystic lesion abutting the head of the pancreas is stable and of uncertain etiology. There is adjacent narrowing or occlusion of the portal vein. Per conversation last week, Dr. Felix, would like to hold on PTHC until more stable and ascites improved unless there is obvious signs of biliary obstruction such as biliary dilatation or elevated LFTs. S/P ERCP with pancreatic stent placement () for possible pseudocyst, possible pancreatic leak----> s/p sphincterotomy, s/p stent placement. S/P indomethacin 100 mg rectally given. Lipase trending up 2725. LFT stable and in fact improving. Rpt. Abdomen/Pelvis CT (10/25/16)-----> 1. Increased fluidlike material within the abdomen and pelvis. There is scalloping of the liver margin along with thickening of the peritoneal lining. These findings suggest against the simple ascites and raise concern for infection or malignancy complicating the fluid or pseudomyxoma peritonei. 2. A stent is present within the main pancreatic duct. The partially cystic lesion adjacent to the pancreatic head is stable and of uncertain etiology. 3. 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 4. Moderate sized bilateral pleural effusions, increased from the prior exam. Lipase improving 616. His pain has improved significantly and he is now tolerating low fat diet. Pt had refused rpt ERCP/Stent, although at this point, he is much improved and it appears that his pancreatitis is improving. - Diarrhea. Pt with leukocytosis, although he has been on steroids. CDiff was ordered, but patient refusing to provide sample and states that he is "checking himself out tonight." - Pancreatic mass vs. Pseudocyst. Will need EUS as outpt. AFP 2.4, CEA 2.1, Ca 19-9 19.7. - Fever, Leukocytosis. WBC 20.2. Zosyn, Ceftriaxone - Resp. Insufficiency. Emphysema PLAN: - Low fat diet - Send stool for CDiff - Cont. IVF - Cont. PPI - Cont. Abx - Monitor labs - Further recommendations to follow based on results of above - Patient threatening to leave AMA. D/W patient his overall condition and stressed that while he does seem to be improving, that he is not quite ready for discharge and we highly recommend that he not leave AMA. Pt states he understands our point, but refuses to stay and will check himself out tonight. - EUS as an OP again patient is refusing interventions at this point even on an outpatient basis - Pt seen and examined by Dr. Weiss and myself and this note is written on his behalf (Lola Valiente) Physician Comments Seen and examined with Ms. Steffanie BARROS, diarrhea improved. Stool studies-p. Started on creon yesterday (Ryder Weiss MD) Lola Valiente Oct 31, 2016 14:45 Ryder Weiss MD Oct 31, 2016 17:02
[2016-10-31] MEDS: ENOXAPARIN SODIUM 40 MG/0.4 ML SYRINGE SQ SCH (15:59)
[2016-11-01] VITALS (11 sets, daily range): BP systolic 107–135; BP diastolic 68–88; PULSE 94–108; RESP 20–22; TEMP 98–99.8; O2SAT 92–98
[2016-11-01] MEDS: PIPERACIL-TAZO 4.5 GM PREMIX 100 ML IV SCH ×4 (03:50→21:13)
[2016-11-01] MEDS: HYDROmorphone HCL PF 1 MG/ML VIAL IV PUSH PRN ×4 (03:56→18:27)
[2016-11-01 05:46] LABS: AUTOMATED NEUTROPHIL # 12.4 TH/MM3 (1.8-7.7); BASOPHIL % 0.2 % (0.0-2.0); EOSINOPHIL # 0.1 TH/MM3 (0-0.4); EOSINOPHIL % 0.9 % (0.0-4.0); HEMATOCRIT 27.6 % (39.0-51.0); HEMO FLAGS DIFF FINAL; LYMPH % 3.7 % (9.0-44.0); LYMPHOCYTE # 0.5 TH/MM3 (1.0-4.8); MEAN CORPUSCULAR HEMOGLOBIN 31.2 PG (27.0-34.0); MEAN CORPUSCULAR HGB CONC 33.5 % (32.0-36.0); MONO % 8.5 % (0.0-8.0); NEUT % 86.7 % (16.0-70.0); PLATELET COUNT 378 TH/MM3 (150-450); RED BLOOD COUNT 2.97 MIL/MM3 (4.50-5.90); RED CELL DISTRIBUTION WIDTH 14.7 % (11.6-17.2); WHITE BLOOD COUNT 14.3 TH/MM3 (4.0-11.0)
[2016-11-01 05:52] LABS: INTERNATIONAL NORMALIZED RATIO 1.1 RATIO; PROTHROMBIN TIME - PATIENT 11.9 SEC (9.8-11.6)
[2016-11-01] MEDS: D5-1/2 NS + KCL 20 MEQ INJ 1,000 ML IV SCH ×2 (06:24→18:01)
[2016-11-01 06:32] LABS: BICARBONATE 32.5 MEQ/L (21.0-32.0); INDIRECT BILIRUBIN 0.5 MG/DL (0.0-0.8); MAGNESIUM 1.7 MG/DL (1.5-2.5); TOTAL BILIRUBIN ADULT 0.8 MG/DL (0.2-1.0)
[2016-11-01 06:47] LABS: POTASSIUM 2.7 MEQ/L (3.5-5.1)
[2016-11-01] MEDS ORDERED: POTASSIUM CL 40 MEQ/30 ML LIQ UDC PO ONE (07:00)
[2016-11-01] MEDS ORDERED: POTASSIUM PHOSPHATE INJ 30 MMOL in SODIUM CHLOR 0.9% 250 ML INJ 250 ML IV ONE (08:00)
[2016-11-01] MEDS: RESP: ALBUTEROL 2.5 MG/3 ML NEB (SCH) INH ×4 (08:23→19:56)
[2016-11-01] MEDS: THIAMINE INJ 100 MG in SODIUM CHLORIDE 0.9% INJ 100 ML IV SCH (08:43)
[2016-11-01] MEDS: SODIUM CHLORIDE 0.9% FLUSH 5 ML FLUSH IV SCH ×2 (08:43→21:00)
[2016-11-01] MEDS: PANTOPRAZOLE SODIUM 40 MG VIAL IV PUSH SCH ×2 (08:44→21:11)
[2016-11-01] MEDS: LIPASE/PROTEASE/AMYLASE (24,000/76,000/120,000) CAP PO SCH ×3 (08:45→18:02)
[2016-11-01] MEDS: HYDROCORTISONE SOD SUCCINATE 100 MG VIAL IV PUSH SCH (08:45)
[2016-11-01] MEDS: POTASSIUM PHOSPHATE MONOBASIC 500 MG TAB PO SCH (08:46)
[2016-11-01] MEDS ORDERED: POTASSIUM CHLORIDE 20 MEQ CONTROLLED RELEASE TAB PO ONE (10:00)
--- NOTE | 2016-11-01 10:39 | HHI.PR ---
Subjective Remarks Follow-up acute on chronic pancreatitis 11/01/16-patient seen and examined; had episode of shortness of breath this morning, denies any abdominal pain. Currently Tmax 99.8 @8 AM. Patient with multiple episode of diarrhea however states he's been having this for the past 1 -2 weeks now Objective Vitals Vital Signs Date Time Temp Pulse Resp B/P Pulse Ox O2 Delivery O2 Flow Rate FiO2 11/01/16 10:05 18 11/01/16 08:24 96 Nasal Cannula 3.00 11/01/16 08:00 99.8 107 22 124/88 95 11/01/16 04:05 94 Nasal Cannula 3.00 11/01/16 04:00 98.1 99 20 135/70 96 11/01/16 00:01 98 Nasal Cannula 3.00 11/01/16 00:00 98.7 94 20 107/68 96 10/31/16 20:30 Nasal Cannula 3.00 10/31/16 20:00 98.1 118 22 130/70 97 10/31/16 16:04 97.7 116 24 139/92 94 10/31/16 15:47 93 Nasal Cannula 4.00 10/31/16 12:23 97.9 109 22 137/92 94 I/O 10/31/16 10/31/16 10/31/16 11/01/16 11/01/16 11/01/16 07:00 15:00 23:00 07:00 15:00 23:00 Intake Total 1161 ml 480 ml 480 ml 1931 ml Output Total 400 ml 200 ml 200 ml Balance 1161 ml 80 ml 280 ml 1731 ml Intake Oral 480 ml 480 ml 480 ml 240 ml IV Total 681 ml 1691 ml Output Urine Total 400 ml 200 ml 200 ml # Voids 2 # Bowel Movements 2 1 2 Result Diagram: 11/01/16 0525 11/01/16 0525 Imaging Last Impressions Chest X-Ray 10/26/16 0000 Signed Impressions: Service Date/Time: Wednesday, October 26, 2016 17:20 - CONCLUSION: 1. Cardiomegaly with bibasilar atelectasis and moderate effusions. This is new when compared with the prior exam. José Miguel Ritter MD Abdomen/Pelvis CT 10/25/16 0000 Signed Impressions: Service Date/Time: Wednesday, October 26, 2016 00:50 - CONCLUSION: 1. Increased fluidlike material within the abdomen and pelvis. There is scalloping of the liver margin along with thickening of the peritoneal lining. These findings suggest against the simple ascites and raise concern for infection or malignancy complicating the fluid or pseudomyxoma peritonei. 2. A stent is present within the main pancreatic duct. The partially cystic lesion adjacent to the pancreatic head is stable and of uncertain etiology. 3. 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 4. Moderate sized bilateral pleural effusions, increased from the prior exam. Jorgito Baumann MD GI Procedure 10/22/16 0000 Signed Impressions: Service Date/Time: Saturday, October 22, 2016 16:12 - CONCLUSION: ERCP as above. Yobani Bashir MD Hepatobiliary Scan Nuclear Medicine 10/21/16 0000 Signed Impressions: Service Date/Time: Friday, October 21, 2016 09:47 - CONCLUSION: Normal HIDA scan. Rodrigo Boyd Jr., MD Cyst Biopsy Asp-Paracentesis US 10/19/16 0000 Signed Impressions: Service Date/Time: Wednesday, October 19, 2016 15:20 - CONCLUSION: Uncomplicated ultrasound guided paracentesis. Kevin Felix MD FACR Chest CT 10/18/16 0000 Signed Impressions: Service Date/Time: September 12:17 - CONCLUSION: 1. Mild emphysema with new small bilateral pleural effusions with associated compressive atelectasis and consolidation at the lung bases. 2. Please refer to abdomen and pelvis CT report for description of the subdiaphragmatic findings. Jorgito Baumann MD Abdomen X-Ray 10/18/16 0000 Signed Impressions: Service Date/Time: September 06:21 - CONCLUSION: Benign abdomen. Wei Cesar MD Cholangiopancreatography MRI 10/15/16 0000 Signed Impressions: Service Date/Time: Saturday, October 15, 2016 15:10 - CONCLUSION: Abnormal common duct 7 mm in width however distally this is blunted suggesting a luminal defect or stone. Further evaluation with ERCP is recommended. Yobani Bashir MD Objective Remarks GENERAL: NAD SKIN: Warm and dry. HEAD: Normocephalic. EYES: No scleral icterus. No injection or drainage. NECK: Supple, trachea midline. No JVD or lymphadenopathy. CARDIOVASCULAR: Regular rate and rhythm without murmurs, gallops, or rubs. RESPIRATORY: Breath sounds equal bilaterally. No accessory muscle use. Bilateral expiratory wheezes GASTROINTESTINAL: Abdomen soft, non-tender, nondistended. MUSCULOSKELETAL: No cyanosis, or edema. BACK: Nontender without obvious deformity. No CVA tenderness. A/P Problem List: (1) Acute pancreatitis ICD Code: K85.9 Status: Acute (2) COPD (chronic obstructive pulmonary disease) ICD Code: J44.9 Status: Chronic Assessment and Plan 61 year-old male with Suspect sepsis: Resolved, currently on Zosyn Acute on chronic pancreatitis. MRCP (10/15/16)----> Abnormal common duct 7 mm in width however distally this is blunted suggesting a luminal defect or stone. S/P Unsuccessful ERCP (10/17/16)-----> enlarged pancreatic duct with branching c/w chronic pancreatitis, no communication to pancreatic duct, the wire would not pass the distal part of the common bile duct and nor bile with Kinevac, small sphincterotomy was done. S/P ERCP with pancreatic stent placement (10/22/16) for possible pseudocyst, possible pancreatic leak----> s/p sphincterotomy, s/p stent placement.. Zosyn. PPI and Creon as well as Solu-Cortef. Appreciate input from gastroenterology - Pancreatic mass vs. Pseudocyst. Will need EUS as outpt. AFP 2.4, CEA 2.1, Ca 19-9 19.7 Bilateral hand excoriations>> resolved -Patient reports this is chronic and improving, initially secondary to bleach exposure. No signs of acute infection. NO Blistering to indicate porphyria. Hyponatremia. Resolved Hypokalemia: Will treat with potassium total 80 mEq 1 now and monitor. COPD on home O2 BL pleural effusions, continue current treatment, DuoNeb when necessary, maintain oxygen saturation above 92%. Hypokalemia and hypomagnesemia. Continue monitoring BMP, replace as needed Diarrhea: C. difficile PCR pending, if negative treat with antidiarrheal motility agent DVT prophylaxis with Lovenox Problem Qualifiers (1) Acute pancreatitis: Qualified Code: K85.90 - Acute pancreatitis without infection or necrosis, unspecified pancreatitis type Boom Garcia MD Nov 01, 2016 10:39
--- NOTE | 2016-11-01 12:59 | HHI.GIFU ---
Subjective Remarks Resting in bed. No n/v. No abdominal pain. States he only had liquids for breakfast and they would not give him solids- ? pt on heart healthy diet. Denies any bowel movements today. (Lola Valiente) Objective Vitals I&O Vital Signs Date Time Temp Pulse Resp B/P Pulse Ox O2 Delivery O2 Flow Rate FiO2 11/01/16 11:48 96 Nasal Cannula 3.00 11/01/16 10:05 18 11/01/16 08:24 96 Nasal Cannula 3.00 11/01/16 08:00 99.8 107 22 124/88 95 11/01/16 04:05 94 Nasal Cannula 3.00 11/01/16 04:00 98.1 99 20 135/70 96 11/01/16 00:01 98 Nasal Cannula 3.00 11/01/16 00:00 98.7 94 20 107/68 96 10/31/16 20:30 Nasal Cannula 3.00 10/31/16 20:00 98.1 118 22 130/70 97 10/31/16 16:04 97.7 116 24 139/92 94 10/31/16 15:47 93 Nasal Cannula 4.00 I/O 10/31/16 10/31/16 10/31/16 11/01/16 11/01/16 11/01/16 07:00 15:00 23:00 07:00 15:00 23:00 Intake Total 1161 ml 480 ml 480 ml 1931 ml Output Total 400 ml 200 ml 200 ml Balance 1161 ml 80 ml 280 ml 1731 ml Intake Oral 480 ml 480 ml 480 ml 240 ml IV Total 681 ml 1691 ml Output Urine Total 400 ml 200 ml 200 ml # Voids 2 # Bowel Movements 2 1 2 Laboratory Laboratory Tests Test 11/01/16 05:25 White Blood Count 14.3 Red Blood Count 2.97 Hemoglobin 9.3 Hematocrit 27.6 Mean Corpuscular Volume 93.0 Mean Corpuscular Hemoglobin 31.2 Mean Corpuscular Hemoglobin 33.5 Concent Red Cell Distribution Width 14.7 Platelet Count 378 Mean Platelet Volume 7.8 Neutrophils (%) (Auto) 86.7 Lymphocytes (%) (Auto) 3.7 Monocytes (%) (Auto) 8.5 Eosinophils (%) (Auto) 0.9 Basophils (%) (Auto) 0.2 Neutrophils # (Auto) 12.4 Lymphocytes # (Auto) 0.5 Monocytes # (Auto) 1.2 Eosinophils # (Auto) 0.1 Basophils # (Auto) 0.0 CBC Comment DIFF FINAL Differential Comment Prothrombin Time 11.9 Prothromb Time International 1.1 Ratio Sodium Level 140 Potassium Level 2.7 Chloride Level 101 Carbon Dioxide Level 32.5 Anion Gap 7 Blood Urea Nitrogen 6 Creatinine 0.56 Estimat Glomerular Filtration 147 Rate Random Glucose 77 Calcium Level 7.6 Phosphorus Level 2.0 Magnesium Level 1.7 Total Bilirubin 0.8 Direct Bilirubin 0.3 Indirect Bilirubin 0.5 Aspartate Amino Transf 22 (AST/SGOT) Alanine Aminotransferase 17 (ALT/SGPT) Alkaline Phosphatase 82 Total Protein 5.0 Albumin 2.0 Imaging Last Impressions Chest X-Ray 10/26/16 0000 Signed Impressions: Service Date/Time: Wednesday, October 26, 2016 17:20 - CONCLUSION: 1. Cardiomegaly with bibasilar atelectasis and moderate effusions. This is new when compared with the prior exam. José Miguel Ritter MD Abdomen/Pelvis CT 10/25/16 0000 Signed Impressions: Service Date/Time: Wednesday, October 26, 2016 00:50 - CONCLUSION: 1. Increased fluidlike material within the abdomen and pelvis. There is scalloping of the liver margin along with thickening of the peritoneal lining. These findings suggest against the simple ascites and raise concern for infection or malignancy complicating the fluid or pseudomyxoma peritonei. 2. A stent is present within the main pancreatic duct. The partially cystic lesion adjacent to the pancreatic head is stable and of uncertain etiology. 3. 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 4. Moderate sized bilateral pleural effusions, increased from the prior exam. Jorgito Baumann MD GI Procedure 10/22/16 0000 Signed Impressions: Service Date/Time: Saturday, October 22, 2016 16:12 - CONCLUSION: ERCP as above. Yobani Bashir MD Hepatobiliary Scan Nuclear Medicine 10/21/16 0000 Signed Impressions: Service Date/Time: Friday, October 21, 2016 09:47 - CONCLUSION: Normal HIDA scan. Rodrigo Boyd Jr., MD Cyst Biopsy Asp-Paracentesis US 10/19/16 0000 Signed Impressions: Service Date/Time: Wednesday, October 19, 2016 15:20 - CONCLUSION: Uncomplicated ultrasound guided paracentesis. Kevin Felix MD FACR Chest CT 10/18/16 0000 Signed Impressions: Service Date/Time: September 12:17 - CONCLUSION: 1. Mild emphysema with new small bilateral pleural effusions with associated compressive atelectasis and consolidation at the lung bases. 2. Please refer to abdomen and pelvis CT report for description of the subdiaphragmatic findings. Jorgito Baumann MD Abdomen X-Ray 10/18/16 0000 Signed Impressions: Service Date/Time: September 06:21 - CONCLUSION: Benign abdomen. Wei Cesar MD Cholangiopancreatography MRI 10/15/16 0000 Signed Impressions: Service Date/Time: Saturday, October 15, 2016 15:10 - CONCLUSION: Abnormal common duct 7 mm in width however distally this is blunted suggesting a luminal defect or stone. Further evaluation with ERCP is recommended. Yobani Bashir MD Physical Exam HEENT: Normocephalic; atraumatic; no jaundice. CHEST: Resp. shallow/even. Diminished CARDIAC: RRR ABDOMEN: Mildy distended, nontender today, bowel sounds are present in all four quadrants. EXTREMITIES: No clubbing, cyanosis, or edema. SKIN: Multiple excoriations E MAIL SYSTEM ADMINISTRATOR: No focal deficits; alert oriented times three. Generalized weakness ( Lola Valiente) Assessment and Plan Plan ASSESSMENT: - Acute pancreatitis with abnormal imaging of the pancreatic head- Pseudocyst vs. Mass Abdomen/Pelvis CT (10/13/16)-----> 1. There is a low-density mass abutting indirectly superior to the pancreatic head adjacent to the mesenteric vessels. It measures 3.0 x 2.1 cm and is located in a similar location to a cystic lesion seen on prior studies that was felt to represent a pseudocyst. Therefore, it may represent a similar process. However, an abnormal lymph node or mass cannot definitely be excluded. 2. There is also mild induration in the fat adjacent to this structure which could represent inflammation. 3. Small volume of free fluid is present within the abdomen and pelvis. 4. 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 MRCP (10/15/16) ----> Abnormal common duct 7 mm in width however distally this is blunted suggesting a luminal defect or stone. Further evaluation with ERCP is recommended. S/P Unsuccessful ERCP (10/17/16)-----> enlarged pancreatic duct with branching c/w chronic pancreatitis, no communication to pancreatic duct, the wire would not pass the distal part of the common bile duct and nor bile with Kinevac, small sphincterotomy was done. Pt had worsening pain overnight with fever of 101 and tachycardia up to 160 and tachypnea/sob morning of 10/18 and was transferred to the unit. Abdomen/Pelvis CT (10/18/16) ----> 1. There is increased free fluid in the abdomen and pelvis since the prior study that is from an uncertain etiology. Some of the fluid is located in the subcapsular region of the left lobe of the liver. 2. There is low density at the pancreaticoduodenal groove which could represent edema and this can be seen with acute pancreatitis. Suggest correlation with appropriate laboratory values. 3. New small bilateral pleural effusions with associated compressive atelectasis and possible consolidation at the left lung bases. 4. The partially cystic lesion abutting the head of the pancreas is stable and of uncertain etiology. There is adjacent narrowing or occlusion of the portal vein. Per conversation last week, Dr. Felix, would like to hold on [facility] until more stable and ascites improved unless there is obvious signs of biliary obstruction such as biliary dilatation or elevated LFTs. S/P ERCP with pancreatic stent placement () for possible pseudocyst, possible pancreatic leak----> s/p sphincterotomy, s/p stent placement. S/P indomethacin 100 mg rectally given. Lipase trending up 2725. LFT stable and in fact improving. Rpt. Abdomen/Pelvis CT (10/25/16)-----> 1. Increased fluidlike material within the abdomen and pelvis. There is scalloping of the liver margin along with thickening of the peritoneal lining. These findings suggest against the simple ascites and raise concern for infection or malignancy complicating the fluid or pseudomyxoma peritonei. 2. A stent is present within the main pancreatic duct. The partially cystic lesion adjacent to the pancreatic head is stable and of uncertain etiology. 3. 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 4. Moderate sized bilateral pleural effusions, increased from the prior exam. Lipase improving 616. His pain has improved significantly and he is now tolerating low fat diet. Pt had refused rpt ERCP/Stent, although at this point, he is much improved and it appears that his pancreatitis is improving. Tolerating diet. - Diarrhea. Pt with leukocytosis, although he has been on steroids. CDiff was ordered, but patient refused and denies any further diarrhea. - Pancreatic mass vs. Pseudocyst. Will need EUS as outpt. AFP 2.4, CEA 2.1, Ca 19-9 19.7. - Fever, Leukocytosis. WBC 14.3. Zosyn - Resp. Insufficiency. Emphysema PLAN: - Low fat diet - Cont. IVF - Cont. PPI - Cont. Abx - Monitor labs - Monitor stool - GI will sign off, please reconsult as needed - FU MEHRAN 2 weeks - Further recommendations to follow based on results of above - EUS as an OP if patient agreeable- currently refusing further workup - Pt seen and examined by Dr. Weiss and myself and this note is written on his behalf (Lola Valiente) Physician Comments Seen and examined with PAPO, doing well. Does not want any further gi martínez. Needs EUS , please schedule fu with gi upon dc. Importance of this discussed with pt. Will sign off, reconsult as needed. Thank you (Ryder Weiss MD) Lola Valiente Nov 01, 2016 12:59 Ryder Weiss MD Nov 01, 2016 16:49
[2016-11-01] MEDS: ENOXAPARIN SODIUM 40 MG/0.4 ML SYRINGE SQ SCH (16:39)
[2016-11-01] MEDS: RESP: IPRATROPIUM 0.5 MG/2.5 ML NEB NEB PRN (23:51)
[2016-11-02] VITALS (7 sets, daily range): BP systolic 115–125; BP diastolic 77–82; PULSE 92–108; RESP 18–20; TEMP 97.7–98.4; O2SAT 95–97
[2016-11-02] MEDS: HYDROmorphone HCL PF 1 MG/ML VIAL IV PUSH PRN ×2 (02:51→08:11)
[2016-11-02] MEDS: D5-1/2 NS + KCL 20 MEQ INJ 1,000 ML IV SCH (02:53)
[2016-11-02] MEDS: PIPERACIL-TAZO 4.5 GM PREMIX 100 ML IV SCH ×2 (02:58→08:17)
[2016-11-02] MEDS: RESP: IPRATROPIUM 0.5 MG/2.5 ML NEB NEB PRN ×2 (03:12→06:25)
[2016-11-02 07:04] LABS: BICARBONATE 29.6 MEQ/L (21.0-32.0); POTASSIUM 3.1 MEQ/L (3.5-5.1)
[2016-11-02 07:05] LABS: AUTOMATED NEUTROPHIL # 11.9 TH/MM3 (1.8-7.7); BASOPHIL % 0.1 % (0.0-2.0); EOSINOPHIL # 0.1 TH/MM3 (0-0.4); HEMATOCRIT 28.2 % (39.0-51.0); HEMO FLAGS DIFF FINAL; LYMPH % 3.5 % (9.0-44.0); LYMPHOCYTE # 0.5 TH/MM3 (1.0-4.8); MEAN CELL VOLUME 93.1 FL (80.0-100.0); MEAN CORPUSCULAR HEMOGLOBIN 31.2 PG (27.0-34.0); MEAN CORPUSCULAR HGB CONC 33.5 % (32.0-36.0); MONO % 8.6 % (0.0-8.0); NEUT % 86.8 % (16.0-70.0); PLATELET COUNT 362 TH/MM3 (150-450); RED BLOOD COUNT 3.03 MIL/MM3 (4.50-5.90); RED CELL DISTRIBUTION WIDTH 14.7 % (11.6-17.2); WHITE BLOOD COUNT 13.7 TH/MM3 (4.0-11.0)
[2016-11-02 07:18] LABS: CALCIUM-PROTEIN CORRECTED 8.6 MG/DL (8.5-10.1)
[2016-11-02] MEDS: SODIUM CHLORIDE 0.9% FLUSH 5 ML FLUSH IV SCH (08:12)
[2016-11-02] MEDS: PANTOPRAZOLE SODIUM 40 MG VIAL IV PUSH SCH (08:12)
[2016-11-02] MEDS: HYDROCORTISONE SOD SUCCINATE 100 MG VIAL IV PUSH SCH (08:15)
[2016-11-02] MEDS: LIPASE/PROTEASE/AMYLASE (24,000/76,000/120,000) CAP PO SCH (08:16)
[2016-11-02] MEDS: RESP: ALBUTEROL 2.5 MG/3 ML NEB (SCH) INH ×2 (08:30→11:25)
[2016-11-02] MEDS ORDERED: THIAMINE HCL 100 MG TAB PO SCH (09:00)
--- NOTE | 2016-11-02 09:50 | HHI.PR ---
Subjective Remarks Follow-up acute on chronic pancreatitis 11/01/16-patient seen and examined; had episode of shortness of breath this morning, denies any abdominal pain. Currently Tmax 99.8 @8 AM. Patient with multiple episode of diarrhea however states he's been having this for the past 1 -2 weeks now 11/02/16-patient seen and examined, states he would like to be discharged home. Denies any diarrheal episode. Tolerating by mouth. He is afebrile. Objective Vitals Vital Signs Date Time Temp Pulse Resp B/P Pulse Ox O2 Delivery O2 Flow Rate FiO2 11/02/16 08:46 18 11/02/16 08:31 95 Nasal Cannula 3.00 11/02/16 08:00 98.2 105 20 121/77 97 11/02/16 06:26 95 Nasal Cannula 3.00 11/02/16 04:00 98.4 108 20 125/82 97 11/02/16 03:14 95 Nasal Cannula 3.00 11/02/16 00:30 97.7 92 20 115/80 95 11/01/16 23:54 95 Nasal Cannula 3.00 11/01/16 21:15 Nasal Cannula 3.00 11/01/16 20:00 98.0 102 20 122/77 92 11/01/16 19:59 92 Nasal Cannula 3.00 11/01/16 16:00 98.8 108 22 107/73 95 11/01/16 12:00 98.7 95 20 109/72 95 11/01/16 11:48 96 Nasal Cannula 3.00 I/O 11/01/16 11/01/16 11/01/16 11/02/16 11/02/16 11/02/16 07:00 15:00 23:00 07:00 15:00 23:00 Intake Total 1931 ml 840 ml 2369 ml 1386 ml Output Total 200 ml 450 ml 250 ml 700 ml Balance 1731 ml 390 ml 2119 ml 686 ml Intake Oral 240 ml 840 ml 1180 ml 240 ml IV Total 1691 ml 1189 ml 1146 ml Output Urine Total 200 ml 450 ml 250 ml 700 ml # Bowel Movements 2 1 0 Result Diagram: 11/02/16 0547 11/02/16 0547 Imaging Last Impressions Chest X-Ray 10/26/16 0000 Signed Impressions: Service Date/Time: Wednesday, October 26, 2016 17:20 - CONCLUSION: 1. Cardiomegaly with bibasilar atelectasis and moderate effusions. This is new when compared with the prior exam. José Miguel Ritter MD Abdomen/Pelvis CT 10/25/16 0000 Signed Impressions: Service Date/Time: Wednesday, October 26, 2016 00:50 - CONCLUSION: 1. Increased fluidlike material within the abdomen and pelvis. There is scalloping of the liver margin along with thickening of the peritoneal lining. These findings suggest against the simple ascites and raise concern for infection or malignancy complicating the fluid or pseudomyxoma peritonei. 2. A stent is present within the main pancreatic duct. The partially cystic lesion adjacent to the pancreatic head is stable and of uncertain etiology. 3. 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 4. Moderate sized bilateral pleural effusions, increased from the prior exam. Jorgito Baumann MD GI Procedure 10/22/16 0000 Signed Impressions: Service Date/Time: Saturday, October 22, 2016 16:12 - CONCLUSION: ERCP as above. Yobani Bashir MD Hepatobiliary Scan Nuclear Medicine 10/21/16 0000 Signed Impressions: Service Date/Time: Friday, October 21, 2016 09:47 - CONCLUSION: Normal HIDA scan. Rodrigo Boyd Jr., MD Cyst Biopsy Asp-Paracentesis US 10/19/16 0000 Signed Impressions: Service Date/Time: Wednesday, October 19, 2016 15:20 - CONCLUSION: Uncomplicated ultrasound guided paracentesis. Kevin Felix MD FACR Chest CT 10/18/16 0000 Signed Impressions: Service Date/Time: September 12:17 - CONCLUSION: 1. Mild emphysema with new small bilateral pleural effusions with associated compressive atelectasis and consolidation at the lung bases. 2. Please refer to abdomen and pelvis CT report for description of the subdiaphragmatic findings. Jorgito Bamuann MD Abdomen X-Ray 10/18/16 0000 Signed Impressions: Service Date/Time: September 06:21 - CONCLUSION: Benign abdomen. Wei Cesar MD Cholangiopancreatography MRI 10/15/16 0000 Signed Impressions: Service Date/Time: Saturday, October 15, 2016 15:10 - CONCLUSION: Abnormal common duct 7 mm in width however distally this is blunted suggesting a luminal defect or stone. Further evaluation with ERCP is recommended. Yobani Bashir MD Objective Remarks GENERAL: NAD SKIN: Warm and dry. HEAD: Normocephalic. EYES: No scleral icterus. No injection or drainage. NECK: Supple, trachea midline. No JVD or lymphadenopathy. CARDIOVASCULAR: Regular rate and rhythm without murmurs, gallops, or rubs. RESPIRATORY: Breath sounds equal bilaterally. No accessory muscle use. Bilateral expiratory wheezes GASTROINTESTINAL: Abdomen soft, non-tender, nondistended. MUSCULOSKELETAL: No cyanosis, or edema. BACK: Nontender without obvious deformity. No CVA tenderness. Procedures ERCP with sphincterotomy 10/17/16 ERCP with sphincterotomy and pancreatic stent placement and balloon extraction 10/22/16 A/P Problem List: (1) Acute pancreatitis ICD Code: K85.9 Status: Acute (2) COPD (chronic obstructive pulmonary disease) ICD Code: J44.9 Status: Chronic Assessment and Plan 61 year-old male with Suspect sepsis: Resolved, and will discontinue Zosyn as all cultures are negative Acute on chronic pancreatitis. MRCP (10/15/16)----> Abnormal common duct 7 mm in width however distally this is blunted suggesting a luminal defect or stone. S/P Unsuccessful ERCP (10/17/16)-----> enlarged pancreatic duct with branching c/w chronic pancreatitis, no communication to pancreatic duct, the wire would not pass the distal part of the common bile duct and nor bile with Kinevac, small sphincterotomy was done. S/P ERCP with pancreatic stent placement (10/22/16) for possible pseudocyst, possible pancreatic leak----> s/p sphincterotomy, s/p stent placement.. Discontinue Zosyn as well as Solu-Cortef and continue with PPI and Creon . Appreciate input from gastroenterology - Pancreatic mass vs. Pseudocyst. Will need EUS as outpt. AFP 2.4, CEA 2.1, Ca 19-9 19.7 Bilateral hand excoriations>> resolved -Patient reports this is chronic and improving, initially secondary to bleach exposure. No signs of acute infection. NO Blistering to indicate porphyria. Hyponatremia. Resolved Hypokalemia: Will treat with potassium total 60 mEq 1 now and monitor. COPD on home O2 BL pleural effusions, continue current treatment, DuoNeb when necessary, maintain oxygen saturation above 92%. Hypokalemia and hypomagnesemia. Continue monitoring BMP, replace as needed Diarrhea: C. difficile PCR pending, if negative treat with antidiarrheal motility agent DVT prophylaxis with Lovenox Problem Qualifiers (1) Acute pancreatitis: Qualified Code: K85.90 - Acute pancreatitis without infection or necrosis, unspecified pancreatitis type Boom Garcia MD Nov 02, 2016 09:50
--- NOTE | 2016-11-02 09:56 | HHI.DS ---
Discharge Summary Admission Date Oct 13, 2016 at 12:46 Discharge Date: Nov 02, 2016 Admitting Diagnosis acute pancreatitis (1) Acute pancreatitis ICD Code: K85.90 (2) COPD (chronic obstructive pulmonary disease) ICD Code: J44.9 Procedures ERCP with sphincterotomy 10/17/16 ERCP with sphincterotomy and pancreatic stent placement and balloon extraction 10/22/16 Brief History - From Admission This is a very pleasant 60 year-old male with past medical history of pancreatitis of undetermined etiology in 2013 which was quite severe and recurrent with pseudocyst formation associated with 70 pound weight loss. At that time he had a PEG tube for nutrition. The patient states he has never gained his weight back. He does occasionally get epigastric pain consistent with chronic pancreatitis. He had such pain beginning 3 days ago. He has not had any vomiting. This morning he ate at [employer] and had has pounds and eggs. Again he has not had any vomiting. He came to the ER because he was still having the pain. He is hungry and wants to eat. Abdominal CT scan did show a mass versus pseudocyst in the pancreatic head as well as mild induration in the fat adjacent to this structure which could represent inflammation and a small amount of free fluid in the abdomen as well as severe hepatic stated ptosis with chronic occlusion of the central portal vein with. Portal collateralization. The patient admits to drinking alcohol 1-2 beers weekly. The patient also has a rash but she states used to be treated with prednisone. He states it is itchy and he scratches his skin until it bleeds. CBC/BMP: 11/02/16 0547 11/02/16 0547 Significant Findings Laboratory Tests Test 10/31/16 11/01/16 11/02/16 09:30 05:25 05:47 White Blood Count 20.2 TH/MM3 14.3 TH/MM3 13.7 TH/MM3 (4.0-11.0) (4.0-11.0) (4.0-11.0) Red Blood Count 3.30 MIL/MM3 2.97 MIL/MM3 3.03 MIL/MM3 (4.50-5.90) (4.50-5.90) (4.50-5.90) Hemoglobin 10.2 GM/DL 9.3 GM/DL 9.5 GM/DL (13.0-17.0) (13.0-17.0) (13.0-17.0) Hematocrit 30.7 % 27.6 % 28.2 % (39.0-51.0) (39.0-51.0) (39.0-51.0) Neutrophils (%) (Auto) 92.8 % 86.7 % 86.8 % (16.0-70.0) (16.0-70.0) (16.0-70.0) Lymphocytes (%) (Auto) 1.3 % 3.7 % 3.5 % (9.0-44.0) (9.0-44.0) (9.0-44.0) Neutrophils # (Auto) 18.7 TH/MM3 12.4 TH/MM3 11.9 TH/MM3 (1.8-7.7) (1.8-7.7) (1.8-7.7) Lymphocytes # (Auto) 0.3 TH/MM3 0.5 TH/MM3 0.5 TH/MM3 (1.0-4.8) (1.0-4.8) (1.0-4.8) Monocytes # (Auto) 1.1 TH/MM3 1.2 TH/MM3 1.2 TH/MM3 (0-0.9) (0-0.9) (0-0.9) Monocytes (%) (Auto) 8.5 % (0.0-8.0) 8.6 % (0.0-8.0) Prothrombin Time 11.9 SEC (9.8-11.6) Potassium Level 2.7 MEQ/L 3.1 MEQ/L (3.5-5.1) (3.5-5.1) Carbon Dioxide Level 32.5 MEQ/L (21.0-32.0) Blood Urea Nitrogen 6 MG/DL (7-18) 4 MG/DL (7-18) Creatinine 0.56 MG/DL 0.54 MG/DL (0.60-1.30) (0.60-1.30) Calcium Level 7.6 MG/DL 7.4 MG/DL (8.5-10.1) (8.5-10.1) Phosphorus Level 2.0 MG/DL (2.5-4.9) Direct Bilirubin 0.3 MG/DL (0.0-0.2) Total Protein 5.0 GM/DL 4.9 GM/DL (6.4-8.2) (6.4-8.2) Albumin 2.0 GM/DL (3.4-5.0) Imaging Last Impressions Chest X-Ray 10/26/16 0000 Signed Impressions: Service Date/Time: Wednesday, October 26, 2016 17:20 - CONCLUSION: 1. Cardiomegaly with bibasilar atelectasis and moderate effusions. This is new when compared with the prior exam. José Miguel Ritter MD Abdomen/Pelvis CT 10/25/16 0000 Signed Impressions: Service Date/Time: Wednesday, October 26, 2016 00:50 - CONCLUSION: 1. Increased fluidlike material within the abdomen and pelvis. There is scalloping of the liver margin along with thickening of the peritoneal lining. These findings suggest against the simple ascites and raise concern for infection or malignancy complicating the fluid or pseudomyxoma peritonei. 2. A stent is present within the main pancreatic duct. The partially cystic lesion adjacent to the pancreatic head is stable and of uncertain etiology. 3. 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 4. Moderate sized bilateral pleural effusions, increased from the prior exam. Jorgito Baumann MD GI Procedure 10/22/16 0000 Signed Impressions: Service Date/Time: Saturday, October 22, 2016 16:12 - CONCLUSION: ERCP as above. Yobani Bashir MD Hepatobiliary Scan Nuclear Medicine 10/21/16 0000 Signed Impressions: Service Date/Time: Friday, October 21, 2016 09:47 - CONCLUSION: Normal HIDA scan. Rodrigo Boyd Jr., MD Cyst Biopsy Asp-Paracentesis US 10/19/16 0000 Signed Impressions: Service Date/Time: Wednesday, October 19, 2016 15:20 - CONCLUSION: Uncomplicated ultrasound guided paracentesis. Kevin Felix MD FACR Chest CT 10/18/16 0000 Signed Impressions: Service Date/Time: September 12:17 - CONCLUSION: 1. Mild emphysema with new small bilateral pleural effusions with associated compressive atelectasis and consolidation at the lung bases. 2. Please refer to abdomen and pelvis CT report for description of the subdiaphragmatic findings. Jorgito Baumann MD Abdomen X-Ray 10/18/16 0000 Signed Impressions: Service Date/Time: September 06:21 - CONCLUSION: Benign abdomen. Wei Cesar MD Cholangiopancreatography MRI 10/15/16 0000 Signed Impressions: Service Date/Time: Saturday, October 15, 2016 15:10 - CONCLUSION: Abnormal common duct 7 mm in width however distally this is blunted suggesting a luminal defect or stone. Further evaluation with ERCP is recommended. Yobani Bashir MD PE at Discharge GENERAL: NAD SKIN: Warm and dry. HEAD: Normocephalic. EYES: No scleral icterus. No injection or drainage. NECK: Supple, trachea midline. No JVD or lymphadenopathy. CARDIOVASCULAR: Regular rate and rhythm without murmurs, gallops, or rubs. RESPIRATORY: Breath sounds equal bilaterally. No accessory muscle use. Bilateral expiratory wheezes GASTROINTESTINAL: Abdomen soft, non-tender, nondistended. MUSCULOSKELETAL: No cyanosis, or edema. BACK: Nontender without obvious deformity. No CVA tenderness. Hospital Course Suspect sepsis for which patient was treated with antibiotic and cultures were monitored and resulted negative Acute on chronic pancreatitis. MRCP (10/15/16)----> Abnormal common duct 7 mm in width however distally this is blunted suggesting a luminal defect or stone. S/P Unsuccessful ERCP (10/17/16)-----> enlarged pancreatic duct with branching c/w chronic pancreatitis, no communication to pancreatic duct, the wire would not pass the distal part of the common bile duct and nor bile with Kinevac, small sphincterotomy was done. S/P ERCP with pancreatic stent placement (10/22/16) for possible pseudocyst, possible pancreatic leak----> s/p sphincterotomy, s/p stent placement. Patient was initially nothing by mouth, then started on tube feeds which was subsequently switched to by mouth which patient tolerated prior to discharge. He was treated with antibiotic as well as Solu-Cortef and PPI and Creon . Appreciate input from gastroenterology - Pancreatic mass vs. Pseudocyst. Will need EUS as outpt. AFP 2.4, CEA 2.1, Ca 19-9 19.7 Bilateral hand excoriations>> resolved All electrolyte abnormality were corrected accordingly including hypokalemia and hyponatremia COPD on home O2 BL pleural effusions, he was treated with DuoNeb when necessary, maintain oxygen saturation above 92%. DVT prophylaxis with Lovenox Pt Condition on Discharge: Fair Discharge Disposition: Discharge Home Discharge Time: <= 30 minutes Discharge Instructions DIET: Follow Instructions for: Heart Healthy Diet Follow up Referrals: Gastroenterology - 2 Weeks PCP Follow-up - 1 Week New Medications: Ipratropium HFA 12.9 GM Inh (Atrovent HFA 12.9 GM Inh) 17 Mcg/Act Aer 2 PUFF INH QID Breathing Treatment #1 Ref 7 INHALER Pantoprazole (Protonix) 40 Mg Tab 40 MG PO DAILY Reflux #30 Ref 0 TAB Pancrelipase (Creon) 24,000-76,000-120,000 Units Cap 2 CAP PO TID Control Inflammation #120 Ref 3 CAP Thiamine (Vitamin B-1) 100 Mg Tab 100 MG PO DAILY Alcohol Detox #30 TAB Continued Medications: Albuterol Neb (Albuterol Neb) 0.63 Mg/3 Ml Neb 0.63 MG NEB Q4HR NEB PRN SHORTNESS OF BREATH #25 Ref 0 NEBULE ([O2]) 2 LITER INH DIRECTED Boom Garcia MD Nov 02, 2016 09:56
[2016-11-02] MEDS ORDERED: CREON24 PO (09:58)
[2016-11-02] MEDS ORDERED: IPRA17I INH (09:58)
[2016-11-02] MEDS ORDERED: PROT40TA PO (09:58)
[2016-11-02] MEDS ORDERED: VITA100T2 PO (09:58)
[2016-11-02] MEDS ORDERED: POTASSIUM CHLORIDE 20 MEQ CONTROLLED RELEASE TAB PO ONE (10:00)
== END 2016-11-02 12:07 | disposition home or self-care (01) | DRG 438 ==
LOC: PHED 10:09 → PHEDA 12:46 → PH3A 14:21 → HOCA 10-16 14:26 → HIMN 10-18 09:09 → N04B 10-19 13:29
PROVIDERS: ADMIT Family Medicine; ATTEND Hospitalist
PROC: 0F798ZZ Dilation of Common Bile Duct, Via Natural or Artificial Opening Endoscopic (ICD-10-PCS; 2016-10-17)
PROC: BF111ZZ Fluoroscopy of Biliary and Pancreatic Ducts using Low Osmolar Contrast (ICD-10-PCS; 2016-10-17)
PROC: 0W9G3ZZ Drainage of Peritoneal Cavity, Percutaneous Approach (ICD-10-PCS; 2016-10-19)
PROC: BF111ZZ Fluoroscopy of Biliary and Pancreatic Ducts using Low Osmolar Contrast (ICD-10-PCS; 2016-10-22)
PROC: 0F7D8DZ Dilation of Pancreatic Duct with Intraluminal Device, Via Natural or Artificial Opening Endoscopic (ICD-10-PCS; principal; 2016-10-22 15:35)
DX: K85.90 Acute pancreatitis without necrosis or infection, unspecified (principal); A41.9 Sepsis, unspecified organism; R65.20 Severe sepsis without septic shock; I81 Portal vein thrombosis; J69.0 Pneumonitis due to inhalation of food and vomit; J90 Pleural effusion, not elsewhere classified; K65.2 Spontaneous bacterial peritonitis; I42.9 Cardiomyopathy, unspecified; K86.3 Pseudocyst of pancreas; E87.1 Hypo-osmolality and hyponatremia; R18.8 Other ascites; J98.11 Atelectasis; Z99.81 Dependence on supplemental oxygen; K86.1 Other chronic pancreatitis; L98.8 Other specified disorders of the skin and subcutaneous tissue; R21 Rash and other nonspecific skin eruption; R19.7 Diarrhea, unspecified; J43.9 Emphysema, unspecified; K86.89 Other specified diseases of pancreas; E83.42 Hypomagnesemia; E87.6 Hypokalemia; K76.0 Fatty (change of) liver, not elsewhere classified; L29.9 Pruritus, unspecified; R63.4 Abnormal weight loss; Z68.21 Body mass index [BMI] 21.0-21.9, adult; F17.210 Nicotine dependence, cigarettes, uncomplicated
CPT/HCPCS: 36600; 49083; 71010; 71260; 74000; 74177; 74183; 74330; 76000; 76377; 78227; 80048; 80053; 80076; 81001; 82042; 82105; 82150; 82378; 82550; 82805; 82948; 83605; 83690; 83735; 84100; 84132; 84155; 84157; 84484; 85025; 85027; 85610; 86301; 87040; 87070; 87205; 87641; 89051; 93005; 93306; 94150; 94640; 94664; 94667; 94668; 96361; 96374; A9537; A9579; C1729; C1769; C2625; C9113; J0696; J1170; J1610; J1650; J1720; J1885; J2405; J2543; J2805; J2930; J3010; J3370; J3411; J3475; J3480; J7030; J7050; J7512; J7613; J7644; P9047; Q0169; Q9963; Q9967

== ENCOUNTER 2018-08-30 14:41 | Inpatient (IN) ==
[2018-08-30] MEDS ORDERED: Tetanus/Diphtheria Toxoid Adult Vaccine Inj 0.5 ML Vial IM ONE (14:55)
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
[2018-08-30] MEDS ORDERED: Sodium Chlor 0.9% Inj 500 ML IV.SIG SCH (15:00)
[2018-08-30 15:12] LABS: Baso % (Auto) 0.4 % (0.0-2.0); Eos # (Auto) 0.6 th/mm3 (0.0-0.4); Eos % (Auto) 9.5 % (0.0-4.0); Hematocrit 45.3 % (39.0-51.0); Hemoglobin 15.7 gm/dL (13.0-17.0); Lymph # (Auto) 1.2 th/mm3 (1.0-4.8); Lymph % (Auto) 18.6 % (9.0-44.0); Mean Corpuscular HGB Conc 34.6 % (32.0-36.0); Mean Corpuscular Hemoglobin 33.8 pg (27.0-34.0); Mean Corpuscular Volume 97.9 fL (80.0-100.0); Mean Platelet Volume 7.9 fL (7.0-11.0); Mono # (Auto) 0.4 th/mm3 (0.0-0.9); Mono % (Auto) 5.3 % (0.0-8.0); Neut # (Auto) 4.4 th/mm3 (1.8-7.7); Neut % (Auto) 66.2 % (16.0-70.0); Platelet Count 254 th/mm3 (150-450); Red Blood Count 4.63 mil/mm3 (4.50-5.90); Red Cell Distribution Width 15.3 % (11.6-17.2); White Blood Count 6.6 th/mm3 (4.0-11.0)
--- NOTE | 2018-08-30 15:24 | XR ---
EXAM DATE: 08/30/2018 3:19 PM EST AGE/SEX: 62 years / Male INDICATIONS: Pain from fall on posterior side of elbow. CLINICAL DATA: This is the patient's initial encounter. Patient reports that signs and symptoms have been present for 1 day and indicates a pain score of 5/10. MEDICAL/SURGICAL HISTORY: None. None. COMPARISON: [facility] – [place], CHEST SINGLE AP, 10/26/2016. [facility] – [place], CHEST SINGLE AP, 10/18/2016. . FINDINGS: Rotated portable AP views of the chest demonstrate a normal-sized cardiac silhouette. No pleural effu angy, airspace consolidation, or pneumothorax is identified. There is a possible nodule at the left l aureliano base measuring approximately 9 mm. This finding was not identified on the prior 2 chest x-rays an d not reported on prior CT report from 03/21/2014. The bones and soft tissues demonstrate no acute fin ding. CONCLUSION: 1. No acute cardiopulmonary abnormality is identified. 2. Possible 9 mm pulmonary nodule in the left lung base. Suggest noncontrast chest CT on an outpatie nt elective basis for further evaluation. Electronically signed by: Jorgito Baumann MD 08/30/2018 3:22 PM EST
[2018-08-30 15:26] LABS: Calcium 7.8 mg/dL (8.5-10.1); Carbon Dioxide 16.3 meq/L (21.0-32.0); Potassium 4.3 meq/L (3.5-5.1)
--- NOTE | 2018-08-30 15:26 | XR ---
EXAM DATE: 08/30/2018 3:21 PM EST AGE/SEX: 62 years / Male INDICATIONS: Pain in posterior side of elbow from fall. CLINICAL DATA: This is the patient's initial encounter. Patient reports that signs and symptoms have been present for 1 day and indicates a pain score of 5/10. MEDICAL/SURGICAL HISTORY: None. None. COMPARISON: No prior exams available for comparison. FINDINGS: 4 views of the left elbow demonstrate no fracture or dislocation. There is a small osteophyte on the coronary process and enthesophyte on the olecranon. No joint effusion is identified. There is no soft tissue abnormality or radiopaque foreign body identified. CONCLUSION: No acute left elbow abnormality is identified. Electronically signed by: Jorgito Baumann MD 08/30/2018 3:25 PM EST
--- NOTE | 2018-08-30 15:32 | XR ---
EXAM DATE: 08/30/2018 3:23 PM EST AGE/SEX: 62 years / Male INDICATIONS: Pain from fall on left side. CLINICAL DATA: This is the patient's initial encounter. Patient reports that signs and symptoms have been present for 1 day and indicates a pain score of 10/10. MEDICAL/SURGICAL HISTORY: None. None. COMPARISON: [facility] – [place] ABDOMEN & PELVIS W CONTRAST, 10/26/2016. . FINDINGS: AP view of the pelvis with 2 views of the left hip joint demonstrate a displaced comminuted fracture of the left proximal femur in the intertrochanteric region. Lesser trochanter fragment is displaced m edially by 7 mm. There is mild lateral apical angulation of the fracture. Femoral head is intact. Rem aining visualized pelvic bones demonstrate no acute finding. There is no significant soft tissue abno rmality or radiopaque foreign body. CONCLUSION: Displaced comminuted left proximal femoral intertrochanteric fracture. Electronically signed by: Jorgito Baumann MD 08/30/2018 3:31 PM EST
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
[2018-08-30 16:05] LABS: Activated Partial Thrombo Time 24.8 sec (23.4-31.7)
[2018-08-30] MEDS ORDERED: Morphine Sulfate Inj 2 MG/ML Vial IV.PUSH ONE (16:15)
[2018-08-30] MEDS ORDERED: Bisacodyl 10 MG Supp RECTAL PRN (17:57)
[2018-08-30] MEDS ORDERED: LORazepam 1 MG Tablet PO PRN (18:02)
[2018-08-30] MEDS ORDERED: Haloperidol Inj 5 MG/ML Ampul IV.PUSH PRN (18:02)
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
[2018-08-30] MEDS ORDERED: Naloxone Inj 0.4 MG/ML Vial IV.PUSH PRN (18:32)
[2018-08-30] MEDS: Sod Chloride 0.9% Inj 1,000 ML IV.CONT SCH (18:33)
[2018-08-30] MEDS ORDERED: Thiamine Inj 100 MG in Sodium Chlor 0.9% Inj 100 ML IV.SIG ONE (19:00)
[2018-08-30] MEDS: Senna/Docusate Sodium 8.6/50 MG Tablet PO SCH (20:10)
[2018-08-30] MEDS: Morphine Inj 4 MG/ML Vial IV.PUSH PRN (22:58)
[2018-08-31] MEDS: Morphine Inj 4 MG/ML Vial IV.PUSH PRN ×5 (02:24→20:01)
[2018-08-31] MEDS: Sod Chloride 0.9% Inj 1,000 ML IV.CONT SCH ×3 (05:29→22:07)
[2018-08-31 06:25] LABS: Anion Gap 8 meq/L (5-15); Blood Urea Nitrogen 11 mg/dL (7-18); Calcium 7.7 mg/dL (8.5-10.1); Carbon Dioxide 23.8 meq/L (21.0-32.0); Chloride 106 meq/L (98-107); Glomerular Filtration Rate Greater Than 89 mL/min (>89); Glucose,Random 83 mg/dL (74-106); Magnesium 1.8 mg/dL (1.5-2.5); Phosphorus 3.5 mg/dL (2.5-4.9); Potassium 4.8 meq/L (3.5-5.1); Sodium 138 meq/L (136-145)
[2018-08-31] MEDS ORDERED: ceFAZolin 1 GM Premix Inj 2 GM/100 ML PIGGYBACK IV.SIG ONE (08:15)
--- NOTE | 2018-08-31 09:53 | ECG ---
Date Performed: 08/30/2018 Time Performed: 14:54:37 PTAGE: 62 years EKG: Sinus rhythm POSSIBLE LEFT ATRIAL ENLARGEMENT LOW QRS VOLTAGE IN PRECORDIAL LEADS LEFT ANTERIOR FASCICULAR BLOCK ABNORMAL ECG Since PREVIOUS TRACING , no significant change noted PREVIOUS TRACIN10/15/2016 17.07 DOCTOR: Luis Perez Interpretating Date/Time 08/31/2018 09:53:26
[2018-08-31] MEDS: Senna/Docusate Sodium 8.6/50 MG Tablet PO SCH ×2 (09:59→20:01)
[2018-08-31] MEDS: Multivitamin/Minerals Therapeutic Tablet PO SCH (09:59)
[2018-08-31] MEDS: Folic Acid 1 MG Tablet PO SCH (09:59)
[2018-08-31] MEDS ORDERED: Post-op Orders (for Pharmacy) OTHER STA (11:42)
[2018-08-31] MEDS ORDERED: fentaNYL Citrate Inj 100 MCG/2 ML Ampul ONE (11:46)
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
--- NOTE | 2018-08-31 11:59 | P.OP ---
- Preoperative Diagnosis (1) Closed intertrochanteric fracture of left hip - Postoperative Diagnosis (1) Closed intertrochanteric fracture of left hip Date of procedure: 08/31/18 Procedure: Left hip open reduction internal fixation Implants: Synthes TFN Anesthesia: GETA Surgeon: Abdullahi Oliver MD Sales And Events Coordinator: Keshawn Mayer Estimated blood loss (mL): 20 Operation and Findings: The patient was brought to the operating room. IV antibiotics were given. Timeout was completed. Fluoroscopy was used to evaluate the left hip. Traction and manipulation of the hip improve the overall bony alignment. Incision weight was made superior to the trochanter. A guidepin directed to the tip of the trochanter down the shaft in good position AP and lateral plane. This was overreamed. We then proceeded to place 11 mm pillo in position. We used the outrigger device with a second incision for placement of our guidepin then over reaming and then placement of our flange nail in good position in the AP and lateral plane radiographically. We then proceeded with placement of a distal locking screw. Final copy AP and lateral shows a final result. We irrigated out with copious amounts of irrigation closed with absorbable suture pradeep in the skin Xeroform applied sterile dressing applied patient was awoken and returned to recovery room in stable condition. The certified surgical tech/first assistant is advanced registered nurse practitioner. His skill set was medically necessary for the performance of the operation.
[2018-08-31] MEDS ORDERED: ceFAZolin Inj 2,000 MG in Sodium Chlor 0.9% Inj 80 ML IV.SIG SCH (12:00)
[2018-08-31] MEDS ORDERED: *morphine SULFATE 10 MG/ML PERIprocedure ONLY ONE ×2 (12:03→12:20)
[2018-08-31] MEDS: ceFAZolin 2 GM Premix Inj 2 GM/50 ML PIGGYBACK IV.SIG SCH ×2 (13:35→16:14)
--- NOTE | 2018-08-31 15:57 | XR ---
EXAM DATE: 08/31/2018 3:50 PM EST AGE/SEX: 62 years / Male INDICATIONS: Post hardware placement left hip CLINICAL DATA: This is the patient's subsequent encounter. Patient reports that signs and symptoms h ave been present for 2 days and indicates a pain score of Nonresponsive. MEDICAL/SURGICAL HISTORY: None. None. COMPARISON: [facility] [place] W AP PELVIS 2V, 08/30/2018. . FINDINGS: There is an short intramedullary pillo and a helical blade seen at the proximal left femur successfully reducing the previously seen fracture. The hardware is well placed. The left hip joint is normally a ligned. CONCLUSION: Successful ORIF. Electronically signed by: Jorgito Valle MD 08/31/2018 3:56 PM EST
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
[2018-09-01] MEDS: ceFAZolin 2 GM Premix Inj 2 GM/50 ML PIGGYBACK IV.SIG SCH ×2 (00:10→06:20)
[2018-09-01] MEDS: Sod Chloride 0.9% Inj 1,000 ML IV.CONT SCH ×3 (02:37→21:01)
[2018-09-01] MEDS: Morphine Inj 4 MG/ML Vial IV.PUSH PRN ×4 (04:23→21:01)
[2018-09-01 05:30] LABS: Hematocrit 28.6 % (39.0-51.0); Hemoglobin 10.2 gm/dL (13.0-17.0)
[2018-09-01] MEDS: Folic Acid 1 MG Tablet PO SCH (09:12)
[2018-09-01] MEDS: Senna/Docusate Sodium 8.6/50 MG Tablet PO SCH ×2 (09:14→21:01)
[2018-09-01] MEDS: Multivitamin/Minerals Therapeutic Tablet PO SCH (09:14)
--- NOTE | 2018-09-01 09:21 | P.PNOP ---
Subjective Interval history: Patient comfortable. Pain controlled. He states he is ready for discharge if he can find transportation. Physical Exam Vital signs: Vital Signs 08/31/18 11:40 08/31/18 12:00 08/31/18 12:15 Temperature 97.5 F L Pulse Rate 99 H 116 H 108 H Respiratory Rate 13 16 16 Blood Pressure 102/61 104/59 L 101/67 Pulse Oximetry 100 100 99 08/31/18 12:30 08/31/18 13:30 08/31/18 16:35 Temperature 97.7 F 97.5 F L Pulse Rate 99 H 104 H 102 H Respiratory Rate 10 L 12 19 Blood Pressure 92/61 L 93/59 L Pulse Oximetry 98 94 L 08/31/18 17:00 08/31/18 19:20 08/31/18 20:00 Temperature 97.9 F 97.8 F Pulse Rate 114 H 98 H 88 Respiratory Rate 14 18 Blood Pressure 116/66 96/53 L Pulse Oximetry 93 L 93 L 08/31/18 20:03 08/31/18 23:50 09/01/18 04:15 Temperature 97.6 F 97.7 F Pulse Rate 100 H 93 H 89 Respiratory Rate 16 18 18 Blood Pressure 90/54 L 96/54 L Pulse Oximetry 94 L 94 L 92 L 09/01/18 05:35 09/01/18 05:36 09/01/18 08:00 Temperature 97.8 F Pulse Rate 92 H 78 83 Respiratory Rate 18 Blood Pressure 102/58 L Pulse Oximetry 93 L 09/01/18 08:20 09/01/18 08:21 Temperature Pulse Rate 86 Respiratory Rate 18 Blood Pressure Pulse Oximetry 92 L Intake & Output 08/31/18 09/01/18 09/01/18 18:59 06:59 18:59 Intake Total 2029 / 2029 1150 / 1150 Output Total 520 / 520 600 / 600 Balance 1510 / 1510 550 / 550 Weight 66 kg Intake: IV 1150 / 1150 1050 / 1050 NS Inj 1,000 ML @ 100 mls/hr IV 1000 / 1000 1000 / 1000 .CONT .Q10H [facility] Rx#:[id number] Ancef 1 GM Premix Inj 2 gm In 100 / 100 100 ml @ 0 mls/hr IV.SIG .STK- MED ONE Rx#:[id number] Ancef 2 GM Premix Inj 2 gm In 50 / 50 50 / 50 50 ml @ 100 mls/hr IV.SIG Q8H [facility] Rx#:[id number] Oral 480 / 480 100 / 100 Anesthesia Amount 400 / 400 Output: Urine 500 / 500 600 / 600 Estimated Blood Loss Other: Date of Last Bowel Movement 08/30/18 08/30/18 # Bowel Movements 0 Narrative: Left hip dressings C/D/I calves soft negative Homans NVI Results - Labs CBC & Chem 7: 09/01/18 04:25 08/31/18 05:46 Laboratory Results - last 24 hr 09/01/18 04:25 Hgb 10.2 L D Hct 28.6 L - Imaging Impressions Hip X-Ray 08/31/18 00:00 CONCLUSION: Successful ORIF. Assessment and Plan - Problem List (1) Closed intertrochanteric fracture of left hip Code(s): S72.142A - Displaced intertrochanteric fracture of left femur, initial encounter for closed fracture Status: Acute Qualifiers: Encounter type: initial encounter Fracture alignment: displaced Qualified Code(s): S72.142A - Displaced intertrochanteric fracture of left femur , initial encounter for closed fracture - Assessment and Plan POD #1 ORIF Left Hip Pain management - Percocet DVT Prophylaxis - Lovenox Physical therapy - weight bearing as tolerated Patient will need to participate with PT before discharge Orthopedically stable for discharge. Will need medical clearance. F/U in [address] Oliver or GILDA in office
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
[2018-09-01] MEDS: Enoxaparin Inj 40 MG/0.4 ML Syringe SQ SCH (11:59)
--- NOTE | 2018-09-01 15:38 | P.DCO ---
- Physical Therapy Order: Evaluate and treat, Improve ambulation, Strength and gait training - Occupational Therapy Order: Evaluate and treat, Improve ADL, Gross motor coordination, Fine motor coordination - Case Management Consult Case Management Consult-Home Health: Yes - Certification I have seen patient José Miguel Nathan on 09/01/18. My clinical findings support the need for the requested home health care services because: Limited mobility due to disease progression, High risk of falls I certify that my clinical findings support that this patient is homebound because: Post-op weakness, Unsteady gait/balance
[2018-09-02] MEDS: Morphine Inj 4 MG/ML Vial IV.PUSH PRN ×2 (01:10→05:31)
[2018-09-02] MEDS: Sod Chloride 0.9% Inj 1,000 ML IV.CONT SCH ×2 (05:31→19:56)
[2018-09-02 05:38] LABS: Hematocrit 24.8 % (39.0-51.0); Hemoglobin 8.6 gm/dL (13.0-17.0)
[2018-09-02] MEDS: Enoxaparin Inj 40 MG/0.4 ML Syringe SQ SCH (08:30)
[2018-09-02] MEDS: Folic Acid 1 MG Tablet PO SCH (08:30)
[2018-09-02] MEDS: Multivitamin/Minerals Therapeutic Tablet PO SCH (08:30)
[2018-09-02] MEDS: Senna/Docusate Sodium 8.6/50 MG Tablet PO SCH (08:30)
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
[2018-09-02] MEDS: Acetaminophen 325 MG Tablet PO PRN ×2 (21:13→22:30)
[2018-09-03 05:11] LABS: Hematocrit 24.3 % (39.0-51.0); Hemoglobin 8.5 gm/dL (13.0-17.0)
[2018-09-03 05:34] LABS: Anion Gap 6 meq/L (5-15); Blood Urea Nitrogen 5 mg/dL (7-18); Calcium 7.3 mg/dL (8.5-10.1); Carbon Dioxide 29.5 meq/L (21.0-32.0); Chloride 106 meq/L (98-107); Glomerular Filtration Rate Greater Than 89 mL/min (>89); Glucose,Random 79 mg/dL (74-106); Potassium 3.8 meq/L (3.5-5.1); Sodium 141 meq/L (136-145)
[2018-09-03 05:42] LABS: Albumin 2.2 g/dL (3.4-5.0); Calcium-Albumin Corrected 8.7 mg/dL (8.5-10.1)
[2018-09-03] MEDS: Senna/Docusate Sodium 8.6/50 MG Tablet PO SCH ×3 (08:26→20:24)
[2018-09-03] MEDS: Folic Acid 1 MG Tablet PO SCH (08:26)
[2018-09-03] MEDS: Multivitamin/Minerals Therapeutic Tablet PO SCH (08:27)
[2018-09-03] MEDS: Enoxaparin Inj 40 MG/0.4 ML Syringe SQ SCH (08:27)
[2018-09-03] MEDS: Sod Chloride 0.9% Inj 1,000 ML IV.CONT SCH ×2 (09:34→14:16)
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
[2018-09-03] MEDS: Acetaminophen 325 MG Tablet PO PRN (11:01)
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
[2018-09-03 20:38] VITALS: BP 113/63; PULSE 89; RESP 18; TEMP 97.8; O2SAT 95
[2018-09-04] MEDS ORDERED: Calcium/Vitamin D 250/125 MG Tablet PO SCH (09:00)
== END 2018-09-03 20:35 | disposition home health service (06) ==
LOC: NEPE 14:41 → NEDA 16:51 → N06 19:13
PROVIDERS: ADMIT Internal Medicine; ATTEND Internal Medicine